=== PATIENT | male | born 1940 | race Caucasian/White ===

== ENCOUNTER 2023-06-27 17:14 | Inpatient (IN) ==
[2023-06-27] MEDS ORDERED: SODIUM CHLORIDE 0.9% 500 ML IV STA ×2 (17:21→17:33)
--- NOTE | 2023-06-27 17:21 | ED Triage Note ---
Date of Service June 27, 2023 History of Present Illness This patient was briefly evaluated while in triage. An abbreviated physical exam was performed. This patient is a 83-year-old Male who presents to the ED for evaluation of atrial fibrillation with RVR. Pt. was at PCP office and states HR was 140 with a-fib. Pt. takes ASA 81mg. Pt. denies chest pain, SOB, lightheadedness, dizziness. Has had palpitations. At PCP because ankles were swollen. Physical Exam VITALS: Vitals are noted on the nurse's note and reviewed by myself. GENERAL: This is an 83 year old male, in no acute distress, nondiaphoretic, well-developed well-nourished. SKIN: No obvious rashes, edema, erythema HEAD: Normocephalic atraumatic. EYES: Conjunctivae without injection, sclerae without icterus. NECK: No JVD. LUNGS: No retractions or accessory muscle use. MUSCULOSKELETAL: Normal gait. NEURO: Patient was alert and oriented to person place and time. No focal neurological deficits. Initial orders for labs and / or imaging were placed and patient was placed in the waiting area until a bed is available. Please see further documentation for the full ED course. MDM / Impression Impression Impression: Atrial fibrillation with rapid ventricular response, Edema, peripheral
[2023-06-27] MEDS ORDERED: MAGNESIUM SULFATE / D5W 1 GM/100 ML BAG IV STA (17:33)
[2023-06-27] MEDS ORDERED: METOPROLOL TARTRATE 1 MG/ML VIAL IV STA ×2 (17:50→18:26)
--- NOTE | 2023-06-27 18:02 | Emergency Department Note ---
Impression & Plan Atrial fibrillation with rapid ventricular response, Edema, peripheral ED Provider Note NAME: YANY CHRISTIANSON AGE: 83 SEX: M : 1940 ARRIVES VIA: Walk-In INFORMANT: Patient, ED PROVIDER(S): Kunal Cook DO CHIEF COMPLAINT: Palpitations HPI: The patient is an 83-year-old male who presented to the emergency department for an evaluation of palpitations. The patient has been having problems with fluid retention leg swelling and weakness over the course of the last few weeks. He denies having any chest pain he has had some shortness of breath with exertion. He went to see his family doctor today and was noted to be in atrial fibrillation. He was referred to the emergency department. He has no history of atrial fibrillation. He states he has no problems with his thyroid as far as he knows. He denies having any fevers. He denies having any coughing. ROS: See above HPI for pertinent positives & negatives. A total of 10 systems reviewed and were otherwise negative. PAST MEDICAL HISTORY: See Below PAST SURGICAL HISTORY: See Below FAMILY HISTORY: See Below SOCIAL HISTORY: See Below HOME MEDICATIONS: See Below ALLERGIES: See Below VITALS: See Below PHYSICAL EXAMINATION: GENERAL: Patient is awake alert in no acute distress patient is resting comfortably and showing no signs of anxiety EYES: The conjunctivae are clear. The pupils are round and reactive. EARS, NOSE, MOUTH AND THROAT: The nose is without any evidence of any deformity. Mucous membranes are moist. Tongue is midline. NECK: The neck is nontender and supple. RESPIRATORY: Normal respiratory effort is noted there is no evidence of wheezing rhonchi or rales CARDIOVASCULAR: Irregular heart sounds were noted to auscultation. There is no definite murmur. Tachycardic rate was noted. GASTROINTESTINAL: The abdomen is soft. Abdomen is nontender. MUSCULOSKELETAL/EXTREMITIES: There is no evidence of gross deformity full range of motion is noted in the hips and shoulders. SKIN: Skin was warm and dry. Pedal edema was noted bilaterally. NEUROLOGIC: Patient is awake alert and oriented x3. MEDICAL DECISION MAKING: The patient is an 83-year-old male who presented to the emergency department for an evaluation of palpitations. The patient was noted to be in atrial fibrillation by his primary care physician. He was sent to the emergency department for further evaluation. He has no history of atrial fibrillation. His previous EKG in our system with sinus rhythm with PACs. I discussed the patient's laboratory and radiographic studies with him. I discussed the diagnosis of atrial fibrillation with him. Ultimately the patient was treated with IV fluids as well as IV Lopressor and IV Cardizem. His rate had improved but his rhythm continues to be A-fib with RVR. For this reason I discussed his condition [facility] They have agreed to evaluate the patient in the emergency department for further management and disposition. The patient was also treated with IV magnesium. Triage Nursing notes reviewed. Prior medical records reviewed Vital Signs: reviewed and remarkable for tachycardia. Differential diagnosis: Premature contractions, electrolyte abnormality, cardiac dysrhythmia, thyroid dysfunction, pulmonary embolism, infection, gastrointestinal, as well as other pathologies. ER treatment provided: See below Diagnostics interpreted by me: ECG: EKG was obtained in the emergency department. My interpretation is atrial fibrillation at [address] segment abnormalities were noted. Low voltage was noted throughout. This was compared to a tracing from May 25, 2023. Sinus rhythm has been replaced with atrial fibrillation compared to the earlier tracing. Cardiac Monitoring: An order was placed for continuous cardiac monitoring. The monitor shows a rate of 110 bpm with A-fib with RVR. Laboratory studies: As stated above and show below. Imaging studies: See below. Radiographic imaging was reviewed by myself Consultation(s): I discussed this case with Dr. Tierney who is [facility]. ED COURSE: Procedures: none Critical Care: I have personally spent greater than 45 minutes of critical care time in the direct management of this patient. This includes bedside care, interpretation of diagnostic studies, and testing, discussion with consultants, patient, and family members, and other required patient management activities. This 45 minutes is in excess of all separately billable procedures. Past Med/Surg History Medical History Acute duodenitis Diabetes High cholesterol Hypertension Social History Smoking Status: Never smoker Preferred Language: Amharic Feels Safe at Home: Yes Results & Data (ED) Vital Signs Vital Signs - 24 hr 06/27/23 17:19 06/27/23 17:39 06/27/23 17:47 Temperature 36.6 C Temperature Source Temporal Artery Scan Pulse Rate 132 H 128 H Pulse Rate [Apical] 145 H Respiratory Rate 18 18 Respiratory Effort / Characteristics Non-Labored Non-Labored Spontaneous Respiratory Depth Normal Normal Respiratory Pattern Regular Blood Pressure 99/56 L Blood Pressure [Right Arm] 128/91 Blood Pressure Mean 70 Blood Pressure Mean [Right Arm] 103 Blood Pressure Position [Right Arm] Lying Pulse Oximetry 95 97 Oxygen Delivery Method Room Air Sepsis New/Unexplained Change in Mental Status N/A Sepsis Action Taken by Nursing Adv Provider Notified 06/27/23 18:00 06/27/23 18:20 06/27/23 18:35 Temperature Temperature Source Pulse Rate 144 H 133 H Pulse Rate [Apical] 139 H Respiratory Rate 18 Respiratory Effort / Characteristics Non-Labored Spontaneous Respiratory Depth Normal Respiratory Pattern Regular Blood Pressure 128/91 106/82 Blood Pressure [Right Arm] 116/79 Blood Pressure Mean Blood Pressure Mean [Right Arm] 91 Blood Pressure Position [Right Arm] Lying Pulse Oximetry 97 Oxygen Delivery Method Room Air Sepsis New/Unexplained Change in Mental Status Sepsis Action Taken by Nursing 06/27/23 18:40 06/27/23 19:06 Temperature Temperature Source Pulse Rate 133 H 121 H Pulse Rate [Apical] Respiratory Rate Respiratory Effort / Characteristics Respiratory Depth Respiratory Pattern Blood Pressure 111/77 Blood Pressure [Right Arm] Blood Pressure Mean Blood Pressure Mean [Right Arm] Blood Pressure Position [Right Arm] Pulse Oximetry Oxygen Delivery Method Sepsis New/Unexplained Change in Mental Status Sepsis Action Taken by Shelter Medications Current Medication List: was personally reviewed by me Laboratory Data Attestation: I reviewed the patient's lab results. 06/27/23 17:40 06/27/23 17:40 Lab Results 06/27/23 06/27/23 06/27/23 Range/Units 17:40 17:40 17:40 WBC 10.87 H (4.8-10.8) K/ul RBC 4.98 (4.70-6.10) M/uL Hgb 14.9 (14.0-18.0) g/dl Hct 44.1 (42.0-52.0) % MCV 88.6 (80.0-100.0) fL MCH 29.9 (25.0-34.0) pg MCHC 33.8 (32.0-36.0) g/dL RDW Std Deviation 53.2 H (36.4-46.3) fL RDW Coeff of Ezekiel 16.7 H (11.5-14.5) % Plt Count 221 (130-400) K/uL MPV 10.2 (9.4-12.4) fL Immature Gran % (Auto) 1.4 % Neut % (Auto) 71.6 % Lymph % (Auto) 15.6 % Ness % (Auto) 9.8 % Eos % (Auto) 1.0 % Baso % (Auto) 0.6 % Neut # (Auto) 7.78 H (1.40-6.50) K/uL Lymph # (Auto) 1.70 (1.20-3.40) K/uL Ness # (Auto) 1.07 H (0.11-0.59) K/uL Eos # (Auto) 0.11 (0.00-0.50) K/uL Baso # (Auto) 0.06 (0.00-0.20) K/uL Immature Gran # (Auto) 0.15 (0.01-0.20) K/uL PT 11.5 (9.0-12.0) Seconds INR 1.1 (0.9-1.1) APTT 25.1 (21.0-31.0) Seconds PTT Ratio 0.9 Sodium 144 (136-145) mmol/L Potassium 4.1 (3.5-5.1) mmol/L Chloride 108 H (98-107) mmol/L Carbon Dioxide 26 (21-32) mmol/L Anion Gap 10 (3-11) BUN 21 (6-23) mg/dl Creatinine 1.17 (0.6-1.4) mg/dl Est Cr Clr Drug Dosing 62.3 ml/min Est GFR ( Amer) 65.5 ml/min Est GFR (Non-Af Amer) 56.5 ml/min BUN/Creatinine Ratio 17.9 (10-20) Glucose 126 H (70-99(Fasting)) mg/dl Calcium 9.2 (8.6-10.3) mg/dl Magnesium 1.8 (1.7-2.4) mg/dl Total Bilirubin 1.2 H (0.2-1.0) mg/dl AST 21 (13-39) U/L ALT 40 (7-52) U/L Alkaline Phosphatase 77 (34-104) U/L Troponin I High Sens 5.9 (0-20) pg/ml Total Protein 6.6 (6.0-8.3) gm/dl Albumin 3.8 (3.4-5.0) gm/dl Globulin 2.8 (2.5-4.0) gm/dl Albumin/Globulin Ratio 1.4 (0.9-2) TSH (0.300-4.500) uIu/ml Free T4 (0.61-1.60) ng/dl Lyme Disease IgG Ab (Negative) Lyme Disease IgM Ab (Negative) 06/27/23 06/27/23 Range/Units 17:40 17:40 WBC (4.8-10.8) K/ul RBC (4.70-6.10) M/uL Hgb (14.0-18.0) g/dl Hct (42.0-52.0) % MCV (80.0-100.0) fL MCH (25.0-34.0) pg MCHC (32.0-36.0) g/dL RDW Std Deviation (36.4-46.3) fL RDW Coeff of Ezekiel (11.5-14.5) % Plt Count (130-400) K/uL MPV (9.4-12.4) fL Immature Gran % (Auto) % Neut % (Auto) % Lymph % (Auto) % Ness % (Auto) % Eos % (Auto) % Baso % (Auto) % Neut # (Auto) (1.40-6.50) K/uL Lymph # (Auto) (1.20-3.40) K/uL Ness # (Auto) (0.11-0.59) K/uL Eos # (Auto) (0.00-0.50) K/uL Baso # (Auto) (0.00-0.20) K/uL Immature Gran # (Auto) (0.01-0.20) K/uL PT (9.0-12.0) Seconds INR (0.9-1.1) APTT (21.0-31.0) Seconds PTT Ratio Sodium (136-145) mmol/L Potassium (3.5-5.1) mmol/L Chloride (98-107) mmol/L Carbon Dioxide (21-32) mmol/L Anion Gap (3-11) BUN (6-23) mg/dl Creatinine (0.6-1.4) mg/dl Est Cr Clr Drug Dosing ml/min Est GFR ( Amer) ml/min Est GFR (Non-Af Amer) ml/min BUN/Creatinine Ratio (10-20) Glucose (70-99(Fasting)) mg/dl Calcium (8.6-10.3) mg/dl Magnesium (1.7-2.4) mg/dl Total Bilirubin (0.2-1.0) mg/dl AST (13-39) U/L ALT (7-52) U/L Alkaline Phosphatase (34-104) U/L Troponin I High Sens (0-20) pg/ml Total Protein (6.0-8.3) gm/dl Albumin (3.4-5.0) gm/dl Globulin (2.5-4.0) gm/dl Albumin/Globulin Ratio (0.9-2) TSH 6.666 H (0.300-4.500) uIu/ml Free T4 0.90 (0.61-1.60) ng/dl Lyme Disease IgG Ab Negative (Negative) Lyme Disease IgM Ab Negative (Negative) Administered Medications Discontinued Medications Diltiazem HCl (Diltiazem Hcl 5 Mg/Ml 5 Ml Vial) 10 mg IV NOW STA Stop: 06/27/23 19:01 Last Admin: 06/27/23 19:06 Dose: 10 mg Documented By: SANCHO Co-signed By: ERAN Sodium Chloride (Nss) 500 mls @ 999 mls/hr IV .Q31M STA Stop: 06/27/23 17:51 Last Infusion: 06/27/23 18:40 Dose: 0 mls/hr Documented By: Admin: 06/27/23 17:46 Dose: 999 mls/hr Documented By: SANCHO Sodium Chloride (Nss) 500 mls @ 999 mls/hr IV .Q31M STA Stop: 06/27/23 18:03 Last Infusion: 06/27/23 19:08 Dose: 0 mls/hr Documented By: Admin: 06/27/23 18:35 Dose: 999 mls/hr Documented By: SANCHO Magnesium Sulfate/Dextrose (Magnesium Sulfate / D5w) 1 gm in 100 mls @ 100 mls/hr IV NOW STA Stop: 06/27/23 18:32 Last Infusion: 06/27/23 19:02 Dose: 0 mls/hr Documented By: Admin: 06/27/23 17:46 Dose: 100 mls/hr Documented By: SANCHO Metoprolol Tartrate (Metoprolol Tartrate 1 Mg/Ml Vial) 5 mg IV NOW STA Stop: 06/27/23 17:51 Last Admin: 06/27/23 18:00 Dose: 5 mg Documented By: SANCHO Metoprolol Tartrate (Metoprolol Tartrate 1 Mg/Ml Vial) 5 mg IV NOW STA Stop: 06/27/23 18:27 Last Admin: 06/27/23 18:35 Dose: 5 mg Documented By: SANCHO Imaging Data Attestation: I personally reviewed and interpreted this imaging study as follows: My Impression: 1 view chest x-ray was obtained in the emergency department. My interpretation is no free air or definite infiltrate, cardiomegaly was noted, final report below. Radiologist's Impression: Chest X-Ray 06/27/23 17:21 XR chest 1V portable CLINICAL HISTORY: Dysrhythmia TECHNIQUE: Single frontal radiograph of the chest was obtained. Comparison: Comparison is made to chest radiograph 05/25/2020 FINDINGS: No lines and tubes are seen. The cardiomediastinal silhouette is normal. The lungs are clear. No evidence of pleural effusion or pneumothorax. IMPRESSION: No acute chest disease. ACT 112: Negative or not required by law. Electronically signed by: Umair Myers M.D. 06/27/2023 6:30 PM Discharge Plan Visit Data Chief Complaint: Cardiac Assessment Stated Complaint: FAST HEART BEAT, REF BY ED Provider: Kunal Cook Discharge Problem: Atrial fibrillation with rapid ventricular response, Edema, peripheral Patient Disposition: Being Evaluated by Hospitalist Forms Stand Alone Forms: [facility] Referrals Referrals: Andree Pearson MD [Primary Care Provider] -
[2023-06-27 18:22] LABS: Basophils # (auto) 0.06 K/uL (0.00-0.20); Basophils % (auto) 0.6 %; Eosinophils # (auto) 0.11 K/uL (0.00-0.50); Hematocrit (blood only) 44.1 % (42.0-52.0); Hemoglobin 14.9 g/dl (14.0-18.0); Immature Granulocytes # (auto) 0.15 K/uL (0.01-0.20); Immature Granulocytes % (auto) 1.4 %; Lymphocytes % (auto) 15.6 %; Mean Corpuscular Hemoglobin 29.9 pg (25.0-34.0); Mean Corpuscular Hgb Conc 33.8 g/dL (32.0-36.0); Mean Corpuscular Volume 88.6 fL (80.0-100.0); Mean Platelet Volume 10.2 fL (9.4-12.4); Monocytes # (auto) 1.07 K/uL (0.11-0.59); Monocytes % (auto) 9.8 %; Neutrophils # (auto) 7.78 K/uL (1.40-6.50); Neutrophils % (auto) 71.6 %; Platelet Count 221 K/uL (130-400); RDW Coefficient of Variation 16.7 % (11.5-14.5); RDW Standard Deviation 53.2 fL (36.4-46.3); Red Blood Count 4.98 M/uL (4.70-6.10); White Blood Count 10.87 K/ul (4.8-10.8)
[2023-06-27] MEDS ORDERED: SODIUM CHLORIDE 0.9% 500 ML IV ONE (18:26)
[2023-06-27 18:28] LABS: Albumin Level 3.8 gm/dl (3.4-5.0); Bilirubin,Total 1.2 mg/dl (0.2-1.0); Calcium 9.2 mg/dl (8.6-10.3); Magnesium 1.8 mg/dl (1.7-2.4); Potassium 4.1 mmol/L (3.5-5.1)
--- NOTE | 2023-06-27 18:31 | XRay Report ---
XR chest 1V portable CLINICAL HISTORY: Dysrhythmia TECHNIQUE: Single frontal radiograph of the chest was obtained. Comparison: Comparison is made to chest radiograph 05/25/2020 FINDINGS: No lines and tubes are seen. The cardiomediastinal silhouette is normal. The lungs are clear. No evid ence of pleural effusion or pneumothorax. IMPRESSION: No acute chest disease. ACT 112: Negative or not required by law. Electronically signed by: Umair Myers M.D. 06/27/2023 6:30 PM
[2023-06-27 18:34] LABS: Albumin Globulin Ratio 1.4 (0.9-2); BUN Creatinine Ratio 17.9 (10-20); Creatinine Clr Calc Pharmacy 62.3 ml/min; Est GFR (African American) 65.5 ml/min; Est GFR (Non-African American) 56.5 ml/min; Globulin 2.8 gm/dl (2.5-4.0); Total Protein 6.6 gm/dl (6.0-8.3)
[2023-06-27 18:36] LABS: Troponin I High Sensitivity 5.9 pg/ml (0-20)
[2023-06-27 18:43] LABS: INR 1.1 (0.9-1.1); Partial Thromboplastin Ratio 0.9; Partial Thromboplastin Time 25.1 Seconds (21.0-31.0); Prothrombin Time 11.5 Seconds (9.0-12.0)
[2023-06-27 18:45] LABS: Thyroid Stimulating Hormone 6.666 uIu/ml (0.300-4.500)
[2023-06-27] MEDS ORDERED: dilTIAZem HCl 5 MG/ML 5 ML VIAL IV STA (19:00)
[2023-06-27 19:04] LABS: Lyme Ab IgG w/WB Rflx Negative (Negative); Lyme Ab IgM w/WB Rflx Negative (Negative)
[2023-06-27 19:19] LABS: T4 Free Thyroxine 0.9 ng/dl (0.61-1.60)
[2023-06-27] MEDS ORDERED: DIGOXIN 500 MCG/2 ML AMP IV ONE ×2 (19:30→20:27)
[2023-06-27] MEDS ORDERED: Patient's ALLERGY Info needs ENTERED STA (19:34)
--- NOTE | 2023-06-27 20:27 | History & Physical Report ---
Date of Service June 27, 2023 Assessment & Plan (1) Atrial fibrillation with rapid ventricular response: Plan: New onset Rule out pulmonary embolism as precipitant given abnormal D-dimer Fluid retention, possible right-sided heart failure secondary to above hx CAD status post stent hypertension, BP on the lower side hyperlipidemia, statin Rx DM2 on oral medications, well-controlled as of recent outpatient hemoglobin A1c of 6.6/December 2022 BPH on Flomax subclinical hypothyroidism past tobacco abuse PCU IV digoxin 1 dose now for rate control given borderline BP Titrate home beta-yolanda carefully (Patient gives history of bradycardia with low doses in the past.) Continue to hold amlodipine, decrease maintenance losartan dose for now given borderline BP IV heparin for thromboembolic prophylaxis CT angio chest, LE venous Dopplers for PE DVT work-up Lasix 1 dose now for fluid retention possible right-sided heart failure TTE, Cardiology consult Re: New onset A-fib Basal bolus insulin ISS BG goal 1 10-1 40, carb count coverage DVT prophylaxis. IV heparin Full code Text document was generated using [employer] voice recognition software. It may contain grammatical or spelling errors. Kindly contact undersigned for clarification of any documentation item in question. History of Present Illness Chief Complaint: Atrial fibrillation Primary Care Provider: PCP from [place] : Dr. Andrea Dallas Local PCP : Andree Pearson MD History obtained from patient and records. Medical history significant for CAD status post stent, hypertension, hyperlipidemia, DM2 on oral medications, BPH, past tobacco abuse. Patient is a resident of [facility] who has been in town since April, to visit family. Contemplating on return to [place] August,. Recent ER visit last month for abdominal pain. Outpatient CT showed duodenitis. Symptoms improved with 1 month course of PPI. Patient with fluid retention, bilateral leg swelling over the last 2 weeks. Patient denies chest pain or palpitations. Admits to shortness of breath mostly on exertion. Right knee pain from osteoarthritis controlled by outpatient injection a few weeks ago No sleep apnea concerns as per patient/family. Compliant with home BP medications except for amlodipine which she has not been able to take the last month because he ran out of pills. Patient seen outpatient by local [facility] physician as per family request. Outpatient EKG showed A-fib. Heart rate 130s. No prior episodes as per patient. Patient directed to ER for evaluation. IV Lopressor and Cardizem boluses administered at the ER. 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 Allergies Allergy/AdvReac Type Severity Reaction Status Date / Time No Known Allergies Allergy Verified 06/27/23 21:00 Home Medications Medication Instructions Recorded Confirmed Type acetaminophen 325 mg tablet 650 mg PO DIRECTED PRN 06/27/23 06/27/23 History (Tylenol) PAIN/FEVER amlodipine 5 mg tablet 5 mg PO BID 06/27/23 06/27/23 History aspirin 81 mg tablet,delayed 81 mg PO DAILY 06/27/23 06/27/23 History release cyanocobalamin (vitamin B-12) 1,000 mcg PO DAILY 06/27/23 06/27/23 History 1,000 mcg tablet (Vitamin B-12) lidocaine 5 % topical patch 2 patch topical DAILY PRN LOWER 06/27/23 06/27/23 History BACK PAIN losartan 100 1 tab PO DAILY 06/27/23 06/27/23 History mg-hydrochlorothiazide 25 mg tablet lutein 20 mg tablet 20 mg PO DAILY 06/27/23 06/27/23 History metformin 500 mg tablet 500 mg PO BID 06/27/23 06/27/23 History metoprolol tartrate 25 mg tablet 12.5 mg PO BID 06/27/23 06/27/23 History multivit with min-folic 1 tab PO DAILY 06/27/23 06/27/23 History acid-lutein 200 mcg-137.5 mcg chewable tablet (Adult Multivitamin (w-lutein)) omega-3 fatty acids 1,000 mg 2,000 mg PO DAILY 06/27/23 06/27/23 History capsule pantoprazole 40 mg tablet,delayed 40 mg PO DAILY 06/27/23 06/27/23 History release simvastatin 40 mg tablet 40 mg PO DAILY 06/27/23 06/27/23 History tamsulosin 0.4 mg capsule (Flomax) 0.4 mg PO BID 06/27/23 06/27/23 History Past Med/Surg History Medical History Acute duodenitis Diabetes High cholesterol Hypertension Social History Smoking Status: Never smoker Preferred Language: Uruguayan Feels Safe at Home: Yes Review of Systems Review of Systems: As per HPI, all other systems reviewed and negative Physical Exam Physical Exam: GENERAL: Comfortable, pleasant, obese, no respiratory distress SKIN: Normal color, warm HEENT: [place] palpebral conjunctivae, no ptosis, moist buccal mucosa NECK : Supple, short neck, no tenderness CHEST : CTA, no tenderness HEART : Irregular, no obvious murmurs ABDOMEN: Some distention, nontender EXTREMITIES : Minimal LE swelling, no LE tenderness, no other conspicuous deformities noted NEUROLOGIC : Coherent, no facial asymmetry, no other gross focality Results & Data Results & Data Vital Signs (Past 12 Hours) Vital Signs Temp Pulse Pulse Resp BP BP Pulse Ox 06/27/23 20:07 124 H 19 123/86 96 06/27/23 19:59 124 H 06/27/23 19:52 115 H 19 113/91 96 06/27/23 19:52 06/27/23 19:06 121 H 111/77 06/27/23 18:40 133 H 06/27/23 18:35 133 H 106/82 06/27/23 18:20 139 H 18 116/79 97 06/27/23 18:00 144 H 128/91 06/27/23 17:47 145 H 18 128/91 97 06/27/23 17:39 128 H 06/27/23 17:19 36.6 C 132 H 18 99/56 L 95 O2 Del Method 06/27/23 20:07 06/27/23 19:59 06/27/23 19:52 06/27/23 19:52 Room Air 06/27/23 19:06 06/27/23 18:40 06/27/23 18:35 06/27/23 18:20 Room Air 06/27/23 18:00 06/27/23 17:47 Room Air 06/27/23 17:39 06/27/23 17:19 Laboratory Results Laboratory Results WBC 10.87 K/ul (4.8-10.8) H 06/27/23 17:40 RBC 4.98 M/uL (4.70-6.10) 06/27/23 17:40 Hgb 14.9 g/dl (14.0-18.0) 06/27/23 17:40 Hct 44.1 % (42.0-52.0) 06/27/23 17:40 MCV 88.6 fL (80.0-100.0) 06/27/23 17:40 MCH 29.9 pg (25.0-34.0) 06/27/23 17:40 MCHC 33.8 g/dL (32.0-36.0) 06/27/23 17:40 RDW Std Deviation 53.2 fL (36.4-46.3) H 06/27/23 17:40 RDW Coeff of Ezekiel 16.7 % (11.5-14.5) H 06/27/23 17:40 Plt Count 221 K/uL (130-400) 06/27/23 17:40 MPV 10.2 fL (9.4-12.4) 06/27/23 17:40 Immature Gran % (Auto) 1.4 % 06/27/23 17:40 Neut % (Auto) 71.6 % 06/27/23 17:40 Lymph % (Auto) 15.6 % 06/27/23 17:40 Lee % (Auto) 9.8 % 06/27/23 17:40 Eos % (Auto) 1.0 % 06/27/23 17:40 Baso % (Auto) 0.6 % 06/27/23 17:40 Neut # (Auto) 7.78 K/uL (1.40-6.50) H 06/27/23 17:40 Lymph # (Auto) 1.70 K/uL (1.20-3.40) 06/27/23 17:40 Lee # (Auto) 1.07 K/uL (0.11-0.59) H 06/27/23 17:40 Eos # (Auto) 0.11 K/uL (0.00-0.50) 06/27/23 17:40 Baso # (Auto) 0.06 K/uL (0.00-0.20) 06/27/23 17:40 Immature Gran # (Auto) 0.15 K/uL (0.01-0.20) 06/27/23 17:40 PT 11.5 Seconds (9.0-12.0) 06/27/23 17:40 INR 1.1 (0.9-1.1) 06/27/23 17:40 APTT 25.1 Seconds (21.0-31.0) 06/27/23 17:40 PTT Ratio 0.9 06/27/23 17:40 Sodium 144 mmol/L (136-145) 06/27/23 17:40 Potassium 4.1 mmol/L (3.5-5.1) 06/27/23 17:40 Chloride 108 mmol/L (98-107) H 06/27/23 17:40 Carbon Dioxide 26 mmol/L (21-32) 06/27/23 17:40 Anion Gap 10 (3-11) 06/27/23 17:40 BUN 21 mg/dl (6-23) 06/27/23 17:40 Creatinine 1.17 mg/dl (0.6-1.4) 06/27/23 17:40 Est Cr Clr Drug Dosing 62.3 ml/min 06/27/23 17:40 Est GFR ( Amer) 65.5 ml/min 06/27/23 17:40 Est GFR (Non-Af Amer) 56.5 ml/min 06/27/23 17:40 BUN/Creatinine Ratio 17.9 (10-20) 06/27/23 17:40 Glucose 126 mg/dl (70-99(Fasting)) H 06/27/23 17:40 Calcium 9.2 mg/dl (8.6-10.3) 06/27/23 17:40 Magnesium 1.8 mg/dl (1.7-2.4) 06/27/23 17:40 Total Bilirubin 1.2 mg/dl (0.2-1.0) H 06/27/23 17:40 AST 21 U/L (13-39) 06/27/23 17:40 ALT 40 U/L (7-52) 06/27/23 17:40 Alkaline Phosphatase 77 U/L (34-104) 06/27/23 17:40 Troponin I High Sens 5.9 pg/ml (0-20) 06/27/23 17:40 Total Protein 6.6 gm/dl (6.0-8.3) 06/27/23 17:40 Albumin 3.8 gm/dl (3.4-5.0) 06/27/23 17:40 Globulin 2.8 gm/dl (2.5-4.0) 06/27/23 17:40 Albumin/Globulin Ratio 1.4 (0.9-2) 06/27/23 17:40 TSH 6.666 uIu/ml (0.300-4.500) H 06/27/23 17:40 Free T4 0.90 ng/dl (0.61-1.60) 06/27/23 17:40 Lyme Disease IgG Ab Negative (Negative) 06/27/23 17:40 Lyme Disease IgM Ab Negative (Negative) 06/27/23 17:40 Impressions Chest X-Ray 06/27/23 17:21 XR chest 1V portable CLINICAL HISTORY: Dysrhythmia TECHNIQUE: Single frontal radiograph of the chest was obtained. Comparison: Comparison is made to chest radiograph 05/25/2020 FINDINGS: No lines and tubes are seen. The cardiomediastinal silhouette is normal. The lungs are clear. No evidence of pleural effusion or pneumothorax. IMPRESSION: No acute chest disease. ACT 112: Negative or not required by law. Electronically signed by: Umair Myers M.D. 06/27/2023 6:30 PM Diagnostic Findings EKG as per my interpretation :Rate 130, A-fib, normal axis, septal infarct, T wave abnormalities septal leads
[2023-06-27] MEDS ORDERED: METOPROLOL TARTRATE 25 MG TAB PO STA (20:37)
[2023-06-27] MEDS ORDERED: Heparin IV Adult Wt-Based Standard *NO* Bolus Protocol IV STA (20:39)
[2023-06-27] MEDS ORDERED: ALBUMIN 25% 25 GM/100 ML VIAL IV ONE (20:45)
[2023-06-27] MEDS ORDERED: FUROSEMIDE INJ 20 MG/2 ML VIAL IV ONE (20:45)
[2023-06-27 21:00] LABS: D Dimer 680 ug/L FEU (0-500)
[2023-06-27] MEDS ORDERED: IOVERSOL 350 MG 125mL Prefilled Syringe IV ONE (21:22)
[2023-06-27] MEDS: HEPARIN SODIUM/DEXTROSE 25,000 UNITS/500 ML BAG IV SCH (21:49)
--- NOTE | 2023-06-27 21:58 | CT Scan Report ---
Exam(s): CTA CHEST IV Amt: 115ml optiray 350 EXAM: CT Angiography Chest With Intravenous Contrast CLINICAL HISTORY: Reason for exam: sob. TECHNIQUE: Axial computed tomographic angiography images of the chest with intravenous contrast. CTDI is 26.87 mGy and DLP is 834.19 mGy-cm. Automated exposure control was utilized for the study. A dose lowering technique was utilized adhering to the principles of ALARA. MIP reconstructed images were created and reviewed. COMPARISON: No relevant prior studies available. FINDINGS: Pulmonary arteries: Unremarkable. No acute pulmonary embolism. Aorta: Atherosclerotic changes of the aorta. No thoracic aortic aneurysm. Lungs: Dependent airspace consolidations, concerning for atelectasis versus mild infiltrate. Pleural space: Unremarkable. No significant effusion. No pneumothorax. Heart: Cardiomegaly. Trace pericardial fluid. No evidence of RV dysfunction. Bones/joints: Degenerative changes of the spine. No acute fracture. No dislocation. Soft tissues: Unremarkable. Lymph nodes: Unremarkable. No enlarged lymph nodes. IMPRESSION: 1. No acute pulmonary embolism. 2. Dependent airspace consolidations, concerning for atelectasis versus mild infiltrate. Electronically signed by: Davian Akins MD 06/27/23 21:57 PM
[2023-06-27] MEDS ORDERED: GLUCAGON FOR INJ 1 MG VIAL SQ PRN (23:10)
[2023-06-27] MEDS ORDERED: PROMETHAZINE HCL 12.5 MG in SODIUM CHLORIDE 0.9% 50 ML IV PRN (23:10)
[2023-06-27] MEDS ORDERED: GLUCOSE 40% GEL 15 GM TUBE PO PRN (23:10)
[2023-06-27] MEDS ORDERED: CARBOHYDRATES FOR HYPOGLYCEMIA PO PRN (23:10)
[2023-06-27] MEDS ORDERED: NITROGLYCERIN SL 0.4 MG/TAB TAB SL PRN (23:10)
[2023-06-27] MEDS ORDERED: DEXTROSE 50% 50 ML SYRINGE IV PRN (23:10)
[2023-06-27] MEDS ORDERED: traMADol HCL 50 MG TABLET PO PRN (23:10)
[2023-06-27] MEDS ORDERED: GLUCOSE 10 TAB/TUBE PO PRN (23:10)
[2023-06-27] MEDS ORDERED: ACETAMINOPHEN 325 MG TAB PO PRN (23:10)
[2023-06-28] MEDS: INSULIN ASPART PER UNIT CHARGE SC SCH ×5 (00:15→21:10)
[2023-06-28] MEDS ORDERED: dilTIAZem HCl 5 MG/ML 5 ML VIAL IV STA (03:05)
--- NOTE | 2023-06-28 03:10 | Ultrasound Report ---
Exam(s): US VENOUS BILATERAL LOWER EXTREMITIES EXAM: US Duplex Bilateral Lower Extremities Veins CLINICAL HISTORY: Reason for exam: leg swelling. TECHNIQUE: Real-time duplex ultrasound scan of the bilateral lower extremity veins integrating B-mode two-dimensional vascular structure, Doppler spectral analysis, color flow Doppler imaging and compression. COMPARISON: No relevant prior studies available. FINDINGS: Veins: No DVT in the visualized veins, including the common femoral, superficial femoral, proximal deep femoral and popliteal veins. The veins demonstrate normal color flow, are normally compressible, with normal phasic flow and/or augmentation response. Soft tissues: No popliteal cyst. IMPRESSION: No DVT, bilateral lower extremities. Electronically signed by: Zaynab Marrero M.D. 06/28/23 02:25 AM
[2023-06-28 05:36] LABS: Partial Thromboplastin Ratio 1.6
[2023-06-28 05:40] LABS: Partial Thromboplastin Time 46.3 Seconds (21.0-31.0)
[2023-06-28 06:34] LABS: Basophils # (auto) 0.05 K/uL (0.00-0.20); Basophils % (auto) 0.5 %; Eosinophils # (auto) 0.19 K/uL (0.00-0.50); Eosinophils % (auto) 1.7 %; Hemoglobin 13.9 g/dl (14.0-18.0); Immature Granulocytes # (auto) 0.15 K/uL (0.01-0.20); Immature Granulocytes % (auto) 1.4 %; Lymphocytes # (auto) 1.89 K/uL (1.20-3.40); Lymphocytes % (auto) 17.2 %; Mean Corpuscular Hemoglobin 30.3 pg (25.0-34.0); Mean Corpuscular Hgb Conc 33.9 g/dL (32.0-36.0); Mean Corpuscular Volume 89.3 fL (80.0-100.0); Mean Platelet Volume 10.1 fL (9.4-12.4); Monocytes % (auto) 10.9 %; Neutrophils # (auto) 7.54 K/uL (1.40-6.50); Neutrophils % (auto) 68.3 %; Platelet Count 179 K/uL (130-400); RDW Coefficient of Variation 16.2 % (11.5-14.5); RDW Standard Deviation 52.4 fL (36.4-46.3); Red Blood Count 4.59 M/uL (4.70-6.10); White Blood Count 11.02 K/ul (4.8-10.8)
[2023-06-28 06:49] LABS: BUN Creatinine Ratio 19.4 (10-20); Calcium 8.7 mg/dl (8.6-10.3); Creatinine Clr Calc Pharmacy 78.3 ml/min; Est GFR (African American) 86.5 ml/min; Est GFR (Non-African American) 74.6 ml/min; Potassium 3.8 mmol/L (3.5-5.1)
[2023-06-28] MEDS ORDERED: METOPROLOL TARTRATE 25 MG TAB PO STA (06:59)
--- NOTE | 2023-06-28 08:58 | Hospitalist Progress Note ---
Date of Service June 28, 2023 Assessment & Plan (1) Atrial fibrillation with rapid ventricular response: Plan: New onset, no evidence of PE, TSH within normal limits, no evidence of infection or ACS. Fluid retention is present but doesn't appear to have acute heart failure. As pointed out in cardiology note, this may be multifactorial given Mobic/amlodipine use. LE swelling resolved with intravenous lasix today. Amlodipine held due to hypotension and fluid retention at this time. Holding HCTZ while given Lasix. Continues on heparin drip with plans to transition to apixaban later this evening. Meloxicam and fish oil has been discontinued. Rate has been difficult to control with oral metoprolol. Intravenous digoxin given overnight. One dose of intravenous Lopressor given this afternoon however rate continues to be in the 130s. Diltiazem drip has been added this evening. We will continue oral metoprolol with this. (2) Edema, peripheral: Plan: As noted above. (3) Hypertension goal BP (blood pressure) < 130/80: Plan: Chronic, stable. Continue current medical therapy. (4) Dyslipidemia, goal LDL below 70: Plan: Chronic stable continue medical management. (5) ASCVD (arteriosclerotic cardiovascular disease): Plan: Chronic, stable. Continue medical management. (6) DMII (diabetes mellitus, type 2): Plan: Chronic, controlled. Continue to hold metformin and administer insulin as needed while admitted. Heparin drip Full code Disposition-continue PCU I spent a total [id number] coordinating, documenting, and providing care for this patient excluding time spent in the performance of separately billed services Radha Malloy DO [facility] Hospitalist Admission and Anticipated Discharge Date Admission Date: June 27, 2023 Subjective 83-year-old man presents with new onset atrial fibrillation with rapid ventricular response. Reports significant fatigue over the last few days and lower extremity edema that has since improved after Lasix administration. Den ies chest pain palpitations or other symptoms at this time. Heart rate elevated in the 130s and Lopressor 2.5 IV given in addition to scheduled p.o. metoprolol. was present at the bedside and all questions were reviewed. Physical Exam Physical Exam: CONSTITUTIONAL: WNWD, vitals as above, generally well-appearing, NAD EYES: normal conjunctivae, no scleral icterus, ENT: external ear and nose normal,MMM NECK: trachea midline, RESPIRATORY: clear to auscultation bilaterally, no crackles, rales or wheezes, normal respiratory effort CARDIOVASCULAR: tachy rate and irregular rhythm, S1 and 2 heard without murmurs, gallops or rubs, no JVD, no peripheral edema CHEST: inspection of chest was normal GASTROINTESTINAL: soft, nontender, ND, no guarding MUSCULOSKELETAL: strength 5/5 throughout, head is normocephalic and atraumatic SKIN: warm and dry, no rashes NEUROLOGIC: CN 2-12 grossly intact, no sensory deficit, normal cognition, normal speech, no tremor PSYCHIATRIC: alert cooperative and oriented to person, place and time. Euthymic mood, makes good eye contact, language grossly intact, recent and remote memory grossly intact. Results & Data Results & Data Vital Signs (Past 12 Hours) Vital Signs Pulse Pulse Resp BP Pulse Ox O2 Del Method O2 Flow Rate 06/28/23 07:11 107 H 06/28/23 06:07 110 H 21 117/95 96 Nasal Cannula 2 06/28/23 04:00 96 H 19 115/71 96 Nasal Cannula 2 06/28/23 03:30 93 H 23 126/98 95 Nasal Cannula 2 06/28/23 03:00 116 H 23 152/103 H 95 Nasal Cannula 2 06/28/23 00:50 126 H 19 94 Room Air 06/28/23 00:00 122 H 21 96 Room Air 06/27/23 22:49 126 H 06/27/23 21:53 122 H 24 133/97 96 Laboratory Results Short CBC 06/27/23 06/28/23 Range/Units 17:40 05:56 WBC 10.87 H 11.02 H (4.8-10.8) K/ul Hgb 14.9 13.9 L (14.0-18.0) g/dl Hct 44.1 41.0 L (42.0-52.0) % Plt Count 221 179 (130-400) K/uL BMP 06/27/23 06/28/23 17:40 05:56 Sodium 144 143 Potassium 4.1 3.8 Chloride 108 H 109 H Carbon Dioxide 26 28 BUN 21 18 Creatinine 1.17 0.93 Glucose 126 H 119 H Calcium 9.2 8.7 Liver Function 06/27/23 Range/Units 17:40 Total Bilirubin 1.2 H (0.2-1.0) mg/dl AST 21 (13-39) U/L ALT 40 (7-52) U/L Alkaline Phosphatase 77 (34-104) U/L Albumin 3.8 (3.4-5.0) gm/dl Diagnostic Findings Chest CTA 06/27/23 21:00 Exam(s): CTA CHEST IV Amt: 115ml optiray 350 EXAM: CT Angiography Chest With Intravenous Contrast CLINICAL HISTORY: Reason for exam: sob. TECHNIQUE: Axial computed tomographic angiography images of the chest with intravenous contrast. CTDI is 26.87 mGy and DLP is 834.19 mGy-cm. Automated exposure control was utilized for the study. A dose lowering technique was utilized adhering to the principles of ALARA. MIP reconstructed images were created and reviewed. COMPARISON: No relevant prior studies available. FINDINGS: Pulmonary arteries: Unremarkable. No acute pulmonary embolism. Aorta: Atherosclerotic changes of the aorta. No thoracic aortic aneurysm. Lungs: Dependent airspace consolidations, concerning for atelectasis versus mild infiltrate. Pleural space: Unremarkable. No significant effusion. No pneumothorax. Heart: Cardiomegaly. Trace pericardial fluid. No evidence of RV dysfunction. Bones/joints: Degenerative changes of the spine. No acute fracture. No dislocation. Soft tissues: Unremarkable. Lymph nodes: Unremarkable. No enlarged lymph nodes. IMPRESSION: 1. No acute pulmonary embolism. 2. Dependent airspace consolidations, concerning for atelectasis versus mild infiltrate. Electronically signed by: Davian Akins MD 06/27/23 21:57 PM Venous Doppler Study 06/27/23 21:00 Exam(s): US VENOUS BILATERAL LOWER EXTREMITIES EXAM: US Duplex Bilateral Lower Extremities Veins CLINICAL HISTORY: Reason for exam: leg swelling. TECHNIQUE: Real-time duplex ultrasound scan of the bilateral lower extremity veins integrating B-mode two-dimensional vascular structure, Doppler spectral analysis, color flow Doppler imaging and compression. COMPARISON: No relevant prior studies available. FINDINGS: Veins: No DVT in the visualized veins, including the common femoral, superficial femoral, proximal deep femoral and popliteal veins. The veins demonstrate normal color flow, are normally compressible, with normal phasic flow and/or augmentation response. Soft tissues: No popliteal cyst. IMPRESSION: No DVT, bilateral lower extremities. Electronically signed by: Zaynab Marrero M.D. 06/28/23 02:25 AM Medications Administered Current Inpatient Medications Acetaminophen (Acetaminophen 325 Mg Tab) 650 mg PO Q4H PRN PRN Reason: Pain or Fever Stop: 07/27/23 23:09 Aspirin (Aspirin 81 Mg Ectab) 81 mg PO DAILY [facility] Stop: 07/28/23 08:59 Cyanocobalamin (Cyanocobalamin (B-12) 500 Mcg Tablet) 1,000 mcg PO DAILY [facility] Stop: 07/28/23 08:59 Dextrose (Dextrose 50% 50 Ml Syringe) 25 - 50 ml IV UD PRN; Protocol PRN Reason: Hypoglycemia Protocol Stop: 07/27/23 23:09 Glucagon (Glucagon For Inj 1 Mg Vial) 1 mg SQ UD PRN; Protocol PRN Reason: Hypoglycemia Protocol Stop: 07/27/23 23:09 Glucose (Glucose 10 Tab/Tube) 4 - 8 tab PO UD PRN; Protocol PRN Reason: Hypoglycemia Treatment Stop: 07/27/23 23:09 Glucose (Glucose 40% Gel 15 Gm Tube) 15 - 30 gm PO UD PRN; Protocol PRN Reason: Hypoglycemia Protocol Stop: 07/27/23 23:09 Heparin Sodium/Dextrose (Heparin Sodium/Dextrose) 25,000 units in 500 mls @ 34 mls/hr IV .[id number] [facility]; Protocol Stop: 07/27/23 20:59 Last Titration: 06/28/23 05:50 Dose: 1,700 units/hr, 34 mls/hr Promethazine HCl 12.5 mg/ (Sodium Chloride) 50.5 mls @ 202 mls/hr IV Q6H PRN PRN Reason: Nausea And Vomiting Stop: 07/27/23 23:09 Insulin Aspart (Insulin Aspart Per Unit Charge) 0 units SC ACHS [facility] Stop: 07/27/23 23:09 Last Admin: 06/28/23 00:15 Dose: Not Given Losartan Potassium (Losartan Potassium 25 Mg Tab) 25 mg PO QAM [facility] Stop: 07/28/23 08:59 Metoprolol Tartrate (Metoprolol Tartrate 25 Mg Tab) 25 mg PO BID [facility] Stop: 07/28/23 20:59 Miscellaneous (Carbohydrates For Hypoglycemia ) 15 - 30 gm PO UD PRN PRN Reason: Hypoglycemia Protocol Stop: 07/27/23 23:09 Nitroglycerin (Nitroglycerin Sl 0.4 Mg/Tab Tab) 0.4 mg SL Q5M PRN PRN Reason: Chest Pain Stop: 07/27/23 23:09 Pantoprazole Sodium (Pantoprazole 40 Mg Tab) 40 mg PO DAILY [facility] Stop: 07/28/23 08:59 Simvastatin (Simvastatin 40 Mg Tab) 40 mg PO DAILY [facility] Stop: 07/28/23 08:59 Tamsulosin HCl (Tamsulosin Hcl 0.4 Mg Cap) 0.4 mg PO BID [facility] Stop: 07/28/23 08:59 Tramadol HCl (Tramadol Hcl 50 Mg Tablet) 25 - 50 mg PO Q4H PRN PRN Reason: Pain Stop: 07/27/23 23:09
[2023-06-28] MEDS ORDERED: SIMVASTATIN 40 MG TAB PO SCH (09:00)
--- NOTE | 2023-06-28 09:16 | Cardiology Consultation ---
Date of Consultation June 28, 2023 Assessment & Plan (1) Atrial fibrillation with rapid ventricular response: (2) Edema, peripheral: (3) ASCVD (arteriosclerotic cardiovascular disease): (4) Dyslipidemia, goal LDL below 70: (5) Hypertension goal BP (blood pressure) < 130/80: Plan ASSESSMENT: 1. New onset atrial fibrillation with a rapid ventricular response. Duration unknown, likely greater than 48 hours. [id number] Score 5 points. 2. Volume overload, appearing to be multifactorial in etiology, with meloxicam, amlodipine, and acute decompensated diastolic congestive heart failure from atrial fibrillation with RVR all likely contributing factors. 3. Recent duodenitis, history of GERD, chart history of microscopic hematuria 4. ASCVD status post NV, PCI of the LAD in September 2008; low risk Lexiscan nuclear stress testing in 2019 5. Hypertension 6. Dyslipidemia 7. Type II diabetes mellitus RECOMMENDATIONS: 1. Continue IV heparin for now, transitioning to Eliquis anticoagulation at 5 mg twice per day prior to discharge. 2. Discontinue fish oils 3. Discontinue meloxicam 4. Avoid all NSAIDs except aspirin 81 mg/day 5. Increase metoprolol tartrate to 25 mg 3 times per day for additional heart rate control 6. Hold amlodipine 10 mg/day due to hypotension and fluid retention, considering future resumption at reduced dosing if needed. 7. Hold HCTZ 8. 20 mg IV furosemide today with oral potassium supplementation 9. Continue PPI for GI prophylaxis given initiation of anticoagulation, recent duodenitis, history of GERD, also with history of microscopic hematuria 10. Possibility of Tachy-Steve Syndrome discussed including the possible future need for permanent pacemaker implantation. 11. Further recommendations pending the above, the results of the resting echocardiogram that was obtained just prior to my evaluation, and the patient's ongoing hospital course. Supervising Physician Co-Signing Physician Notes Supervising Physician Attestation: I have personally performed a history and physical examination on the patient. I agree with the physician case assistant's findings and plan as documented with the following additions. Subjective: Patient without subjective sensation of elevated heart rate. Atrial fibrillation with rapid ventricular spots in the 130s present at the time my assessment in room C12 B , where he had remained in the emergency department as a telemetry overflow patient. No recent symptoms suggestive of angina. Exam: Cardiovascular: Irregular rhythm, no murmurs, trace ankle edema Pulmonary: Lungs clear to auscultation bilaterally Data: As noted above, echocardiogram has been completed, and will be reviewed Assessment and Plan: Atrial fibrillation with rapid ventricular response, unknown duration, but does have EKG performed 05/25/2023 at which time patient was in sinus rhythm. No subjective sensation of palpitations History of coronary heart disease, remote circumflex territory stents in 2007 Recent duodenitis -Stroke prophylaxis: Unfractioned heparin, with plan to transition to Eliquis 5 mg twice daily if affordable -Holding HCTZ and amlodipine -20 mg of IV furosemide -Oral metoprolol for rate control. --Monitor for possible tachybradycardia syndrome. DVT prophylaxis: Unfractioned heparin infusion Daniel Huitron, DO History of Present Illness Reason for Consultation: Atrial fibrillation with a rapid ventricular response Requesting Physician: Dr. Benjamin Attending Physician: Dr. Malloy History of Present Illness ER visit on March 16, 2023 at [facility] in [place], [place] with accel erated hypertension and bradycardia. Metoprolol decreased to 12.5 mg BI. Amlodipine 10 mg/day added for additional blood pressure control Visiting 's sister since March 30, 2023 with plans to return around September 02, [address] Mena, chiropractor, for right knee pain then Dr. Malik the same day, prescribed meloxicam followed by steroid injection with definite improvement. Evaluated at the [facility] ER on May 25, 2023 with acute epigastric pain with imaging revealing duodenitis. Meloxicam discontinued, PPI therapy initiated with improvement/resolution. For at least the last week he has noticed lower extremity peripheral edema and became concerned regarding the possibility of a cardiac issue Saw Dr. Pearson on June 27, 2023 - EKG revealing atrial fibrillation with a rapid ventricular response (138 bpm) and referred to the ER. In the ER patient received IV Lopressor, IV diltiazem, magnesium, and IV heparin then a dose of IV digoxin 250 mcg No chest pain. No palpitations. No change in breathing, chronically short of breath with activity, without resting or nocturnal dyspnea. No cough, chest congestion, orthopnea, or PND. No dizziness or lightheadedness. No near sync ope or syncope. No fevers or chills. Easy bruising noted without significant epistaxis, hemoptysis, melena, hematochezia, or hematuria. on Eliquis Past Medical and Surgical History: ASCVD, NV on September 29, 2008, status post PCI of the LAD with 2 stents Lexiscan nuclear stress testing last in 2019 was described as low risk Hypertension Hyperlipidemia Type II diabetes mellitus GERD BPH with LUTS Kidney stones Kidney cysts Chart history of microscopic hematuria Childhood meningitis Chronic back pain Colonic polyps History of Sheridan's palsy Status post appendectomy Status postcholecystectomy Status post tonsillectomy Status post cataract extraction Past tobacco abuse. Family History: Father with CAD. Mother with cancer. Brother and sister with dementia Social History: Reformed smoker. Alcohol: Social. No illegal drug use. Resident of [place], [place]. 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 Allergies Allergy/AdvReac Type Severity Reaction Status Date / Time No Known Allergies Allergy Verified 06/27/23 21:00 Home Medications Medication Instructions Recorded Confirmed Type acetaminophen 325 mg tablet 650 mg PO DIRECTED PRN 06/27/23 06/27/23 History (Tylenol) PAIN/FEVER amlodipine 5 mg tablet 5 mg PO BID 06/27/23 06/27/23 History aspirin 81 mg tablet,delayed 81 mg PO DAILY 06/27/23 06/27/23 History release cyanocobalamin (vitamin B-12) 1,000 mcg PO DAILY 06/27/23 06/27/23 History 1,000 mcg tablet (Vitamin B-12) lidocaine 5 % topical patch 2 patch topical DAILY PRN LOWER 06/27/23 06/27/23 History BACK PAIN losartan 100 1 tab PO DAILY 06/27/23 06/27/23 History mg-hydrochlorothiazide 25 mg tablet lutein 20 mg tablet 20 mg PO DAILY 06/27/23 06/27/23 History metformin 500 mg tablet 500 mg PO BID 06/27/23 06/27/23 History metoprolol tartrate 25 mg tablet 12.5 mg PO BID 06/27/23 06/27/23 History multivit with min-folic 1 tab PO DAILY 06/27/23 06/27/23 History acid-lutein 200 mcg-137.5 mcg chewable tablet (Adult Multivitamin (w-lutein)) omega-3 fatty acids 1,000 mg 2,000 mg PO DAILY 06/27/23 06/27/23 History capsule pantoprazole 40 mg tablet,delayed 40 mg PO DAILY 06/27/23 06/27/23 History release simvastatin 40 mg tablet 40 mg PO DAILY 06/27/23 06/27/23 History tamsulosin 0.4 mg capsule (Flomax) 0.4 mg PO BID 06/27/23 06/27/23 History Patient History Medical History (Updated 06/28/23 @ 09:19 by Cole Rebolledo) Acute duodenitis Diabetes High cholesterol Hypertension 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 Social History Smoking Status: Former smoker Hx Alcohol Use: Yes Hx Substance Use: No Preferred Language: Lebanese Communication Ability: Effective Clam Dredger Required: No Beliefs That Will Affect Care: None Current Living Situation: Spouse Feels Safe at Home: Yes Review of Systems Review of Systems: Complete review of systems is otherwise as stated above, negative, noncontributory Physical Exam Physical Exam: General: A&Ox3. NAD. Younger than physiological age HENT: Normocephalic. Atraumatic. Eyes: PER. Conjunctiva pink, sclera clear. Neck: No carotid bruits. No JVD. Heart: Somewhat distant heart sounds. Irregularly irregular at 130 bpm. No murmur appreciated. Lungs: Clear to auscultation. Abdomen: +BS. Soft. Nontender. No masses or organomegaly. Extremities: 1+ edema. Rash consistent with tinea. No clubbing. No cyanosis. Limited neurological examination is without focal deficits. Pulses: radial=2/4, posterior tibial=1-2/4. Results & Data Vital Signs (Past 12 Hours) Vital Signs Pulse Pulse Resp BP Pulse Ox O2 Del Method O2 Flow Rate 06/28/23 07:11 107 H 06/28/23 06:07 110 H 21 117/95 96 Nasal Cannula 2 06/28/23 04:00 96 H 19 115/71 96 Nasal Cannula 2 06/28/23 03:30 93 H 23 126/98 95 Nasal Cannula 2 06/28/23 03:00 116 H 23 152/103 H 95 Nasal Cannula 2 06/28/23 00:50 126 H 19 94 Room Air 06/28/23 00:00 122 H 21 96 Room Air 06/27/23 22:49 126 H 06/27/23 21:53 122 H 24 133/97 96 Laboratory Results Cardiac Enzymes 06/27/23 06/27/23 Range/Units 17:40 20:30 AST 21 (13-39) U/L Troponin I High Sens 5.9 (0-20) pg/ml B-Natriuretic Peptide 371 H (0-100) pg/ml Coagulation 06/27/23 06/27/23 06/28/23 Range/Units 17:40 20:30 04:39 PT 11.5 (9.0-12.0) Seconds APTT 25.1 46.3 H* (21.0-31.0) Seconds B-Natriuretic Peptide 371 H (0-100) pg/ml CBC 06/27/23 06/28/23 Range/Units 17:40 05:56 WBC 10.87 H 11.02 H (4.8-10.8) K/ul RBC 4.98 4.59 L (4.70-6.10) M/uL Hgb 14.9 13.9 L (14.0-18.0) g/dl Hct 44.1 41.0 L (42.0-52.0) % Plt Count 221 179 (130-400) K/uL Neut # (Auto) 7.78 H 7.54 H (1.40-6.50) K/uL Lymph # (Auto) 1.70 1.89 (1.20-3.40) K/uL Moore # (Auto) 1.07 H 1.20 H (0.11-0.59) K/uL Eos # (Auto) 0.11 0.19 (0.00-0.50) K/uL Baso # (Auto) 0.06 0.05 (0.00-0.20) K/uL Comprehensive Metabolic Panel 06/27/23 06/28/23 Range/Units 17:40 05:56 Sodium 144 143 (136-145) mmol/L Potassium 4.1 3.8 (3.5-5.1) mmol/L Chloride 108 H 109 H (98-107) mmol/L Carbon Dioxide 26 28 (21-32) mmol/L BUN 21 18 (6-23) mg/dl Creatinine 1.17 0.93 (0.6-1.4) mg/dl Glucose 126 H 119 H (70-99(Fasting)) mg/dl Calcium 9.2 8.7 (8.6-10.3) mg/dl AST 21 (13-39) U/L ALT 40 (7-52) U/L Alkaline Phosphatase 77 (34-104) U/L Total Protein 6.6 (6.0-8.3) gm/dl Albumin 3.8 (3.4-5.0) gm/dl Intake and Output 06/27/23 06/28/23 06/28/23 22:59 06:59 14:59 Intake Total 1100 / 1472.567 372.567 / 1472.567 Balance 1100 / 1472.567 372.567 / 1472.567 Intake: IV 1100 / 1472.567 372.567 / 1472.567 Albumin 25% 25 gm In 100 ml @ 100 / 100 50 mls/hr IV ONE ONE Rx#: [id number] Heparin Sodium/Dextrose 25,000 272.567 / 272.567 units In 500 ml @ 1,700 UNITS/ HR 34 mls/hr IV .[id number] [facility] Rx #:[id number] Magnesium Sulfate / D5w 1 gm In 100 / 100 100 ml @ 100 mls/hr IV NOW STA Rx#:[id number] Sodium Chloride 0.9% 500 ml @ 1000 / 1000 999 mls/hr IV .Q31M [facility] Rx#: [id number] Oral 0 / 0 Other: Weight 115.2 kg 115 kg Weight Measurement Method Chair Scale Built in [facility] Diagnostic Findings EKG on May 25, 2023 personally reviewed, revealed sinus rhythm at 85 bpm with premature supraventricular complexes and junctional escape beat, possible left atrial enlargement, nonspecific ST abnormality. QTc 406 ms. EKG on presentation, June 27, 2023 personally reviewed, revealed atrial fibrillation with a rapid ventricular response, 135 bpm. QTc 456 ms. ER telemetry: Atrial fibrillation throughout with a rapid ventricular response
[2023-06-28] MEDS ORDERED: FUROSEMIDE INJ 20 MG/2 ML VIAL IV ONE (09:37)
[2023-06-28] MEDS ORDERED: POTASSIUM CHLORIDE CRTAB 20 MEQ TABCR PO ONE (09:38)
[2023-06-28] MEDS ORDERED: METOPROLOL TARTRATE 50 MG TAB ONE (10:09)
[2023-06-28] MEDS ORDERED: FUROSEMIDE 40 MG/4 ML VIAL IV ONE (10:14)
[2023-06-28] MEDS: ASPIRIN 81 MG ECTAB PO SCH (10:16)
[2023-06-28] MEDS: CYANOCOBALAMIN (B-12) 500 MCG TABLET PO SCH (10:16)
[2023-06-28] MEDS: LOSARTAN POTASSIUM 25 MG TAB PO SCH (10:17)
[2023-06-28] MEDS: TAMSULOSIN HCL 0.4 MG CAP PO SCH ×2 (10:17→21:02)
[2023-06-28] MEDS: PANTOprazole 40 MG TAB PO SCH (10:17)
[2023-06-28 12:55] LABS: Partial Thromboplastin Ratio 1.4; Partial Thromboplastin Time 39.8 Seconds (21.0-31.0)
[2023-06-28] MEDS: HEPARIN SODIUM/DEXTROSE 25,000 UNITS/500 ML BAG IV SCH (13:29)
[2023-06-28] MEDS ORDERED: METOPROLOL TARTRATE 1 MG/ML VIAL IV STA (14:34)
[2023-06-28] MEDS: METOPROLOL TARTRATE 25 MG TAB PO SCH ×2 (15:59→21:02)
[2023-06-28] MEDS ORDERED: STAT IV Infusion **Titration per Protocol STA (16:40)
[2023-06-28] MEDS ORDERED: dilTIAZem HCL 125 MG in DEXTROSE 5% 100 ML IV SCH (16:45)
--- NOTE | 2023-06-28 17:14 | Anesthesiology Consultation ---
Date of Service June 28, 2023 Assessment & Plan (1) Encounter for pre-operative examination: Chart Review Chart Review: Acceptable Risk for Surgery History Surgery Operation Date: 06/29/23 07:15 Proposed Procedures p Transesophageal Echo w/Anesthesia - Daniel Huitron DO s Cardioversion [place] [employer] w/Anesthesia - Daniel Huitron DO Height/Weight Height: 6 ft 2 in Weight: 115 kg Allergies Allergy/AdvReac Type Severity Reaction Status Date / Time No Known Allergies Allergy Verified 06/27/23 21:00 Medications Home Medications Medication Instructions Recorded Confirmed Last Taken acetaminophen 325 mg tablet 650 mg PO DIRECTED PRN 06/27/23 06/27/23 Unknown (Tylenol) PAIN/FEVER amlodipine 5 mg tablet 5 mg PO BID 06/27/23 06/27/23 Unknown aspirin 81 mg tablet,delayed 81 mg PO DAILY 06/27/23 06/27/23 06/27/23 release cyanocobalamin (vitamin B-12) 1,000 mcg PO DAILY 06/27/23 06/27/23 06/27/23 1,000 mcg tablet (Vitamin B-12) lidocaine 5 % topical patch 2 patch topical DAILY PRN LOWER 06/27/23 06/27/23 Unknown BACK PAIN losartan 100 1 tab PO DAILY 06/27/23 06/27/23 06/27/23 mg-hydrochlorothiazide 25 mg tablet lutein 20 mg tablet 20 mg PO DAILY 06/27/23 06/27/23 06/27/23 metformin 500 mg tablet 500 mg PO BID 06/27/23 06/27/23 06/27/23 08:00 metoprolol tartrate 25 mg tablet 12.5 mg PO BID 06/27/23 06/27/23 06/27/23 08:00 multivit with min-folic 1 tab PO DAILY 06/27/23 06/27/23 06/27/23 acid-lutein 200 mcg-137.5 mcg chewable tablet (Adult Multivitamin (w-lutein)) omega-3 fatty acids 1,000 mg 2,000 mg PO DAILY 06/27/23 06/27/23 06/27/23 capsule pantoprazole 40 mg tablet,delayed 40 mg PO DAILY 06/27/23 06/27/23 06/27/23 release simvastatin 40 mg tablet 40 mg PO DAILY 06/27/23 06/27/23 06/27/23 tamsulosin 0.4 mg capsule (Flomax) 0.4 mg PO BID 06/27/23 06/27/23 06/27/23 08:00 Active Medications Generic Name Dose Route Start Last Admin Trade Name Leonides PRN Reason Stop Dose Admin Aspirin 81 mg 06/28/23 09:00 06/28/23 10:16 Aspirin 81 Mg Ectab PO 07/28/23 08:59 81 mg DAILY PENNY Administration Cyanocobalamin 1,000 mcg 06/28/23 09:00 06/28/23 10:16 Cyanocobalamin (B-12) 500 Mcg Tablet PO 07/28/23 08:59 1,000 mcg DAILY PENNY Administration Heparin Sodium/Dextrose 25,000 units in 500 mls @ 36 mls/hr 06/27/23 21:00 06/28/23 13:29 Heparin Sodium/Dextrose IV 06/28/23 20:59 1,800 units/hr .[id number] PENNY 36 mls/hr Administration Protocol 1,800 UNITS/HR Diltiazem HCl 125 mg/ Dextrose 125 mls @ 5 mls/hr 06/28/23 16:45 06/28/23 17:05 IV 07/28/23 16:44 5 mg/hr .Q24H PENNY 5 mls/hr Administration Protocol 5 MG/HR Insulin Aspart 0 units 06/27/23 23:10 06/28/23 16:00 Insulin Aspart Per Unit Charge SC 07/27/23 23:09 Not Given ACHS PENNY Losartan Potassium 25 mg 06/28/23 09:00 06/28/23 10:17 Losartan Potassium 25 Mg Tab PO 07/28/23 08:59 25 mg QAM PENNY Administration Metoprolol Tartrate 25 mg 06/28/23 14:00 06/28/23 15:59 Metoprolol Tartrate 25 Mg Tab PO 07/28/23 13:59 25 mg TID PENNY Administration Pantoprazole Sodium 40 mg 06/28/23 09:00 06/28/23 10:17 Pantoprazole 40 Mg Tab PO 07/28/23 08:59 40 mg DAILY PENNY Administration Tamsulosin HCl 0.4 mg 06/28/23 09:00 06/28/23 10:17 Tamsulosin Hcl 0.4 Mg Cap PO 07/28/23 08:59 0.4 mg BID PENNY Administration Past Medical History Medical History (Updated 06/28/23 @ 17:14 by Quan Botello MD) Acute duodenitis Atrial fibrillation with rapid ventricular response Diabetes High cholesterol Hypertension 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 Past Surgical History Surgical History (Updated 06/28/23 @ 17:13 by Quan Botello MD) No pertinent past surgical history Social History Smoking Status: Former smoker Hx Alcohol Use: Yes alcohol intake frequency: holidays/special occasions only Hx Substance Use: No Physical Exam Vital Signs Last Vital Signs Temp 36.6 C 06/27/23 17:19 Pulse 125 H 06/28/23 16:35 Resp 24 06/28/23 16:00 BP 120/95 06/28/23 16:00 Pulse Ox 97 06/28/23 14:30 O2 Del Method Room Air 06/28/23 14:30 O2 Flow Rate 2 06/28/23 12:30 Testing Laboratory Results 06/28/23 05:56 06/28/23 05:56 PT 11.5 Seconds (9.0-12.0) 06/27/23 17:40 INR 1.1 (0.9-1.1) 06/27/23 17:40 APTT 39.8 Seconds (21.0-31.0) H 06/28/23 12:05 06/28/23 06/28/23 06/28/23 15:49 13:04 09:41 POC Glucose 131 H 96 182 H Electrocardiogram Date: 06/27/23 Findings: + AFIB @ (135) Echocardiogram Date: 06/28/23 EF: 55-60% Valvular Disease: + no significant valvular disease
--- NOTE | 2023-06-28 17:30 | Communication Note ---
Date of Service: June 28, 2023 Patient remains in atrial fibrillation with rapid ventricular sponsor at 140 bpm. Only symptoms seem to be the minimal lower extremity edema that he has recently noticed. Echocardiogram reveals normal biventricular systolic function. Plan: Start diltiazem 5 mg/h IV infusion without bolus Continue oral metoprolol With regards to stroke prophylaxis, the patient is familiar with Eliquis as his spouse actually takes it for atrial fibrillation. At 2100 tonight, we will discontinue heparin and start Eliquis. Patient is to be n.p.o. after midnight with plans for CHRISTINA cardioversion tomorrow if he remains in atrial fibrillation. Discussed in detail with patient and he is agreeable. I went over the orders with the patient's nurse.
--- NOTE | 2023-06-28 18:52 | Electrocardiogram Report ---
Test Reason : Blood Pressure : / mmHG Vent. Rate : 135 BPM Atrial Rate : 000 BPM P-R Int : 000 ms QRS Dur : 082 ms QT Int : 304 ms P-R-T Axes : 000 046 056 degrees QTc Int : 456 ms Atrial fibrillation with rapid ventricular response Abnormal ECG When compared with ECG of 25-MAY-2023 20:33, Atrial fibrillation has replaced Sinus rhythm Vent. rate has increased BY 50 BPM Confirmed by Jasvir Emery ([id number]) on 06/28/2023 6:51:50 PM Referred By: Andree Pearson Confirmed By:José Emery
[2023-06-28] MEDS ORDERED: METOPROLOL TARTRATE 25 MG TAB PO SCH (21:00)
[2023-06-28] MEDS: APIXABAN 5 MG TABLET PO SCH (21:03)
[2023-06-29] MEDS: NYSTATIN CR 15 GM TUBE EXT SCH ×2 (00:09→08:57)
[2023-06-29 06:41] LABS: Hematocrit (blood only) 40.7 % (42.0-52.0); Hemoglobin 13.7 g/dl (14.0-18.0); Mean Corpuscular Hemoglobin 29.8 pg (25.0-34.0); Mean Corpuscular Hgb Conc 33.7 g/dL (32.0-36.0); Mean Corpuscular Volume 88.7 fL (80.0-100.0); Platelet Count 178 K/uL (130-400); RDW Standard Deviation 51.8 fL (36.4-46.3); Red Blood Count 4.59 M/uL (4.70-6.10); White Blood Count 9.83 K/ul (4.8-10.8)
[2023-06-29 06:52] LABS: BUN Creatinine Ratio 21.4 (10-20); Calcium 8.4 mg/dl (8.6-10.3); Creatinine Clr Calc Pharmacy 73.8 ml/min; Est GFR (African American) 81.2 ml/min; Magnesium 1.9 mg/dl (1.7-2.4); Potassium 3.8 mmol/L (3.5-5.1)
--- NOTE | 2023-06-29 07:07 | History & Physical Bridge Note ---
Date of Service June 29, 2023 History & Physical Bridge Note I have examined the patient, reviewed the History & Physical and in the interval since the performance of the History & Physical I have noted the following changes of clinical significance: no changes noted
[2023-06-29] MEDS ORDERED: BENZOCAINE/TETRACAIN/BUTAM 50 APPLN/5 GM CAN EXT ONE (07:12)
--- NOTE | 2023-06-29 07:49 | Post Operative Brief Note ---
Cardiology Brief Post Op Date of Surgery June 29, 2023 Pre & Post Diagnosis Operation Date: 06/29/23 07:15 Preprocedure diagnosis: Atrial fibrillation with rapid ventricular response, rule out left atrial appendage thrombus Post procedure diagnosis: No left atrial or left atrial appendage thrombus, successful conversion to sinus rhythm Procedure Transesophageal echocardiogram guided direct-current cardioversion procedure note: After informed consent was obtained and timeout was performed the patient was sedated the assistance of the anesthesia service. The patient underwent a focused transesophageal echocardiogram for the purpose of risk stratification. No left atrial or left atrial appendage thrombus was observed. The patient then underwent direct-current cardioversion receiving a single dose of 200 J of synchronized biphasic energy with successful conversion to sinus bradycardia. Plan: Stroke prophylaxis: Continue Eliquis, next dose due by 9 AM, as soon as patient's gag reflex returns we will administer. 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 IV diltiazem was discontinued just before the procedure. Prior to hospitalization dose of the Toprol tartrate was 12.5 mg twice daily. Will resume this dose as well as amiodarone 200 mg daily. Dust Collector Daniel Huitron DO End Frazer Gabriella Kwan, BULMARO Estimated Blood Loss 0 Findings Consistent with Post-Op Diagnosis as noted above Anesthesia Type MAC Complications none
--- NOTE | 2023-06-29 07:56 | Cardiology Progress Note ---
Date of Service June 29, 2023 Assessment & Plan (1) Atrial fibrillation with rapid ventricular response: (2) Edema, peripheral: (3) ASCVD (arteriosclerotic cardiovascular disease): (4) Dyslipidemia, goal LDL below 70: (5) Hypertension goal BP (blood pressure) < 130/80: Plan ASSESSMENT: 1. New onset atrial fibrillation with a rapid ventricular response. Duration unknown, likely greater than 48 hours. [id number] Score 5 points. 2. Volume overload, appearing to be multifactorial in etiology, with meloxicam, amlodipine, and acute decompensated diastolic congestive heart failure from atrial fibrillation with RVR all likely contributing factors. 3. Recent duodenitis, history of GERD, chart history of microscopic hematuria 4. ASCVD status post SC, PCI of the LAD in September 2008; low risk Lexiscan nuclear stress testing in 2019 5. Hypertension 6. Dyslipidemia 7. Type II diabetes mellitus RECOMMENDATIONS: Stroke prophylaxis: Eliquis 5 mg twice daily. Spouse is on this medication, so anticipate that it would be affordable for him Rate/rhythm control: Patient's prior to hospital dose of metoprolol tartrate was 12.5 mg twice daily. We will continue this dose. If heart rate allows later this morning plan to add amiodarone 200 mg daily with caution given findings suggestive of borderline tachycardia-bradycardia syndrome. Liver function test performed on admission within normal limits. TSH was mildly elevated 6.66 IU/L, with normal T4. Chest x-ray without concerning findings in terms of evaluation prior to consideration of amiodarone. Anticipate need to resume diuretic, perhaps furosemide 20 mg daily for control of edema and blood pressure. We will likely wean amlodipine to 5 mg 1 time per day or discontinue altogether in an effort to avoid side effect of edema. Based on blood pressures, does appear that he needs significant blood pressure control. As an alternative, 1 option may be to increase his losartan. Further input with regards to discharge medications to be made today today after he recovers from the procedure. Admission and Anticipated Discharge Date Admission Date: June 27, 2023 Subjective Patient seen prior to, during, post CHRISTINA guided cardioversion. Patient remained in atrial fibrillation with rapid ventricular response with resting ventricular rate in the 120s to 130s last night despite addition of diltiazem infusion. Review of Systems Review of Systems: All systems reviewed & are unremarkable except as noted in HPI & below Physical Exam Constitutional: WD/WN, vitals as above Respiratory: normal respiratory effort, lungs clear to auscultation Cardiovascular: Rate/Rhythm: regular rate Vessels: no JVD Extremities: + edema (Trace ankle edema) Gastrointestinal (Abdomen): normal bowel sounds, soft, nontender, no hepatosplenomegaly Neurologic: PERRL, EOMI, accommodation nl, no face palsy, no dysarthria Results & Data Vital Signs (Past 12 Hours) Vital Signs Temp Pulse Pulse Resp BP BP Pulse Ox 06/29/23 07:11 134 H 12 151/99 H 98 06/29/23 03:02 36.5 C 123 H 20 115/81 94 06/28/23 23:00 129 H 06/28/23 23:59 36.5 C 119 H 18 114/73 91 06/28/23 23:00 36.5 C 124 H 18 125/79 93 06/28/23 22:45 06/28/23 22:00 110 H 20 124/79 96 06/28/23 20:21 131 H 126/88 93 06/28/23 20:00 136 H 18 111/83 92 O2 Del Method 06/29/23 07:11 Room Air 06/29/23 03:02 Room Air 06/28/23 23:00 06/28/23 23:59 Room Air 06/28/23 23:00 Room Air 06/28/23 22:45 Room Air 06/28/23 22:00 Room Air 06/28/23 20:21 Room Air 06/28/23 20:00 Room Air Laboratory Results Coagulation 06/28/23 Range/Units 12:05 APTT 39.8 H (21.0-31.0) Seconds CBC 06/29/23 Range/Units 06:10 WBC 9.83 (4.8-10.8) K/ul RBC 4.59 L (4.70-6.10) M/uL Hgb 13.7 L (14.0-18.0) g/dl Hct 40.7 L (42.0-52.0) % Plt Count 178 (130-400) K/uL Comprehensive Metabolic Panel 06/29/23 Range/Units 06:10 Sodium 141 (136-145) mmol/L Potassium 3.8 (3.5-5.1) mmol/L Chloride 107 (98-107) mmol/L Carbon Dioxide 27 (21-32) mmol/L BUN 21 (6-23) mg/dl Creatinine 0.98 (0.6-1.4) mg/dl Glucose 126 H (70-99(Fasting)) mg/dl Calcium 8.4 L (8.6-10.3) mg/dl Intake and Output 06/28/23 06/29/23 06/29/23 22:59 06:59 14:59 Intake Total 120 / 690.033 342.6 / 690.033 Output Total 600 / 900 300 / 900 Balance -480 / -209.967 42.6 / -209.967 Intake: IV 342.6 / 570.033 Heparin Sodium/Dextrose 25,000 342.6 / 570.033 units In 500 ml @ 1,800 UNITS/ HR 36 mls/hr IV .[id number] [facility] Rx #:[id number] Oral 120 / 120 Output: Urine 600 / 900 300 / 900 Other: Other Intake Source NPO # Unmeasured Voids 1 Weight 113.5 kg 113.5 kg Weight Measurement Method Built in [facility] Patient Weight 06/30/23 06:59 Weight 113.5 kg
[2023-06-29] MEDS ORDERED: PROPOFOL IV EMULSION 10 MG/ML 20 ML VIAL IV ONE (07:57)
[2023-06-29] MEDS ORDERED: LIDOCAINE 2% 2 ML VIAL/AMP(20MG/ML) INFIL ONE (07:57)
[2023-06-29] MEDS: APIXABAN 5 MG TABLET PO SCH (08:47)
[2023-06-29] MEDS: INSULIN ASPART PER UNIT CHARGE SC SCH ×3 (08:51→17:18)
[2023-06-29] MEDS: CYANOCOBALAMIN (B-12) 500 MCG TABLET PO SCH (08:54)
[2023-06-29] MEDS: LOSARTAN POTASSIUM 25 MG TAB PO SCH (08:54)
[2023-06-29] MEDS ORDERED: ROSUVASTATIN CALCIUM 10 MG TAB PO SCH (09:00)
[2023-06-29] MEDS ORDERED: METOPROLOL TARTRATE 25 MG TAB PO SCH (09:00)
[2023-06-29] MEDS: ASPIRIN 81 MG ECTAB PO SCH (10:04)
[2023-06-29] MEDS: PANTOprazole 40 MG TAB PO SCH (10:05)
--- NOTE | 2023-06-29 10:52 | Anesthesiology Progress Note ---
Date of Service June 29, 2023 Anesthesia Post Procedure Vital Signs Vital Signs: Temp Pulse Pulse Pulse Resp BP BP 06/29/23 09:03 36.5 C 61 18 158/90 H 06/29/23 08:48 36.4 C L 63 14 06/29/23 08:00 36.5 C 52 L 20 06/29/23 08:15 52 L 20 06/29/23 07:45 50 L 22 06/29/23 07:11 134 H 12 151/99 H 06/29/23 03:02 36.5 C 123 H 20 06/28/23 23:00 129 H 06/28/23 23:59 36.5 C 119 H 18 06/28/23 23:00 36.5 C 124 H 18 06/28/23 22:45 06/28/23 22:00 110 H 20 06/28/23 20:21 131 H 126/88 06/28/23 20:00 136 H 18 111/83 06/28/23 19:30 105 H 22 116/89 06/28/23 19:00 133 H 20 111/91 06/28/23 18:50 137 H 17 114/86 06/28/23 18:22 141 H 22 126/89 06/28/23 17:30 138 H 20 108/89 06/28/23 17:08 131 H 24 106/74 06/28/23 17:00 134 H 23 121/90 06/28/23 16:40 139 H 20 123/93 06/28/23 16:31 125 H 19 116/77 06/28/23 16:20 134 H 23 111/93 06/28/23 16:00 139 H 24 120/95 06/28/23 15:56 133 H 23 113/79 06/28/23 15:50 131 H 24 111/76 06/28/23 15:46 127 H 22 101/71 06/28/23 15:35 129 H 24 112/87 06/28/23 15:28 145 H 24 102/83 06/28/23 15:25 121 H 18 109/75 06/28/23 15:22 131 H 20 109/82 06/28/23 15:00 135 H 22 114/94 06/28/23 16:35 125 H 06/28/23 15:09 141 H 114/94 06/28/23 14:30 127 H 20 06/28/23 14:30 108/86 06/28/23 14:00 121 H 17 06/28/23 14:00 104/79 06/28/23 13:30 130 H 20 06/28/23 13:30 135/99 06/28/23 13:00 133 H 22 06/28/23 13:00 121/99 06/28/23 12:30 122 H 21 06/28/23 12:30 106/82 06/28/23 12:00 137 H 22 06/28/23 12:00 108/80 06/28/23 11:31 148 H 20 06/28/23 11:31 95/79 L 06/28/23 11:30 128 H 21 06/28/23 11:00 105 H 24 06/28/23 11:00 127/90 BP Pulse Ox O2 Del Method O2 Flow Rate 06/29/23 09:03 97 Room Air 06/29/23 08:48 144/82 H 98 Room Air 06/29/23 08:00 147/79 H 94 Room Air 06/29/23 08:15 147/79 H 94 Room Air 06/29/23 07:45 119/60 96 Room Air 06/29/23 07:11 98 Room Air 06/29/23 03:02 115/81 94 Room Air 06/28/23 23:00 06/28/23 23:59 114/73 91 Room Air 06/28/23 23:00 125/79 93 Room Air 06/28/23 22:45 Room Air 06/28/23 22:00 124/79 96 Room Air 06/28/23 20:21 93 Room Air 06/28/23 20:00 92 Room Air 06/28/23 19:30 06/28/23 19:00 06/28/23 18:50 92 Room Air 06/28/23 18:22 94 Room Air 06/28/23 17:30 92 Room Air 06/28/23 17:08 94 Room Air 06/28/23 17:00 94 Room Air 06/28/23 16:40 92 Room Air 06/28/23 16:31 93 Room Air 06/28/23 16:20 92 Room Air 06/28/23 16:00 06/28/23 15:56 06/28/23 15:50 06/28/23 15:46 06/28/23 15:35 06/28/23 15:28 06/28/23 15:25 06/28/23 15:22 06/28/23 15:00 06/28/23 16:35 06/28/23 15:09 06/28/23 14:30 97 Room Air 06/28/23 14:30 06/28/23 14:00 97 Room Air 06/28/23 14:00 06/28/23 13:30 95 Room Air 06/28/23 13:30 06/28/23 13:00 06/28/23 13:00 06/28/23 12:30 97 Nasal Cannula 2 06/28/23 12:30 06/28/23 12:00 97 Nasal Cannula 2 06/28/23 12:00 06/28/23 11:31 96 Nasal Cannula 2 06/28/23 11:31 06/28/23 11:30 06/28/23 11:00 96 Nasal Cannula 2 06/28/23 11:00 88 L Room Air Transfer of Care Handoff Completed per policy Notes Mental Status: alert / awake / arousable and participated in evaluation Patient Amnestic to Procedure: Yes Nausea / Vomiting: adequately controlled Pain: adequately controlled Airway Patency, RR, SpO2: stable & adequate BP & HR: stable & adequate Hydration State: stable & adequate Anesthetic Complications: no major complications apparent
[2023-06-29] MEDS: TAMSULOSIN HCL 0.4 MG CAP PO SCH (11:05)
[2023-06-29] MEDS ORDERED: AMIODARONE 200 MG TAB PO ONE (15:23)
--- NOTE | 2023-06-29 15:28 | Communication Note ---
Date of Service: June 29, 2023 Pt reassessed. SR in 50-60s noted while resting in bedside chair. Pt stable for discharge on the following medications: Eliquis 5 mg two times per day, next dose tonight at 2100. Metoprolol succinate 25 mg daily (replaces tartrate 12.5 mg BID) Amiodarone 200 mg one daily (new) Discontinue [employer] HCTZ furosemide 20 mg daily losartan not change in prior home dose flomax 0.4 mg daily ASA 81 mg daily (given h/o CAD , stent) rosuvastatin 10 mg (replaces simvastatin given amiodarone therapy) Stop Amlodipine Will arrange cardiology follow up
--- NOTE | 2023-06-29 15:52 | Discharge Summary ---
Discharge Summary Date of Service June 29, 2023 Notes For Next Care Provider New onset atrial fibrillation status post CHRISTINA cardioversion with subsequent successful conversion to sinus rhythm Medication Changes From Visit Please see med rec Admission HPI Per Admitting Provider History obtained from patient and records. Medical history significant for CAD status post stent, hypertension, hyperlipidemia, DM2 on oral medications, BPH, past tobacco abuse. Patient is a resident of [facility] who has been in town since April, to visit family. Contemplating on return to [place] August,. Recent ER visit last month for abdominal pain. Outpatient CT showed duodenitis. Symptoms improved with 1 month course of PPI. Patient with fluid retention, bilateral leg swelling over the last 2 weeks. Patient denies chest pain or palpitations. Admits to shortness of breath mostly on exertion. Right knee pain from osteoarthritis controlled by outpatient injection a few weeks ago No sleep apnea concerns as per patient/family. Compliant with home BP medications except for amlodipine which she has not been able to take the last month because he ran out of pills. Patient seen outpatient by local [facility] physician as per family request. Outpatient EKG showed A-fib. Heart rate 130s. No prior episodes as per patient. Patient directed to ER for evaluation. IV Lopressor and Cardizem boluses administered at the ER. 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 Admission Exam Per Admitting Provider GENERAL: Comfortable, pleasant, obese, no respiratory distress SKIN: Normal color, warm HEENT: [place] palpebral conjunctivae, no ptosis, moist buccal mucosa NECK : Supple, short neck, no tenderness CHEST : CTA, no tenderness HEART : Irregular, no obvious murmurs ABDOMEN: Some distention, nontender EXTREMITIES : Minimal LE swelling, no LE tenderness, no other conspicuous deformities noted NEUROLOGIC : Coherent, no facial asymmetry, no other gross focality Principal Dx & Hospital Course #1 = Principal Diagnosis (1) Atrial fibrillation with rapid ventricular response: Acute HFpEFin the setting of atrial for with RVR (2) Edema, peripheral: As noted above. (3) Hypertension goal BP (blood pressure) < 130/80: Chronic, stable. Continue current medical therapy. (4) Dyslipidemia, goal LDL below 70: Chronic stable continue medical management. (5) ASCVD (arteriosclerotic cardiovascular disease): Chronic, stable. Continue medical management. (6) DMII (diabetes mellitus, type 2): Chronic, controlled. Continue to hold metformin and administer insulin as needed while admitted. Plan 83-year-old man admitted with new onset n atrial fibrillation. New onset, no evidence of PE, TSH within normal limits, no evidence of infection or ACS. Fluid retention is present, possible acute heart failure? As pointed out in cardiology note, this may be multifactorial given Mobic/amlodipine use. LE swelling resolved with intravenous lasix. Amlodipine held due to hypotension and fluid retention at this time. Holding HCTZ while given Lasix. Continued on heparin drip with plans to transition to apixaban. Insurance would only approve Xarelto, so he went home on this. Meloxicam and fish oil was been discontinued. Rate was been difficult to control with oral metoprolol. Intravenous digoxin given overnight for additional rate control with subsequent diltiazem drip was required. On June 29 he underwent a CHRISTINA cardioversion with successful conversion to sinus rhythm. Heart rate remained in the 50s to 60s while resting in the bedside chair. He was stable for discharge on the following medications. Xarelto 20 mg nightly, metoprolol succinate replaced tartrate at 25 mg daily, amiodarone 200 mg once daily as a new medicine, furosemide 20 mg daily replaced initial HCTZ, continues on losartan 100 mg p.o. daily, continues on aspirin 81 mg daily given history of CAD and stent, rosuvastatin 10 mg daily replaces simvastatin given amiodarone therapy. Amlodipine was stopped with peripheral edema. Outpatient cardiology follow-up was recommended. He was discharged home in stable condition. He and his verbalized understanding of discharge recommendations. Discharge Exam CONSTITUTIONAL: WNWD, vitals as above, generally well-appearing, NAD EYES: normal conjunctivae, no scleral icterus, ENT: external ear and nose normal,MMM NECK: trachea midline, RESPIRATORY: clear to auscultation bilaterally, no crackles, rales or wheezes, normal respiratory effort CARDIOVASCULAR: tachy rate and irregular rhythm, S1 and 2 heard without murmurs, gallops or rubs, no JVD, no peripheral edema CHEST: inspection of chest was normal GASTROINTESTINAL: soft, nontender, ND, no guarding MUSCULOSKELETAL: strength 5/5 throughout, head is normocephalic and atraumatic SKIN: warm and dry, no rashes NEUROLOGIC: CN 2-12 grossly intact, no sensory deficit, normal cognition, normal speech, no tremor PSYCHIATRIC: alert cooperative and oriented to person, place and time. Euthymic mood, makes good eye contact, language grossly intact, recent and remote memory grossly intact. Updated Medication List Medication Instructions Recorded Confirmed Type acetaminophen 325 mg tablet 650 mg PO DIRECTED PRN 06/27/23 06/27/23 History (Tylenol) PAIN/FEVER aspirin 81 mg tablet,delayed 81 mg PO DAILY 06/27/23 06/27/23 History release cyanocobalamin (vitamin B-12) 1,000 mcg PO DAILY 06/27/23 06/27/23 History 1,000 mcg tablet (Vitamin B-12) lidocaine 5 % topical patch 2 patch topical DAILY PRN LOWER 06/27/23 06/27/23 History BACK PAIN lutein 20 mg tablet 20 mg PO DAILY 06/27/23 06/27/23 History metformin 500 mg tablet 500 mg PO BID 06/27/23 06/27/23 History multivit with min-folic 1 tab PO DAILY 06/27/23 06/27/23 History acid-lutein 200 mcg-137.5 mcg chewable tablet (Adult Multivitamin (w-lutein)) pantoprazole 40 mg tablet,delayed 40 mg PO DAILY 06/27/23 06/27/23 History release tamsulosin 0.4 mg capsule (Flomax) 0.4 mg PO BID 06/27/23 06/27/23 History amiodarone 200 mg tablet 200 mg PO DAILY #30 tabs 06/29/23 Rx furosemide 20 mg tablet (Lasix) 20 mg PO DAILY #30 tabs 06/29/23 Rx losartan 100 mg tablet 100 mg PO DAILY #30 tabs 06/29/23 Rx metoprolol succinate 25 mg 25 mg PO QAM #30 tabs 06/29/23 Rx tablet,extended release 24 hr rivaroxaban 20 mg tablet (Xarelto) 20 mg PO HS #30 tabs 06/29/23 Rx rosuvastatin 10 mg tablet 10 mg PO QAM #30 tabs 06/29/23 Rx Hospital Stay Data Consultations 06/27/23 19:20 ED Decision to Admit Stat 06/27/23 23:10 Consult Cardiology Routine 06/28/23 16:46 Consult Anesthesiology Routine Procedures Performed Operation Date: 06/29/23 07:15 Actual Procedures p Echo Transesophageal - DO ab Steiner Echo Doppler Complete - DO ab Steiner Cardioversion - Daniel Huitron DO Diagnostic Imagining Performed 06/27/23 21:00 CT angio chest PE protocol Stat US venous doppler LE BI Stat Pending Results Patient Have Any Pending Studies at Discharge: No Discharge Instructions Given to Patient (Per Discharging Provider) Please take all medications as instructed on discharge list below. It is recommended that you follow-up with your primary care physician within one week of discharge from the hospital to ensure you are doing well on your new medications. Please follow-up with [facility] Cardiology in 4-6 weeks for your new diagnosis of atrial fibrillation. As you are now on apixaban, which is a blood thinner, please use other blood thinners such as Motrin, Ibuprofen, Naproxen, etc only with permission from your doctor. If you endure any head trauma please seek immediate medical attention to ensure there is no bleeding in your brain. It was a pleasure taking care of you! Please call if you have any questions or problems. You can reach a [facility] hospitalist on duty at [facility] 24 hours a day by calling [phone]. Take care of yourself. Radha Malloy DO [facility] Hospitalist Total Time Total Time Spent Total Time Spent (In Minutes): 60
--- NOTE | 2023-06-29 18:10 | Electrocardiogram Report ---
Test Reason : Blood Pressure : / mmHG Vent. Rate : 046 BPM Atrial Rate : 046 BPM P-R Int : 196 ms QRS Dur : 076 ms QT Int : 450 ms P-R-T Axes : 093 011 028 degrees QTc Int : 393 ms Sinus bradycardia Otherwise normal ECG When compared with ECG of 27-JUN-2023 17:30, Sinus rhythm has replaced Atrial fibrillation Vent. rate has decreased BY 89 BPM Confirmed by Jasvir Emery ([id number]) on 06/29/2023 6:10:30 PM Referred By: Andree Pearson Confirmed By:José Emery
[2023-06-29] MEDS ORDERED: RIVAROXABAN 20 MG TAB PO SCH ×2 (21:00)
[2023-06-30] MEDS ORDERED: AMIODARONE 200 MG TAB PO SCH (09:00)
[2023-06-30] MEDS ORDERED: METOPROLOL SUCC 25MG EXT REL TAB PO SCH (09:00)
== END 2023-06-29 17:15 | disposition home or self-care (01) | DRG 308 ==
LOC: ED 17:14 → EDINP 20:39 → 2S 06-28 23:03
DX: K21.9 Gastro-esophageal reflux disease without esophagitis; Z82.49 Family history of ischemic heart disease and other diseases of the circulatory system; M17.11 Unilateral primary osteoarthritis, right knee; Z95.5 Presence of coronary angioplasty implant and graft; E11.9 Type 2 diabetes mellitus without complications; Z79.82 Long term (current) use of aspirin; I50.810 Right heart failure, unspecified; N40.0 Benign prostatic hyperplasia without lower urinary tract symptoms; I50.31 Acute diastolic (congestive) heart failure; E78.5 Hyperlipidemia, unspecified; I11.0 Hypertensive heart disease with heart failure; I25.10 Atherosclerotic heart disease of native coronary artery without angina pectoris; I48.91 Unspecified atrial fibrillation; E02 Subclinical iodine-deficiency hypothyroidism; Z79.84 Long term (current) use of oral hypoglycemic drugs; Z87.891 Personal history of nicotine dependence

== ENCOUNTER 2024-04-01 09:12 | Inpatient (IN) ==
--- NOTE | 2024-04-01 09:29 | Emergency Department Note ---
Impression & Plan Fall from standing, Abrasion of face, Face lacerations, Fracture of nasal bone, Acute pain of left knee, Pain and swelling of left knee ED Provider Note HISTORY OF PRESENT ILLNESS: Patient is an 84-year-old male presenting with facial injury after fall. Patient reports he was walking up a curve when he tripped and fell, landing and striking his right knee and striking his face against the concrete. Denies loss of consciousness. Patient is on Xarelto for history of A-fib. Denies any headache or changes in vision. Denies any lightheadedness, dizziness or chest pain prior to his fall. He does have a history of vertigo and is on meclizine, but reports he did not have any dizziness prior to his fall. He reports he just lost his footing. Tetanus is up-to-date, noted in the [facility] charting system in April 2023. Patient denies any numbness or tingling or weakness in extremities. Currently complaining of facial pain. He broke his glasses when he fell. ROS: as above PHYSICAL EXAM: Constitutional: Patient appears in no acute distress. HENT: Head: Normocephalic. Abrasion to the left maxillary region and left upper lip. Patient has diffuse swelling to the nose and an abrasion to the bridge of the nose. Patient has 2 parallel lacerations, one measuring about 4 cm on the left side of his glabella and 1 about 3 cm on the right side of his glabella from his glasses. Eyes: EOMI, PERRL Mouth/Throat: Mucous membranes moist. Midface stable. No malocclusion. Neck: Trachea midline. Neck supple. No midline cervical spine tenderness to palpation. Cardiovascular: RRR, No murmurs, rubs or gallops. Intact distal pulses. Pulmonary/Chest: No respiratory distress. Breath sounds clear and equal bilaterally. No wheezes or rales. No chest wall tenderness to palpation. Abdominal: Abdomen soft, no tenderness, rebound or guarding. Musculoskeletal: Patient is able to straight leg raise bilaterally without any significant pain in the pelvis or back. Noted to have diffuse swelling and ecchymosis to the anterior left knee. Able to initiate flexion of the knee, but complaining of pain with doing so. Skin: Warm and dry. No rash, erythema, pallor or cyanosis. Patient has skin tears to his right anterior knee and left dorsal hand. Psychiatric: Appropriate mood and affect for situation. Neurological: Alert and keenly responsive. CN II-XII grossly intact, moving all extremities equally and fully. MDM: - Vitals signs showed hypertension and bradycardia. - History obtained via patient. History as above. - Chronic conditions affecting care: Afib; HTN; HLD - Differential diagnoses include, but are not limited to: CVA; intracranial hemorrhage; nasal fracture; skull fracture - Order placed for continuous cardiac monitoring. At this time, monitor showed rate of 56 bpm with normal sinus rhythm, per my interpretation. - External medical records reviewed. Discharge summary dated 06/29/23 was reviewed. Patient admitted for Afib with RVR at that time. - CT head wo contrast negative for acute intracranial pathology. - CT cervical spine wo contrast negative for acute pathology - Tetanus up to date. - CT facial bones wo contrast showed acute comminuted nasal bone fractures with mild displacement on the right. Sigmoidal bowing of the bony nasal septum with probable acute nondisplaced fracture. - Xray left knee negative for acute fracture, per my interpretation. Radiology notes anterior knee soft tissue swelling and moderate patellofemoral compartment osteoarthritis. - Patient given 5 mg PO oxycodone in ER. - On reassessment at 12:20, patient now complaining of chest pain. IV access established, CXR and EKG ordered. - EKG interpreted by myself showed normal sinus rhythm. Rate bradycardic at 59 bpm. QT 442. No acute ischemic changes. - Laboratory workup interpreted by myself showed leukocytosis (probably reactive from trauma); stable electrolytes; normal troponin - Patient's facial lacerations were repaired by [facility]. Please see procedure note. - Discussed results with the patient. He is chest pain-free in the emergency department and would like to be discharged home. He was given follow-up information for OMFS. He was also given a prescription for Augmentin for treatment of potential open nasal fractures. Instructed on nasal precautions, including: no nose blowing, no straws, open mouth sneezing only, do not plug nose, no aggressive spitting, sleep with head slightly elevated for a MINIMUM OF 3 WEEKS - Discussed case with Dr. Rousseau, oral surgeon. He is coming to the ER to evaluate patient. He came to evaluate patient and noted lip laceration. Assisted with repair at bedside. Agreed with sinus precautions and antibiotics. Recommended adding peridex mouth rinse to prescriptions. Will follow in clinic. - Discussed results with patient. Instructed on return precautions. Given a to go pack of oxycodone for any break through pain at home. Recommended close follow up with [facility] clinic. Prescription for peridex mouth rinse and augmentin BID x10 days was sent to the patient's pharmacy. - Patient remained stable throughout the visit. Results were discussed with the patient and patient's family. They were given the opportunity to ask questions. Had lengthy discussion with patient about supportive care return precautions. No changes to medications. Patient to follow up with primary care physician for further evaluation and management. All questions answered. Patient agreeable plan. ASSESSMENT AND PLAN: Diagnosis: fall from standing; abrasions to face; face lacerations; fracture of nasal bone; acute pain in left knee; pain and swelling of left knee Plan: discharge Past Med/Surg History Problem List (Updated 04/01/24 @ 14:51 by Sarahi Giron MD) Pain and swelling of left knee (Acute) Acute pain of left knee (Acute) Fracture of nasal bone (Acute) Face lacerations (Acute) Abrasion of face (Acute) Fall from standing (Acute) Encounter for pre-operative examination No pertinent past surgical history Atrial fibrillation with rapid ventricular response (Acute) Hypertension goal BP (blood pressure) < 130/80 Dyslipidemia, goal LDL below 70 ASCVD (arteriosclerotic cardiovascular disease) Edema, peripheral (Acute) Medical History (Updated 04/01/24 @ 14:51 by Sarahi Giron MD) DMII (diabetes mellitus, type 2) 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 Acute duodenitis Diabetes Hypertension High cholesterol Social History Smoking Status: Former smoker Hx Alcohol Use: Yes Hx Substance Use: No Preferred Language: Greenlandic Communication Ability: Effective [employer] Required: No Beliefs That Will Affect Care: None Current Living Situation: Spouse Feels Safe at Home: Yes Assistive Devices: Cane and Glasses Allergies Allergies Allergy/AdvReac Type Severity Reaction Status Date / Time No Known Allergies Allergy Verified 06/27/23 21:00 Home Meds Home Medications Medication Instructions Recorded Confirmed acetaminophen 325 mg tablet 650 mg PO DIRECTED PRN 06/27/23 04/01/24 (Tylenol) PAIN/FEVER aspirin 81 mg tablet,delayed 81 mg PO DAILY 06/27/23 04/01/24 release cyanocobalamin (vitamin B-12) 1,000 mcg PO DAILY 06/27/23 04/01/24 1,000 mcg tablet (Vitamin B-12) lidocaine 5 % topical patch 2 patch topical DAILY PRN LOWER 06/27/23 04/01/24 BACK PAIN lutein 20 mg tablet 20 mg PO DAILY 06/27/23 04/01/24 metformin 500 mg tablet 500 mg PO UD 06/27/23 04/01/24 multivit with min-folic 1 tab PO DAILY 06/27/23 04/01/24 acid-lutein 200 mcg-137.5 mcg chewable tablet (Adult Multivitamin (w-lutein)) pantoprazole 40 mg tablet,delayed 40 mg PO UD 06/27/23 04/01/24 release tamsulosin 0.4 mg capsule (Flomax) 0.4 mg PO BID 06/27/23 04/01/24 amiodarone 200 mg tablet 100 mg PO DAILY 04/01/24 04/01/24 furosemide 20 mg tablet (Lasix) 20 mg PO QAM 04/01/24 04/01/24 meclizine 12.5 mg tablet 12.5 mg PO TID PRN Dizziness 04/01/24 04/01/24 Previous Rx's Medication Instructions Recorded losartan 100 mg tablet 100 mg PO DAILY #30 tabs 06/29/23 metoprolol succinate 25 mg 25 mg PO QAM #30 tabs 06/29/23 tablet,extended release 24 hr rivaroxaban 20 mg tablet (Xarelto) 20 mg PO HS #30 tabs 06/29/23 rosuvastatin 10 mg tablet 10 mg PO QAM #30 tabs 06/29/23 amoxicillin 875 mg-potassium 1 tab PO BID 10 days #20 tabs 04/01/24 clavulanate 125 mg tablet chlorhexidine gluconate 0.12 % 15 ml buccal BID #1,500 mL 04/01/24 mouthwash (Paroex Oral Rinse) Results & Data (ED) Vital Signs Vital Signs - 24 hr 04/01/24 09:03 04/01/24 09:42 04/01/24 10:30 Temperature 36.5 C Temperature Source Oral Pulse Rate 56 L 61 58 L Pulse Rate [Apical] Pulse Rhythm [Apical] Pulse Strength [Apical] Respiratory Rate 18 23 Respiratory Effort / Characteristics Respiratory Depth Respiratory Pattern Blood Pressure 201/94 H 154/100 H Blood Pressure [Right Arm] Blood Pressure Mean 129 118 Blood Pressure Mean [Right Arm] Blood Pressure Position [Right Arm] Pulse Oximetry 96 97 Oxygen Delivery Method Room Air Sepsis Recent Fever Within 48 Hours No Sepsis New/Unexplained Change in Mental Status No Sepsis Action Taken by Nursing No Action Required 04/01/24 13:38 04/01/24 13:56 Temperature Temperature Source Pulse Rate 68 Pulse Rate [Apical] 73 Pulse Rhythm [Apical] Regular Pulse Strength [Apical] Normal Respiratory Rate 17 Respiratory Effort / Characteristics Non-Labored Spontaneous Respiratory Depth Normal Respiratory Pattern Regular Blood Pressure Blood Pressure [Right Arm] 118/73 Blood Pressure Mean Blood Pressure Mean [Right Arm] 88 Blood Pressure Position [Right Arm] Semi-fowlers Pulse Oximetry 97 Oxygen Delivery Method Room Air Sepsis Recent Fever Within 48 Hours Sepsis New/Unexplained Change in Mental Status Sepsis Action Taken by Nursing Laboratory Data 04/01/24 12:47 04/01/24 12:47 Lab Results 04/01/24 04/01/24 Range/Units 11:13 12:47 WBC 17.94 H (4.8-10.8) K/ul RBC 5.75 (4.70-6.10) M/uL Hgb 16.7 (14.0-18.0) g/dl Hct 49.7 (42.0-52.0) % MCV 86.4 (80.0-100.0) fL MCH 29.0 (25.0-34.0) pg MCHC 33.6 (32.0-36.0) g/dL RDW Std Deviation 49.6 H (36.4-46.3) fL RDW Coeff of Ezekiel 16.0 H (11.5-14.5) % Plt Count 222 (130-400) K/uL MPV 9.7 (9.4-12.4) fL Immature Gran % (Auto) 1.0 % Neut % (Auto) 78.7 % Lymph % (Auto) 12.2 % Parke % (Auto) 7.3 % Eos % (Auto) 0.4 % Baso % (Auto) 0.4 % Neut # (Auto) 14.11 H (1.40-6.50) K/uL Lymph # (Auto) 2.19 (1.20-3.40) K/uL Parke # (Auto) 1.31 H (0.11-0.59) K/uL Eos # (Auto) 0.07 (0.00-0.50) K/uL Baso # (Auto) 0.08 (0.00-0.20) K/uL Immature Gran # (Auto) 0.18 (0.01-0.20) K/uL Sodium 137 (136-145) mmol/L Potassium 4.3 (3.5-5.1) mmol/L Chloride 102 (98-107) mmol/L Carbon Dioxide 25 (21-32) mmol/L Anion Gap 10 (3-11) BUN 15 (6-23) mg/dl Creatinine 0.78 (0.6-1.4) mg/dl Est Cr Clr Drug Dosing 92.2 ml/min Est GFR ( Amer) 94.7 ml/min Est GFR (Non-Af Amer) 81.7 ml/min BUN/Creatinine Ratio 19.2 (10-20) Glucose 141 H (70-99(Fasting)) mg/dl Calcium 8.9 (8.6-10.3) mg/dl Total Bilirubin 1.2 H (0.2-1.0) mg/dl AST 34 (13-39) U/L ALT 32 (7-52) U/L Alkaline Phosphatase 59 (34-104) U/L Troponin I High Sens 6.5 (0-20) pg/ml Total Protein 6.8 (6.0-8.3) gm/dl Albumin 3.9 (3.4-5.0) gm/dl Globulin 2.9 (2.5-4.0) gm/dl Albumin/Globulin Ratio 1.3 (0.9-2) Urine Color Yellow Urine Appearance Clear (Clear) Urine pH 6.5 (4.5-7.5) Ur Specific [place] 1.016 (1.000-1.030) Urine Protein Negative (Negative) Urine Glucose (UA) Negative (Negative) Urine Ketones Negative (Negative) Urine Blood 1+ H (Negative) Urine Nitrite Negative (Negative) Urine Bilirubin Negative (Negative) Urine Urobilinogen Negative (Negative) Ur Leukocyte Esterase Negative (Negative) Urine WBC (Auto) 0-5 (0-5) /hpf Urine RBC (Auto) 6-10 H (0-2) /hpf U Hyaline Cast (Auto) 0-2 (0-2) /lpf U Epithel Cells (Auto) 0-2 (0-2) /hpf Urine Bacteria (Auto) None Seen (None Seen) Administered Medications Discontinued Medications Lidocaine (Lidocaine/Epineph/Tetracaine 1 Ea Syr) 1 each EXT NOW STA Stop: 04/01/24 11:23 Last Admin: 04/01/24 12:08 Dose: 1 each Documented By: MR Oxycodone HCl (Oxycodone Hcl Ir 5 Mg Tab (Immediate Release)) 5 mg PO NOW STA Stop: 04/01/24 11:23 Last Admin: 04/01/24 12:08 Dose: 5 mg Documented By: MR Imaging Data Radiologist's Impression: Cervical Spine CT 04/01/24 09:26 CT cervical spine wo con CLINICAL HISTORY: 84 years-old Male with fall from standing. Acute neck injury status post fall COMPARISON: CT head and maxillofacial studies of same day TECHNIQUE: Multiple axial CT images of the cervical spine were obtained without contrast. A dose lowering technique was utilized adhering to the principles of ALARA. FINDINGS: Demineralized appearance of the bones. Moderate multilevel degenerative changes. Nuchal ligament calcifications. No acute cervical spine fracture or subluxation identified. The cervical soft tissues appear unremarkable. The visualized lung apices appear clear. Maxillary sinus polypoid mucosal thickening noted on the left. IMPRESSION: No acute cervical spine fracture or subluxation. ACT 112: Negative or not required by law. The above report was generated using voice recognition software. It may contain grammatical, syntax or spelling errors. Electronically signed by: Octavio Palafox M.D. 04/01/2024 10:[address] 04/01/24 09:26 CT facial bones wo con CLINICAL HISTORY: 84 years-old Male presenting with fall from standing; facial injury. Acute facial trauma status post fall COMPARISON STUDY: CT head and cervical spine studies of same day TECHNIQUE: High-resolution CT scan of the facial bones is performed. Images are reviewed in the axial, sagittal, and coronal planes. IV contrast was not administered for this examination. A dose lowering technique was utilized adhering to the principles of ALARA. CT DOSE: 1690.98 mGy.cm FINDINGS: No acute calvarial fracture. The mastoid air cells are clear. Mild polypoid mucosal thickening of the maxillary sinuses. Acute comminuted bilateral nasal bone fractures with mild displacement on the right. There is moderate adjacent soft tissue swelling. No additional acute facial bone fracture identified. The bony orbits appear intact. Degenerative changes of the imaged cervical spine. Sigmoidal bowing and spurring of the nasal septum with probable acute nondisplaced anterior fracture. IMPRESSION: 1. Acute comminuted nasal bone fractures with mild displacement on the right. 2. Sigmoidal bowing of the bony nasal septum with probable acute nondisplaced fracture. ACT 112: Negative or not required by law. The above report was generated using voice recognition software. It may contain grammatical, syntax or spelling errors. Electronically signed by: Octavio Palafox M.D. 04/01/2024 10:[address] 04/01/24 09:26 CT OF THE HEAD WITHOUT CONTRAST CLINICAL HISTORY: fall from standing; facial injury COMPARISON STUDY: No previous studies for comparison. TECHNIQUE: Helical axial images of the head were obtained without IV contrast. Automated exposure control was utilized for the study. A dose lowering technique was utilized adhering to the principles of ALARA. FINDINGS: No acute intracranial hemorrhage, midline shift or mass effect is present. The ventricular system is unremarkable. The basal cisterns are patent. No extra-axial collections are present. There are no findings to suggest acute dural sinus thrombosis or acute territorial infarct. No calvarial fractures are identified. Nasal and left forehead contusions are present. Acute bilateral nasal bone fractures are better depicted on the facial bone CT. IMPRESSION: 1. No acute intracranial findings. 2. Acute bilateral nasal bone fractures better depicted on the facial bone CT. Nasal and left forehead contusions. ACT 112: Negative or not required by law. Electronically signed by: Jefferson Baires M.D. 04/01/2024 10:27 AM Knee X-Ray 04/01/24 10:57 XR knee LT 3V CLINICAL HISTORY: Left knee pain following fall. COMPARISON: None FINDINGS: Alignment of the left knee is anatomic. There is no acute fracture. Extensive anterior knee soft tissue swelling is present. Possible small joint effusion. Medial and lateral compartment joint space are preserved. 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 IMPRESSION: 1. No acute fractures. Possible small left knee joint effusion. 2. Extensive anterior knee soft tissue swelling. 3. Moderate patellofemoral compartment osteoarthritis. ACT 112: Negative or not required by law. Electronically signed by: Jefferson Baires M.D. 04/01/2024 11:54 AM Chest X-Ray 04/01/24 12:19 XR chest 1V portable CLINICAL HISTORY: chest pain TECHNIQUE: Single frontal radiograph of the chest was obtained. Comparison: Comparison is made to chest radiograph 06/27/2023 FINDINGS: No lines and tubes are seen. The cardiomediastinal silhouette is normal. The lungs are clear. No evidence of pleural effusion or pneumothorax. IMPRESSION: No acute chest disease. ACT 112: Negative or not required by law. Electronically signed by: Umair Myers M.D. 04/01/2024 1:19 PM Discharge Plan Visit Data Chief Complaint: Fall ED Provider: Sarahi Giron Discharge Problem: Fall from standing, Abrasion of face, Face lacerations, Fracture of nasal bone, Acute pain of left knee, Pain and swelling of left knee Patient Disposition: Home - Self-Care Discharge Instructions Activity Restrictions/Additional Instructions: Your laboratory workup was grossly unremarkable. Your CT imaging showed that you have a nasal bone fracture. Please follow-up in clinic. Please follow the nasal precautions below. Return to the emergency department if you develop chest pain or shortness of breath, lightheadedness or dizziness, changes in vision, or any new or worsening symptoms. Please take antibiotics that have been sent to your pharmacy. Recommend taking tylenol for pain control and using the provided oxycodone for significant breakthrough pain. Please ice your face and nose to help with swelling. You should keep your facial abrasions covered with triple antibiotic ointment. Your sutures need removed in 3 to 5 days - you can go to your primary care provider or return to the ER for removal. Please return to the emergency department if you develop any redness or swelling around the laceration, any drainage or fever. Recommend keeping your left leg elevated and applying ice to decrease swelling. Strict sinus precautions: no nose blowing, no straws, open mouth sneezing only, do not plug nose, no aggressive spitting, sleep with head slightly elevated for a MINIMUM OF 3 WEEKS Forms Stand Alone Forms: [facility], Important Visit Information Prescriptions Prescriptions: New amoxicillin-pot clavulanate 875-125 mg tablet 1 tab PO BID 10 Days Qty: 20 0RF chlorhexidine gluconate [Paroex Oral Rinse] 0.12 % mouthwash 15 ml buccal BID Qty: 1500 0RF No Action metformin 500 mg Tablet 500 mg PO UD Rx Instructions: pharmacy doesn't have record of medication, pt recently switched to them 500 mg po bid acetaminophen [Tylenol] 325 mg Tablet 650 mg PO DIRECTED PRN (Reason: PAIN/FEVER) Rx Instructions: otc unable to verify cyanocobalamin (vitamin B-12) [Vitamin B-12] 1,000 mcg Tablet 1,000 mcg PO DAILY Rx Instructions: otc unable to verify aspirin 81 mg Tablet,Delayed Release (Dr/Ec) 81 mg PO DAILY Rx Instructions: otc unable to verify tamsulosin [Flomax] 0.4 mg Capsule 0.4 mg PO BID lidocaine 5 % Adhesive Patch,Medicated 2 patch TOPICAL DAILY PRN (Reason: LOWER BACK PAIN) Rx Instructions: otc unable to verify leave on most painful area for up to 12 hrs lutein 20 mg Tablet 20 mg PO DAILY Rx Instructions: otc unable to verify give with meal/snack [id number] acid-lutein [Adult Multivitamin (w-lutein)] 200-137.5 mcg Tablet,Chewable 1 tab PO DAILY Rx Instructions: otc unable to verify pantoprazole 40 mg Tablet,Delayed Release (Dr/Ec) 40 mg PO UD Rx Instructions: pharmacy doesn't have record of medication, pt recently switched to them 40 mg po daily PER [facility]--STOPPED, PER PT "STILL HAVE SOME TO TAKE TO FINISH OFF SCRIPT". rosuvastatin 10 mg Tablet 10 mg PO QAM Qty: 30 0RF losartan 100 mg tablet 100 mg PO DAILY Qty: 30 0RF metoprolol succinate 25 mg Tablet Extended Release 24 Hr 25 mg PO QAM Qty: 30 0RF Rx Instructions: pharmacy doesn't have record of medication, pt recently switched to them 25 mg po qam Xarelto 20 mg tablet 20 mg PO HS Qty: 30 0RF Rx Instructions: must administer with evening meal meclizine 12.5 mg tablet 12.5 mg PO TID PRN (Reason: Dizziness) amiodarone 200 mg tablet 100 mg PO DAILY Rx Instructions: half tablet by po am per pharmacy furosemide [Lasix] 20 mg tablet 20 mg PO QAM Referrals Referrals: Andree Pearson MD [Primary Care Provider] - Zachary Rousseau DMD [Physician] -
--- NOTE | 2024-04-01 10:29 | CT Scan Report ---
CT OF THE HEAD WITHOUT CONTRAST CLINICAL HISTORY: fall from standing; facial injury COMPARISON STUDY: No previous studies for comparison. TECHNIQUE: Helical axial images of the head were obtained without IV contrast. Automated exposure con trol was utilized for the study. A dose lowering technique was utilized adhering to the principles o f ALARA. FINDINGS: No acute intracranial hemorrhage, midline shift or mass effect is present. The ventricular system is unremarkable. The basal cisterns are patent. No extra-axial collections are present. There are no findings to suggest acute dural sinus thrombosis or acute territorial infarct. No calvarial fr actures are identified. Nasal and left forehead contusions are present. Acute bilateral nasal bone fr actures are better depicted on the facial bone CT. IMPRESSION: 1. No acute intracranial findings. 2. Acute bilateral nasal bone fractures better depicted on the facial bone CT. Nasal and left forehea d contusions. ACT 112: Negative or not required by law. Electronically signed by: Jefferson Baires M.D. 04/01/2024 10:27 AM
--- NOTE | 2024-04-01 10:39 | CT Scan Report ---
CT facial bones wo con CLINICAL HISTORY: 84 years-old Male presenting with fall from standing; facial injury. Acute facial t rauma status post fall COMPARISON STUDY: CT head and cervical spine studies of same day TECHNIQUE: High-resolution CT scan of the facial bones is performed. Images are reviewed in the axia l, sagittal, and coronal planes. IV contrast was not administered for this examination. A dose lower ing technique was utilized adhering to the principles of ALARA. CT DOSE: 1690.98 mGy.cm FINDINGS: No acute calvarial fracture. The mastoid air cells are clear. Mild polypoid mucosal thickening of the maxillary sinuses. Acute comminuted bilateral nasal bone fractures with mild displacement on the rig ht. There is moderate adjacent soft tissue swelling. No additional acute facial bone fracture identif ied. The bony orbits appear intact. Degenerative changes of the imaged cervical spine. Sigmoidal bowi ng and spurring of the nasal septum with probable acute nondisplaced anterior fracture. IMPRESSION: 1. Acute comminuted nasal bone fractures with mild displacement on the right. 2. Sigmoidal bowing of the bony nasal septum with probable acute nondisplaced fracture. ACT 112: Negative or not required by law. The above report was generated using voice recognition software. It may contain grammatical, syntax o r spelling errors. Electronically signed by: Octavio Palafox M.D. 04/01/2024 10:37 AM
--- NOTE | 2024-04-01 10:41 | CT Scan Report ---
CT cervical spine wo con CLINICAL HISTORY: 84 years-old Male with fall from standing. Acute neck injury status post fall COMPARISON: CT head and maxillofacial studies of same day TECHNIQUE: Multiple axial CT images of the cervical spine were obtained without contrast. A dose low ering technique was utilized adhering to the principles of ALARA. FINDINGS: Demineralized appearance of the bones. Moderate multilevel degenerative changes. Nuchal lig ament calcifications. No acute cervical spine fracture or subluxation identified. The cervical soft tissues appear unremarkable. The visualized lung apices appear clear. Maxillary si nus polypoid mucosal thickening noted on the left. IMPRESSION: No acute cervical spine fracture or subluxation. ACT 112: Negative or not required by law. The above report was generated using voice recognition software. It may contain grammatical, syntax o r spelling errors. Electronically signed by: Octavio Palafox M.D. 04/01/2024 10:40 AM
[2024-04-01 11:50] LABS: Appearance Urine Clear (Clear); Bacteria Urine Automated None Seen (None Seen); Bilirubin Urine Negative (Negative); Blood Urine 1+ (Negative); Cast Urine Automated 0-2 /lpf (0-2); Color Urine Yellow; Epithelial Cell Urine Auto 0-2 /hpf (0-2); Glucose Urine UA Negative (Negative); Ketones Urine Negative (Negative); Leukocyte Esterase Urine Negative (Negative); Nitrite Urine Negative (Negative); Protein Urine Negative (Negative); Specific Gravity Urine 1.016 (1.000-1.030); Urobilinogen Urine Negative (Negative); WBC Urine Automated 0-5 /hpf (0-5); pH Urine 6.5 (4.5-7.5)
--- NOTE | 2024-04-01 11:56 | XRay Report ---
XR knee LT 3V CLINICAL HISTORY: Left knee pain following fall. COMPARISON: None FINDINGS: Alignment of the left knee is anatomic. There is no acute fracture. Extensive anterior kne e soft tissue swelling is present. Possible small joint effusion. Medial and lateral compartment join t space are preserved. 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 IMPRESSION: 1. No acute fractures. Possible small left knee joint effusion. 2. Extensive anterior knee soft tissue swelling. 3. Moderate patellofemoral compartment osteoarthritis. ACT 112: Negative or not required by law. Electronically signed by: Jefferson Baires M.D. 04/01/2024 11:54 AM
[2024-04-01] MEDS: LIDOCAINE/EPINEPH/TETRACAINE 1 EA SYR EXT STA (12:08)
[2024-04-01] MEDS: oxyCODONE HCL IR 5 MG TAB (IMMEDIATE RELEASE) PO STA (12:08)
--- NOTE | 2024-04-01 13:20 | XRay Report ---
XR chest 1V portable CLINICAL HISTORY: chest pain TECHNIQUE: Single frontal radiograph of the chest was obtained. Comparison: Comparison is made to chest radiograph 06/27/2023 FINDINGS: No lines and tubes are seen. The cardiomediastinal silhouette is normal. The lungs are clear. No evid ence of pleural effusion or pneumothorax. IMPRESSION: No acute chest disease. ACT 112: Negative or not required by law. Electronically signed by: Umair Myers M.D. 04/01/2024 1:19 PM
[2024-04-01 13:24] LABS: Basophils # (auto) 0.08 K/uL (0.00-0.20); Basophils % (auto) 0.4 %; Eosinophils # (auto) 0.07 K/uL (0.00-0.50); Eosinophils % (auto) 0.4 %; Hematocrit (blood only) 49.7 % (42.0-52.0); Hemoglobin 16.7 g/dl (14.0-18.0); Immature Granulocytes # (auto) 0.18 K/uL (0.01-0.20); Lymphocytes # (auto) 2.19 K/uL (1.20-3.40); Lymphocytes % (auto) 12.2 %; Mean Corpuscular Hgb Conc 33.6 g/dL (32.0-36.0); Mean Corpuscular Volume 86.4 fL (80.0-100.0); Mean Platelet Volume 9.7 fL (9.4-12.4); Monocytes # (auto) 1.31 K/uL (0.11-0.59); Monocytes % (auto) 7.3 %; Neutrophils # (auto) 14.11 K/uL (1.40-6.50); Neutrophils % (auto) 78.7 %; Platelet Count 222 K/uL (130-400); RDW Standard Deviation 49.6 fL (36.4-46.3); Red Blood Count 5.75 M/uL (4.70-6.10); White Blood Count 17.94 K/ul (4.8-10.8)
[2024-04-01 13:29] LABS: Albumin Globulin Ratio 1.3 (0.9-2); Albumin Level 3.9 gm/dl (3.4-5.0); BUN Creatinine Ratio 19.2 (10-20); Bilirubin,Total 1.2 mg/dl (0.2-1.0); Calcium 8.9 mg/dl (8.6-10.3); Creatinine Clr Calc Pharmacy 92.2 ml/min; Est GFR (African American) 94.7 ml/min; Est GFR (Non-African American) 81.7 ml/min; Globulin 2.9 gm/dl (2.5-4.0); Potassium 4.3 mmol/L (3.5-5.1); Total Protein 6.8 gm/dl (6.0-8.3)
[2024-04-01 13:35] LABS: Troponin I High Sensitivity 6.5 pg/ml (0-20)
--- NOTE | 2024-04-01 14:10 | Emergency Department Note ---
Impression & Plan Fall from standing, Abrasion of face, Face lacerations, Fracture of nasal bone ED Provider Note Verbal consent was obtained to perform the suture repair of 2 lacerations on the patient's forehead. Patient has an approximate 2 cm laceration at his left eyebrow and an approximate 1-1/2 cm laceration at his right eyebrow. Using sterile technique the wounds were cleaned with Betadine. The area was sterilely draped. LET gel was used to anesthetize the forehead. Once the patient was anesthetized, the wound was copiously irrigated under pressure with sterile saline. The wound was explored and there were no deep structures injured such as tendons, bone, or significant blood vessels. The lacerations were repaired using 7 simple interrupted 5-0 nylon sutures with the wound edges being well approximated. The patient tolerated the procedure well. Hemostasis was achieved. The area was cleaned with sterile saline and dressed with bacitracin ointment. 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 Acute duodenitis Diabetes Hypertension High cholesterol Social History Smoking Status: Former smoker Hx Alcohol Use: Yes Hx Substance Use: No Preferred Language: Kazakh Communication Ability: Effective 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 Beliefs That Will Affect Care: None Current Living Situation: Spouse Feels Safe at Home: Yes Assistive Devices: Cane and Glasses Allergies Allergies Allergy/AdvReac Type Severity Reaction Status Date / Time No Known Allergies Allergy Verified 06/27/23 21:00 Home Meds Home Medications Medication Instructions Recorded Confirmed acetaminophen 325 mg tablet 650 mg PO DIRECTED PRN 06/27/23 06/27/23 (Tylenol) PAIN/FEVER aspirin 81 mg tablet,delayed 81 mg PO DAILY 06/27/23 06/27/23 release cyanocobalamin (vitamin B-12) 1,000 mcg PO DAILY 06/27/23 06/27/23 1,000 mcg tablet (Vitamin B-12) lidocaine 5 % topical patch 2 patch topical DAILY PRN LOWER 06/27/23 06/27/23 BACK PAIN lutein 20 mg tablet 20 mg PO DAILY 06/27/23 06/27/23 metformin 500 mg tablet 500 mg PO BID 06/27/23 06/27/23 multivit with min-folic 1 tab PO DAILY 06/27/23 06/27/23 acid-lutein 200 mcg-137.5 mcg chewable tablet (Adult Multivitamin (w-lutein)) pantoprazole 40 mg tablet,delayed 40 mg PO DAILY 06/27/23 06/27/23 release tamsulosin 0.4 mg capsule (Flomax) 0.4 mg PO BID 06/27/23 06/27/23 Previous Rx's Medication Instructions Recorded amiodarone 200 mg tablet 200 mg PO DAILY #30 tabs 06/29/23 furosemide 20 mg tablet (Lasix) 20 mg PO DAILY #30 tabs 06/29/23 losartan 100 mg tablet 100 mg PO DAILY #30 tabs 06/29/23 metoprolol succinate 25 mg 25 mg PO QAM #30 tabs 06/29/23 tablet,extended release 24 hr rivaroxaban 20 mg tablet (Xarelto) 20 mg PO HS #30 tabs 06/29/23 rosuvastatin 10 mg tablet 10 mg PO QAM #30 tabs 06/29/23 Results & Data (ED) Vital Signs Vital Signs - 24 hr 04/01/24 09:03 04/01/24 09:42 04/01/24 10:30 Temperature 36.5 C Temperature Source Oral Pulse Rate 56 L 61 58 L Pulse Rate [Apical] Pulse Rhythm [Apical] Pulse Strength [Apical] Respiratory Rate 18 23 Respiratory Effort / Characteristics Respiratory Depth Respiratory Pattern Blood Pressure 201/94 H 154/100 H Blood Pressure [Right Arm] Blood Pressure Mean 129 118 Blood Pressure Mean [Right Arm] Blood Pressure Position [Right Arm] Pulse Oximetry 96 97 Oxygen Delivery Method Room Air Sepsis Recent Fever Within 48 Hours No Sepsis New/Unexplained Change in Mental Status No Sepsis Action Taken by Nursing No Action Required 04/01/24 13:38 04/01/24 13:56 Temperature Temperature Source Pulse Rate 68 Pulse Rate [Apical] 73 Pulse Rhythm [Apical] Regular Pulse Strength [Apical] Normal Respiratory Rate 17 Respiratory Effort / Characteristics Non-Labored Spontaneous Respiratory Depth Normal Respiratory Pattern Regular Blood Pressure Blood Pressure [Right Arm] 118/73 Blood Pressure Mean Blood Pressure Mean [Right Arm] 88 Blood Pressure Position [Right Arm] Semi-fowlers Pulse Oximetry 97 Oxygen Delivery Method Room Air Sepsis Recent Fever Within 48 Hours Sepsis New/Unexplained Change in Mental Status Sepsis Action Taken by Nursing Laboratory Data 04/01/24 12:47 04/01/24 12:47 Lab Results 04/01/24 04/01/24 Range/Units 11:13 12:47 WBC 17.94 H (4.8-10.8) K/ul RBC 5.75 (4.70-6.10) M/uL Hgb 16.7 (14.0-18.0) g/dl Hct 49.7 (42.0-52.0) % MCV 86.4 (80.0-100.0) fL MCH 29.0 (25.0-34.0) pg MCHC 33.6 (32.0-36.0) g/dL RDW Std Deviation 49.6 H (36.4-46.3) fL RDW Coeff of Ezekiel 16.0 H (11.5-14.5) % Plt Count 222 (130-400) K/uL MPV 9.7 (9.4-12.4) fL Immature Gran % (Auto) 1.0 % Neut % (Auto) 78.7 % Lymph % (Auto) 12.2 % [place] % (Auto) 7.3 % Eos % (Auto) 0.4 % Baso % (Auto) 0.4 % Neut # (Auto) 14.11 H (1.40-6.50) K/uL Lymph # (Auto) 2.19 (1.20-3.40) K/uL [place] # (Auto) 1.31 H (0.11-0.59) K/uL Eos # (Auto) 0.07 (0.00-0.50) K/uL Baso # (Auto) 0.08 (0.00-0.20) K/uL Immature Gran # (Auto) 0.18 (0.01-0.20) K/uL Sodium 137 (136-145) mmol/L Potassium 4.3 (3.5-5.1) mmol/L Chloride 102 (98-107) mmol/L Carbon Dioxide 25 (21-32) mmol/L Anion Gap 10 (3-11) BUN 15 (6-23) mg/dl Creatinine 0.78 (0.6-1.4) mg/dl Est Cr Clr Drug Dosing 92.2 ml/min Est GFR ( Amer) 94.7 ml/min Est GFR (Non-Af Amer) 81.7 ml/min BUN/Creatinine Ratio 19.2 (10-20) Glucose 141 H (70-99(Fasting)) mg/dl Calcium 8.9 (8.6-10.3) mg/dl Total Bilirubin 1.2 H (0.2-1.0) mg/dl AST 34 (13-39) U/L ALT 32 (7-52) U/L Alkaline Phosphatase 59 (34-104) U/L Troponin I High Sens 6.5 (0-20) pg/ml Total Protein 6.8 (6.0-8.3) gm/dl Albumin 3.9 (3.4-5.0) gm/dl Globulin 2.9 (2.5-4.0) gm/dl Albumin/Globulin Ratio 1.3 (0.9-2) Urine Color Yellow Urine Appearance Clear (Clear) Urine pH 6.5 (4.5-7.5) Ur Specific [place] 1.016 (1.000-1.030) Urine Protein Negative (Negative) Urine Glucose (UA) Negative (Negative) Urine Ketones Negative (Negative) Urine Blood 1+ H (Negative) Urine Nitrite Negative (Negative) Urine Bilirubin Negative (Negative) Urine Urobilinogen Negative (Negative) Ur Leukocyte Esterase Negative (Negative) Urine WBC (Auto) 0-5 (0-5) /hpf Urine RBC (Auto) 6-10 H (0-2) /hpf U Hyaline Cast (Auto) 0-2 (0-2) /lpf U Epithel Cells (Auto) 0-2 (0-2) /hpf Urine Bacteria (Auto) None Seen (None Seen) Administered Medications Discontinued Medications Lidocaine (Lidocaine/Epineph/Tetracaine 1 Ea Syr) 1 each EXT NOW STA Stop: 04/01/24 11:23 Last Admin: 04/01/24 12:08 Dose: 1 each Documented By: MR Oxycodone HCl (Oxycodone Hcl Ir 5 Mg Tab (Immediate Release)) 5 mg PO NOW STA Stop: 04/01/24 11:23 Last Admin: 04/01/24 12:08 Dose: 5 mg Documented By: MR Imaging Data Radiologist's Impression: Cervical Spine CT 04/01/24 09:26 CT cervical spine wo con CLINICAL HISTORY: 84 years-old Male with fall from standing. Acute neck injury status post fall COMPARISON: CT head and maxillofacial studies of same day TECHNIQUE: Multiple axial CT images of the cervical spine were obtained without contrast. A dose lowering technique was utilized adhering to the principles of ALARA. FINDINGS: Demineralized appearance of the bones. Moderate multilevel degenerative changes. Nuchal ligament calcifications. No acute cervical spine fracture or subluxation identified. The cervical soft tissues appear unremarkable. The visualized lung apices appear clear. Maxillary sinus polypoid mucosal thickening noted on the left. IMPRESSION: No acute cervical spine fracture or subluxation. ACT 112: Negative or not required by law. The above report was generated using voice recognition software. It may contain grammatical, syntax or spelling errors. Electronically signed by: Octavio Palafox M.D. 04/01/2024 10:[address] 04/01/24 09:26 CT facial bones wo con CLINICAL HISTORY: 84 years-old Male presenting with fall from standing; facial injury. Acute facial trauma status post fall COMPARISON STUDY: CT head and cervical spine studies of same day TECHNIQUE: High-resolution CT scan of the facial bones is performed. Images are reviewed in the axial, sagittal, and coronal planes. IV contrast was not administered for this examination. A dose lowering technique was utilized adhering to the principles of ALARA. CT DOSE: 1690.98 mGy.cm FINDINGS: No acute calvarial fracture. The mastoid air cells are clear. Mild polypoid mucosal thickening of the maxillary sinuses. Acute comminuted bilateral nasal bone fractures with mild displacement on the right. There is moderate adjacent soft tissue swelling. No additional acute facial bone fracture identified. The bony orbits appear intact. Degenerative changes of the imaged cervical spine. Sigmoidal bowing and spurring of the nasal septum with probable acute nondisplaced anterior fracture. IMPRESSION: 1. Acute comminuted nasal bone fractures with mild displacement on the right. 2. Sigmoidal bowing of the bony nasal septum with probable acute nondisplaced fracture. ACT 112: Negative or not required by law. The above report was generated using voice recognition software. It may contain grammatical, syntax or spelling errors. Electronically signed by: Octavio Palafox M.D. 04/01/2024 10:[address] 04/01/24 09:26 CT OF THE HEAD WITHOUT CONTRAST CLINICAL HISTORY: fall from standing; facial injury COMPARISON STUDY: No previous studies for comparison. TECHNIQUE: Helical axial images of the head were obtained without IV contrast. Automated exposure control was utilized for the study. A dose lowering technique was utilized adhering to the principles of ALARA. FINDINGS: No acute intracranial hemorrhage, midline shift or mass effect is present. The ventricular system is unremarkable. The basal cisterns are patent. No extra-axial collections are present. There are no findings to suggest acute dural sinus thrombosis or acute territorial infarct. No calvarial fractures are identified. Nasal and left forehead contusions are present. Acute bilateral nasal bone fractures are better depicted on the facial bone CT. IMPRESSION: 1. No acute intracranial findings. 2. Acute bilateral nasal bone fractures better depicted on the facial bone CT. Nasal and left forehead contusions. ACT 112: Negative or not required by law. Electronically signed by: Jefferson Baires M.D. 04/01/2024 10:27 AM Knee X-Ray 04/01/24 10:57 XR knee LT 3V CLINICAL HISTORY: Left knee pain following fall. COMPARISON: None FINDINGS: Alignment of the left knee is anatomic. There is no acute fracture. Extensive anterior knee soft tissue swelling is present. Possible small joint effusion. Medial and lateral compartment joint space are preserved. 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 IMPRESSION: 1. No acute fractures. Possible small left knee joint effusion. 2. Extensive anterior knee soft tissue swelling. 3. Moderate patellofemoral compartment osteoarthritis. ACT 112: Negative or not required by law. Electronically signed by: Jefferson Baires M.D. 04/01/2024 11:54 AM Chest X-Ray 04/01/24 12:19 XR chest 1V portable CLINICAL HISTORY: chest pain TECHNIQUE: Single frontal radiograph of the chest was obtained. Comparison: Comparison is made to chest radiograph 06/27/2023 FINDINGS: No lines and tubes are seen. The cardiomediastinal silhouette is normal. The lungs are clear. No evidence of pleural effusion or pneumothorax. IMPRESSION: No acute chest disease. ACT 112: Negative or not required by law. Electronically signed by: Umair Myers M.D. 04/01/2024 1:19 PM Discharge Plan Visit Data Chief Complaint: Fall ED Provider: Sarahi Giron Discharge Problem: Fall from standing, Abrasion of face, Face lacerations, Fracture of nasal bone Patient Disposition: Home - Self-Care Discharge Instructions Activity Restrictions/Additional Instructions: Your laboratory workup was grossly unremarkable. Your CT imaging showed that you have a nasal bone fracture. Please follow-up in clinic. Please follow the nasal precautions below. Return to the emergency department if you develop chest pain or shortness of breath, lightheadedness or dizziness, changes in vision, or any new or worsening symptoms. Strict sinus precautions: no nose blowing, no straws, open mouth sneezing only, do not plug nose, no aggressive spitting, sleep with head slightly elevated for a MINIMUM OF 3 WEEKS Forms Stand Alone Forms: [facility], Important Visit Information Prescriptions Prescriptions: No Action metformin 500 mg Tablet 500 mg PO BID acetaminophen [Tylenol] 325 mg Tablet 650 mg PO DIRECTED PRN (Reason: PAIN/FEVER) cyanocobalamin (vitamin B-12) [Vitamin B-12] 1,000 mcg Tablet 1,000 mcg PO DAILY aspirin 81 mg Tablet,Delayed Release (Dr/Ec) 81 mg PO DAILY tamsulosin [Flomax] 0.4 mg Capsule 0.4 mg PO BID lidocaine 5 % Adhesive Patch,Medicated 2 patch TOPICAL DAILY PRN (Reason: LOWER BACK PAIN) Rx Instructions: leave on most painful area for up to 12 hrs lutein 20 mg Tablet 20 mg PO DAILY Rx Instructions: give with meal/snack [id number] acid-lutein [Adult Multivitamin (w-lutein)] 200-137.5 mcg Tablet,Chewable 1 tab PO DAILY pantoprazole 40 mg Tablet,Delayed Release (Dr/Ec) 40 mg PO DAILY Rx Instructions: PER [facility]--STOPPED, PER PT "STILL HAVE SOME TO TAKE TO FINISH OFF SCRIPT". rosuvastatin 10 mg Tablet 10 mg PO QAM Qty: 30 0RF losartan 100 mg tablet 100 mg PO DAILY Qty: 30 0RF metoprolol succinate 25 mg Tablet Extended Release 24 Hr 25 mg PO QAM Qty: 30 0RF furosemide [Lasix] 20 mg tablet 20 mg PO DAILY Qty: 30 0RF amiodarone 200 mg tablet 200 mg PO DAILY Qty: 30 0RF Xarelto 20 mg tablet 20 mg PO HS Qty: 30 0RF Rx Instructions: must administer with evening meal Referrals Referrals: Andree Pearson MD [Primary Care Provider] - Zachary Rousseau DMD [Physician] -
--- NOTE | 2024-04-01 15:40 | Emergency Department Note ---
ED Visit Note Verbal consent was obtained to perform the suture repair of 2 lacerations on the patient's forehead. 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 Patient has an approximate 2 cm laceration at his left eyebrow and an approximate 1-1/2 cm laceration at his right eyebrow. Using sterile technique the wounds were cleaned with Betadine. The area was sterilely draped. LET gel was used to anesthetize the forehead. Once the patient was anesthetized, the wound was copiously irrigated under pressure with sterile saline. The wound was explored and there were no deep structures injured such as tendons, bone, or significant blood vessels. The lacerations were repaired using 7 simple interrupted 5-0 nylon sutures with the wound edges being well approximated. The patient tolerated the procedure well. Hemostasis was achieved. The area was cleaned with sterile saline and dressed with bacitracin ointment. Patient also has a laceration to the inside of his upper lip. Laceration was repaired by Dr. Rousseau with 3-0 Chromic Gut, please refer to his note for repair details. Dr. Rousseau instructed the patient to hold his [employer] and he would follow-up with him tomorrow by phone.
[2024-04-01] MEDS: LIDOCAINE 1% LOCAL 20 ML VIAL INJ ONE (15:55)
[2024-04-01] MEDS: oxyCODONE IR HOME PACK PO ONE (15:55)
--- NOTE | 2024-04-01 16:21 | Emergency Department Note ---
ED Visit Note 1620: Patient was initially seen by Dr. Giron after the patient had a trip and fall while on Xarelto. CT head and C-spine negative. CT facial bones shows nasal bone fracture. Wounds were closed by Dr. Rousseau agreed to be on consult as well as care by an FLAG SIGNALER. Patient was to be discharged within the patient had a syncopal episode while trying to get up into the wheelchair for discharge. is now saying that she cannot take care of the patient at home patient is requesting stay in the hospital. EKG within normal limits and Accu-Chek is within normal limits. Patient be admitted to the [facility] team. .
--- NOTE | 2024-04-01 16:49 | History & Physical Report ---
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 Fall- mechanical striking his face/knees Forehead laceration x 2 - repaired by SIOMARA in ED Acute comminuted nasal bone fracture with displacement on the right along with sigmoid bowing of the bony nasal septum revealing a probable acute nondisplaced fracture Laceration to upper lip -repaired by Dr. Rousseau in ED admit to tele hold xarelto at recommendation of Dr. Rousseau IV unasyn q6 hr, per Dr. Rousseau initially was going to discharge on oral augmentin peridex rinses Dr. Rousseau to follow up with pt tomorrow regarding anticoagulation PT/OT oxy IR for moderate pain/IV morphine for severe pain prophylactic colace Syncopal Episode while seated in wheelchair leaving his room in ED likely in setting of acute pain/vasovagal will obtain echocardiogram, carotid doppler and monitor on tele for completeness L Knee Hematoma given anticoagulated on xarelto expect this will continue to expand will consult orthopedics ICE TID, compression T2DM hold metformin novolog per protocol last a1c on 02/26 was 6.3 CAD HTN HLD bp elevated in ED likely 2/2 pain continue losartan, asa, statin PAF continue amiodarone hold xarelto for now until cleared by Dr. Rousseau DVT ppx: SCDs FULL CODE PCP: Michel Dispo: admit to tele Pt was seen and examined in collaboration with Dr. Hodgson, please see addendum A total of 56 minutes was spent coordinating, documenting, and providing care for this patient excluding time spent in the performance of separately billed services. This included personally viewing all current laboratories and imaging studies, medication reconciliation, outpatient chart review, and discussion with specialists. 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 His is at bedside who also helps elicit history. He was taken his to the dentist today and when they were leaving and he was walking out he fell on the curb. At the time he denied any dizziness or syncope. He did strike both of his knees and his face on the concrete. He is on a blood thinner, Xarelto, for atrial fibrillation. At the time of the event he denied any headache, change in vision, lightheadedness or dizziness. He does have prior history of vertigo and denied any vertiginous symptoms prior to fall. According to ED records his tetanus is up-to-date as of April 2023. He did sustain 2 forehead lacerations that was repaired by SIOMARA in ED. He also had a laceration of inside of upper lip which was repaired by Dr. Rousseau. He was instructed by Dr. Rousseau to hold Xarelto. He did undergo head CT which showed an acute comminuted nasal bone fracture with displacement to the right, sigmoidal bowing of the bony nasal septum with probable acute nondisplaced fracture. His left knee was x-rayed and negative for acute fracture although there was noted soft tissue swelling. CT cervical spine was negative. He initially was going to be discharged and when going out of the room in the wheel chair he had a syncopal episode. states, "he just went out."He felt dizzy prior to passing out. He does not recall having severe pain at the time. He denies tobacco use. He has an occasional beer but nothing frequent. Allergies Allergy/AdvReac Type Severity Reaction Status Date / Time No Known Allergies Allergy Verified 06/27/23 21:00 Home Medications Medication Instructions Recorded Confirmed Type acetaminophen 325 mg tablet 650 mg PO DIRECTED PRN 06/27/23 04/01/24 History (Tylenol) PAIN/FEVER aspirin 81 mg tablet,delayed 81 mg PO DAILY 06/27/23 04/01/24 History release cyanocobalamin (vitamin B-12) 1,000 mcg PO DAILY 06/27/23 04/01/24 History 1,000 mcg tablet (Vitamin B-12) lidocaine 5 % topical patch 2 patch topical DAILY PRN LOWER 06/27/23 04/01/24 History BACK PAIN lutein 20 mg tablet 20 mg PO DAILY 06/27/23 04/01/24 History metformin 500 mg tablet 500 mg PO UD 06/27/23 04/01/24 History multivit with min-folic 1 tab PO DAILY 06/27/23 04/01/24 History acid-lutein 200 mcg-137.5 mcg chewable tablet (Adult Multivitamin (w-lutein)) tamsulosin 0.4 mg capsule (Flomax) 0.4 mg PO BID 06/27/23 04/01/24 History losartan 100 mg tablet 100 mg PO DAILY #30 tabs 06/29/23 04/01/24 Rx rivaroxaban 20 mg tablet (Xarelto) 20 mg PO HS #30 tabs 06/29/23 04/01/24 Rx rosuvastatin 10 mg tablet 10 mg PO QAM #30 tabs 06/29/23 04/01/24 Rx amiodarone 200 mg tablet 100 mg PO DAILY 04/01/24 04/01/24 History amoxicillin 875 mg-potassium 1 tab PO BID 10 days #20 tabs 04/01/24 Rx clavulanate 125 mg tablet chlorhexidine gluconate 0.12 % 15 ml buccal BID #1,500 mL 04/01/24 Rx mouthwash (Paroex Oral Rinse) furosemide 20 mg tablet (Lasix) 20 mg PO QAM 04/01/24 04/01/24 History meclizine 12.5 mg tablet 12.5 mg PO TID PRN Dizziness 04/01/24 04/01/24 History Past Med/Surg History Problem List (Updated 04/01/24 @ 18:32 by Cyndi Daniels PA-C) correction current use 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 Syncope Hematoma of left knee region Pain and swelling of left knee (Acute) Acute pain of left knee (Acute) Fracture of nasal bone (Acute) Face lacerations (Acute) Abrasion of face (Acute) Fall from standing (Acute) Encounter for pre-operative examination No pertinent past surgical history Atrial fibrillation with rapid ventricular response (Acute) ASCVD (arteriosclerotic cardiovascular disease) Edema, peripheral (Acute) Medical History (Updated 04/01/24 @ 18:32 by Cyndi Daniels PA-C) 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 PAF (paroxysmal atrial fibrillation) Hypertension goal BP (blood pressure) < 130/80 Dyslipidemia, goal LDL below 70 DMII (diabetes mellitus, type 2) 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 Acute duodenitis Diabetes Hypertension High cholesterol Social History Smoking Status: Never smoker Hx Alcohol Use: No Hx Substance Use: No Preferred Language: Lithuanian Communication Ability: Effective 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 Hodgson addendum for physical exam findings. Results & Data Results & Data Vital Signs (Past 12 Hours) Vital Signs Temp Pulse Pulse Resp BP BP Pulse Ox 04/01/24 15:56 70 19 128/99 97 04/01/24 13:56 68 04/01/24 13:38 73 17 118/73 97 04/01/24 10:30 58 L 23 154/100 H 97 04/01/24 09:42 61 04/01/24 09:03 36.5 C 56 L 18 201/94 H 96 O2 Del Method 04/01/24 15:56 Room Air 04/01/24 13:56 04/01/24 13:38 Room Air 04/01/24 10:30 04/01/24 09:42 04/01/24 09:03 Room Air Diagnostic Findings Cervical Spine CT 04/01/24 09:26 CT cervical spine wo con CLINICAL HISTORY: 84 years-old Male with fall from standing. Acute neck injury status post fall COMPARISON: CT head and maxillofacial studies of same day TECHNIQUE: Multiple axial CT images of the cervical spine were obtained without contrast. A dose lowering technique was utilized adhering to the principles of ALARA. FINDINGS: Demineralized appearance of the bones. Moderate multilevel degenerative changes. Nuchal ligament calcifications. No acute cervical spine fracture or subluxation identified. The cervical soft tissues appear unremarkable. The visualized lung apices appear clear. Maxillary sinus polypoid mucosal thickening noted on the left. IMPRESSION: No acute cervical spine fracture or subluxation. ACT 112: Negative or not required by law. The above report was generated using voice recognition software. It may contain grammatical, syntax or spelling errors. Electronically signed by: Octavio Palafox M.D. 04/01/2024 10:[address] 04/01/24 09:26 CT facial bones wo con CLINICAL HISTORY: 84 years-old Male presenting with fall from standing; facial injury. Acute facial trauma status post fall COMPARISON STUDY: CT head and cervical spine studies of same day TECHNIQUE: High-resolution CT scan of the facial bones is performed. Images are reviewed in the axial, sagittal, and coronal planes. IV contrast was not administered for this examination. A dose lowering technique was utilized adhe ring to the principles of ALARA. CT DOSE: 1690.98 mGy.cm FINDINGS: No acute calvarial fracture. The mastoid air cells are clear. Mild polypoid mucosal thickening of the maxillary sinuses. Acute comminuted bilateral nasal bone fractures with mild displacement on the right. There is moderate adjacent soft tissue swelling. No additional acute facial bone fracture identified. The bony orbits appear intact. Degenerative changes of the imaged cervical spine. Sigmoidal bowing and spurring of the nasal septum with probable acute nondisplaced anterior fracture. IMPRESSION: 1. Acute comminuted nasal bone fractures with mild displacement on the right. 2. Sigmoidal bowing of the bony nasal septum with probable acute nondisplaced fracture. ACT 112: Negative or not required by law. The above report was generated using voice recognition software. It may contain grammatical, syntax or spelling errors. Electronically signed by: Octavio Palafox M.D. 04/01/2024 10:[address] 04/01/24 09:26 CT OF THE HEAD WITHOUT CONTRAST CLINICAL HISTORY: fall from standing; facial injury COMPARISON STUDY: No previous studies for comparison. TECHNIQUE: Helical axial images of the head were obtained without IV contrast. Automated exposure control was utilized for the study. A dose lowering technique was utilized adhering to the principles of ALARA. FINDINGS: No acute intracranial hemorrhage, midline shift or mass effect is present. The ventricular system is unremarkable. The basal cisterns are patent. No extra-axial collections are present. There are no findings to suggest acute dural sinus thrombosis or acute territorial infarct. No calvarial fractures are identified. Nasal and left forehead contusions are present. Acute bilateral nasal bone fractures are better depicted on the facial bone CT. IMPRESSION: 1. No acute intracranial findings. 2. Acute bilateral nasal bone fractures better depicted on the facial bone CT. Nasal and left forehead contusions. ACT 112: Negative or not required by law. Electronically signed by: Jefferson Baires M.D. 04/01/2024 10:27 AM Knee X-Ray 04/01/24 10:57 XR knee LT 3V CLINICAL HISTORY: Left knee pain following fall. COMPARISON: None FINDINGS: Alignment of the left knee is anatomic. There is no acute fracture. Extensive anterior knee soft tissue swelling is present. Possible small joint effusion. Medial and lateral compartment joint space are preserved. 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 IMPRESSION: 1. No acute fractures. Possible small left knee joint effusion. 2. Extensive anterior knee soft tissue swelling. 3. Moderate patellofemoral compartment osteoarthritis. ACT 112: Negative or not required by law. Electronically signed by: Jefferson Baires M.D. 04/01/2024 11:54 AM Chest X-Ray 04/01/24 12:19 XR chest 1V portable CLINICAL HISTORY: chest pain TECHNIQUE: Single frontal radiograph of the chest was obtained. Comparison: Comparison is made to chest radiograph 06/27/2023 FINDINGS: No lines and tubes are seen. The cardiomediastinal silhouette is normal. The lungs are clear. No evidence of pleural effusion or pneumothorax. IMPRESSION: No acute chest disease. ACT 112: Negative or not required by law. Electronically signed by: Umair Myers M.D. 04/01/2024 1:19 PM Medications Administered Medication List Discontinued Medications Lidocaine (Lidocaine/Epineph/Tetracaine 1 Ea Syr) 1 each EXT NOW STA Stop: 04/01/24 11:23 Last Admin: 04/01/24 12:08 Dose: 1 each Documented By: MR Lidocaine HCl (Lidocaine 1% Local 20 Ml Vial) 3 ml INJ NOW ONE Stop: 04/01/24 14:54 Last Admin: 04/01/24 15:55 Dose: 1 ml Documented By: ASW Oxycodone HCl (Oxycodone Hcl Ir 5 Mg Tab (Immediate Release)) 5 mg PO NOW STA Stop: 04/01/24 11:23 Last Admin: 04/01/24 12:08 Dose: 5 mg Documented By: Oxycodone HCl (Oxycodone Ir Home Pack) 1 each PO UD ONE Stop: 04/01/24 14:44 Last Admin: 04/01/24 15:55 Dose: 1 each Documented By: ASW ECG Additional Comments: I have independently reviewed and interpreted patient's admitting EKG which revealed: 59 bpm,sinus bradycardia,q tc 437 ms COVID-19 Results Results COVID-19 Adm Lab Results: RBC 5.75 M/uL (4.70-6.10) 04/01/24 WBC 17.94 K/ul (4.8-10.8) H 04/01/24 Hgb 16.7 g/dl (14.0-18.0) 04/01/24 Hct 49.7 % (42.0-52.0) 04/01/24 Plt Count 222 K/uL (130-400) 04/01/24 Neutrophils (%) (Auto) 78.7 % 04/01/24 Lymphocytes (%) (Auto) 12.2 % 04/01/24 Monocytes # (Auto) 1.31 K/uL (0.11-0.59) H 04/01/24 Eosinophils # (Auto) 0.07 K/uL (0.00-0.50) 04/01/24 Immature Granulocyte % (Auto) 1.0 % 04/01/24 Neutrophils # (Auto) 14.11 K/uL (1.40-6.50) H 04/01/24 Lymphocytes # (Auto) 2.19 K/uL (1.20-3.40) 04/01/24 Monocytes # (Auto) 1.31 K/uL (0.11-0.59) H 04/01/24 Eosinophils # (Auto) 0.07 K/uL (0.00-0.50) 04/01/24 Basophils # (Auto) 0.08 K/uL (0.00-0.20) 04/01/24 Immature Granulocyte # (Auto) 0.18 K/uL (0.01-0.20) 4 Na 137 mmol/L (136-145) 04/01/24 K 4.3 mmol/L (3.5-5.1) 04/01/24 Cl 102 mmol/L (98-107) 04/01/24 CO2 25 mmol/L (21-32) 04/01/24 Anion Gap 10 (3-11) 04/01/24 BUN 15 mg/dl (6-23) 04/01/24 Creatinine 0.78 mg/dl (0.6-1.4) 04/01/24 BUN/Creatinine Ratio 19.2 (10-20) 04/01/24 Glucose Level 141 mg/dl (70-99(Fasting)) H 04/01/24 Ca 8.9 mg/dl (8.6-10.3) 04/01/24 Total Bilirubin 1.2 mg/dl (0.2-1.0) H 04/01/24 AST/SGOT 34 U/L (13-39) 04/01/24 ALT/SGPT 32 U/L (7-52) 04/01/24 Alkaline Phosphatase 59 U/L (34-104) 04/01/24 Total Protein 6.8 gm/dl (6.0-8.3) 04/01/24 Albumin 3.9 gm/dl (3.4-5.0) 04/01/24 Globulin 2.9 gm/dl (2.5-4.0) 04/01/24 Albumin/Globulin Ratio 1.3 (0.9-2) 04/01/24 Chest X-Ray 04/01/24 Code Status & VTE Plan Code Status FULL CODE VTE Prophylaxis Plan VTE Prophylaxis will be ordered: Yes Supervising Physician Co-Signing Physician Notes I have seen and discussed the case with the collaborating advanced practitioner. I agree with the above H&P. I have reviewed and confirmed the patients medical history, the findings on physical examination, and the patients diagnosis and treatment plan with PAYvette and agree with the information documented. GENERAL APPEARANCE: AxOx4, fatigued appearing gentleman HEENT: NC, AT. MMM. EOMI, two sutured lacerations on medial brow with surrounding swelling and ecchymosis dried blood in mouth, sutures upper lip, tape in place under nares, dried blood in bilateral nare without active bleeding, abrasion on nose with notable dried blood and inflammation NECK: Supple without lymphadenopathy. No stiffness or restricted ROM. HEART: Normal rate and regular rhythm, normal S1/S1, no m/r/g LUNGS: CTAB, moving air well. No crackles or wheezes are heard. ABDOMEN: Soft, nontender, nondistended with good bowel sounds heard. EXTREMITIES: Without cyanosis, clubbing or edema. NEUROLOGICAL: Grossly nonfocal. Alert and oriented, moving all 4 extremities. CN not formally tested but appear grossly intact. Observed to ambulate with normal gait. Skin: Warm and dry without any rash. left knee with large hematoma forming MARC bandage in place, right knee with small anterior patellar abrasion, clean #Multiple facial lacerations eval'd by ENT s/p sutures appreciate further recs UNASYN IV while admitted #Large left knee hematoma notable enlargement of hematoma, patient on xarelto Ortho consult for eval of hemarthrosis ?any aspiration necessary #Syncopal event concern for blood loss/vasovagal from stress.likely multifactorial admit overnight for tele and repeat labs hold xarelto CBC in am rest of plan as above : I spent a total of 35 minutes coordinating, documenting, and providing care for this patient excluding time spent in the performance of separately billed services. All of the aforementioned completed outside of collaborating with the assigned advanced practitioner for a full treatment plan. I have reviewed the advanced practitioner's documentation, and I agree with, and take responsibility for the plan of care
--- NOTE | 2024-04-01 17:13 | Electrocardiogram Report ---
Test Reason : Blood Pressure : / mmHG Vent. Rate : 059 BPM Atrial Rate : 059 BPM P-R Int : 174 ms QRS Dur : 076 ms QT Int : 442 ms P-R-T Axes : 079 009 071 degrees QTc Int : 437 ms Sinus bradycardia Nonspecific T wave abnormality Abnormal ECG When compared with ECG of 29-JUN-2023 08:09, ST no longer depressed in Inferior leads Confirmed by Jasvir Emery ([id number]) on 04/01/2024 5:12:52 PM Referred By: REFERRED SELF Confirmed By:José Eemry
[2024-04-01] MEDS: hydrALAZINE HCL 20 MG/ML VIAL IV STA (18:44)
[2024-04-01] MEDS ORDERED: ALUMINUM/MAGNESIUM SUSP 30 ML UDC PO PRN (21:00)
[2024-04-01] MEDS ORDERED: DEXTROSE 50% 50 ML SYRINGE IV PRN (21:00)
[2024-04-01] MEDS ORDERED: MoRPHine SULFATE 2 MG/ML CARP IV PRN (21:00)
[2024-04-01] MEDS ORDERED: GLUCOSE 10 TAB/TUBE PO PRN (21:00)
[2024-04-01] MEDS ORDERED: POLYETHYLENE (MIRALAX) 17 GM PACK PO PRN (21:00)
[2024-04-01] MEDS ORDERED: GLUCOSE 40% GEL 15 GM TUBE PO PRN (21:00)
[2024-04-01] MEDS ORDERED: oxyCODONE HCL IR 5 MG TAB (IMMEDIATE RELEASE) PO PRN (21:00)
[2024-04-01] MEDS ORDERED: GLUCAGON FOR INJ 1 MG VIAL SQ PRN (21:00)
[2024-04-01] MEDS ORDERED: MAGNESIUM HYDROXIDE SUSP 30 ML UDC PO PRN (21:00)
[2024-04-01] MEDS ORDERED: CARBOHYDRATES FOR HYPOGLYCEMIA PO PRN (21:00)
[2024-04-01] MEDS ORDERED: ONDANSETRON INJ 2 MG/ML 2 ML VIAL IV PRN (21:00)
[2024-04-01] MEDS: INSULIN ASPART PER UNIT CHARGE SC SCH (21:58)
[2024-04-01] MEDS: TAMSULOSIN HCL 0.4 MG CAP PO SCH (22:27)
[2024-04-01] MEDS: DOCUSATE SODIUM 100 MG CAP PO SCH (22:27)
[2024-04-01] MEDS: AMPICILLIN/SULBACTAM SOD 3,000 MG in SODIUM CHLOR 0.9% MINI-B 100 ML IV SCH (22:28)
[2024-04-01] MEDS: CHLORHEXIDINE GLUCONATE 0.12% 480 ML MT SCH (22:28)
[2024-04-01] MEDS: ACETAMINOPHEN 325 MG TAB PO PRN (22:32)
--- OUTSIDE RECORDS SUMMARY | 2024-04-02 02:20 | External Medical Summary | Summary of Care ---
Author Name Unknown Organization [facility] Address [address] [place] [address] Phone [phone] Care Team Providers Care Solar Designer Name Role Phone Andree Pearson MD Primary Care Provider [phone] Reason for Visit * Reason Onset Date Comments MyCode Nonconsent - Not interested at this time 03/21/2024 Encounter Details Date Type Department Care Team (Late st Contact Info) Description 03/21/2024 Orders Only Outcomes Research Department [address] [place] [address] Belinda Arias CHRA MyCode Nonconsent Documentation Allergies No known active allergiesdocumented as of this encounter (statuses as of 03/21/2024) Medications Medication Sig Dispensed Refills Start Date End Date Status Tamsulosin HCl 0.4 MG Oral Capsule (Flomax) Take 1 Capsule by mouth in the morning and 1 Capsule before bedtime. Active Lutein 20 MG Oral Capsule Take 1 Capsule by mouth in the morning. Active Lidocaine 5 % External Patch (Lidoderm) Place 2 Patches topically on the skin as needed. As needed for lower back pain 08/06/2022 Active Cyanocobalamin 1000 MCG Oral Tablet (Cyanocobalamin) Take 1 Tablet by mouth in the morning. Active Acetaminophen 325 MG Oral Tablet (Tylenol) Take 2 Tablets by mouth as needed. As needed for pain 08/05/2022 Active Multivitamin Adult Oral Tablet Take 1 Tablet by mouth in the morning. Active metFORMIN HCl 500 MG Oral Tablet (Glucophage) One tab in the morning, two tabs in the evening Active Losartan Potassium 100 MG Oral Tablet (Cozaar) Take 1 Tablet by mouth in the morning. 06/29/2023 Active Amiodarone HCl 100 MG Oral Tablet (Cordarone) Take 1 Tablet by mouth in the morning. 90 Tablet 3 07/23/2023 Active Additional Information Patient taking differently: 50 mgOral Daily(AM), Reported on 03/07/2024 Xarelto 20 MG Oral Tablet TAKE 1 TABLET BY MOUTH AT BEDTIME WITH EVENING MEAL 90 Tablet 3 07/26/2023 Active Rosuvastatin Calcium 10 MG Oral Tablet (Crestor) Take 1 Tablet by mouth in the morning. In the morning.. 90 Tablet 3 07/26/2023 Active Clotrimazole 1 % External Cream (Lotrimin) Apply topically to affected area 2 times a day. 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 Restart 1 daily with food 03/07/2024 (was off since 01/12). 03/07/2024 Active Doxycycline Hyclate 100 MG Oral CapsuleIndications: Infected olecranon bursa, left,Cellulitis of left upper extremity Take 1 Capsule by mouth in the morning and 1 Capsule before bedtime. Do all this for 14 days. Until gone.. 28 Capsule 03/07/2024 03/21/2024 Active Cefuroxime Axetil 500 MG Oral Tablet (Ceftin)Indications :Infected olecranon bursa, left,Cellulitis of left upper extremity Take 1 Tablet by mouth in the morning and 1 Tablet before bedtime. Do all this for 13 days. Do not start before March 08, 2024. 26 Tablet 03/08/2024 03/21/2024 Active Saccharomyces boulardii 250 MG Oral Capsule (Florastor)Indicati ons:Infected olecranon bursa, left,Cellulitis of left upper extremity Take 1 Capsule by mouth in the morning and 1 Capsule before bedtime. 30 Capsule 03/07/2024 Active Meclizine HCl 12.5 MG Oral Tablet (Antivert)Indicatio ns:Benign paroxysmal positional vertigo, unspecified laterality Take 1 Tablet by mouth 3 times a day as needed for Dizziness. 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 04/25/2023 History of placement of stent in LAD coronary ar dequan 04/25/2023 Dyslipidemia, goal LDL below 70 04/25/2023 HTN, goal below 140/90 04/25/2023 Type 2 diabetes mellitus wit h hemoglobin A1c goal of less than 7.0% 04/25/2023 History of colonoscopy with polypectomy 04/25/20 23 Lumbar spondylosis 04/25/2023 Arthritis of right knee 04/25/2023 BPH with obstruction/lower urinary tract symptom s 04/25/2023 History of nonmelanoma skin cancer 04/25/2023 Serum total bilirubin elevated 04/25/2023 Bilateral hip joint arthritis 04/25/2023 documented as of this encounter (statuses as of 03/21/2024) Resolved Problems Problem Noted Date Diagnosed Date Resolved Date Need for prophylactic vaccin ation with tetanus-diphtheria (Td) 04/25/2023 08/07/2023 documented as of this encounter (statuses as of 03/21/2024) Immunizations Name Administration Dates Next Due COVID-19 mRNA, LNP-s, No Pre serve, 2-Dose Series (Moderna) 02/03/2022,01/07/2021,12/10/2020 Covid-19, Mrna, Lnp-s, Pf, B ivalent, 25 Mcg, IM,6-11 yrs (Moderna) 02/03/2022 H1N1 2009 Influenza, IM 10/26/2009 Pneumococcal Conjugate Vacc, 13 Valent (Prevnar) 04/19/2015 Pneumococcal Polysaccharide PPV23 (Pneumovax) 05/05/2015,06/02/2003 Season Influenza, Quad, PF, Adjuvanted, 65+ Yrs, IM (FLUAD) 06/22/2022,07/27/2021 Seasonal Influenza Virus Vac cine, Unspecified Formulation 08/10/2011 Seasonal Influenza, Quadriva lent Hd (Fluzone Hd) 07/04/2023 Seasonal Influenza, Quadriva lent, No Preserve, IM 07/12/2020 Seasonal Influenza, Trivalen t, Adjuvanted, 65+ yrs 07/28/2017 Seasonal Influenza, Trivalen t, High Dose, No Preserve, IM 08/06/2019,08/12/2018,07/02/2018,07/26,08/03/2014,07/07/2013 TDAP (age 10 and older)(Boostrix) 04/28/2013 TDAP, Age 7 and older, IM (Adacel) 04/27/2023 Varicella Zoster Vaccine (Adult) 05/12/2013 Zoster Vaccine Recombinant (Shingrix) 08/10/2022 ,2022 documented as of this encounter Social History Tobacco Use Types Packs/Day Years Used Date Smoking Tobacco: Former Cigarettes Smokeless Tobacco: Never Alcohol Use Standard Drinks/Week Comments Yes 1 (1 standard drink = 0.6 oz pur e alcohol) PHQ-2 Answer Date Recorded PHQ Adult Total Score 0 04/25/2023 Hunger Vital Sign Answer Date Recorded Within the past 12 months, y ou worried that your food would run out before you got the money to buy more. Never true 04/25/20 23 Within the past 12 months, t he food you bought just didn't last and you didn't have money to get more. Never true 04/25/2023 Sex and Gender Information Value Date Recorded Sex Assigned at Not on file Gender Identity Not on file Sexual Orientation Not on file Job Start Date Occupation Industry Not on file Not on file Not on file documented as of this encounter Progress Notes * Belinda Arias CHRA - 03/21/2024 9:17 AM EDT MyCode Nonconsent Documentation Peter Ware was approached in the clinic regarding participation in the [employer] and did not consent. documented in this encounter Plan of Treatment Upcoming Encounters Date Type Department Care Team (Late st Contact Info) Description 03/21/2024 9:40 AM EDT Office Visit General Internal Medicine [facility] [place] [address] [place] [address] Andree Pearson MD [address] [place], [place] [address] Arrived 04/04/2024 2:45 PM EDT Imaging Radiology [address] [facility] [place] [address] 04/09/2024 3:00 PM EDT Telemedicine Orthopaedics [facility] [address] [place] [address] Barrett Scott PA-C [address] [place] [address] 04/30/2024 9:00 AM EDT Office Visit Cardiology, [facility] [address] [facility] [place] [address] Cole Rebolledo PAWilliamC [address] [place] [address] 06/09/2024 8:30 AM EDT Laboratory Laboratory [facility] [address] [place] [phone] [facility] [address] [place], [place] [address] 07/30/2024 8:30 AM EDT Laboratory Laboratory [facility] [place] [address] [place] [id number] [facility] [address] [place], [place] [address] 08/04/2024 8:20 AM EDT Office Visit General Internal Medicine [facility] [place] [address] [place] [address] Andree Pearson MD [address] [place], [place] [address] Health Maintenance Due Date Last Done Comments COVID-19 Vaccine (2022-24 season) 2023 07/14/2022, 02/03/2022, 02/03/2022, Additional history exists Depression Screening 04/25/2024 04/25/2023 Albumin/Creatinine Ratio 08/07/2024 08/07/2023 Diabetic Foot Exam 08/07/2024 08/07/2023 HbA1c 08/29/2024 02/27/2024, 08/02/2023 Diabetic Eye Exam 11/26/2024 11/26/2023 DTaP,Tdap,and Td Vaccines (3 - Td or Tdap) 04/27/2033 04/27/2023, 04/28/2013 Zoster Vaccines Completed 08/10/2022, 02/20, 05/12/2013 Pneumococcal Vaccine: 65+ Years Completed 03/14/2023, 05/05/2015, 04/19/2015, Additional history exists Influenza Vaccine (FLU shot) Completed , 06/22/2022, 07/27/2021, Additional history exists GARDASIL-HPV IMMUNIZATION SERIES Aged Out No longer eligible based on patient's age to complete this topic Hepatitis B Aged Out No longer eligi ble based on patient's age to complete this topic MENINGOCOCCAL (MENACTRA/MENVEO) Aged Out No longer eligible based on patient's age to complete this topic documented as of this encounter Medical Devices Not on filedocumented as of this encounter Care Teams Solar Designer Relationship Specialty Start Date End Date Andree Pearson MD [address] [place], [place] [address] PCP - General Internal Medicine 04/25/23 documented as of this encounter
--- OUTSIDE RECORDS SUMMARY | 2024-04-02 02:20 | External Medical Summary | Summary of Care ---
Author Name Unknown Organization [facility] Address [address] [place] [address] Phone [phone] Care Team Providers Care Wildlife Conservation Professor Name Role Phone Andree Pearson MD Primary Care Provider [phone] Reason for Visit * Reason Onset Date Comments Appointment 03/24/2024 Encounter Details Date Type Department Care Team (Late st Contact Info) Description 03/24/2024 Telephone General Internal Medicine [facility] [address] [facility] [place] [address] Andree Pearson MD [address] [place] [address] Appointment Allergies No known active allergiesdocumented as of this encounter (statuses as of 03/25/2024) Medications Medication Sig Dispensed Refills Start Date [...] the morning.. 90 Tablet 3 07/26/2023 Active Furosemide 20 MG Oral Tablet (Lasix)Indications:A trial fibrillation status post cardioversion (HCC) Taking 1 tab 1-2/week since 02/08/24 03/07/2024 Active Aspirin 81 MG Oral Tablet Delayed ReleaseIndications:C oronary artery disease involving shoshone-bannock coronary artery of shoshone-bannock heart without angina pectoris Take 1 Tablet by mouth in the morning. Restart 1 daily with food 03/07/2024 (was off since 01/12). 03/07/2024 Active Saccharomyces boulardii 250 MG Oral Capsule (Florastor)Indicatio ns:Infected olecranon bursa, left,Cellulitis of left upper extremity Take 1 Capsule by mouth in the morning and 1 Capsule before bedtime. 30 Capsule 03/07/2024 Active Meclizine HCl 12.5 MG Oral Tablet (Antivert)Indication s:Benign paroxysmal positional vertigo, unspecified laterality Take 1 Tablet by mouth 3 times a day as needed for Dizziness. 30 Tablet 1 03/14/2024 Active Cefuroxime Axetil 500 MG Oral Tablet (Ceftin)Indications: Infected olecranon bursa, left,Cellulitis of left upper extremity Take 1 Tablet by mouth in the morning and 1 Tablet before bedtime. 14 Tablet 03/21/2024 Active Doxycycline Hyclate 100 MG Oral CapsuleIndications:I nfected olecranon bursa, left,Cellulitis of left upper extremity Take 1 Capsule by mouth in the morning and 1 Capsule before bedtime. Until gone.. 14 Capsule 03/21/2024 Active documented as of this encounter (statuses as of 03/25/2024) Active Problems Problem Noted Date Diagnosed Date Elevated TSH 08/07/2023 Atrial fibrillation status post cardioversion Coronary artery disease invo lving shoshone-bannock coronary artery of shoshone-bannock heart without angina pectoris 04/25/2023 History of [...] as of this encounter (statuses as of 03/25/2024) Resolved Problems Problem Noted Date Diagnosed Date Resolved Date Need for prophylactic vaccin ation with tetanus-diphtheria (Td) 04/25/2023 08/07/2023 documented as of this encounter (statuses as of 03/25/2024) Immunizations Name Administration Dates Next Due COVID-19 [...] on file documented as of this encounter Miscellaneous Notes * Telephone Encounter - Kanu Jones OSA - 03/25/2024 10:06 AM EDT Pt called and stated he is no longer interested in scheduling Dermatology with us. Pt says he has adermatologist that he sees in [place]. Dermatology request has been canceled. * Telephone Encounter - Pasha Key OSA - 03/24/2024 3:39 PM EDT Pt needs to schedule DERMATOLOGY Associated Diagnoses Skin lesion [L98.9] LMOM 03/24 documented in this encounter Plan of Treatment Upcoming Encounters Date Type Department Care Team (Late st Contact Info) Description 04/04/2024 2:45 PM EDT Imaging Radiology [facility] [address] [facility] [place] [address] 04/09/2024 3:00 PM EDT Telemedicine Orthopaedics [facility] [address] [facility] [place] [address] Barrett Scott PA-C [address] [place] [address] 04/30/2024 9:00 AM EDT Office Visit Cardiology, [facility] [address] [facility] [place] [address] Cole Rebolledo PA-C [address] [place] [address] 06/09/2024 8:30 AM EDT Laboratory Laboratory [facility] [address] [place] [id number] [facility] [address] [place], [place] [address] 07/30/2024 8:30 AM EDT Laboratory Laboratory [facility] [place] [address] [place] [phone] [facility] [address] [place], [place] [address] 08/04/2024 8:20 AM EDT Office Visit General Internal Medicine [facility] [place] [address] [place], [place] [address] Andree Pearson MD [address] [place], [place] [address] Health Maintenance Due Date Last Done Comments COVID-19 Vaccine ( season) 2023 07/14/2022, 02/03/2022, 02/03/2022, Additional history [...] filedocumented as of this encounter Care Teams Wildlife Conservation Professor Relationship Specialty Start Date End Date Andree Pearson MD [address] [facility] [place] [address] PCP - General Internal Medicine 04/25/23 documented as of this encounter
--- OUTSIDE RECORDS SUMMARY | 2024-04-02 02:20 | External Medical Summary | Summary of Care ---
Author Name Unknown Organization [facility] Address [address] [place] [address] Phone [phone] Care Team Providers Care Director Audience Marketing Name Role Phone Andree Pearson MD Primary Care Provider [phone] Reason for Referral * Evaluate & Treat - Unlimited Visits (Within 30 days (routine)) - Authorized Specialty Diagnoses / Procedures Referred By Andrea ribeiro Referred To Contact Dermatology Diagnoses Skin lesion Andree Pearson MD [address] [place] [address] Referral ID Status Reason Start Date Expiration Date Visits Requested Visits Authorized [id number] Authorized Specialty Services Required 03/21/2024 999 999 Question Answer Referral Priority Within 30 days (routine) Where should this appointment be scheduled? [facility] Are you referring the patient for Mohs Surgery and have a current positive skin cancer biopsy result? No What is the reason for the patient referral? Rash/Skin Check/Eval of Lesion or Mole Reason for Visit * Reason Comments Dizziness Still feeling light headed and dizzy when moving around. Joint Pain The mast on his elbo w seems to be getting smaller since his last visit. Earache He reports that he h as pain in bot ears, mainly his left ear. Is requesting to have them drained. Ear drops do not seem to be helping. Encounter Details Date Type Department Care Team (Latest Contact Info) Description 03/21/2024 9:40 AM EDT Office Visit General Internal Medicine [employer] [address] [place] [address] Andree Pearson MD [address] [place] [address] Infected olecranon bursa, left*; Cellulitis of left upper extremity; Atrial fibrillation status post cardioversion (HCC); On amiodarone therapy; HTN, goal below 140/90; Benign paroxysmal positional vertigo, unspecified laterality; Bilateral impacted cerumen; Skin lesion Allergies No known active allergiesdocumented as of [...] 07/26/2023 Active Furosemide 20 MG Oral Tablet (Lasix)Indications :Atrial fibrillation status post cardioversion (HCC) Taking 1 tab 1-2/week since 02/08/24 03/07/2024 Active Aspirin 81 MG Oral Tablet Delayed ReleaseIndications :Coronary artery disease involving [place] coronary artery of [place] heart without angina pectoris Take 1 Tablet by mouth in the morning. Restart 1 daily with food 03/07/2024 (was off since 01/12). 03/07/2024 Active Saccharomyces boulardii 250 MG Oral Capsule (Florastor)Indicat ions:Infected olecranon bursa, left,Cellulitis of left upper extremity Take 1 Capsule by mouth in the morning and 1 Capsule before bedtime. 30 Capsule 03/07/2024 Active Meclizine HCl 12.5 MG Oral Tablet (Antivert)Indicati ons:Benign paroxysmal positional vertigo, unspecified laterality Take 1 Tablet by mouth 3 times a day as needed for Dizziness. 30 Tablet 1 03/14/2024 Active Cefuroxime Axetil 500 MG Oral Tablet (Ceftin)Indication s:Infected olecranon bursa, left,Cellulitis of left upper extremity Take 1 Tablet by mouth in the morning and 1 Tablet before bedtime. 14 Tablet 03/21/2024 Active Doxycycline Hyclate 100 MG Oral CapsuleIndications :Infected olecranon bursa, left,Cellulitis of left upper extremity Take 1 Capsule by mouth in the morning and 1 Capsule before bedtime. Until gone.. 14 Capsule 03/21/2024 Active Clotrimazole 1 % External Cream (Lotrimin) Apply topically to affected area 2 times a day. Bobo feet 15 g 1 08/07/2023 4 Discontinue d(Medicatio n List Clean Up) Doxycycline Hyclate 100 MG Oral CapsuleIndications :Infected olecranon bursa, left,Cellulitis of left upper extremity Take 1 Capsule by mouth in the morning and 1 Capsule before bedtime. Do all this for 14 days. Until gone.. 28 Capsule 03/07/2024 4 Discontinue d(Refill) Cefuroxime Axetil 500 MG Oral Tablet (Ceftin)Indication s:Infected olecranon bursa, left,Cellulitis of left upper extremity Take 1 Tablet by mouth in the morning and 1 Tablet before bedtime. Do all this for 13 days. Do not start before March 08, 2024. 26 Tablet 03/08/2024 4 Discontinue d(Refill) documented as of this encounter (statuses as of 03/21/2024) Active Problems Problem Noted Date Diagnosed Date Elevated TSH 08/07/2023 Atrial fibrillation status post cardioversion Coronary artery disease invo lving [place] coronary artery of [place] heart without angina pectoris 04/25/2023 History of [...] Smoking Tobacco: Former Cigarettes Smokeless Tobacco: Never Tobacco Cessation:Counseling Given: Not Answered Alcohol Use Standard Drinks/Week Comments Yes 1 [...] on file documented as of this encounter Last Filed Vital Signs Vital Sign Reading Time Taken Comments Blood Pressure 122/60 03/21/2024 9:41 AM EDT Pulse 73 03/21/2024 9:41 AM EDT Temperature 36.7 C (98 F) 03/21/2024 9:41 AM EDT Respiratory Rate 16 03/21/2024 9:41 AM EDT Oxygen Saturation 97% 03/21/2024 9:41 AM EDT Inhaled Oxygen Concentration - - Weight 110.8 kg (244 lb 4.8 oz) 03/21/2024 9:41 AM EDT Height - - Body Mass Index 32.23 06/05/2023 8:56 AM EDT documented in this encounter Progress Notes * Andree Pearson MD - 03/21/2024 9:48 AM EDT SUBJECTIVE: Peter Ware is a 84 year old male. Chief Complaint Patient presents with Dizziness Still feeling light headed and dizzy when moving around. Joint Pain The mast on his elbow seems to be getting smaller since his last visit. Earache He reports that he has pain in bot ears, mainly his left ear. Is requesting to have them drained. Ear drops do not seem to be helping. HPI: 1 week f/u infected olecranon bursitis Wt Readings from Last 4 Encounters: 03/21/24 110.8 kg (244 lb 4.8 oz) 03/14/24 111.9 kg (246 lb 9.6 oz) 03/07/24 110.7 kg (244 lb) 08/07/23 113.2 kg (249 lb 9.6 oz) BP Readings from Last 4 Encounters: 03/21/24 122/60 03/14/24 112/60 03/07/24 116/66 08/07/23 112/70 03/07/24 Patient was seen in [place] at urgent care for symptoms of swelling of his left elbow, 01/18/2024 was given Keflex for 7 days and prednisone 20 mg daily for 3 days on, saw PCP on 01/25/2024, hadaspiration of the joint 17 mL, cultures did not grow any bacteria. Seen again by PCP on 02/08/2024 put on doxycycline for 7 days and was advised take Lasix only as needed. Continues to have significant swelling of the elbow, draining clear serous discharge. No pus, the area is red, swelling of the forearm. Denies fever or chills. No nausea or vomiting. No chest pain or palpitations. He stopped taking the aspirin since December as he thought he was to just stay on the Eliquis,, to resume the same. To make sure he is taking amiodarone 100 mg daily No swelling of the legs. 03/14/2024--- Given Rocephin 1 dose 03/07/24 and started doxycycline twice daily for 2 weeks and Ceftin twice daily for 13 days. Ultrasound of the elbow- with nonspecific findings as noted below. It is draining less, edema of the forearm is improved, swelling over the olecranon persists. S aw Ortho 03/13/2024, had an x-ray done -neg bone abn,is scheduled for MRI 04/04/2024 ,Ortho 04/09/2024. -complains of lightheadedness/dizziness when he gets up from a laying down position, states heis wobbly until he gets his feet on the ground, also may have some dizziness with walking. Denies room spinning sensation. No nausea or vomiting. No blurry vision double vision headache unilateral weakness or numbness of the extremities. EKG-sinus bradycardia at 52 beats per minute, no abnormalities . Orthostatic blood pressure and pulse readings no significant changes We did verify dose of amiodarone he is taking.--1/2 of 200mg Trial of meclizine, once dizziness is better start vestibular rehab exercises, handout given. Advised to use otc Debrox and use as directed. 03/21/2024-swelling the forearm is resolved, swelling of the elbow persists, no redness, still draining scant amount of serous discharge. Will extend Ceftin plus doxy for additional week to complete 3weeks of therapy and await MRI and ortho follow-up. No diarrhea or constipation. Wants to know if he needs to continue probiotic advised to do so till he has on the antibiotics. Continues to have some mild dizziness with change in posture, has been using meclizine about twice a day, did use the earwax drops, has decreased hearing in the right ear and would like to know if hecan get it irrigated. Wt Readings from Last 4 Encounters: 03/21/24 110.8 kg (244 lb 4.8 oz) 03/14/24 111.9 kg (246 lb 9.6 oz) 03/07/24 110.7 kg (244 lb) 08/07/23 113.2 kg (249 lb 9.6 oz) BP Readings from Last 4 Encounters: 03/21/24 122/60 03/14/24 112/60 03/07/24 116/66 08/07/23 112/70 XR ELBOW 3 OR MORE VIEWS EXAM: XR ELBOW 3 OR MORE VIEWS HISTORY: pain COMPARISON: None. FINDINGS: Three views of the left elbow. No acute fracture or subluxation. The elbow joint is grossly intact. No joint effusion. Soft tissueswelling over the olecranon. IMPRESSION: Electro non bursitis without radiographic evidence of acute osseous injury. 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 Lutein 20 MG Oral Capsule Take 1 Capsule by mouth in the morning. Lidocaine 5 % External Patch (Lidoderm) Place 2 Patches topically on the skin as needed. As needed for lower back pain Cyanocobalamin 1000 MCG Oral Tablet (Cyanocobalamin) Take 1 Tablet by mouth in the morning. Acetaminophen 325 MG Oral Tablet (Tylenol) Take 2 Tablets by mouth as needed. As needed for pain Multivitamin Adult Oral Tablet Take 1 Tablet by mouth in the morning. metFORMIN HCl 500 MG Oral Tablet (Glucophage) One tab in the morning, two tabs in the evening Losartan Potassium 100 MG Oral Tablet (Cozaar) Take 1 Tablet by mouth in the morning. Amiodarone HCl 100 MG Oral Tablet (Cordarone) Take 1 Tablet by mouth in the morning. (Patient taking differently: Take 0.5 Tablets by mouth in the morning.) 90 Tablet 3 Xarelto 20 MG Oral Tablet TAKE 1 TABLET BY MOUTH AT BEDTIME WITH EVENING MEAL 90 Tablet 3 Rosuvastatin Calcium 10 MG Oral Tablet (Crestor) Take 1 Tablet by mouth in the morning. In the morning.. 90 Tablet 3 Aspirin 81 MG Oral Tablet Delayed Release Take 1 Tablet by mouth in the morning. Restart 1 daily with food 03/07/2024 (was off since 01/12). Cefuroxime Axetil 500 MG Oral Tablet (Ceftin) Take 1 Tablet by mouth in the morning and 1 Tablet before bedtime. Do all this for 13 days. Do not start before March 08, 2024. 26 Tablet 0 Meclizine HCl 12.5 MG Oral Tablet (Antivert) Take 1 Tablet by mouth 3 times a day as needed for Dizziness. 30 Tablet 1 Furosemide 20 MG Oral Tablet (Lasix) Taking 1 tab 1-2/week since 02/08/24 Doxycycline Hyclate 100 MG Oral Capsule Take 1 Capsule by mouth in the morning and 1 Capsule beforebedtime. Do all this for 14 days. Until gone.. (Patient not taking: Reported on 03/21/2024) 28 Capsule 0 Saccharomyces boulardii 250 MG Oral Capsule (Florastor) Take 1 Capsule by mouth in the morning and 1 Capsule before bedtime. 30 Capsule 0 No current facility-administered medications for this visit. Review of patient's allergies indicates: No Known Allergies OBJECTIVE: BP 122/60 | Pulse 73 | Temp 36.7 C (98 F) (Tympanic) | Resp 16 | Wt 110.8 kg (244 lb 4.8 oz) |SpO2 97% | BMI 32.23 kg/m | BSA 2.39 m PHYSICAL EXAM: General: alert, healthy, no distress, well nourished and well developed Head: Normocephalic, atraumatic Eye Exam: PERRLA, EOMI, Conjunctiva non-injected, sclera clear, no nystagmus Ears: External ears normal, soft cerumen bilateral ear canals, left less soft Heart: Regular rhythm , HR 64 bpm, no murmurs and no gallops Lungs: lungs clear to auscultation Abdomen: Soft, non-tender, normal bowel sounds, no masses or organomegaly, no bruits Extremities: no edema legs , no clubbing, no cyanosis. Neuro Exam:AAO x3 ,fluent speech, no focal motor/sensory deficits, gait normal, neg cerebellar signs Skin: -hyperkeratotic whitish skin lesion noted on the left cheek Scar RT lower leg(h/o skin ca)Callus below left Gr toe Feet--improved severe mocassin type Tinea pedis Rt >left Left forearm , resolved erythema and swelling. left elbow --1 in soft swelling persists, with a central hole , scant serous discharge on the bandaid. , good range of motion of the elbow ASSESSMENT/PLAN: Infected olecranon bursa, left (Primary) - Cefuroxime Axetil 500 MG Oral Tablet (Ceftin); Take 1 Tablet by mouth in the morning and 1 Tabletbefore bedtime. - Doxycycline Hyclate 100 MG Oral Capsule; Take 1 Capsule by mouth in the morning and 1 Capsule before bedtime. Until gone.. Cellulitis of left upper extremity - Cefuroxime Axetil 500 MG Oral Tablet (Ceftin); Take 1 Tablet by mouth in the morning and 1 Tabletbefore bedtime. - Doxycycline Hyclate 100 MG Oral Capsule; Take 1 Capsule by mouth in the morning and 1 Capsule before bedtime. Until gone.. Atrial fibrillation status post cardioversion (HCC) On amiodarone therapy HTN, goal below 140/90 Benign paroxysmal positional vertigo, unspecified laterality Bilateral impacted cerumen - REMOVAL IMPACTED CERUMEN IRRIGATION/LAVAGE, UNILAT Skin lesion - DERMATOLOGY REFERRAL OP Excellent antibiotic another week to complete 21 days of therapy Has MRI scheduled 04/04 and ortho follow-up 04/09/2024. Continue other medications, may continue meclizine up to 3 times a day as needed, start doing vestibular rehab exercises that was given. Cerumenosis is noted. Wax is removed manually partially on the right followed by syringing and manual debridement by nurse, supervised by me. Post irrigation - -scant amount of cerumen in the right ear canal but tympanic membranes seen and normal. Left ear canal still with significant wax as some he had not tolerate the procedure. Advised to continue using Debrox drops daily for additional 5 days or may try using 1 drop of baby oil for 5 days Follow-up: Return if symptoms worsen or fail to improve. | Check-out note: As nikolai in oct (This note was completed using the dictation program Fluency Direct. As such, there may be misspellings, word substitutions, or other variations that should not change the essence of the clinical content of this encounter note. If there is need for further clarification, please direct questions to the provider listed above.) Patient and / caregiver verbalize understanding of above instructions and agrees with plan of care. Andree Pearson MD 03/21/2024 documented in this encounter Nursing Notes * Shaq Rhodes, MED ASSIST - 03/21/2024 9:36 AM EDT The patient has been properly identified by confirmation of name and date of . Chief Complaint Patient presents with Dizziness Still feeling light headed and dizzy when moving around. Joint Pain The mast on his elbow seems to be getting smaller since his last visit. Earache He reports that he has pain in bot ears, mainly his left ear. Is requesting to have them drained. Ear drops do not seem to be helping. documented in this encounter Plan of Treatment Upcoming Encounters Date Type Department Care Team (Late st Contact Info) Description 04/04/2024 2:45 PM EDT Imaging Radiology [facility] [address] [place] [address] 04/09/2024 3:00 PM EDT Telemedicine Orthopaedics [facility] [address] [place] [address] Barrett Sctot PA-C [address] [place] [address] 04/30/2024 9:00 AM EDT Office Visit Cardiology, [facility] [address] [place] [address] Cole Rebolledo PA-C [address] [place] [address] 06/09/2024 8:30 AM EDT Laboratory Laboratory [facility] [address] [place] [id number] [facility] [address] [facility] [place] [address] 07/30/2024 8:30 AM EDT Laboratory Laboratory [facility] [address] [place] [id number] [facility] [address] [facility] [place] [id number] 08/04/2024 8:20 AM EDT Office Visit General Internal Medicine [facility] [place] [address] [place] [address] Andree Pearson MD [address] [facility] [place] [id number] [phone] (work) Scheduled Orders Name Type Priority Associated Diagnoses Orde r Schedule REMOVAL IMPACTED CERUMEN IRRIGATION/LAVAGE, UNILAT Procedures Routine Bilateral impacted cerumen Ordered: 03/21/2024 Scheduled Referrals Name Type Priority Associated Diagnoses Orde r Schedule DERMATOLOGY REFERRAL OP Referral Within 30 days (routine) Skin lesion Ordered: 03/21/2024 Health Maintenance Due Date Last Done Comments [...] Not on filedocumented as of this encounter Visit Diagnoses Diagnosis Infected olecranon bursa, left- Primary Cellulitis of left upper extremity Cellulitis and abscess of upper arm and forearm Atrial fibrillation status post cardioversion (HCC) Cardiac complications On amiodarone therapy HTN, goal below 140/90 Unspecified essential hypertension Benign paroxysmal positional vertigo, unspecified laterality Bilateral impacted cerumen Impacted cerumen Skin lesion Unspecified disorder of skin and subcutaneous tissue documented in this encounter Care Teams Director Audience Marketing Relationship Specialty Start Date End Date Andree Pearson MD [address] [place] [address] PCP - General Internal Medicine 04/25/23 documented as of this encounter"
--- OUTSIDE RECORDS SUMMARY | 2024-04-02 02:20 | External Medical Summary | Summary of Care ---
Author Name Unknown Organization [facility] Address [address] [place] [address] Phone [phone] Care Team Providers Care Collections Rep Name Role Phone Andree Pearson MD Primary Care Provider [phone] Reason for Visit * Reason Comments Return Visit Patient states that he as a large bump on his left elbow. It is about the size of an egg. He has had it drained before but states that it keeps growing back. It was the size of a baseball atone point but is now the size of an egg. Patients reports that the patient has had vertigo for about 4 days. Encounter Details Date Type Department Care Team (Latest Contact Info) Description 03/14/2024 9:40 AM EDT Office Visit General Internal Medicine [facility] Torrez [place] [address] [facility] [place] [address] Andree Pearson MD [address] [place] [address] Infected olecranon bursa, left*; Cellulitis of left upper extremity; Dizziness; Atrial fibrillation status post cardioversion (HCC); HTN, goal below 140/90; Coronary artery disease involving [place] coronary artery of [place] heart without angina pectoris; On amiodarone therapy; Benign paroxysmal positional vertigo, unspecified laterality; Excessive cerumen in ear canal, bilateral Allergies No known active allergiesdocumented as of this encounter (statuses as of 03/14/2024) Medications Medication Sig Dispensed Refills Start Date [...] Tablet Delayed ReleaseIndications: Coronary artery disease involving [place] coronary artery of [place] heart without angina pectoris Take 1 Tablet [...] as of this encounter (statuses as of 03/14/2024) Active Problems Problem Noted Date Diagnosed Date Elevated TSH 08/07/2023 Atrial fibrillation status post cardioversion Coronary artery disease invo lving [place] coronary artery of [place] heart without angina pectoris 04/25/2023 History of placement of stent in LAD coronary ar dequan 04/25/2023 Dyslipidemia, goal LDL below 70 04/25/2023 HTN, goal below 140/90 04/25/2023 Type 2 diabetes mellitus wit h hemoglobin A1c goal of less than 7.0% 04/25/2023 History of colonoscopy with polypectomy 04/25/20 Lumbar spondylosis 04/25/2023 Arthritis of right knee 04/25/2023 BPH with obstruction/lower urinary tract symptom s 04/25/2023 History of nonmelanoma skin cancer 04/25/2023 Serum total bilirubin elevated 04/25/2023 Bilateral hip joint arthritis 04/25/2023 documented as of this encounter (statuses as of 03/14/2024) Resolved Problems Problem Noted Date Diagnosed Date Resolved Date Need for prophylactic vaccin ation with tetanus-diphtheria (Td) 04/25/2023 08/07/2023 documented as of this encounter (statuses as of 03/14/2024) Immunizations Name Administration Dates Next Due COVID-19 [...] 08/06/2019,08/12/2018,07/02/2018,07/26,08/03/2014,07/07/2013 TDAP (age 10 and older)(Boostrix) 04/28/2013 TDAP (age 11 and older)(Adacel) 04/27/2023 Varicella Zoster Vaccine (Adult) 05/12/2013 Zoster [...] Sign Reading Time Taken Comments Blood Pressure 112/60 03/14/2024 9:37 AM EDT Pulse 70 03/14/2024 9:37 AM EDT Temperature 36.1 C (97 F) 03/14/2024 9:37 AM EDT Respiratory Rate 16 03/14/2024 9:37 AM EDT Oxygen Saturation 98% 03/14/2024 9:37 AM EDT Inhaled Oxygen Concentration - - Weight 111.9 kg (246 lb 9.6 oz) 03/14/2024 9:37 AM EDT Height - - Body Mass Index 32.53 06/05/2023 8:56 AM EDT documented in this encounter Progress Notes * Andree Pearson MD - 03/14/2024 9:43 AM EDT SUBJECTIVE: Peter Ware is a 84 year old male. Chief Complaint Patient presents with Return Visit Patient states that he as a large bump on his left elbow. It is about the size of an egg. He has had it drained before but states that it keeps growing back. It was the size of a baseball atone pointbut is now the size of an egg. Patients reports that the patient has had vertigo for about 4 days. HPI: 1 week f/u infection. 03/07/24 Patient was seen in [place] at urgent care for symptoms of swelling of his left elbow, was given Keflex for 7 days and prednisone 20 mg daily for 3 days on 01/18/2024, saw PCP on 01/25/2024, hadaspiration of the [...] aw Ortho 03/13/2024, had an x-ray done and is scheduled for MRI 04/04/2024 with a follow-up with Ortho 04/09/2024. Today also complains of lightheadedness/dizziness when he gets up from a laying down position, wifestates he is wobbly until he gets his feet on the ground, also may have some dizziness with walking. Denies room spinning sensation. No nausea or vomiting. No blurry vision double vision headache unilateral weakness or numbness of the extremities. She is yet to verify dose of amiodarone he is taking. Wt Readings from Last 4 Encounters: 03/14/24 111.9 kg (246 lb 9.6 oz) 03/07/24 110.7 kg (244 lb) 08/07/23 113.2 kg (249 lb 9.6 oz) 07/23/23 111.8 kg (246 lb 8 oz) BP Readings from Last 4 Encounters: 03/14/24 112/60 03/07/24 116/66 08/07/23 112/70 07/23/23 126/80 US EXTREMITY, NON-VASCULAR LIMITED Narrative: EXAM US EXTREMITY, NON-VASCULAR LIMITED-LT 03/07/2024 12:25 pm HISTORY Provided clinical history: "olecranon buristis--infected--r/o abscess" COMPARISON None. TECHNIQUE Focused grayscale and color Doppler ultrasound of the left elbow was performed, and senior human resources representative still images and cine clips are provided. FINDINGS Sonographic evaluation was focused the posterior aspect of the elbow, at the site of the draining wound. The subcutaneous tissue overlying the olecranon process is markedly thickened and heterogeneous, with increased vascularity on Doppler imaging. There is a small overlying skin wound, with edema extending from the wound into the abnormal subcutaneous tissue. However, there is no discrete fluid collection identified. Impression: IMPRESSION Abnormal heterogeneous and hyperemic subcutaneous tissue at the posterior surface of the left elbow, with an overlying skin wound. Sonographic appearance is nonspecific, and this may represent a developing phlegmon, complex bursitis, gout, or other inflammatory process. There is no discrete abscessidentified. Patient Active Problem List Diagnosis Coronary artery disease involving [place] coronary artery of [place] heart without angina pectoris History of placement [...] morning. In the morning.. 90 Tablet 3 Clotrimazole 1 % External Cream (Lotrimin) Apply topically to affected area 2 times a day. Bobo feet15 g 1 Furosemide 20 MG Oral Tablet (Lasix) Taking 1 tab 1-2/week since 02/08/24 Aspirin 81 MG Oral Tablet Delayed Release Take 1 Tablet by mouth in the morning. Restart 1 daily with food 03/07/2024 (was off since 01/12). Doxycycline Hyclate 100 MG Oral Capsule Take 1 Capsule by mouth in the morning and 1 Capsule beforebedtime. Do all this for 14 days. Until gone.. 28 Capsule 0 Cefuroxime Axetil 500 MG Oral Tablet (Ceftin) Take 1 Tablet by mouth in the morning and 1 Tablet before bedtime. Do all this for 13 days. Do not start before March 08, 2024. 26 Tablet 0 Saccharomyces boulardii 250 MG Oral Capsule (Florastor) Take 1 Capsule by mouth in the morning and 1 Capsule before bedtime. 30 Capsule 0 No current facility-administered medications for this visit. Review of patient's allergies indicates: No Known Allergies OBJECTIVE: BP 112/60 | Pulse 70 | Temp 36.1 C (97 F) (Tympanic) | Resp 16 | Wt 111.9 kg (246 lb 9.6 oz) | SpO2 98% | BMI 32.53 kg/m | BSA 2.4 m PHYSICAL EXAM: General: alert, healthy, no distress, well nourished and well developed Head: Normocephalic, atraumatic Eye Exam: PERRLA, EOMI, Conjunctiva non-injected, sclera clear, no nystagmus Ears: External ears normal, hard cerumen bilateral ear canals Nose: no mucosal erythema, no mucosal edema, no purulent discharge Oropharynx: no exudate and no erythema Neck: supple, no bruits, thyroid normal size, non-tender, without nodularity Heart: Regular rhythm , HR 64 bpm, no murmurs and no gallops Lungs: lungs clear to auscultation Abdomen: Soft, non-tender, normal bowel sounds, no masses or organomegaly, no bruits Extremities: no edema legs , no clubbing, no cyanosis. Neuro Exam:AAO x3 ,fluent speech, no focal motor/sensory deficits, gait normal, neg cerebellar signs Skin: skin color, texture--dry legs, turgor are normal, no rashes Scar RT lower leg(h/o skin ca)Callus below left Gr toe Feet--improved severe moc[place]in type Tinea pedis Rt >left --left upper extremity-improved erythema and swelling of the left elbow over the olecranon process,draining scant serous discharge., soft tissue swelling, no significant tenderness dec swelling of the left forearm, good range of motion of the elbow, ASSESSMENT/PLAN: Infected olecranon bursa, left (Primary) Cellulitis of left upper extremity ct current meds Melissa fu 1 wk to reassess need + abx. Has MRI scheduled 04/04 and ortho follow-up 04/09/2024. Dizziness - EKG; Future; Expected date: 03/14/2024 - 3 POSITIONAL BLOOD PRESSURE Atrial fibrillation status post cardioversion (HCC) - EKG; Future; Expected date: 03/14/2024 - 3 POSITIONAL BLOOD PRESSURE HTN, goal below 140/90 Coronary artery disease involving [place] coronary artery of [place] heart without angina pectoris On amiodarone therapy - EKG; Future; Expected date: 03/14/2024 Benign paroxysmal positional vertigo, unspecified laterality - Meclizine HCl 12.5 MG Oral Tablet (Antivert); Take 1 Tablet by mouth 3 times a day as needed for Dizziness. Excessive cerumen in ear canal, bilateral EKG-sinus bradycardia at 52 beats per minute, no abnormalities, to verify dose of amiodarone his taking. Orthostatic blood pressure and pulse readings no significant changes Trial of meclizine, once dizziness is better start vestibular rehab exercises, handout given. Advised to use otc Debrox and use as directed. Follow Up: Return in about 1 week (around 03/21/2024), or if symptoms worsen or fail to improve, forReturn with Physician. | For: Return with Physician | Check- out note: 20 min appt (This note was completed using the dictation [...] with plan of care. Andree Pearson MD 03/14/2024 documented in this encounter Nursing Notes * Shaq Rhodes, MED ASSIST - 03/14/2024 9:34 AM EDT The patient has been properly identified by confirmation of name and date of . Chief Complaint Patient presents with Return Visit Patient states that he as a large bump on his left elbow. It is about the size of an egg. He has had it drained before but states that it keeps growing back. It was the size of a baseball atone pointbut is now the size of an egg. Patients reports that the patient has had vertigo for about 4 days. documented in this encounter Plan of Treatment Upcoming Encounters Date Type Department Care Team (Late st Contact Info) Description 03/21/2024 9:40 AM EDT Office Visit General Internal Medicine [facility] Torrez [place] [address] [place] [address] [address] Andree Pearson MD [address] [place] [address] [address] 04/04/2024 2:45 PM EDT Imaging Radiology [facility] [address] [facility] [place] [address] 04/09/2024 3:00 PM EDT Telemedicine Orthopaedics [facility] [address] [facility] [place] [address] Barrett Scott PA-C [address] [facility] [place] [address] 04/30/2024 9:00 AM EDT Office Visit Cardiology, [facility] [address] [facility] [place] [address] Cole Rebolledo PA-C [address] [place] [address] 06/09/2024 8:30 AM EDT Laboratory Laboratory [facility] [employer] [facility] [address] [place] [phone] Marine Torrez [address] [place] [address] 07/30/2024 8:30 AM EDT Laboratory [place] [phone] Marine Torrez [facility] [address] [facility] [place] [address] 08/04/2024 8:20 AM EDT Office Visit General Internal Medicine [facility] [place] [address] [facility] [place] [address] Andree Pearson MD [address] [facility] [place] [address] Scheduled Orders Name Type Priority Associated Diagnoses Orde r Schedule 3 POSITIONAL BLOOD PRESSURE Procedures Routine Dizziness Atrial fibrillation status post cardioversion (HCC) Ordered: 03/14/2024 Health Maintenance Due Date Last Done Comments [...] Not on filedocumented as of this encounter Results * EKG (03/14/2024 10:43 AM EDT) 03/14/2024 10:4 3 AM EDT Narrative Procedure Note Daniel Huitron, DO - 03/14/2024 10:43 AM EDT REASON FOR STUDY: DIZZINESS CONCLUSIONS: Sinus bradycardia Otherwise normal ECG When compared with ECG of 23-Jul-2023 15:04, No significant change was found Ventricular Rate: 52 Atrial Rate: 52 OK Interval: 194 QRS Duration: 84 QT/QTc: 454/422 ms P-R-T [place]: 20 : 16 : 78 degrees Andree Pearson MD EKG [facility] documented in this encounter Visit Diagnoses Diagnosis Infected olecranon bursa, left- Primary Cellulitis of left upper extremity Cellulitis and abscess of upper arm and forearm Dizziness Dizziness and giddiness Atrial fibrillation status post cardioversion (HCC) Cardiac complications HTN, goal below 140/90 Unspecified essential hypertension Coronary artery disease involving [place] coronary artery of [place] heart without angina pectoris On amiodarone therapy Benign paroxysmal positional vertigo, unspecified laterality Excessive cerumen in ear canal, bilateral Dizziness Dizziness and giddiness Atrial fibrillation status post cardioversion (HCC) Cardiac complications On amiodarone therapy documented in this encounter Care Teams Collections Rep Relationship Specialty Start Date End Date Andree Pearson MD [address] [facility] [place] [address] PCP - General Internal Medicine 04/25/23 documented as of this encounter
--- OUTSIDE RECORDS SUMMARY | 2024-04-02 02:20 | External Medical Summary | Summary of Care ---
Author Name Unknown Organization [facility] Address [address] [place] [address] Phone [phone] Care Team Providers Care Living Specialist Name Role Phone Andree Pearson MD Primary Care Provider [phone] Reason for Visit * Reason Onset Date Comments FYI 03/14/2024 Milagram of medi cation Encounter Details Date Type Department Care Team (Late st Contact Info) Description 03/14/2024 Telephone General Internal Medicine [facility] [address] [facility] [place] [address] Andree Pearson MD [address] [facility] [place] [address] FYI (Milagram of medication) Allergies No known active allergiesdocumented as of [...] Tablet Delayed ReleaseIndications: Coronary artery disease involving [place] coronary artery of [place] heart without angina pectoris Take 1 Tablet [...] Capsule before bedtime. 30 Capsule 03/07/2024 Active documented as of this encounter (statuses as of 03/14/2024) Active Problems Problem Noted Date Diagnosed Date Elevated TSH 08/07/2023 Atrial fibrillation status post cardioversion Coronary artery disease invo lving [place] coronary artery of [place] heart without angina pectoris 04/25/2023 History of [...] encounter Miscellaneous Notes * Telephone Encounter - Andree Pearson MD - 03/14/2024 12:32 PM EDT Noted. * Telephone Encounter - Myah Botello OSA - 03/14/2024 11:51 AM EDT Neeraj Ware calling in for pt stating pt takes 200mg of Amodanone pt takes this once a day and cuts the pill in half documented in this encounter Plan of Treatment Upcoming Encounters Date Type Department Care Team (Late st Contact Info) Description 03/21/2024 9:40 AM EDT Office Visit General Internal Medicine [facility] [place] [address] [place] [address] Andree Pearson MD [address] [place] [address] 04/04/2024 2:45 PM EDT Imaging Radiology [address] [place] [address] 04/09/2024 3:00 PM EDT Telemedicine Orthopaedics [facility] [address] [place] [address] Barrett Scott PA-C [address] [place] [address] 04/30/2024 9:00 AM EDT Office Visit Cardiology, [facility] [address] [place] [address] Cole Rebolledo PA-C [address] [place] [address] 06/09/2024 8:30 AM EDT Laboratory Laboratory [facility] [place] [address] [phone] Marine Torrez [address] [place] [address] 07/30/2024 8:30 AM EDT Laboratory Laboratory [facility] [place] [address] [id number] Marine Torrez [address] [place] [address] [address] 08/04/2024 8:20 AM EDT Office Visit General Internal Medicine [facility] [place] [address] [place] [address] [address] [address] Andree Pearson MD [address] [place] [address] Health Maintenance Due Date Last Done Comments COVID-19 Vaccine (2022- season) 2023 07/14/2022, 02/03/2022, 02/03/2022, Additional history [...] filedocumented as of this encounter Care Teams Living Specialist Relationship Specialty Start Date End Date Andree Pearson MD [address] [place] [address] [address] [address] PCP - General Internal Medicine 04/25/23 documented as of this encounter
--- OUTSIDE RECORDS SUMMARY | 2024-04-02 02:20 | External Medical Summary | Summary of Care ---
Author Name Unknown Organization [facility] Address [address] [place] [address] Phone [phone] Care Team Providers Care Hot Strip Mill Supervisor Name Role Phone Andree Pearson MD Primary Care Provider [phone] Reason for Visit * Reason Onset Date Comments Appointment 03/24/2024 Encounter Details Date Type Department Care Team (Late st Contact Info) Description 03/24/2024 Telephone General Internal Medicine [facility] [address] [facility] [place] [address] Andree Pearson MD [address] [place] [address] Appointment Allergies No known active allergiesdocumented as of this encounter (statuses as of 03/24/2024) Medications Medication Sig Dispensed Refills Start Date [...] Tablet Delayed ReleaseIndications:C oronary artery disease involving [place] coronary artery of [place] heart without angina pectoris Take 1 Tablet [...] as of this encounter (statuses as of 03/24/2024) Active Problems Problem Noted Date Diagnosed Date Elevated TSH 08/07/2023 Atrial fibrillation status post cardioversion Coronary artery disease invo lving [place] coronary artery of [place] heart without angina pectoris 04/25/2023 History of [...] as of this encounter (statuses as of 03/24/2024) Resolved Problems Problem Noted Date Diagnosed Date Resolved Date Need for prophylactic vaccin ation with tetanus-diphtheria (Td) 04/25/2023 08/07/2023 documented as of this encounter (statuses as of 03/24/2024) Immunizations Name Administration Dates Next Due COVID-19 [...] encounter Miscellaneous Notes * Telephone Encounter - Pasha Key OSA - 03/24/2024 3:39 PM EDT Pt needs to schedule DERMATOLOGY Associated Diagnoses Skin lesion [L98.9] LMOM 03/24 documented in this encounter Plan of Treatment Upcoming Encounters Date Type Department Care Team (Late st Contact Info) Description 04/04/2024 2:45 PM EDT [facility] [address] [place] [address] 04/09/2024 3:00 PM EDT Telemedicine Orthopaedics [facility] [address] [place] [address] Barrett Scott PA-C [address] [place] [address] 04/30/2024 9:00 AM EDT Office Visit Cardiology, [facility] [address] [place] [address] Cole Rebolledo PA-C [address] [place] [address] 06/09/2024 8:30 AM EDT Laboratory Laboratory [facility] [address] [place] [phone] [facility] [address] [place] [address] 07/30/2024 8:30 AM EDT Laboratory Laboratory [facility] [place] [address] [place] [phone] [facility] [place] [address] [facility] [place] [address] 08/04/2024 8:20 AM EDT Office Visit General Internal Medicine [facility] [place] [address] [place] [address] Andree Pearson MD 200 [facility] [place] [address] Health Maintenance Due Date Last Done Comments [...] filedocumented as of this encounter Care Teams Hot Strip Mill Supervisor Relationship Specialty Start Date End Date Andree Pearson MD 200 [facility] [place] [address] PCP - General Internal Medicine 04/25/23 documented as of this encounter
--- OUTSIDE RECORDS SUMMARY | 2024-04-02 02:21 | External Medical Summary | Summary of Care ---
Author Name Unknown Organization [facility] Address [address] [place] [address] Phone [phone] Care Team Providers Care Chronic Specialist Name Role Phone Andree Pearson MD Primary Care Provider [phone] Encounter Details Date Type Department Care Team (Late st Contact Info) Description 03/07/2024 Patient Reported Data Patient Survey Ortho OBERD Allergies No known active allergiesdocumented as of this encounter (statuses as of 03/07/2024) Medications Medication Sig Dispensed Refills Start Date End Date Status Tamsulosin HCl 0.4 MG Oral Capsule (Flomax) Take 1 Capsule by mouth in the morning and 1 Capsule before bedtime. 0 Active Lutein 20 MG Oral Capsule Take 1 Capsule by mouth in the morning. 0 Active Lidocaine 5 % External Patch (Lidoderm) Place 2 Patches topically on the skin as needed. As needed for lower back pain 0 08/06/2022 Active Cyanocobalamin 1000 MCG Oral Tablet (Cyanocobalamin) Take 1 Tablet by mouth in the morning. 0 Active Acetaminophen 325 MG Oral Tablet (Tylenol) Take 2 Tablets by mouth as needed. As needed for pain 0 08/05/2022 Active Multivitamin Adult Oral Tablet Take 1 Tablet by mouth in the morning. 0 Active metFORMIN HCl 500 MG Oral Tablet (Glucophage) One tab in the morning, two tabs in the evening 0 Active Losartan Potassium 100 MG Oral Tablet (Cozaar) Take 1 Tablet by mouth in the morning. 0 06/29/2023 Active Amiodarone HCl 100 MG Oral [...] Tablet (Lasix)Indications: Atrial fibrillation status post cardioversion ([facility]) Taking 1 tab 1-2/week since 02/08/24 0 03/07/2024 Active Aspirin 81 MG Oral Tablet Delayed ReleaseIndications: Coronary artery disease involving [place] coronary artery of [place] heart without angina pectoris Take 1 Tablet by mouth in the morning. Restart 1 daily with food 03/07/2024 (was off since 01/12). 0 03/07/2024 Active Doxycycline Hyclate 100 MG Oral CapsuleIndications: Infected olecranon bursa, left,Cellulitis of left upper extremity Take 1 Capsule by mouth in the morning and 1 Capsule before bedtime. Do all this for 14 days. Until gone.. 28 Capsule 0 03/07/2024 03/21/2024 Active Cefuroxime Axetil 500 MG Oral Tablet (Ceftin)Indications :Infected olecranon bursa, left,Cellulitis of left upper extremity Take 1 Tablet by mouth in the morning and 1 Tablet before bedtime. Do all this for 13 days. Do not start before March 08, 2024. 26 Tablet 0 03/08/2024 03/21/2024 Active Saccharomyces boulardii 250 MG Oral Capsule (Florastor)Indicati ons:Infected olecranon bursa, left,Cellulitis of left upper extremity Take 1 Capsule by mouth in the morning and 1 Capsule before bedtime. 30 Capsule 0 03/07/2024 Active documented as of this encounter (statuses as of 03/07/2024) Active Problems Problem Noted Date Diagnosed Date Elevated TSH 08/07/2023 Atrial fibrillation status post cardioversion Coronary artery disease invo lving [place] coronary artery of [place] heart without angina pectoris 04/25/2023 History of [...] as of this encounter (statuses as of 03/07/2024) Resolved Problems Problem Noted Date Diagnosed Date Resolved Date Need for prophylactic vaccin ation with tetanus-diphtheria (Td) 04/25/2023 08/07/2023 documented as of this encounter (statuses as of 03/07/2024) Immunizations Name Administration Dates Next Due COVID-19 [...] money to buy more. Never true 04/25/20 Within the past 12 months, t he [...] on file documented as of this encounter Plan of Treatment Upcoming Encounters Date Type Department Care Team (Late st Contact Info) Description 03/13/2024 11:00 AM EDT Office Visit Orthopaedics [facility] [address] [address] Barrett Scott PA-C [address] [address] 03/14/2024 9:40 AM EDT Office Visit General Internal Medicine [facility] [place] [place] [address] [place] [address] Andree Pearson MD [address] [place] [address] 04/30/2024 9:00 AM EDT Office Visit Cardiology, [facility] [address] [address] Cole Rebolledo PAWilliamC [address] [place] [address] 06/09/2024 8:30 AM EDT Laboratory Laboratory [facility] [address] [place] [phone] [facility] 200 [facility] [place] [address] 07/30/2024 8:30 AM EDT Laboratory Laboratory [facility] 200 [facility] [place] [phone] [place], Lab [facility] 200 [facility] [place] [address] 08/04/2024 8:20 AM EDT Office Visit General Internal Medicine [facility] [address] [facility] [place] [address] Andree Pearson MD 200 [facility] [place], [place] [address] Health Maintenance Due Date Last Done Comments [...] filedocumented as of this encounter Care Teams Chronic Specialist Relationship Specialty Start Date End Date Andree Pearson MD [address] [place] [address] PCP - General Internal Medicine 04/25/23 documented as of this encounter
--- OUTSIDE RECORDS SUMMARY | 2024-04-02 02:21 | External Medical Summary | Summary of Care ---
Author Name Unknown Organization [facility] Address [address] [place] [address] Phone [phone] Care Team Providers Care Veneer Trimmer Name Role Phone Andree Pearson MD Primary Care Provider [phone] Reason for Visit * Reason Onset Date Comments FYI 03/14/2024 Milagram of medi cation Encounter Details Date Type Department Care Team (Late st Contact Info) Description 03/14/2024 Telephone General Internal Medicine [facility] 200 [facility] [place] [address] Andree Pearson MD 200 [place] [address] FYI (Milagram of medication) Allergies No known [...] Tablet Delayed ReleaseIndications: Coronary artery disease involving [place] coronary artery of [place] heart without angina pectoris Take 1 Tablet [...] post cardioversion Coronary artery disease invo lving [place] coronary artery of [place] heart without angina pectoris 04/25/2023 History of [...] AM EDT Office Visit General Internal Medicine [facility] [place] [address] [place] [address] Andree Pearson MD [address] [place] [address] 04/04/2024 2:45 PM EDT Imaging Radiology [address] [place] [address] 04/09/2024 3:00 PM EDT Telemedicine Orthopaedics [facility] [address] [place] [address] Barrett Scott PA-C [address] [place] [address] 04/30/2024 9:00 AM EDT Office Visit Cardiology, [facility] [address] [place] [address] Cole Rebolledo PA-C [address] [place] [address] 06/09/2024 8:30 AM EDT Laboratory Laboratory [facility] [place] [address] [phone] Marine Torrez [address] [address] 07/30/2024 8:30 AM EDT Laboratory Laboratory [facility] [place] [address] [phone] Marine Torrez [address] [address] 08/04/2024 8:20 AM EDT Office Visit General Internal Medicine [facility] [address] [place] [address] Andree Pearosn MD [address] [place] [address] Health Maintenance Due Date Last Done Comments [...] filedocumented as of this encounter Care Teams Veneer Trimmer Relationship Specialty Start Date End Date Andree Pearson MD [address] [place] [address] [address] PCP - General Internal Medicine 04/25/23 documented as of this encounter
--- OUTSIDE RECORDS SUMMARY | 2024-04-02 02:21 | External Medical Summary | Summary of Care ---
Author Name Unknown Organization [facility] Address [address] [place] [address] Phone [phone] Care Team Providers Care Residential Aide Name Role Phone Andree Pearson MD Primary Care Provider [phone] Encounter Details Date Type Department Care Team [...] Tablet (Lasix)Indications: Atrial fibrillation status post cardioversion ([facility]) Taking 1 tab 1-2/week since 02/08/24 0 03/07/2024 Active Aspirin 81 MG Oral Tablet Delayed ReleaseIndications: Coronary artery disease involving [place] coronary artery of [place] heart without angina pectoris Take 1 Tablet [...] post cardioversion Coronary artery disease invo lving [place] coronary artery of [place] heart without angina pectoris 04/25/2023 History of [...] 03/13/2024 11:00 AM EDT Office Visit Orthopaedics [facility] [address] [address] Barrett Scott PA-C [address] [address] 03/14/2024 9:40 AM EDT Office Visit General Internal Medicine [facility] [place] [address] [place] [address] Andree Pearson MD [address] [place] [address] 04/30/2024 9:00 AM EDT Office Visit Cardiology, [facility] [address] [address] Cole Rebolledo PAWilliamC [address] [place] [address] 06/09/2024 8:30 AM EDT Laboratory Laboratory [facility] [address] [place] [phone] [facility] 200 [facility] [place] [address] 07/30/2024 8:30 AM EDT Laboratory Laboratory [facility] 200 [facility] [place] [phone] [place], Lab [facility] 200 [facility] [place] [address] 08/04/2024 8:20 AM EDT Office Visit General Internal Medicine [facility] 200 [facility] [place] [address] Andree Pearson MD 200 [facility] [place], [place] [address] Health Maintenance Due Date Last Done Comments [...] filedocumented as of this encounter Care Teams Residential Aide Relationship Specialty Start Date End Date Andree Pearson MD [address] [place] [address] PCP - General Internal Medicine 04/25/23 documented as of this encounter
--- OUTSIDE RECORDS SUMMARY | 2024-04-02 02:21 | External Medical Summary | Summary of Care ---
Author Name Unknown Organization [facility] Address [address] [place] [address] Phone [phone] Care Team Providers Care Seat Cover Cutter Name Role Phone Andree Pearson MD Primary Care Provider [phone] Encounter Details Date Type Department Care Team (Late st Contact Info) Description 03/13/2024 Patient Reported Data Patient Survey Ortho OBERD Allergies No known active allergiesdocumented as of this encounter (statuses as of 03/13/2024) Medications Medication Sig Dispensed Refills Start Date [...] Tablet Delayed ReleaseIndications: Coronary artery disease involving [place] coronary artery of [place] heart without angina pectoris Take 1 Tablet [...] as of this encounter (statuses as of 03/13/2024) Active Problems Problem Noted Date Diagnosed Date Elevated TSH 08/07/2023 Atrial fibrillation status post cardioversion Coronary artery disease invo lving [place] coronary artery of [place] heart without angina pectoris 04/25/2023 History of [...] as of this encounter (statuses as of 03/13/2024) Resolved Problems Problem Noted Date Diagnosed Date Resolved Date Need for prophylactic vaccin ation with tetanus-diphtheria (Td) 04/25/2023 08/07/2023 documented as of this encounter (statuses as of 03/13/2024) Immunizations Name Administration Dates Next Due COVID-19 [...] Team (Late st Contact Info) Description 03/14/2024 9:40 AM EDT Office Visit General Internal Medicine [facility] [address] [place] [address] Andree Pearson MD [address] [facility] [place] [address] 04/04/2024 2:45 PM EDT Imaging Radiology [facility] [place] [address] [place] [address] 04/09/2024 3:00 PM EDT Telemedicine Orthopaedics [facility] [address] [address] Barrett Scott PA-C [address] [place] [address] 04/30/2024 9:00 AM EDT Office Visit Cardiology, [facility] [address] [place] [address] Cole Rebolledo PA-C [address] [place] [address] 06/09/2024 8:30 AM EDT Laboratory Laboratory [facility] [address] [place] [phone] [place], Lab [facility] 200 [facility] [place] [address] 07/30/2024 8:30 AM EDT Laboratory Laboratory [facility] [address] [place] [phone] [place], Lab [address] 200 [facility] [place] [address] 08/04/2024 8:20 AM EDT Office Visit General Internal Medicine [facility] [address] [place] [address] Andree Pearson MD 200 [facility] [place] [address] Health Maintenance Due Date Last Done Comments [...] filedocumented as of this encounter Care Teams Seat Cover Cutter Relationship Specialty Start Date End Date Andree Pearson MD 200 [facility] [place] [address] PCP - General Internal Medicine 04/25/23 documented as of this encounter
--- OUTSIDE RECORDS SUMMARY | 2024-04-02 02:21 | External Medical Summary | Summary of Care ---
Author Name Unknown Organization [facility] Address [address] [place] [address] Phone [phone] Care Team Providers Care Milk Of Lime Slaker Name Role Phone Andree Pearson MD Primary Care Provider [phone] Encounter Details Date Type Department Care Team [...] Tablet (Lasix)Indications: Atrial fibrillation status post cardioversion ([facility]) Taking 1 tab 1-2/week since 02/08/24 0 03/07/2024 Active Aspirin 81 MG Oral Tablet Delayed ReleaseIndications: Coronary artery disease involving [place] coronary artery of [place] heart without angina pectoris Take 1 Tablet [...] post cardioversion Coronary artery disease invo lving [place] coronary artery of [place] heart without angina pectoris 04/25/2023 History of [...] 03/13/2024 11:00 AM EDT Office Visit Orthopaedics [facility] [address] [address] Barrett Scott PA-C [address] [address] 03/14/2024 9:40 AM EDT [facility] [place] [address] [place] [address] Andree Pearson MD [address] [place] [address] 04/30/2024 9:00 AM EDT Office Visit Cardiology, [facility] [address] [address] Cole Rebolledo PAWilliamC [address] [place] [address] 06/09/2024 8:30 AM EDT Laboratory Laboratory [facility] [address] [place] [phone] [facility] 200 [facility] [place] [address] 07/30/2024 8:30 AM EDT Laboratory Laboratory [facility] [address] [facility] [place] [phone] [place], Lab [facility] 200 [facility] [place] [address] 08/04/2024 8:20 AM EDT Office Visit General Internal Medicine [facility] 200 [facility] [place] [address] Andree Pearson MD 200 [facility] [place], [place] [address] Health Maintenance Due Date Last Done Comments [...] filedocumented as of this encounter Care Teams Milk Of Lime Slaker Relationship Specialty Start Date End Date Andree Pearson MD [address] [place] [address] PCP - General Internal Medicine 04/25/23 documented as of this encounter
--- OUTSIDE RECORDS SUMMARY | 2024-04-02 02:21 | External Medical Summary | Summary of Care ---
Author Name Unknown Organization [facility] Address [address] [place] [address] Phone [phone] Care Team Providers Care Turret Lathe Tender Name Role Phone Andree Pearson MD Primary Care Provider [phone] Reason for Referral * Precert (Within 10 days (routine)) - Authorized Specialty Diagnoses / Procedures Referred By Andrea ribeiro Referred To Contact Radiology Diagnoses Olecranon bursitis of left elbow Procedures MRI ELBOW LEFT WO CONTRAST Barrett Scott PA-C [address] [place] [address] Referral ID Status Reason Start Date Expiration Date V isits Requested Visits Authorized [id number] Authorized 03/20/2024 999 999 Reason for Visit * Reason Comments NEW PATIENT Left elbow * Evaluate & Treat - Unlimited Visits (Within 3 days (urgent)) - Authorized Specialty Diagnoses / Procedures Referred By Andrea ribeiro Referred To Contact Orthopaedic Surgery / Orthopedics Diagnoses Infected olecranon bursa, left Cellulitis of left upper extremity Andree Pearson MD [address] [place] [address] Referral ID Status Reason Start Date Expiration Date Visits Requested Visits Authorized [id number] Authorized Specialty Services Required 03/07/2024 999 999 Encounter Details Date Type Department Care Team (Late st Contact Info) Description 03/13/2024 11:00 AM EDT Office Visit [facility] [address] [facility] [address] Barrett Scott PA-C [address] [place] [address] Olecranon bursitis of left elbow* Allergies No known active allergiesdocumented as of [...] Tablet Delayed ReleaseIndications: Coronary artery disease involving [place] coronary artery of [place] heart without angina pectoris Take 1 Tablet [...] post cardioversion Coronary artery disease invo lving [place] coronary artery of [place] heart without angina pectoris 04/25/2023 History of [...] as of this encounter Progress Notes * Barrett Scott PA-C - 03/13/2024 10:59 AM EDT Subjective Peter Ware is a 84 year old male. Chief Complaint Patient presents with NEW PATIENT Left elbow HPI: new patient referred by their PCP presents today for left elbow. Pt seen in [place] on 01/18/24for swelling left elbow. Given Keflex for 7 days and prednisone 20 mg daily for 3 days. Saw PCP 01/25/24 aspirated 17mls and sent for cultures. Seen PCP 02/08/24 and given doxycycline x 7days left elbow. Seen Dr. Pearson on 03/07 who order an US of elbow and gave Ceftin and Doxycycline. Pt states it draining. Elbow has bandaid on due to draining. Denies any fevers or chills. Denies any adverse reactionsfrom his antibiotics, such as diarrhea. I advised probiotic while taking. No x-rays on file and we need to get those today. Here with his . Was in [place] for 2 months being treated for this and just returned home 1 week ago. PMH: Patient Active Problem List Diagnosis Coronary artery disease involving [place] coronary artery of [place] heart without angina pectoris History of placement [...] No current facility-administered medications for this visit. Past Medical History: Diagnosis Date Arthritis BPH (benign prostatic hyperplasia) Diabetes (HCC) Hypertension Meningitis spinal Past Surgical History: Procedure Laterality Date CATARACT SURGERY,COMPLEX OR CHOLECYSTECTOMY Review of patient's allergies indicates: No Known Allergies Family History Problem Relation Name Age of Onset Cancer Mother Heart attack Father Dementia Sister Cancer Brother Dementia Brother Family Status Relation Status Mo (Not Specified) Fa (Not Specified) Sis (Not Specified) Bro (Not Specified) Social History Socioeconomic History Marital status: Spouse name: Not on file Number of children: Not on file Years of education: Not on file Highest education level: Not on file Occupational History Not on file Tobacco Use Smoking status: Former Types: Cigarettes Smokeless tobacco: Never Vaping Use Vaping status: Never Used Substance and Sexual Activity Alcohol use: Yes Alcohol/week: 1.0 - 2.0 standard drink of alcohol Types: 1 - 2 12 oz of beer per week Drug use: Never Sexual activity: Yes Other Topics Concern Not on file Social History Narrative Not on file Social Determinants of Health Financial Resource Strain: Low Risk (01/25/2023) Received from [facility] Overall Financial Resource Strain (CARDIA) Difficulty of Paying Living Expenses: Not hard at all Food Insecurity: No Food Insecurity (04/25/2023) Hunger Vital Sign Worried About Running Out of Food in the Last Year: Never true Ran Out of Food in the Last Year: Never true Transportation Needs: No Transportation Needs (01/25/2023) Received from [facility] PRAPARE - Transportation Lack of Transportation (Medical): No Lack of Transportation (Non-Medical): No Physical Activity: Insufficiently Active (01/25/2023) Received from [facility] Exercise Vital Sign Days of Exercise per Week: 2 days Minutes of Exercise per Session: 30 min Stress: No Stress Concern Present (01/25/2023) Received from [facility] [employer] - Occupational Stress Questionnaire Feeling of Stress : Not at all Social Connections: Moderately Integrated (01/25/2023) Received from [facility] Social Connection and Isolation Panel [NHANES] Frequency of Communication with Friends and Family: Once a week Frequency of Social Gatherings with Friends and Family: Twice a week Attends Uatsdin Services: Never Active Member of Clubs or Organizations: Yes Attends Club or Organization Meetings: Never Marital Status: Intimate Partner Violence: Not At Risk (01/25/2023) Received from [facility] Humiliation, Afraid, Rape, and Kick questionnaire Fear of Current or Ex-Partner: No Emotionally Abused: No Physically Abused: No Sexually Abused: No Housing Stability: Low Risk (01/25/2023) Received from [facility] Housing Stability Vital Sign Unable to Pay for Housing in the Last Year: No Number of Places Lived in the Last Year: 1 Unstable Housing in the Last Year: No Objective There were no vitals taken for this visit. complete review of systems negative General: alert and oriented x3 male, no acute distress, appears currently stated age, pleasant, well nourished Skin: Left upper extremity including Left elbow reveals localized swelling to the olecranon process. There is a dusky appearance to the olecranon process and associated swelling. There is a small opening superficial to the olecranon where serous fluid is draining onto a large Band-Aid. No purulencethat is actively draining. No true advancing erythematous change. Neurovascular: Left upper extremity reveals distal pulses +2, capillary refill is under 2 seconds, good sensation light touch, +5 telephoto installer strength, axillary median ulnar radial nerve assess fully intact Musculoskeletal: Exam of the left Elbow reveals full range of motion 5/5 strength otherwise. Ligamentously stable. Distal biceps triceps intact. Palpable fluctuance superficial to the olecranon X-rays the patient's left elbow reveal overall well-preserved joint spaces. No fat pad displacement. Soft tissue swelling of the olecranon and lateral view. No advanced enthesophyte. No acute changes, such as fracture dislocation or subluxation. No bony changes I can identify otherwise cystic or masslike. Official report to follow accordingly Personal interpretation and documentation regarding today's plain film radiographs performed by myself. ASSESSMENT/PLAN: Olecranon bursitis of left elbow (Primary) - MRI ELBOW LEFT WO CONTRAST; Future; Expected date: 03/20/2024 Other orders - XR ELBOW 3 OR MORE VIEWS Follow Up: Return for Telephone Visit. | For: Telephone Visit | Check-out note: MRI of the elbow and telephonic visit to discuss results Impression: Left olecranon bursitis x2 months, failed oral antibiotics and aspiration Plan: Today 's findings were discussed with the patient. They were educated regarding their diagnosis. Multiple treatment options discussed and agreed upon, including obtain an MRI to further identify soft tissue changes to the olecranon bursa. Patient is aware that there may be surgical intervention offered after confirming and reviewing his MRI. Review the patient's case with Dr. Anderson in he is in agreement. Telephonic visit to discuss MRI results and likely return back to the office for scheduling purposes. Continue antibiotics. Continue to keep covered. Probiotics. Any unrelenting or worsening symptoms, fevers or chills please report to the ED. The patient has no other questions or concerns. Pleased with today 's care. Call sooner if needed. This chart was completed in part utilizing [employer] Speech Voice Recognition Software. Grammatical errors, random word insertions, prounoun errors, and incomplete sentences are an occasional consequence of this system due to software limitations, ambient noise, and hardware issues. Any formal questions or concerns about the content, text, or information contained within the body of this dictation should be directly addressed to the provider for clarification. Barrett Scott PA-C documented in this encounter Nursing Notes * Nithya Prasad, RN - 03/13/2024 10:50 AM EDT Pt presents today for left elbow. Pt seen in [place] on 01/18/24 for swelling left elbow. Given Keflex for 7 days and prednisone 20 mg daily for 3 days. Saw PCP 01/25/24 aspirated 17mls and sent for cultures. Seen PCP 02/08/24 and given doxycycline x 7days left elbow . Seen Dr. Pearson on 03/07 who order anUS of elbow and gave Ceftin and Doxycycline. Pt states it draining. Elbow has bandaid on. Nithya Prasad RN . documented in this encounter Plan of Treatment Upcoming Encounters Date Type Department Care Team (Late st Contact Info) Description 03/14/2024 9:40 AM EDT Office Visit General Internal Medicine [facility] [address] [place] [address] Andree Pearson MD [address] [place] [address] [address] 04/04/2024 2:45 PM EDT Imaging Radiology [facility] [address] [facility] [place] [address] 04/09/2024 3:00 PM EDT Telemedicine Orthopaedics [facility] [address] [facility] [place] [address] Barrett Scott PA-C [address] [facility] [address] 04/30/2024 9:00 AM EDT Office Visit Cardiology, [facility] [address] [facility] [place] [address] Cole Rebolledo PA-C [address] [place] [address] 06/09/2024 8:30 AM EDT Laboratory Laboratory [facility] [address] [place] [id number] [place], [facility] [place] [address] 07/30/2024 8:30 AM EDT Laboratory Laboratory [facility] [address] [place] [phone] [place], [facility] [address] [facility] [place] [address] 08/04/2024 8:20 AM EDT Office Visit General Internal Medicine [facility] [address] [place] [address] Andree Pearson MD [address] [facility] [place] [address] Pending Results Name Type Priority Associated Diagnoses Date /Time XR ELBOW 3 OR MORE VIEWS Medical Imaging Routine 03/13/2024 11:07 AM EDT Scheduled Orders Name Type Priority Associated Diagnoses Orde r Schedule MRI ELBOW LEFT WO CONTRAST Medical Imaging Routine Olecranon bursitis of left elbow Expected: 03/20/2024, Expires: 04/13/2025 Health Maintenance Due Date Last Done Comments [...] as of this encounter Visit Diagnoses Diagnosis Olecranon bursitis of left elbow- Primary Olecranon bursitis documented in this encounter Care Teams Turret Lathe Tender Relationship Specialty Start Date End Date Andree Pearson MD [address] [facility] [place] [address] PCP - General Internal Medicine 04/25/23 documented as of this encounter"
--- OUTSIDE RECORDS SUMMARY | 2024-04-02 02:21 | External Medical Summary | Summary of Care ---
Author Name Unknown Organization [facility] Address [address] [place] [address] Phone [phone] Care Team Providers Care Van Loader Name Role Phone Andree Pearson MD Primary Care Provider [phone] Reason for Visit * Reason Onset Date Comments Medication Refill 03/07/2024 Encounter Details Date Type Department Care Team (Late st Contact Info) Description 03/07/2024 Refill General Internal Medicine [facility] [address] [place] [address] Andree Pearson MD [address] [place] [address] Allergies No known active allergiesdocumented as of [...] (HCC) Taking 1 tab 1-2/week since 02/08/24 0 03/07/2024 Active Aspirin 81 MG Oral Tablet Delayed ReleaseIndications: Coronary artery disease involving [place] coronary artery of [place] heart without angina pectoris Take 1 Tablet [...] post cardioversion Coronary artery disease invo lving [place] coronary artery of [place] heart without angina pectoris 04/25/2023 History of [...] encounter Miscellaneous Notes * Telephone Encounter - Clary Pretty CPhT - 03/07/2024 3:11 PM EDT Pt calling to request Saccharomyces boulardii 250 MG Oral Capsule (Florastor) . Informed pt that RXis available at their pharmacy. Pt verbalized understanding and stated they will check with their pharmacy regarding this medication. Thank you, Clary Pretty CPhT II Vacuum Frame Operator [facility] ([facility] (Formerly Tele[facility]) 03/07/2024, 3:11 PM documented in this encounter Plan of Treatment Upcoming Encounters Date Type Department Care Team (Late st Contact Info) Description 03/13/2024 11:00 AM EDT Office Visit Orthopaedics [facility] [address] [facility] [place] [address] Barrett Scott PA-C [address] [place] [address] 03/14/2024 9:40 AM EDT Office Visit General Internal Medicine [facility] [address] [place] [address] Andree Pearson MD [address] [facility] [place] [address] 04/30/2024 9:00 AM EDT Office Visit Cardiology, [facility] [address] [place] [address] Cole Rebolledo PA-C [address] [place] [address] 06/09/2024 8:30 AM EDT Laboratory Laboratory [facility] [address] [place] [phone] [facility] [address] [facility] [place] [address] 07/30/2024 8:30 AM EDT Laboratory Laboratory [facility] [place] [address] [place] [phone] [facility] [address] [facility] [place] [address] 08/04/2024 8:20 AM EDT Office Visit General Internal Medicine [facility] [place] [address] [place] [address] Andree Pearson MD [address] [facility] [place] [address] Health Maintenance Due Date Last Done Comments [...] filedocumented as of this encounter Care Teams Van Loader Relationship Specialty Start Date End Date Andree Pearson MD [address] [facility] [place] [address] PCP - General Internal Medicine 04/25/23 documented as of this encounter
--- OUTSIDE RECORDS SUMMARY | 2024-04-02 02:22 | External Medical Summary ---
Author Name Unknown Address Unknown Organization [id number]:[facility]ATORY [facility] - [address] [facility] [address] Laboratory Report Ordering Provider Test Date Status DIMAS CASSIDY 02/27/2024 08:06:09 Final Observation Date Value Abnormality Reference (Units ) Status TSH 02/27/2024 08:06:09 5.53 Above high normal 0. 27-4.20 (uIU/mL) Final Performing Location LAB[facility]ATORY [facility] - [address] [facility] [address]
--- OUTSIDE RECORDS SUMMARY | 2024-04-02 02:22 | External Medical Summary ---
Author Name Unknown Address Unknown Organization K09:[facility] [place] [address] Laboratory Report Ordering Provider Test Date Status DIMAS CASSIDY 02/27/2024 08:06:09 Final Observation Date Value Abnormality Reference (Units ) Status WBC, Total 02/27/2024 08:06:09 9.44 4.00-10.8 0 (K/uL) Final RBC 02/27/2024 08:06:09 5.48 4.50-5.25 (M/uL) Final Hemoglobin 02/27/2024 08:06:09 16.1 14.0-16.8 (g/dL) Final HCT 02/27/2024 08:06:09 49.7 Above high normal 40 .0-48.4 (%) Final MCV 02/27/2024 08:06:09 90.7 82.0-99.5 (fL) Final MCH 02/27/2024 08:06:09 29.4 27.0-34.0 (pg) Final MCHC 02/27/2024 08:06:09 32.4 32.0-36.0 (g/dL) Final RDW 02/27/2024 08:06:09 16.5 11.5-15.5 (%) Final Platelets 02/27/2024 08:06:09 224 140-400 (K /uL) Final MPV 02/27/2024 08:06:09 9.7 6.6-11.1 ( fL) Final Performing Location [facility] [place] [address]
--- OUTSIDE RECORDS SUMMARY | 2024-04-02 02:22 | External Medical Summary | Summary of Care ---
Author Name Unknown Organization [facility] Address [address] [place] [address] Phone [phone] Care Team Providers Care Dredge Lever Operator Name Role Phone Andree Pearson MD Primary Care Provider [phone] Reason for Visit * Reason Comments Outpatient Testing Encounter Details Date Type Department Care Team (Late st Contact Info) Description 02/27/2024 8:00 AM EDT Laboratory Laboratory [facility] [address] [facility] [place] [phone] [facility] [address] [facility] [place] [address] Type 2 diabetes mellitus with hemoglobin A1c goal of less than 7.0% ([facility]); Encounter for long-term (current) use of medications; Atrial fibrillation status post cardioversion ([facility]); Tinea pedis of both feet; On amiodarone therapy; Coronary artery disease involving blue lake coronary artery of 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 0 Active Aspirin 81 MG Oral Tablet Delayed Release Take 1 Tablet by mouth in the morning. 0 Active Acetaminophen 325 MG Oral Tablet (Tylenol) Take 2 Tablets by mouth as needed. As needed for pain 0 08/05/2022 Active Multivitamin Adult Oral Tablet Take 1 Tablet by mouth in the morning. 0 Active metFORMIN HCl 500 MG Oral Tablet (Glucophage) Take 1 Tablet by mouth 2 times a day with morning and evening meals. 0 Active Losartan Potassium 100 MG Oral Tablet (Cozaar) Take 1 Tablet by mouth in the morning. 0 06/29/2023 Active Amiodarone HCl 100 MG Oral Tablet (Cordarone) Take 1 Tablet by mouth in the morning. 90 Tablet 3 07/23/2023 Active Furosemide 20 MG Oral Tablet (Lasix) Take 1 Tablet by mouth in the morning. 90 Tablet 3 07/26/2023 Active Xarelto 20 MG Oral Tablet TAKE 1 [...] Bobo feet 15 g 1 08/07/2023 Active documented as of this encounter (statuses as of 02/27/2024) Active Problems Problem Noted Date Diagnosed Date Elevated TSH 08/07/2023 Atrial fibrillation status post cardioversion Coronary artery disease invo lving blue lake coronary artery of 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 angina pectoris 04/25/2023 History of [...] as of this encounter (statuses as of 02/27/2024) Resolved Problems Problem Noted Date Diagnosed Date Resolved Date Need for prophylactic vaccin ation with tetanus-diphtheria (Td) 04/25/2023 08/07/2023 documented as of this encounter (statuses as of 02/27/2024) Immunizations Name Administration Dates Next Due COVID-19 [...] Team (Late st Contact Info) Description 03/07/2024 8:20 AM EDT Office Visit General Internal Medicine [facility] [place] [address] [place] [address] Andree Pearson MD [address] [place] [address] 04/30/2024 9:00 AM EDT Office Visit Cardiology, [facility] [address] [place] [address] Cole Rebolledo PA-C [address] [place] [address] Pending Results Name Type Priority Associated Diagnoses Date /Time VITAMIN B12 Lab STAT Type 2 diabetes mellitus with hemoglobin A1c goal of less than 7.0% ([facility]) Encounter for long-term (current) use of medications 02/27/2024 8:06 AM EDT ALT Lab STAT Atrial fibrillation status post cardioversion ([facility]) Type 2 diabetes mellitus with hemoglobin A1c goal of less than 7.0% ([facility]) Tinea pedis of both feet On amiodarone therapy 02/27/2024 8:06 AM EDT BASIC METABOLIC PANEL Lab STAT Atrial fibrillation status post cardioversion ([facility]) Coronary artery disease involving blue lake coronary artery of 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 angina pectoris HTN, goal below 140/90 Type 2 diabetes mellitus with hemoglobin A1c goal of less than 7.0% ([facility]) 02/27/2024 8:06 AM EDT LIPID PANEL WITH DIRECT LDL IF TG IS HIGH Lab STAT Coronary artery disease involving blue lake coronary artery of 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 angina pectoris Dyslipidemia, goal LDL below 70 02/27/2024 8:06 AM EDT HEMOGLOBIN A1C Lab STAT Type 2 diabetes mellitus with hemoglobin A1c goal of less than 7.0% (HCC) 02/27/2024 8:06 AM EDT TSH WITH FREE T4 IF INDICATED Lab STAT Elevated TSH On amiodarone therapy 02/27/2024 8:06 AM EDT Health Maintenance Due Date Last Done Comments COVID-19 Vaccine ( season) 2023 07/14/2022, 02/03/2022, 02/03/2022, Additional history exists HbA1c 02/01/2024 08/02/2023 Depression Screening 04/25/2024 04/25/2023 Albumin/Creatinine Ratio 08/07/2024 08/07/2023 Diabetic Foot Exam 08/07/2024 08/07/2023 Diabetic Eye Exam 11/26/2024 11/26/2023 DTaP,Tdap,and Td [...] Not on filedocumented as of this encounter Procedures Procedure Name Priority Date/Time Associated Diagnosis Comments DIFFERENTIAL, AUTOMATED STAT 02/27/2024 8:06 AM EDT Atrial fibrillation status post cardioversion (HCC) 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 CBC STAT 02/27/2024 8:06 AM EDT Atrial fibrillation status post cardioversion (HCC) USP current use 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 therapy CBC STAT 02/27/2024 8:06 AM EDT Atrial fibrillation status post cardioversion (HCC) 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 documented in this encounter Results * DIFFERENTIAL, AUTOMATED (02/27/2024 8:06 AM EDT) WBC 9.44 4.00 - 10.80 K/uL 02/27/2024 8:14 AM EDT [facility] [place] 56-02 Neutrophils % 63.7 40.0 - 75.0 % 02/27/2024 8:14 AM EDT [facility] 56-02 Lymphocytes % 24.7 18.0 - 42.0 % 02/27/2024 8:14 AM EDT [facility] 56-02 Monocytes % 9.1 1.0 - 11.0 % 02/27/2024 8:14 AM EDT [facility] 56-02 Eosinophils % 2.3 0.0 - 6.0 % 02/27/2024 8:14 AM EDT [facility] 56-02 Basophils % 0.2 0.0 - 2.0 % 02/27/2024 8:14 AM EDT [facility] 56-02 Absolute Neutrophils 6.01 1.80 - 7.70 K/uL 02/27/2024 8:14 AM EDT [facility] 56-02 Absolute Lymphocytes 2.33 1.00 - 4.80 K/ul 02/27/2024 8:14 AM EDT [facility] 56-02 Absolute Monocytes 0.86 0.00 - 1.10 K/uL 02/27/2024 8:14 AM EDT [facility] 56-02 Absolute Eosinophils 0.22 0.00 - 0.70 K/uL 02/27/2024 8:14 AM EDT [facility] 56-02 Absolute Basophils 0.02 0.00 - 0.20 K/uL 02/27/2024 8:14 AM EDT [facility] 56-02 Blood Venous blood specimen / Unknown Venipuncture / Unknown 02/27/2024 8:06 AM EDT 02/27/2024 8:06 AM EDT Andree Pearson MD LAB BLOOD ORDERABLES [facility] [address] [place], [place] [phone] * (ABNORMAL) CBC (02/27/2024 8:06 AM EDT) WBC 9.44 4.00 - 10.80 K/uL 02/27/2024 8:14 AM EDT [facility] 56 RBC 5.48 4.50 - 5.25 M/uL 02/27/2024 8:14 AM EDT [facility] 56 HGB 16.1 14.0 - 16.8 g/dL 02/27/2024 8:14 AM EDT [facility] 56 HCT 49.7(H) 40.0 - 48.4 % 02/27/2024 8:14 AM EDT [facility] 56 MCV 90.7 82.0 - 99.5 fL 02/27/2024 8:14 AM EDT [facility] 56 MCH 29.4 27.0 - 34.0 pg 02/27/2024 8:14 AM EDT [facility] 56 MCHC 32.4 32.0 - 36.0 g/dL 02/27/2024 8:14 AM EDT [facility] 56 RDW 16.5 11.5 - 15.5 % 02/27/2024 8:14 AM EDT [facility] 56 PLT 224 140 - 400 K/uL 02/27/2024 8:14 AM EDT [facility] 56 MPV 9.7 6.6 - 11.1 fL 02/27/2024 8:14 AM EDT [facility] 56 Blood Venous blood specimen / Unknown Venipuncture / Unknown 02/27/2024 8:06 AM EDT 02/27/2024 8:06 AM EDT Andree Pearson MD LAB BLOOD ORDERABLES [facility] [address] [facility] [place] [id number] documented in this encounter Visit Diagnoses Diagnosis Type 2 diabetes mellitus with hemoglobin A1c goal of less than 7.0% ([facility]) Encounter for long-term (current) use of medications Encounter for long-term (current) use of other medications Atrial fibrillation status post cardioversion ([facility]) Cardiac complications Tinea pedis of both feet On amiodarone therapy Coronary artery disease involving blue lake coronary artery of 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 angina pectoris HTN, goal below 140/90 Unspecified essential hypertension Dyslipidemia, goal LDL below 70 Other and unspecified hyperlipidemia Elevated TSH Other abnormal blood chemistry USP current use 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 therapy documented in this encounter Care Teams Dredge Lever Operator Relationship Specialty Start Date End Date Andree Pearson MD [address] [place] [address] PCP - General Internal Medicine 04/25/23 documented as of this encounter
--- OUTSIDE RECORDS SUMMARY | 2024-04-02 02:22 | External Medical Summary ---
Author Name Unknown Address Unknown Organization [id number]:LAB[facility]ATORY [facility] - [address] [place] [id number] Laboratory Report Ordering Provider Test Date Status DIMAS CASSIDY 03/07/2024 09:59:17 Final Observation Date Value Abnormality Reference (Units ) Status Bacteria identified in Specimen by Culture 03/07/2024 09:59:17 No growth Final Test: Culture, Blood
[facility] keyana Source: Blood, Venous
Specimen Type: Blood
Specimen Date: 03/07/202459
Result Date: 03/12/20241701
Result Status: Final result
Resulting Lab: [facility]
[address] [place]
[place] [address]

CULTURE

No growth

null Performing Location [facility] - [address] [facility] [address]
--- OUTSIDE RECORDS SUMMARY | 2024-04-02 02:22 | External Medical Summary | Summary of Care ---
Author Name Unknown Organization [facility] Address [address] [place] [address] Phone [phone] Care Team Providers Care Cosmetologist Name Role Phone Andree Pearson MD Primary Care Provider [phone] Reason for Visit * Reason Comments Outpatient Testing Encounter Details Date Type Department Care Team (Late st Contact Info) Description 03/07/2024 9:50 AM EDT Laboratory Laboratory [facility] [address] [place] [phone] [facility] [address] [facility] [place] [address] Infected olecranon bursa, left; Cellulitis of left upper extremity Allergies No known active allergiesdocumented as of [...] Tablet Delayed ReleaseIndications: Coronary artery disease involving sioux coronary artery of sioux heart without angina pectoris Take 1 Tablet [...] post cardioversion Coronary artery disease invo lving sioux coronary artery of sioux heart without angina pectoris 04/25/2023 History of [...] Team (Late st Contact Info) Description 03/07/2024 12:15 PM EDT Imaging Radiology [facility] [address] [place] [address] 03/13/2024 11:00 AM EDT Office Visit Orthopaedics [facility] [address] [place] [address] Barrett Scott PA-C [address] [place] [address] 03/14/2024 9:40 AM EDT Office Visit General Internal Medicine [facility] [address] [place] [address] Andree Pearson MD [address] [place] [address] 04/30/2024 9:00 AM EDT Office Visit Cardiology, [facility] [address] [facility] [place] [address] Cole Rebolledo PA-C [address] [place] [address] 06/09/2024 8:30 AM EDT Laboratory Laboratory [facility] [address] [place], [place] [phone] [place], Lab [facility] [address] [place], [place] [address] 07/30/2024 8:30 AM EDT Laboratory Laboratory [facility] [address] [place], [place] [phone] [place], Lab [address] [place] [address] 08/04/2024 8:20 AM EDT Office Visit General Internal Medicine [facility] [address] [place] [address] Andree Pearson MD [address] [facility] [place] [address] Pending Results Name Type Priority Associated Diagnoses Date /Time CULTURE, BLOOD Lab Routine Infected olecranon bursa, left 03/07/2024 9:59 AM EDT ERYTHROCYTE SEDIMENTATION RATE (ESR) Lab Routine Infected olecranon bursa, left 03/07/2024 9:59 AM EDT CRP (INFLAMMATORY MARKER) Lab Routine Infected olecranon bursa, left 03/07/2024 9:59 AM EDT Health Maintenance Due Date Last [...] Priority Date/Time Associated Diagnosis Comments DIFFERENTIAL, AUTOMATED Routine 03/07/2024 9:59 AM EDT Infected olecranon bursa, left Cellulitis of left upper extremity CBC Routine 03/07/2024 9:59 AM EDT Infected olecranon bursa, left Cellulitis of left upper extremity CBC Routine 03/07/2024 9:59 AM EDT Infected olecranon bursa, left Cellulitis of left upper extremity documented in this encounter Results * (ABNORMAL) DIFFERENTIAL, AUTOMATED (03/07/2024 9:59 AM EDT) WBC 10.66 4.00 - 10.80 K/uL 03/07/2024 10:13 AM EDT [facility] 56-02 Neutrophils % 71.0 40.0 - 75.0 % 03/07/2024 10:13 AM EDT [facility] 56- Lymphocytes % 16.3(L) 18.0 - 42.0 % 03/07/2024 10:13 AM EDT [facility] 56- Monocytes % 10.7 1.0 - 11.0 % 03/07/2024 10:13 AM EDT [facility] 56- Eosinophils % 1.7 0.0 - 6.0 % 03/07/2024 10:13 AM EDT [facility] 56- Basophils % 0.3 0.0 - 2.0 % 03/07/2024 10:13 AM EDT [facility] 56- Absolute Neutrophils 7.57 1.80 - 7.70 K/uL 03/07/2024 10:13 AM EDT [facility] 56 Absolute Lymphocytes 1.74 1.00 - 4.80 K/ul 03/07/2024 10:13 AM EDT [facility] 56- Absolute Monocytes 1.14(H) 0.00 - 1.10 K/uL 03/07/2024 10:13 AM EDT [facility] 56- Absolute Eosinophils 0.18 0.00 - 0.70 K/uL 03/07/2024 10:13 AM EDT [facility] 56- Absolute Basophils 0.03 0.00 - 0.20 K/uL 03/07/2024 10:13 AM EDT [facility] 56 Blood Venous blood specimen / Unknown Venipuncture / Unknown 03/07/2024 9:59 AM EDT 03/07/2024 9:59 AM EDT Andree Pearson MD LAB BLOOD ORDERABLES [facility] [address] [place] [address] * (ABNORMAL) CBC (03/07/2024 9:59 AM EDT) WBC 10.66 4.00 - 10.80 K/uL 03/07/2024 10:13 AM EDT [facility] 56 RBC 5.74 4.50 - 5.25 M/uL 03/07/2024 10:13 AM EDT [facility] 56 HGB 16.7 14.0 - 16.8 g/dL 03/07/2024 10:13 AM EDT [facility] 56 HCT 51.9(H) 40.0 - 48.4 % 03/07/2024 10:13 AM EDT [facility] 56 MCV 90.4 82.0 - 99.5 fL 03/07/2024 10:13 AM EDT [facility] 56 MCH 29.1 27.0 - 34.0 pg 03/07/2024 10:13 AM EDT [facility] 56 MCHC 32.2 32.0 - 36.0 g/dL 03/07/2024 10:13 AM T [facility] 56 RDW 16.8 11.5 - 15.5 % 03/07/2024 10:13 AM T [facility] 56 PLT 256 140 - 400 K/uL 03/07/2024 10:13 AM T [place] [address] MPV 9.8 6.6 - 11.1 fL 03/07/2024 10:13 AM T [facility] 56 Blood Venous blood specimen / Unknown Venipuncture / Unknown 03/07/2024 9:59 AM EDT 03/07/2024 9:59 AM EDT Andree Pearson MD LAB BLOOD ORDERABLES [facility] [address] documented in this encounter Visit Diagnoses Diagnosis Infected olecranon bursa, left Cellulitis of left upper extremity Cellulitis and abscess of upper arm and forearm documented in this encounter Care Teams Cosmetologist Relationship Specialty Start Date End Date [facility] [address] PCP - General Internal Medicine 04/25/23 documented as of this encounter
--- OUTSIDE RECORDS SUMMARY | 2024-04-02 02:22 | External Medical Summary | Summary of Care ---
Author Name Unknown Organization [facility] Address [address] [place] [address] Phone [phone] Care Team Providers Care Digital Composer Name Role Phone Andree Pearson MD Primary Care Provider [phone] Encounter Details Date Type Department Care Team [...] Tablet (Lasix)Indications: Atrial fibrillation status post cardioversion ([facility]) Taking 1 tab 1-2/week since 02/08/24 0 03/07/2024 Active Aspirin 81 MG Oral Tablet Delayed ReleaseIndications: Coronary artery disease involving andreafski coronary artery of andreafski heart without angina pectoris Take 1 Tablet [...] post cardioversion Coronary artery disease invo lving andreafski coronary artery of andreafski heart without angina pectoris 04/25/2023 History of [...] 03/13/2024 11:00 AM EDT Office Visit Orthopaedics [facility] [address] [place] [address] Barrett Scott PA-C [address] [place] [place] [address] 03/14/2024 9:40 AM EDT Office Visit General Internal Medicine [facility] [place] [address] [place] [address] Andree Pearson MD [address] [place] [address] 04/30/2024 9:00 AM EDT Office Visit Cardiology, [facility] [address] [place] [address] Cole Rebolledo PAWilliamC [address] [place] [address] 06/09/2024 8:30 AM EDT Laboratory Laboratory [facility] [address] [place] [phone] [facility] 200 [facility] [place] [address] 07/30/2024 8:30 AM EDT Laboratory Laboratory [facility] 200 [facility] [place] [phone] [place], Lab [facility] 200 [facility] [place] [address] 08/04/2024 8:20 AM EDT Office Visit General Internal Medicine [facility] 200 [facility] [place] [address] Andree Pearson MD 200 [facility] [place], [place] [address] Health Maintenance Due Date Last Done Comments [...] filedocumented as of this encounter Care Teams Digital Composer Relationship Specialty Start Date End Date Andree Pearson MD [address] [place] [address] PCP - General Internal Medicine 04/25/23 documented as of this encounter
--- OUTSIDE RECORDS SUMMARY | 2024-04-02 02:22 | External Medical Summary | Summary of Care ---
Author Name Unknown Organization [facility] Address [address] [place] [address] Phone [phone] Care Team Providers Care Punchboard Filling Machine Operator Name Role Phone Andree Pearson MD Primary Care Provider [phone] Encounter Details Date Type Department Care Team [...] Tablet (Lasix)Indications: Atrial fibrillation status post cardioversion ([facility]) Taking 1 tab 1-2/week since 02/08/24 0 03/07/2024 Active Aspirin 81 MG Oral Tablet Delayed ReleaseIndications: Coronary artery disease involving chicken ranch coronary artery of [place] heart without angina pectoris Take 1 Tablet [...] post cardioversion Coronary artery disease invo lving [place] coronary artery of [place] heart without angina pectoris 04/25/2023 History of [...] 03/13/2024 11:00 AM EDT Office Visit Orthopaedics [facility] [address] [place] [address] Barrett Scott PA-C [address] [place] [address] 03/14/2024 9:40 AM EDT Office Visit General Internal Medicine [facility] [place] [address] [place] [address] Andree Pearson MD [address] [place] [address] 04/30/2024 9:00 AM EDT Office Visit Cardiology, [facility] [address] [place] [address] Cole Rebolledo PAWilliamC [address] [place] [address] 06/09/2024 8:30 AM EDT Laboratory Laboratory [facility] [address] [place] [phone] [facility] 200 [facility] [place] [address] 07/30/2024 8:30 AM EDT Laboratory Laboratory [facility] 200 [facility] [place] [phone] [place], Lab [facility] [address] [facility] [place] [address] 08/04/2024 8:20 AM EDT Office Visit General Internal Medicine [facility] 200 [facility] [place] [address] Andree Pearson MD 200 [facility] [place], [place] [address] Health Maintenance Due Date Last Done Comments [...] filedocumented as of this encounter Care Teams Punchboard Filling Machine Operator Relationship Specialty Start Date End Date Andree Pearson MD [address] [place] [address] PCP - General Internal Medicine 04/25/23 documented as of this encounter
--- OUTSIDE RECORDS SUMMARY | 2024-04-02 02:22 | External Medical Summary ---
Author Name Unknown Address Unknown Organization [id number]:[facility]ATORY [place] [address] Laboratory Report Ordering Provider Test Date Status DIMAS CASSIDY 03/07/2024 09:59:17 Final Observation Date Value Abnormality Reference (Units ) Status WBC, Total 03/07/2024 09:59:17 10.66 4.00-10.8 0 (K/uL) Final RBC 03/07/2024 09:59:17 5.74 4.50-5.25 (M/uL) Final Hemoglobin 03/07/2024 09:59:17 16.7 14.0-16.8 (g/dL) Final HCT 03/07/2024 09:59:17 51.9 Above high normal 40 .0-48.4 (%) Final MCV 03/07/2024 09:59:17 90.4 82.0-99.5 (fL) Final MCH 03/07/2024 09:59:17 29.1 27.0-34.0 (pg) Final MCHC 03/07/2024 09:59:17 32.2 32.0-36.0 (g/dL) Final RDW 03/07/2024 09:59:17 16.8 11.5-15.5 (%) Final Platelets 03/07/2024 09:59:17 256 140-400 (K /uL) Final MPV 03/07/2024 09:59:17 9.8 6.6-11.1 ( fL) Final Performing Location [facility] [place] [address]
--- OUTSIDE RECORDS SUMMARY | 2024-04-02 02:22 | External Medical Summary ---
Author Name Unknown Address Unknown Organization K09:[facility] [place] [address] Laboratory Report Ordering Provider Test Date Status DIMAS CASSIDY 02/27/2024 08:06:09 Final Observation Date Value Abnormality Reference (Units ) Status ALT (Alanine aminotransferase) 02/27/2024 08:06:09 36 10-50 (U/L) Final Performing Location [facility] [place] [address]
--- OUTSIDE RECORDS SUMMARY | 2024-04-02 02:22 | External Medical Summary ---
Author Name Unknown Address Unknown Organization K01:[facility] [place] [address] [place] [address] Laboratory Report Ordering Provider Test Date Status DIMAS CASSIDY 03/07/2024 09:59:17 Final Observation Date Value Abnormality Reference (Units ) Status Erythrocyte sedimentation rate by Photometric method 03/07/2024 09:59:17 39 Above high normal <20 (mm/hour) Final Performing Location [facility] [place] [address] [place] [address]
--- OUTSIDE RECORDS SUMMARY | 2024-04-02 02:22 | External Medical Summary ---
Author Name Unknown Address Unknown Organization K01:[facility] [place] [address] [facility] [address] Laboratory Report Ordering Provider Test Date Status DIMAS CASSIDY 02/27/2024 08:06:09 Final Observation Date Value Abnormality Reference (Units ) Status HbA1C 02/27/2024 08:06:09 6.3 Above high normal 4. 0-5.6 (%) Final The use of HbA1c to monitor glycemic status is based on normal hemoglobin and HbA composition. This test should not be used in patients with abnormal hemoglobin that affects the half life of the red blood cell or the in vivo glycation rates. Glucose, estimated average 02/27/2024 08:06:09 134 Above high normal <126 (mg/dL) Hero steele Performing Location [facility] [place] [address] [facility] [address]
--- OUTSIDE RECORDS SUMMARY | 2024-04-02 02:22 | External Medical Summary ---
Author Name Unknown Address Unknown Organization [id number]:[facility] [place] [address] [place] [address] Laboratory Report Ordering Provider Test Date Status DIMAS CASSIDY 02/27/2024 08:06:09 Final Observation Date Value Abnormality Reference (Units ) Status Triglyceride 02/27/2024 08:06:09 154 <=174 ( mg/dL) Final Triglyceride Reference Range s (mg/dL):
<150 Acceptable
150-174 Borderline high
175-499 High
>=500 Very high Cholesterol 02/27/2024 08:06:09 129 <200 (mg /dL) Final Total Cholesterol Reference Ranges (mg/dL):
<200 Desirable
200-239 Borderline high
>=240 High HDL 02/27/2024 08:06:09 52 >39 (mg/dL ) Final HDL Cholesterol Reference Ra nges (mg/dL):
>=60 High (Desirable)
<50 Low (Undesirable) For Females
<40 Low (Undesirable) For Males NON-HDL CHOLESTEROL 02/27/2024 08:06:09 77 <=159 (mg/dL) Final Non-HDL Cholesterol Referenc e Range (mg/dL):
<100 Target level for high risk ASCVD patient
<130 Optimal for general population
130-159 Near optimal for general population
160-189 Borderline High
190-219 High
>=220 Very High Performing Location [facility] [place] [address] [place] [address]
--- OUTSIDE RECORDS SUMMARY | 2024-04-02 02:22 | External Medical Summary ---
Author Name Unknown Address Unknown Organization [id number]:[facility] [place] [address] Laboratory Report Ordering Provider Test Date Status DIAMS CASSIDY 02/27/2024 08:06:09 Final Observation Date Value Abnormality Reference (Units ) Status BUN 02/27/2024 08:06:09 15 6-20 (mg/dL) Final Creatinine 02/27/2024 08:06:09 1.0 0.6-1.2 (mg/dL) Final Glomerular filtration rate/1.73 sq M.predicted [Volume Rate/Area] in Serum, Plasma or Blood by Creatinine-based formula (CKD-EPI) 02/27/2024 08:06:09 77 >=60 (mL/min) Final eGFR is calculated based on the CKD-EPI 2020 equation Sodium 02/27/2024 08:06:09 143 135-146 (m mol/L) Final Potassium 02/27/2024 08:06:09 4.2 3.5-5.1 (m mol/L) Final Cl 02/27/2024 08:06:09 104 98-107 (mm ol/L) Final CO2 02/27/2024 08:06:09 26 22-32 (mmo l/L) Final Anion gap 02/27/2024 08:06:09 13 7-15 (mmol /L) Final Glucose 02/27/2024 08:06:09 134 Above high normal 70 -120 (mg/dL) Final Calcium 02/27/2024 08:06:09 9.4 8.4-10.2 ( mg/dL) Final Performing Location [facility] [place] [address]
--- OUTSIDE RECORDS SUMMARY | 2024-04-02 02:22 | External Medical Summary | Summary of Care ---
Author Name Unknown Organization [facility] Address [address] [place] [address] Phone [phone] Care Team Providers Care Human Projectile Name Role Phone Andree Pearson MD Primary Care Provider [phone] Encounter Details Date Type Department Care Team [...] Atrial fibrillation status post cardioversion ([facility]) Taking 1 tab 1-2/week since 02/08/24 0 03/07/2024 Active Aspirin 81 MG Oral Tablet Delayed ReleaseIndications: Coronary artery disease involving [place] coronary artery of [place] heart without angina pectoris Take 1 Tablet [...] post cardioversion Coronary artery disease invo lving [place] coronary artery of [place] heart without angina pectoris 04/25/2023 History of [...] 03/13/2024 11:00 AM EDT Office Visit Orthopaedics [facility] [address] [address] Barrett Scott PA-C [address] [address] 03/14/2024 9:40 AM EDT Office Visit [place] [facility] [place] [address] [place] [address] Andree Pearson MD [address] [place] [address] 04/30/2024 9:00 AM EDT Office Visit Cardiology, [facility] [address] [address] Cole Rebolledo PAWilliamC [address] [place] [address] 06/09/2024 8:30 AM EDT Laboratory Laboratory [facility] [address] [place] [id number] [facility] [address] [facility] [place] [address] 07/30/2024 8:30 AM EDT Laboratory Laboratory [facility] [address] [facility] [place] [phone] [place], Lab [facility] [address] [facility] [place] [address] 08/04/2024 8:20 AM EDT Office Visit General Internal Medicine [facility] [address] [facility] [place] [address] Andree Pearson MD [address] [facility] [place], [place] [address] Health Maintenance Due Date Last Done Comments [...] filedocumented as of this encounter Care Teams Human Projectile Relationship Specialty Start Date End Date Andree Pearson MD [address] [place] [address] PCP - General Internal Medicine 04/25/23 documented as of this encounter
--- OUTSIDE RECORDS SUMMARY | 2024-04-02 02:22 | External Medical Summary | Summary of Care ---
Author Name Unknown Organization [facility] Address [address] [place] [address] Phone [phone] Care Team Providers Care Block Out Machine Operator Name Role Phone Andree Pearson MD Primary Care Provider [phone] Reason for Visit * Reason Onset Date Comments Advice 03/07/2024 Second Medicatio n Encounter Details Date Type Department Care Team (Late st Contact Info) Description 03/07/2024 Telephone General Internal Medicine [facility] [address] [place] [address] Andree Pearson MD [address] [place] [address] Advice (Second Medication ) Allergies No known active allergiesdocumented as of [...] Tablet Delayed ReleaseIndications: Coronary artery disease involving [place] coronary [...] encounter Miscellaneous Notes * Telephone Encounter - Larisa Cosme LPN - 03/07/2024 12:20 PM EDT Called [facility] to inquiring about the ceftin. I was advise that it it ready for machine operator hop picker. I called back informed of message. She verbalized understanding. No further questions. * Telephone Encounter - Sharmila Ulrich OSA - 03/07/2024 11:35 AM EDT Pt called to inform Dr. Pearson that the pt only received one antibiotic in stead of two as discussed during office visit. The only medication that came in from the pharmacy today was the Doxycycline Hyclate 100 mg. The second medication was not there can you please call in the second antibiotic to the pharmacy and any other medication pt needs to be taking. Please contact pt mobile number when script has been sent. documented in this encounter Plan of Treatment Upcoming Encounters Date Type Department Care Team (Late st Contact Info) Description 03/13/2024 11:00 AM EDT Office Visit Orthopaedics [facility] [address] [place] [address] Barrett Scott PA-C 132 [facility] [place] [address] 03/14/2024 9:40 AM EDT Office Visit General Internal Medicine [facility] [address] [place] [address] Andree Pearson MD [address] [place] [address] 04/30/2024 9:00 AM EDT Office Visit Cardiology, [facility] [place] [address] Cole Rebolledo PA-C 132 [facility] [place] [address] 06/09/2024 8:30 AM EDT Laboratory Laboratory [facility] [place] [address] [place] [phone] [facility] [address] [place] [address] [address] 07/30/2024 8:30 AM EDT Laboratory Laboratory [facility] [place] [address] [place] [place] [phone] [facility] [address] [place] [address] [address] 08/04/2024 8:20 AM EDT Office Visit General Internal Medicine [facility] [address] [place], [place] [address] Andree Pearson MD 200 [facility] [place] [place] [address] Health Maintenance Due Date Last Done Comments [...] filedocumented as of this encounter Care Teams Block Out Machine Operator Relationship Specialty Start Date End Date Andree Pearson MD [address] [place] [address] [address] PCP - General Internal Medicine 04/25/23 documented as of this encounter
--- OUTSIDE RECORDS SUMMARY | 2024-04-02 02:22 | External Medical Summary ---
Author Name Unknown Address Unknown Organization K01:LAB[facility]ATORY [facility] - [address] [place] [address] Laboratory Report Ordering Provider Test Date Status DIMAS CASSIDY 02/27/2024 08:06:09 Final Observation Date Value Abnormality Reference (Units ) Status LDL, (direct) 02/27/2024 08:06:09 55 <=129 (mg/dL) Final LDL Cholesterol Reference Ra nges (mg/dL):
<70 Target level for high risk ASCVD patient
<100 Optimal for general population
100-129 Near optimal for general population
130-159 Borderline high
160-189 High
>=190 Very high Performing Location [facility] - [address] [place] [address]
--- OUTSIDE RECORDS SUMMARY | 2024-04-02 02:22 | External Medical Summary ---
Author Name Unknown Address Unknown Organization [id number][place] [place] [address] [place] [address] Laboratory Report Ordering Provider Test Date Status DIMAS CASSIDY 02/27/2024 08:06:09 Final Observation Date Value Abnormality Reference (Units ) Status Vitamin B12 02/27/2024 08:06:09 [phone] (pg/mL) Final Performing Location [facility] [place] [address] [place] [address]
--- OUTSIDE RECORDS SUMMARY | 2024-04-02 02:22 | External Medical Summary ---
Author Name Unknown Address Unknown Organization K01:[facility] - [address] [facility] [address] Laboratory Report Ordering Provider Test Date Status DIMAS CASSIDY 02/27/2024 08:06:09 Final Observation Date Value Abnormality Reference (Units ) Status T4, Free 02/27/2024 08:06:09 1.3 0.9-1.7 (n g/dL) Final Performing Location [facility] [address] [facility] [address]
--- OUTSIDE RECORDS SUMMARY | 2024-04-02 02:22 | External Medical Summary ---
Author Name Unknown Address Unknown Organization K01:[facility] [place] [address] [place] [address] Laboratory Report Ordering Provider Test Date Status DIMAS CASSIDY 03/07/2024 09:59:17 Final Observation Date Value Abnormality Reference (Units ) Status Uric Acid 03/07/2024 09:59:17 4.3 3.4-7.0 (m g/dL) Final Performing Location LABORATORY [facility] - [address] [place] [address]
--- OUTSIDE RECORDS SUMMARY | 2024-04-02 02:22 | External Medical Summary ---
Author Name Unknown Address Unknown Organization K01:[facility] [place] [address] [place] [address] Laboratory Report Ordering Provider Test Date Status DIMAS CASSIDY 03/07/2024 09:59:17 Final Observation Date Value Abnormality Reference (Units ) Status CRP, low-sensitivity 03/07/2024 09:59:17 19 Above high normal <=5 (mg/L) Final Performing Location LAB[facility] - [address] [place] [address]
--- OUTSIDE RECORDS SUMMARY | 2024-04-02 02:22 | External Medical Summary | Summary of Care ---
Author Name Unknown Organization [facility] Address [address] [place] [address] Phone [phone] Care Team Providers Care Review Consultant Name Role Phone Andree Pearson MD Primary Care Provider [phone] Encounter Details Date Type Department Care Team [...] post cardioversion ([facility]) Taking 1 tab 1-2/week since 02/08/24 0 03/07/2024 Active Aspirin 81 MG Oral Tablet Delayed ReleaseIndications: Coronary artery disease involving [place] coronary artery of [place] heart without angina pectoris Take 1 Tablet [...] post cardioversion Coronary artery disease invo lving [place] coronary artery of [place] heart without angina pectoris 04/25/2023 History of [...] 03/13/2024 11:00 AM EDT Office Visit Orthopaedics [facility] [address] [address] Barrett Scott PA-C [address] [address] 03/14/2024 9:40 AM EDT Office Visit [facility] [address] [place] [address] Andree Pearson MD [address] [place] [address] 04/30/2024 9:00 AM EDT Office Visit Cardiology, [facility] [address] [address] Cole Rebolledo PAWilliamC [address] [place] [address] 06/09/2024 8:30 AM EDT Laboratory Laboratory [facility] [address] [place] [phone] [facility] 200 [facility] [place] [address] 07/30/2024 8:30 AM EDT Laboratory Laboratory [facility] 200 [facility] [place] [phone] [place], Lab [facility] 200 [facility] [place] [address] 08/04/2024 8:20 AM EDT Office Visit General Internal Medicine [facility] 200 [facility] [place] [address] Andree Pearson MD 200 [facility] [place], [place] [address] Health Maintenance Due Date Last Done Comments [...] filedocumented as of this encounter Care Teams Review Consultant Relationship Specialty Start Date End Date Andree Pearson MD [address] [place] [address] PCP - General Internal Medicine 04/25/23 documented as of this encounter
--- OUTSIDE RECORDS SUMMARY | 2024-04-02 02:22 | External Medical Summary ---
Author Name Unknown Address Unknown Organization K09:LABORATORY [facility] [address] Laboratory Report Ordering Provider Test Date Status DIMAS CASSIDY 03/07/2024 09:59:17 Final Observation Date Value Abnormality Reference (Units ) Status SYNC LEUKOCYTES IN BLOOD BY AUTOMATED COUNT 03/07/2024 09:59:17 10.66 4.00-10.80 (K/uL) Final Segs 03/07/2024 09:59:17 71.0 40.0-75.0 (%) Final Lymphs % 03/07/2024 09:59:17 16.3 Below low normal 18.0-42.0 (%) Final Monos 03/07/2024 09:59:17 10.7 1.0-11.0 (%) Final Eosinophils 03/07/2024 09:59:17 1.7 0.0-6.0 (%) Final Basos 03/07/2024 09:59:17 0.3 0.0-2.0 (%) Final Absolute Segs 03/07/2024 09:59:17 7.57 1.80-7.70 (K/uL) Final Lymphs, absolute 03/07/2024 09:59:17 1.74 1.00-4.80 (K/ul) Final Monos, Abs 03/07/2024 09:59:17 1.14 Above high normal 0.00-1.10 (K/uL) Final Eos, Abs 03/07/2024 09:59:17 0.18 0.00-0.70 (K/uL) Final Basos, Abs 03/07/2024 09:59:17 0.03 0.00-0.20 (K/uL) Final Performing Location LAB[facility]ATORY [place] [address]
--- OUTSIDE RECORDS SUMMARY | 2024-04-02 02:22 | External Medical Summary | Summary of Care ---
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 Name Role Phone Andree Pearson MD Primary Care Provider [phone] Reason for Referral * (Within 24 hrs (call dept; emergent)) - Authorized Specialty Diagnoses / Procedures Referred By Contac t Referred To Contact Radiology Diagnoses Infected olecranon bursa, left Cellulitis of left upper extremity Procedures US EXTREMITY, NON-VASCULAR LIMITED Andree Pearson MD [address] [place] [address] Referral ID Status Reason Start Date Expiration Date V isits Requested Visits Authorized [id number] Authorized 03/07/2024 999 999 * Evaluate & Treat - Unlimited Visits (Within 3 days (urgent)) - Authorized Specialty Diagnoses / Procedures Referred By Contac t Referred To Contact Orthopaedic Surgery / Orthopedics Diagnoses Infected olecranon bursa, left Cellulitis of left upper extremity Andree Pearson MD [address] [place] [address] Referral ID Status Reason Start Date Expiration Date Visits Requested Visits Authorized [id number] Authorized Specialty Services Required 03/07/2024 999 999 Question Answer Referral Priority Within 3 days (urgent) Where should this appointment be scheduled? [facility] What body part is the patient being seen for? Arm/Elbow What condition is the patient being seen for? Arthritis including related infection Reason for Visit * Reason Comments Follow Up Encounter Details Date Type Department Care Team (Latest Contact Info) Description 03/07/2024 8:20 AM EDT Office Visit General Internal Medicine [place] Franky Malcolm [address] [place] [address] Andree Pearson MD [address] [place] [address] Atrial fibrillation status post cardioversion (HCC)*; HTN, goal below 140/90; Coronary artery disease involving b[place] coronary artery of [place] heart without angina pectoris; Dyslipidemia, goal LDL below 70; Type 2 diabetes mellitus with hemoglobin A1c goal of less than 7.0% (HCC); On amiodarone therapy; Elevated TSH; Infected olecranon bursa, left; Cellulitis of left [...] As needed for lower back pain 0 2 Active Cyanocobalamin 1000 MCG Oral Tablet (Cyanocobalamin) Take 1 Tablet by mouth in the morning. 0 Active Acetaminophen 325 MG Oral Tablet (Tylenol) Take 2 Tablets by mouth as needed. As needed for pain 0 2 Active Multivitamin Adult Oral Tablet Take 1 Tablet by mouth in the morning. 0 Active metFORMIN HCl 500 MG Oral Tablet (Glucophage) One tab in the morning, two tabs in the evening 0 Active Losartan Potassium 100 MG Oral Tablet (Cozaar) Take 1 Tablet by mouth in the morning. 0 3 Active Amiodarone HCl 100 MG Oral Tablet (Cordarone) Take 1 Tablet by mouth in the morning. 90 Tablet 3 3 Active Additional Information Patient taking differently: 50 mgOral Daily(AM), Reported on 03/07/2024 Xarelto 20 MG Oral Tablet TAKE 1 TABLET BY MOUTH AT BEDTIME WITH EVENING MEAL 90 Tablet 3 3 Active Rosuvastatin Calcium 10 MG Oral Tablet (Crestor) Take 1 Tablet by mouth in the morning. In the morning.. 90 Tablet 3 3 Active Clotrimazole 1 % External Cream (Lotrimin) Apply topically to affected area 2 times a day. Bobo feet 15 g 1 3 Active Furosemide 20 MG Oral Tablet (Lasix)Indication s:Atrial fibrillation status post cardioversion (HCC) Taking 1 tab 1-2/week since 02/08/24 0 4 Active Aspirin 81 MG Oral Tablet Delayed ReleaseIndication s:Coronary artery disease involving [place] coronary artery of [place] heart without angina pectoris Take 1 Tablet by mouth in the morning. Restart 1 daily with food 03/07/2024 (was off since 01/12). 0 4 Active Doxycycline Hyclate 100 MG Oral CapsuleIndication s:Infected olecranon bursa, left,Cellulitis of left upper extremity Take 1 Capsule by mouth in the morning and 1 Capsule before bedtime. Do all this for 14 days. Until gone.. 28 Capsule 0 4 03/21/20 24 Active Cefuroxime Axetil 500 MG Oral Tablet (Ceftin)Indicatio ns:Infected olecranon bursa, left,Cellulitis of left upper extremity Take 1 Tablet by mouth in the morning and 1 Tablet before bedtime. Do all this for 13 days. Do not start before March 08, 2024. 26 Tablet 0 4 03/21/20 24 Active Saccharomyces boulardii 250 MG Oral Capsule (Florastor)Indica tions:Infected olecranon bursa, left,Cellulitis of left upper extremity Take 1 Capsule by mouth in the morning and 1 Capsule before bedtime. 30 Capsule 0 4 Active Aspirin 81 MG Oral Tablet Delayed Release Take 1 Tablet by mouth in the morning. 0 03/07/20 24 Discontinued(Ne dication List Clean Up) Furosemide 20 MG Oral Tablet (Lasix) Take 1 Tablet by mouth in the morning. 90 Tablet 3 3 03/07/20 24 Discontinued Hospital, Clinic, or Other Facility Administered Medication Ordered Dose Route Frequency Start Date End Date Status cefTRIAXone (Rocephin) inj 1 gIndications:Infected olecranon bursa, left,Cellulitis of left upper extremity 1 g IM ONCE 03/07/2024 03/07/2024 Ended documented as of this encounter (statuses as of 03/07/2024) Active Problems Problem Noted Date Diagnosed Date Elevated TSH 08/07/2023 Atrial fibrillation status post cardioversion Coronary artery disease invo lving berry [place] coronary artery of [place] heart without angina pectoris 04/25/2023 History [...] Sign Reading Time Taken Comments Blood Pressure 116/66 03/07/2024 8:09 AM EDT Pulse 72 03/07/2024 8:09 AM EDT Temperature 36 C (96.8 F) 03/07/2024 8:09 AM EDT Respiratory Rate 20 03/07/2024 8:09 AM EDT Oxygen Saturation 99% 03/07/2024 8:09 AM EDT Inhaled Oxygen Concentration - - Weight 110.7 kg (244 lb) 03/07/2024 8:09 AM EDT Height - - Body Mass Index 32.19 06/05/2023 8:56 AM EDT documented in this encounter Progress Notes * Andere Pearson MD - 03/07/2024 8:30 AM EDT SUBJECTIVE: Peter Ware is a 83 year old male. Chief Complaint Patient presents with Follow Up Nursing Notes: Ximena Baltazar, PIYUSH 03/07/24 0809 Sign at exiting of workspace Peter Ware presents for 7 month recheck. Medications & HM reviewed. Patient has bursitis of the left elbow. He was seen at an urgent care clinic and started on antibiotics. A few weeks after that he went to his doctor in [place] while he was there and an WOOD SHOP TEACHER drained 10 cc's of fluid from the elbow. It is still draining pretty consistently so he keeps it covered with a bandage. Had blood work drawn. Moving from [place] to [place] permanently. HPI: 6 mth fu Wt Readings from Last 6 Encounters: 03/07/24 110.7 kg (244 lb) 08/07/23 113.2 kg (249 lb 9.6 oz) 07/23/23 111.8 kg (246 lb 8 oz) 07/04/23 112.2 kg (247 lb 6.4 oz) 06/27/23 115.8 kg (255 lb 3.2 oz) 06/05/23 112.1 kg (247 lb 1.6 oz) BP Readings from Last 6 Encounters: 03/07/24 116/66 08/07/23 112/70 07/23/23 126/80 07/04/23 138/62 06/27/23 108/72 06/05/23 122/64 Patient was seen in [place] at urgent care for symptoms of swelling of his left elbow, was given Keflex for 7 days and prednisone 20 mg daily for 3 days on 01/18/2024, saw PCP on 01/25/2024, had aspiration of the joint 17 mL, cultures did [...] mg daily No swelling of the legs. 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 obesity, lumbar spondylosis, followed by [facility] in [place], arthritis of the hips and knee nowfollowed by Dr. Malik H/o swelling of his right knee, saw Dr. Malik, had effusion drained and steroid injection, with noimprovement and was later given Synvisc. He also has arthritis of bilateral hips, was started on meloxicam [address] Malik 06/13 which we had advised to discontinue and to resume aspirin because of CAD. History of abdominal pain 05/24/2023, diagnosed as duodenitis with a large duodenal diverticulum on CT abdomen, given Augmentin for 10 days, Protonix for 4 weeks had continued to have symptoms and we prescribed rifaximin due to persistent leukocytosis which he took for 2 weeks. Past surgical history- cardiac stent as above, tonsillectomy and adenoidectomy, cholecystectomy, cataract surgery 07/21/2021 Social [id number], rare use of alcohol, no drug use. Last stress test-20 20 per card ask cardiology notes. Labs-01/18/2023-normal CBC, CMP except chronically elevated total bilirubin 1.4, B12 432, lipids 130/208/41/47, UA concentrated otherwise negative. Sent from the office on 06/26/2023, admitted 06/27/2023 discharged 06/29/2023 with a final diagnosis of new onset AFib status post cardioversion on 06/29/2023. Secondary diagnosis of leg edema. Seen in the office 06/26/2023 with increasing leg edema for 2-3 days, fatigue, had noted periodsof apnea, denied snoring chest pain or palpitations orthopnea or PND, gained weight 8 lb in the last month, had also noticed a rash on both his feet, states he does not wear socks. EKG AFib withRVR and sent for evaluation., low normal blood pressure for him Repeat EKG-AFib with RVR at 135 beats per minute. Labs-normal CBC, CMP, coags, magnesium 1.8, TSH 6.66, free T4 0.9, Lyme test negative. Chest x-ray negative. -was given IV Lopressor and Cardizem bolus in the ER started on heparin drip, amlodipine held due to hypotension, HCTZ was also held while given Lasix. Insurance will only approve Xarelto not apixaban meloxicam and fish oil were also discontinued. Rate was difficult to control with oral metoprolol, given IV digoxin overnight and subsequent Cardizem drip. 06/29/2023 jordana showed no clot in left atrium or left atrial appendage, underwent cardioversion by , heart rate remained in the 50 to 60s. EKG-06/29/2023-sinus bradycardia at 46 Bpm. Discharge medications-Xarelto 20 mg at night, amiodarone 200 mg daily, metoprolol tartrate changed to succinate 25 mg , furosemide 20 mg daily, continue losartan 100 mg daily, aspirin 81 mg daily, simvastatin switch to rosuvastatin 10 mg due to amiodarone therapy. , ct metformin multivitamin, fish oil, lutein, tamsulosin 0.4 mg twice a day, lidocaine patch as needed for back pain Discontinue medication-amlodipine was stopped due to peripheral edema but this was only related to his AFib did not have any swelling in the past. Other discontinue medication- HCTZ, simvastatin. 07/04/23- Today states he feels well. Edema has almost resolved except around the ankles. No dizziness or weakness. No abdominal pain, bowel movements have been normal. wants me to know reg foot rash today since we had to send him to the ER the other day, he doesnot wear socks with his shoes. Heart rate 44 on exam, rhythm strip confirms the same, discussed with some cardiology via tiger text who agrees with decreasing metoprolol to 12.5 mg daily. Patient to have repeat BMP this Sunday 1 week from starting the furosemide. Will also check thyroidantibodies. Previous TSH in have been normal 08/07/2023--Cardiology appointment 07/23/23.--decrease amiodarone to 100 mg daily, metoprolol 12.5 mg discontinued, Diflucan stopped though it was for once a week due to potential interaction with amiodarone, took 3 doses TP improved He was also advised that if he stays on the amiodarone he will need to have liver function and thyroid tested in 3 months by his primary care provider in [place] as he will be going back September 02 through February. HR better, resolved leg edema, no cp/sob, is in physical therapy 2 times a week for his knee and balance at [place] [facility] per ortho No change in bowel habits. No blood in the stool or black tarry stools. No recent URI symptoms Labs reviewed Eye exam-[facility] in [place]--rev faxed 11/26/23 Foot exam-08/07/2023--dec MF exam, dryness and M Tp improved, callus below Rt Gr toe, thick OM nails Has appt poditary in [place] Ur [place] neg 08/12, 08/13 Send us copy covid booster at pharmacy 07/31/23 and RSV Immunization History Administered Date(s) Administered COVID-19 mRNA, LNP-s, No Preserve, 2-Dose Series (Moderna) 12/10/2020, 01/07/2021, 02/03/2022 Covid-19, Mrna, Lnp-s, Pf, Bivalent, 25 Mcg, IM,6-11 yrs (Moderna) 02/03/2022 Covid-19, Mrna, Lnp-s, Pf, Bivalent, 30 Mcg, IM, 12 yrs and above (Pfizer) 07/14/2022 H1N1 2009 Influenza, IM 10/26/2009 Pneumococcal Conjugate Vacc, 13 Valent (Prevnar) 04/19/2015 Pneumococcal Polysaccharide PPV23 (Pneumovax) 06/02/2003, 05/05/2015 Season Influenza, Quad, PF, Adjuvanted, 65+ Yrs, IM (FLUAD) 07/27/2021, 06/22/2022 Seasonal Influenza Virus Vaccine, Unspecified Formulation 08/10/2011 Seasonal Influenza, Quadrivalent Hd (Fluzone Hd) 07/04/2023 Seasonal Influenza, Quadrivalent, No Preserve, IM 07/12/2020 Seasonal Influenza, Trivalent, Adjuvanted, 65+ yrs 07/28/2017 Seasonal Influenza, Trivalent, High Dose, No Preserve, IM 07/07/2013, 08/03/2014, 07/26/2016, 07/02/2018, 08/12/2018, 08/06/2019 TDAP (age 10 and older)(Boostrix) 04/28/2013 TDAP (age 11 and older)(Adacel) 04/27/2023 Varicella Zoster Vaccine (Adult) 05/12/2013 Zoster Vaccine Recombinant (Shingrix) 2022, 08/10/202207/14--negative antithyroid antibodies TSH Results: Lab Results Component Value Date/Time TSH - [facility] 5.53 (H) 02/27/2024 08:06 AM TSH - [facility] 6.35 (H) 08/02/2023 07:33 AM Hemoglobin AIC Results: Lab Results Component Value Date/Time HEMOGLOBIN A1C - [facility] 6.3 (H) 02/27/2024 08:06 AM HEMOGLOBIN A1C - [facility] 6.2 (H) 08/02/2023 07:33 AM Results for orders placed or performed in visit on 02/27/24 VITAMIN B12 Result Value Ref Range Vitamin B12 845 232 - 1,245 pg/mL ALT Result Value Ref Range ALT 36 10 - 50 U/L BASIC METABOLIC PANEL Result Value Ref Range BUN 15 6 - 20 mg/dL Creatinine 1.0 0.6 - 1.2 mg/dL Estimated Glomerular Filtration Rate 77 >=60 mL/min Sodium 143 135 - 146 mmol/L Potassium 4.2 3.5 - 5.1 mmol/L Chloride 104 98 - 107 mmol/L CO2 26 22 - 32 mmol/L Anion Gap 13 7 - 15 mmol/L Glucose 134 (H) 70 - 120 mg/dL Calcium 9.4 8.4 - 10.2 mg/dL LIPID PANEL WITH DIRECT LDL IF TG IS HIGH Result Value Ref Range Triglycerides 154 <=174 mg/dL Cholesterol 129 <200 mg/dL HDL Cholesterol 52 >39 mg/dL Non-HDL Cholesterol 77 <=159 mg/dL HEMOGLOBIN A1C Result Value Ref Range Hemoglobin A1C 6.3 (H) 4.0 - 5.6 % Estimated Average Glucose 134 (H) <126 mg/dL TSH WITH FREE T4 IF INDICATED Result Value Ref Range TSH 5.53 (H) 0.27 - 4.20 uIU/mL CBC Result Value Ref Range WBC 9.44 4.00 - 10.80 K/uL RBC 5.48 4.50 - 5.25 M/uL HGB 16.1 14.0 - 16.8 g/dL HCT 49.7 (H) 40.0 - 48.4 % MCV 90.7 82.0 - 99.5 fL MCH 29.4 27.0 - 34.0 pg MCHC 32.4 32.0 - 36.0 g/dL RDW 16.5 11.5 - 15.5 % PLT 224 140 - 400 K/uL MPV 9.7 6.6 - 11.1 fL DIFFERENTIAL, AUTOMATED Result Value Ref Range WBC 9.44 4.00 - 10.80 K/uL Neutrophils % 63.7 40.0 - 75.0 % Lymphocytes % 24.7 18.0 - 42.0 % Monocytes % 9.1 1.0 - 11.0 % Eosinophils % 2.3 0.0 - 6.0 % Basophils % 0.2 0.0 - 2.0 % Absolute Neutrophils 6.01 1.80 - 7.70 K/uL Absolute Lymphocytes 2.33 1.00 - 4.80 K/ul Absolute Monocytes 0.86 0.00 - 1.10 K/uL Absolute Eosinophils 0.22 0.00 - 0.70 K/uL Absolute Basophils 0.02 0.00 - 0.20 K/uL LDL CHOLESTEROL (DIRECT MEASURE) Result Value Ref Range LDL Cholesterol (Direct Measure) 55 <=129 mg/dL T4, FREE Result Value Ref Range T4, Free 1.3 0.9 - 1.7 ng/dL Patient Active Problem List Diagnosis Code Coronary artery disease involving [place] coronary artery of [place] heart without angina pectoris I25.10 History of placement of stent in LAD coronary artery Z95.5 Dyslipidemia, goal LDL below 70 E78.5 HTN, goal below 140/90 I10 Type 2 diabetes mellitus with hemoglobin A1c goal of less than 7.0% (HCC) E11.9 History of colonoscopy with polypectomy Z98.890, Z86.010 Lumbar spondylosis M47.816 Arthritis of right knee M17.11 BPH with obstruction/lower urinary tract symptoms N40.1, N13.8 History of nonmelanoma skin cancer Z85.828 Serum total bilirubin elevated R17 Bilateral hip joint arthritis M16.0 Atrial fibrillation status post cardioversion (HCC) I48.91 Elevated TSH R79.89 Current Outpatient Medications Medication Sig Dispense Refill [...] mouth in the morning.) 90 Tablet 3 Furosemide 20 MG Oral Tablet (Lasix) Take 1 Tablet by mouth in the morning. 90 Tablet 3 Xarelto 20 MG Oral Tablet TAKE 1 TABLET BY MOUTH AT BEDTIME WITH EVENING MEAL 90 Tablet 3 Rosuvastatin Calcium 10 MG Oral Tablet (Crestor) Take 1 Tablet by mouth in the morning. In the morning.. 90 Tablet 3 Clotrimazole 1 % External Cream (Lotrimin) Apply topically to affected area 2 times a day. Bobo feet15 g 1 No current facility-administered medications for this visit. Past Medical History: Diagnosis Date Arthritis BPH (benign prostatic hyperplasia) Diabetes (HCC) Hypertension Meningitis spinal Past Surgical History: Procedure Laterality Date CATARACT SURGERY,COMPLEX NM CHOLECYSTECTOMY Family History Problem Relation Age of Onset Cancer Mother Heart attack Father Dementia Sister Cancer Brother Dementia Brother Social History Tobacco Use Smoking status: Former Types: Cigarettes Smokeless tobacco: Never Vaping Use Vaping Use: Never used Substance Use Topics Alcohol use: Yes Alcohol/week: 1.0 - 2.0 standard drink of alcohol Types: 1 - 2 12 oz of beer per week Drug use: Never Review of patient's allergies indicates: No Known Allergies OBJECTIVE: BP 116/66 | Pulse 72 | Temp 36 C (96.8 F) (Tympanic) | Resp 20 | Wt 110.7 kg (244 lb) | SpO2 99% | BMI 32.19 kg/m | BSA 2.39 m PHYSICAL EXAM: General: alert, healthy, no distress, well nourished and well developed Head: Normocephalic, atraumatic Eye Exam: PERRLA, EOMI, Conjunctiva non-injected, sclera clear Ears: External ears normal Nose: no mucosal erythema, no mucosal edema, no purulent discharge Oropharynx: no exudate and no erythema Neck: supple, no bruits, thyroid normal size, non-tender, without nodularity Lymph: No palpable lymphadenopathy. Heart: Regular rhythm , HR 64 bpm, no murmurs and no gallops Lungs: lungs clear to auscultation Abdomen: Soft, non-tender, normal bowel sounds, no masses or organomegaly, no bruits Extremities: no edema legs , no clubbing, no cyanosis. Neuro Exam: alert & oriented x 3 with fluent speech, no focal motor/sensory deficits, gait normal Skin: skin color, texture--dry legs, turgor are normal, no rashes Scar RT lower leg(h/o skin ca) Feet--improved severe mocassin type Tinea pedis Rt >left Callus below left Gr toe --left upper extremity-significant erythema and swelling of the left elbow over the olecranon process, draining serous discharge., soft tissue swelling, no significant tenderness This also swelling of the left forearm, good range of motion of the elbow, ASSESSMENT/PLAN: Atrial fibrillation status post cardioversion (HCC) (Primary) - ALT; Future; Expected date: 09/07/2024 - TSH WITH FREE T4 IF INDICATED; Future; Expected date: 09/07/2024 - TSH WITH FREE T4 IF INDICATED; Future; Expected date: 06/07/2024 HTN, goal below 140/90 - BASIC METABOLIC PANEL; Future; Expected date: 09/07/2024 Coronary artery disease involving [place] coronary artery of [place] heart without angina pectoris - BASIC METABOLIC PANEL; Future; Expected date: 09/07/2024 - LIPID PANEL WITH DIRECT LDL IF TG IS HIGH; Future; Expected date: 09/07/2024 - Aspirin 81 MG Oral Tablet Delayed Release; Take 1 Tablet by mouth in the morning. Restart 1 dailywith food 03/07/2024 (was off since 01/12). Dyslipidemia, goal LDL below 70 - ALT; Future; Expected date: 09/07/2024 - LIPID PANEL WITH DIRECT LDL IF TG IS HIGH; Future; Expected date: 09/07/2024 Type 2 diabetes mellitus with hemoglobin A1c goal of less than 7.0% ([facility]) - BASIC METABOLIC PANEL; Future; Expected date: 09/07/2024 - LIPID PANEL WITH DIRECT LDL IF TG IS HIGH; Future; Expected date: 09/07/2024 - HEMOGLOBIN A1C; Future; Expected date: 09/07/2024 - ALBUMIN / CREATININE RATIO, URINE; Future; Expected date: 09/07/2024 On amiodarone therapy - ALT; Future; Expected date: 09/07/2024 - TSH WITH FREE T4 IF INDICATED; Future; Expected date: 09/07/2024 - TSH WITH FREE T4 IF INDICATED; Future; Expected date: 06/07/2024 Elevated TSH - ALT; Future; Expected date: 09/07/2024 - TSH WITH FREE T4 IF INDICATED; Future; Expected date: 09/07/2024 - TSH WITH FREE T4 IF INDICATED; Future; Expected date: 06/07/2024 Infected olecranon bursa, left - ORTHOPAEDICS REFERRAL OP - US EXTREMITY, NON-VASCULAR LIMITED; Future; Expected date: 03/07/2024 - CBC WITH WBC DIFFERENTIAL; Future; Expected date: 03/07/2024 - CULTURE, BLOOD; Future; Expected date: 03/07/2024 - ERYTHROCYTE SEDIMENTATION RATE (ESR); Future; Expected date: 03/07/2024 - CRP (INFLAMMATORY MARKER); Future; Expected date: 03/07/2024 - Doxycycline Hyclate 100 MG Oral Capsule; Take 1 Capsule by mouth in the morning and 1 Capsule before bedtime. Do all this for 14 days. Until gone.. - cefTRIAXone (Rocephin) inj 1 g - Cefuroxime Axetil 500 MG Oral Tablet (Ceftin); Take 1 Tablet by mouth in the morning and 1 Tabletbefore bedtime. Do all this for 13 days. Do not start before March 08, 2024. - Saccharomyces boulardii 250 MG Oral Capsule (Florastor); Take 1 Capsule by mouth in the morning and 1 Capsule before bedtime. Cellulitis of left upper extremity - ORTHOPAEDICS REFERRAL OP - US EXTREMITY, NON-VASCULAR LIMITED; Future; Expected date: 03/07/2024 - CBC WITH WBC DIFFERENTIAL; Future; Expected date: 03/07/2024 - Doxycycline Hyclate 100 MG Oral Capsule; Take 1 Capsule by mouth in the morning and 1 Capsule before bedtime. Do all this for 14 days. Until gone.. - cefTRIAXone (Rocephin) inj 1 g - Cefuroxime Axetil 500 MG Oral Tablet (Ceftin); Take 1 Tablet by mouth in the morning and 1 Tabletbefore bedtime. Do all this for 13 days. Do not start before March 08, 2024. - Saccharomyces boulardii 250 MG Oral Capsule (Florastor); Take 1 Capsule by mouth in the morning and 1 Capsule before bedtime. 40 min total time spent with patient, time spent reviewing subspecialty notes, diagnostic studies done, follow-up orders/medication refills,over 1/2 time spent in counseling, coordinating care. Follow Up: Return in about 1 week (around 03/14/2024), or if symptoms worsen or fail to improve, forReturn with Physician, Labs Today. | For: Return with Physician, Labs Today | Check-out note: -f/u me 1 wk -Melissa stat US elbow, ortho appt Sunday -TSH only 3 mths- -Also melissa f/u with me 6 mths -labs prior US-Abnormal heterogeneous and hyperemic subcutaneous tissue at the posterior surface of the left elbow, with an overlying skin wound. Sonographic appearance is nonspecific, and this may represent a developing phlegmon, complex bursitis, gout, or other inflammatory process. There is no discrete abscess identified. --has ortho appt 03/13/24 (This note was completed using the dictation [...] with plan of care. Andree Pearson MD 03/07/2024 documented in this encounter Nursing Notes * Ximena Baltazar LPN - 03/07/2024 9:35 AM EDT Pre-Administration Time Out Procedure Performed: Yes Patient Identified (Ask Name/Date of ): Yes Does the patient have a fever greater than 101 degrees today? No Patient allergic to latex? No Has the patient ever fainted after receiving an injection? No VFC Stock: No Injection(s) verified: Yes, Injection Name: Ceftriaxone 1 gram Verified Side and Site: Yes Verified Shot(s) with Parent(s)/Patient: Yes * Ximena Baltazar LPN - 03/07/2024 8:07 AM EDT Peter Ware presents for 7 month recheck. Medications & HM reviewed. Patient has bursitis of the left elbow. He was seen at an urgent care clinic and started on antibiotics. A few weeks after that he went to his doctor in [place] while he was there and an WOOD SHOP TEACHER drained 10 cc's of fluid from the elbow. It is still draining pretty consistently so he keeps it covered with a bandage. Had blood work drawn. Moving from [place] to [place] permanently. documented in this encounter Plan of Treatment Upcoming Encounters Date Type Department Care Team (Late st Contact Info) Description 03/13/2024 11:00 AM EDT Office Visit Orthopaedics [facility] [address] [address] Barrett Scott PA-C [address] [place] [id number] 03/14/2024 9:40 AM EDT Office Visit General Internal Medicine [facility] [address] [place] [address] Andree Pearson MD [address] [place] [id number] 04/30/2024 9:00 AM EDT Office Visit Cardiology, [facility] [address] [place] [address] Cole Rebolledo PA-C [address] [place] [address] 06/09/2024 8:30 AM EDT Laboratory Laboratory [facility] [address] [place] [phone] [place], Lab [facility] [address] [place], [place] [address] 07/30/2024 8:30 AM EDT Laboratory Laboratory [facility] [address] [place] [phone] [place], Lab [facility] [address] [place] [address] 08/04/2024 8:20 AM EDT Office Visit General Internal Medicine [facility] [address] [place], [place] [address] Andree Pearson MD [address] [facility] [place], [place] [address] Pending Results Name Type Priority Associated Diagnoses Date /Time CULTURE, BLOOD Lab Routine Infected olecranon bursa, left 03/07/2024 9:59 AM EDT ERYTHROCYTE SEDIMENTATION RATE (ESR) Lab Routine Infected olecranon bursa, left 03/07/2024 9:59 AM EDT CRP (INFLAMMATORY MARKER) Lab Routine Infected olecranon bursa, left 03/07/2024 9:59 AM EDT Scheduled Orders Name Type Priority Associated Diagnoses Orde r Schedule ALT Lab Routine Atrial fibrillation status post cardioversion (HCC) Dyslipidemia, goal LDL below 70 On amiodarone therapy Elevated TSH Expected: 09/07/2024 (Approximate), Expires: 03/07/2025 BASIC METABOLIC PANEL Lab Routine HTN, goal below 140/90 Coronary artery disease involving [place] coronary artery of [place] heart without angina pectoris Type 2 diabetes mellitus with hemoglobin A1c goal of less than 7.0% (HCC) Expected: 09/07/2024 (Approximate), Expires: 03/07/2025 LIPID PANEL WITH DIRECT LDL IF TG IS HIGH Lab Routine Coronary artery disease involving [place] coronary artery of [place] heart without angina pectoris Dyslipidemia, goal LDL below 70 Type 2 diabetes mellitus with hemoglobin A1c goal of less than 7.0% (HCC) Expected: 09/07/2024 (Approximate), Expires: 03/07/2025 HEMOGLOBIN A1C Lab Routine Type 2 diabetes mellitus with hemoglobin A1c goal of less than 7.0% (HCC) Expected: 09/07/2024 (Approximate), Expires: 03/07/2025 ALBUMIN / CREATININE RATIO, URINE Lab Routine Type 2 diabetes mellitus with hemoglobin A1c goal of less than 7.0% (HCC) Expected: 09/07/2024 (Approximate), Expires: 03/07/2025 TSH WITH FREE T4 IF INDICATED Lab Routine Atrial fibrillation status post cardioversion (HCC) On amiodarone therapy Elevated TSH Expected: 09/07/2024 (Approximate), Expires: 03/07/2025 CULTURE, BLOOD Lab Routine Infected olecranon bursa, left Expected: 03/07/2024 (Approximate), Expires: 03/07/2025 ERYTHROCYTE SEDIMENTATION RATE (ESR) Lab Routine Infected olecranon bursa, left Expected: 03/07/2024 (Approximate), Expires: 03/07/2025 CRP (INFLAMMATORY MARKER) Lab Routine Infected olecranon bursa, left Expected: 03/07/2024 (Approximate), Expires: 03/07/2025 TSH WITH FREE T4 IF INDICATED Lab Routine Atrial fibrillation status post cardioversion (HCC) On amiodarone therapy Elevated TSH Expected: 06/07/2024 (Approximate), Expires: 03/07/2025 URIC ACID Lab Routine Infected olecranon bursa, left Expected: 03/07/2024 (Approximate), Expires: 03/07/2025 Scheduled Referrals Name Type Priority Associated Diagnoses Order Schedule ORTHOPAEDICS REFERRAL OP Referral Within 3 days (urgent) Infected olecranon bursa, left Cellulitis of left upper extremity Ordered: 03/07/2024 Health Maintenance Due Date Last Done Comments [...] filedocumented as of this encounter Results * US EXTREMITY, NON-VASCULAR LIMITED (03/07/2024 12:25 PM EDT) Anatomical Region Laterality Modality Extremity, Lower Extremity, Upper Extremity Ultrasound 03/07/2024 1:04 PM EDT Impressions 03/07/2024 1:01 PM EDT IMPRESSION Abnormal heterogeneous and hyperemic subcutaneous tissue at the posterior surface of the left elbow, with an overlying skin wound. Sonographic appearance is nonspecific, and this may represent a developing phlegmon, complex bursitis, gout, or other inflammatory process. There is no discrete abscess identified. Narrative 03/07/2024 1:01 PM EDT EXAM US EXTREMITY, NON-VASCULAR LIMITED-LT 03/07/2024 12:25 pm HISTORY Provided clinical history: "olecranon buristis--infected--r/o abscess" COMPARISON None. 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 Procedure Note Edson Beck MD - 03/07/2024 EXAM US EXTREMITY, NON-VASCULAR LIMITED-LT 03/07/2024 12:25 pm HISTORY Provided clinical history: "olecranon buristis--infected--r/o abscess" COMPARISON None. TECHNIQUE Focused grayscale and color Doppler ultrasound of the left elbow wasperformed, and school admissions representative still images and cine clips are provided. FINDINGS Sonographic evaluation was focused the posterior aspect of the elbow, atthe site of the draining wound. The subcutaneous tissue overlying theolecranon process is markedly thickened and heterogeneous, with increasedvascularity on Doppler imaging. There is a small overlying skin wound,with edema extending from the wound into the abnormal subcutaneous tissue.However, there is no discrete fluid collection identified. IMPRESSION IMPRESSION Abnormal heterogeneous and hyperemic subcutaneous tissue at the posteriorsurface of the left elbow, with an overlying skin wound. Sonographicappearance is nonspecific, and this may represent a developing phlegmon,complex bursitis, gout, or other inflammatory process. There is nodiscrete abscess identified. Authorizing Provider Result Sidra Pearson MD RAD ULTRASOUND documented in this encounter Visit Diagnoses Diagnosis Atrial fibrillation status post cardioversion (HCC)- Primary Cardiac complications HTN, goal below 140/90 Unspecified essential hypertension Coronary artery disease involving [place] coronary artery of [place] heart without angina pectoris Dyslipidemia, goal LDL below 70 Other and unspecified hyperlipidemia Type 2 diabetes mellitus with hemoglobin A1c goal of less than 7.0% ([facility]) On amiodarone therapy Elevated TSH Other abnormal blood chemistry Infected olecranon bursa, left Cellulitis of left upper extremity Cellulitis and abscess of upper arm and forearm Infected olecranon bursa, left Cellulitis of left upper extremity Cellulitis and abscess of upper arm and forearm documented in this encounter Administered Medications Inactive Administered Medications - up to 3 most recent administrations Medication Order MAR Action Action Date Dose Rate Site cefTRIAXone (Rocephin) inj 1 g 1 g, Intramuscular, ONCE, On Sun03/07/24 at 0945, For 1 dose Given 03/07/2024 9:36 AM EDT 1 g Dorsogluteal Left documented in this encounter Care Teams Casing Machine Operator Relationship Specialty Start Date End Date Andree Pearson MD [address] [facility] [place] [address] PCP - General Internal Medicine 04/25/23 documented as of this encounter
--- OUTSIDE RECORDS SUMMARY | 2024-04-02 02:23 | External Medical Summary ---
Author Name Unknown Address Unknown Organization K09[facility] [place] [address] Laboratory Report Ordering Provider Test Date Status DIMAS CASSIDY 02/27/2024 08:06:09 Final Observation Date Value Abnormality Reference (Units ) Status SYNC LEUKOCYTES IN BLOOD BY AUTOMATED COUNT 02/27/2024 08:06:09 9.44 4.00-10.80 (K/uL) Final Segs 02/27/2024 08:06:09 63.7 40.0-75.0 (%) Final Lymphs % 02/27/2024 08:06:09 24.7 18.0-42.0 (%) Final Monos 02/27/2024 08:06:09 9.1 1.0-11.0 (%) Final Eosinophils 02/27/2024 08:06:09 2.3 0.0-6.0 (%) Final Basos 02/27/2024 08:06:09 0.2 0.0-2.0 (%) Final Absolute Segs 02/27/2024 08:06:09 6.01 1.80-7.70 (K/uL) Final Lymphs, absolute 02/27/2024 08:06:09 2.33 1.00-4.80 (K/ul) Final Monos, Abs 02/27/2024 08:06:09 0.86 0.00-1.10 (K/uL) Final Eos, Abs 02/27/2024 08:06:09 0.22 0.00-0.70 (K/uL) Final Basos, Abs 02/27/2024 08:06:09 0.02 0.00-0.20 (K/uL) Final Performing Location [facility] [place] [address]
--- OUTSIDE RECORDS SUMMARY | 2024-04-02 02:23 | External Medical Summary | Summary of Care ---
Author Name Unknown Organization [facility] Address [address] [place] [address] Phone [phone] Care Team Providers Care Smoked Meat Preparer Name Role Phone Andree Pearson MD Primary Care Provider [phone] Encounter Details Date Type Department Care Team (Late st Contact Info) Description 11/27/2023 Orders Only General Internal Medicine [facility] [address] [place] [address] Andree Pearson MD [address] [place] [address] Allergies No known active allergiesdocumented as of this encounter (statuses as of 11/27/2023) Medications Medication Sig Dispensed Refills Start Date [...] as of this encounter (statuses as of 11/27/2023) Active Problems Problem Noted Date Diagnosed Date Elevated TSH 08/07/2023 Atrial fibrillation status post cardioversion Coronary artery disease invo lving [place] coronary artery of [place] heart without angina pectoris 04/25/2023 History of [...] as of this encounter (statuses as of 11/27/2023) Resolved Problems Problem Noted Date Diagnosed Date Resolved Date Need for prophylactic vaccin ation with tetanus-diphtheria (Td) 04/25/2023 08/07/2023 documented as of this encounter (statuses as of 11/27/2023) Immunizations Name Administration Dates Next Due COVID-19 [...] Internal Medicine [facility] [address] [facility] [place] [address] Andree Pearson MD [address] [facility] [place] [address] 03/19/2024 8:30 AM EDT Office Visit Cardiology, [facility] [address] [place] [address] Cole Rebolledo PA-C [address] [place] [address] Health Maintenance Due Date Last Done Comments Hepatitis B (1 of 3 - Risk 3-dose series) 2000 COVID-19 Vaccine ( season) 2023 07/14/2022, 02/03/2022, 02/03/2022, Additional history exists HbA1c 02/01/2024 08/02/2023 Depression Screening 04/25/2024 04/25/2023 Albumin/Creatinine Ratio 08/07/2024 08/07/2023 Diabetic Foot Exam 08/07/2024 08/07/2023 Diabetic Eye Exam 11/27/2024 11/26/2023 DTaP,Tdap,and Td Vaccines (3 - Td or Tdap) 04/27/2033 04/27/2023, 04/28/2013 Pneumococcal Vaccine: 65+ Years Completed 05/05/2015, 04/19/2015, 06/02/2003 Zoster Vaccines Completed 08/10/2022, 02/20, 05/12/2013 Influenza Vaccine (FLU shot) Completed , 06/22/2022, [...] Procedure Name Priority Date/Time Associated Diagnosis Comments DIABETIC EYE EXAM Routine 11/26/2023 documented in this encounter Results * DIABETIC EYE EXAM (11/26/2023) 11/26/2023 History Per Patient OTHER OUTSIDE LAB (SEE SCANNED REPORT) documented in this encounter Care Teams Smoked Meat Preparer Relationship Specialty Start Date End Date Andree Pearson MD [address] [place] [address] PCP - General Internal Medicine 04/25/23 documented as of this encounter
[2024-04-02] MEDS: PERFLUTREN LIPID MICROSPHERE (DEFINITY) IV ONE (07:35)
[2024-04-02 08:59] LABS: Basophils # (auto) 0.04 K/uL (0.00-0.20); Basophils % (auto) 0.3 %; Eosinophils # (auto) 0.03 K/uL (0.00-0.50); Eosinophils % (auto) 0.2 %; Hemoglobin 13.2 g/dl (14.0-18.0); Immature Granulocytes # (auto) 0.15 K/uL (0.01-0.20); Immature Granulocytes % (auto) 1.1 %; Lymphocytes # (auto) 1.75 K/uL (1.20-3.40); Lymphocytes % (auto) 12.3 %; Mean Corpuscular Hemoglobin 28.8 pg (25.0-34.0); Mean Corpuscular Volume 87.3 fL (80.0-100.0); Mean Platelet Volume 9.8 fL (9.4-12.4); Monocytes # (auto) 1.72 K/uL (0.11-0.59); Monocytes % (auto) 12.1 %; Neutrophils # (auto) 10.49 K/uL (1.40-6.50); Platelet Count 235 K/uL (130-400); RDW Coefficient of Variation 15.9 % (11.5-14.5); RDW Standard Deviation 50.2 fL (36.4-46.3); Red Blood Count 4.58 M/uL (4.70-6.10); White Blood Count 14.18 K/ul (4.8-10.8)
[2024-04-02 09:05] LABS: Albumin Globulin Ratio 1.4 (0.9-2); Albumin Level 3.4 gm/dl (3.4-5.0); BUN Creatinine Ratio 18.9 (10-20); Bilirubin,Total 1.2 mg/dl (0.2-1.0); Calcium 8.4 mg/dl (8.6-10.3); Creatinine Clr Calc Pharmacy 78.5 ml/min; Est GFR (African American) 89.3 ml/min; Est GFR (Non-African American) 77.1 ml/min; Globulin 2.5 gm/dl (2.5-4.0); Magnesium 1.9 mg/dl (1.7-2.4); Potassium 4.4 mmol/L (3.5-5.1); Total Protein 5.9 gm/dl (6.0-8.3)
[2024-04-02] MEDS: ROSUVASTATIN CALCIUM 10 MG TAB PO SCH (09:34)
[2024-04-02] MEDS: MECLIZINE 12.5 MG TAB PO PRN (09:35)
[2024-04-02] MEDS: LOSARTAN POTASSIUM 50 MG TAB PO SCH (09:35)
[2024-04-02] MEDS: CYANOCOBALAMIN (B-12) 500 MCG TABLET PO SCH (09:35)
[2024-04-02] MEDS: FUROSEMIDE 20 MG TAB PO SCH (09:35)
[2024-04-02] MEDS: SACCHAROMYCES BOULARDII 250 MG CAP PO SCH (09:35)
[2024-04-02] MEDS: AMIODARONE 200 MG TAB PO SCH (09:35)
[2024-04-02] MEDS: ASPIRIN 81 MG ECTAB PO SCH (09:35)
--- NOTE | 2024-04-02 09:44 | Ultrasound Report ---
US carotid doppler BI CLINICAL HISTORY: 84 years-old Male with syncope. COMPARISON: Head CT 04/01/2024 TECHNIQUE: Multiple real time sonographic images of the carotid bifurcations were obtained assessing pierce scale, color Doppler and spectral wave form appearance FINDINGS: RIGHT CAROTID: The peak systolic velocity measured within the distal right ICA is 129 cm/sec. The e nd diastolic velocity measured 16 cm/sec. The ICA to CCA ratio measured 1.5 which correlates with a stenosis of 50-69%. Moderate atherosclerosis. LEFT CAROTID: The peak systolic velocity measured within the left ICA is 111 cm/sec. The end diasto lic velocity measured 20 cm/sec. The ICA to CCA ratio measured 1.14 which correlates with a stenosis of 0-50%. Mild atherosclerosis. There is normal antegrade vertebral flow bilaterally. IMPRESSION: 1. 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 2. Mild atherosclerosis of the left carotid bulb with less than 50% stenosis. ACT 112: Negative or not required by law. The above report was generated using voice recognition software. It may contain grammatical, syntax o r spelling errors. Electronically signed by: Octavio Palafox M.D. 04/02/2024 9:42 AM
--- NOTE | 2024-04-02 09:51 | Electrocardiogram Report ---
Test Reason : Blood Pressure : / mmHG Vent. Rate : 067 BPM Atrial Rate : 067 BPM P-R Int : 192 ms QRS Dur : 080 ms QT Int : 422 ms P-R-T Axes : 022 001 089 degrees QTc Int : 445 ms Normal sinus rhythm Normal ECG When compared with ECG of 01-APR-2024 12:25, No significant change was found Confirmed by Jasvir Emery ([id number]) on 04/02/2024 9:50:49 AM Referred By: REFERRED SELF Confirmed By:José Emery
--- NOTE | 2024-04-02 15:18 | Cardiology Consultation ---
Date of Consultation April 02, 2024 Assessment & Plan (1) Syncope: (2) Orthostatic hypotension: (3) PAF (paroxysmal atrial fibrillation): (4) Infection of left elbow: Plan Patient with 2 possible syncopal episodes with resultant significant facial injuries and left knee injury. EKG demonstrating NSR on admission. HS troponin negative x1. No arrhythmias on telemetry. No bradycardia, pauses, or high degree AV block. He had reproducible orthostatic hypotension on evaluation today. Recommend compression stockings. Gentle hydration encouraged. Initially his BP was elevated on arrival after his injury, BP now trending down and controlled Continue losartan for now. May need to consider dose reduction. He is also on Flomax and this may need changed due to potential to cause significant orthostatic symptoms. Hold furosemide His echo reveals normal LVEF. Visual structures not well visualized. 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 Repeat blood cultures. Has outpatient MRI later this week. History of PAF Hold Xarelto given recent significant facial fracture/injury and left knee hematoma. Maintaining NSR. Continue low dose amiodarone. Metoprolol was stopped previously due to mild bradycardia. Mild/moderate carotid stenosis noted on duplex today. Continue ASA and statin. Continue to monitor on telemetry. May need outpatient monitor or Loop recorder if he has recurrent events. Case discussed with Dr. Marie I spent a total of 60 minutes on the date of service in preparation, delivery, and documentation of the care provided to this patient, excluding any time spent in the performance of separately billed services. Myah Raza PA-C Department of Cardiology, [facility] This chart was completed in part utilizing Speech Voice Recognition Software. Grammatical errors, random word insertions, pronoun errors, and incomplete sentences are an occasional consequence of this system due to software limitations, ambient noise, and hardware issues. Any formal questions or concerns about the content, text, or information contained within the body of this dictation should be directly addressed to the provider for clarification. Supervising Physician Co-Signing Physician Notes I have personally performed a history and physical examination on the patient. I have reviewed the advance practitioner's documentation, and I agree with, and take responsibility for the plan of care. 84-year-old male admitted with mechanical fall and possible syncope. Orthostatic hypotension documented today. No bradycardic events on telemetry. Rhythm control with amiodarone. Echocardiogram demonstrates borderline hyperdynamic LV systolic function suggesting mild volume depletion. No significant valvular disease or pericardial effusion. Recommend hold Flomax and diuretic therapy. Add compression stockings. Continue telemetry monitoring while hospitalized with consideration for 14-day ZIO monitor upon discharge. I spent a total of 30 minutes on the date of service in preparation, delivery, and documentation of the care provided to this patient, excluding any time spent in the performance of separately billed services. History of Present Illness Reason for Consultation: Syncope Requesting Physician: Dr. De León Attending Physician: Dr. Marie History of Present Illness Patient is an 84-year-old male known to [facility] cardiology, Dr. Huitron. History includes: 1. PAF diagnosed in Jun 2023 s/p CHRISTINA CV. Now on amiodarone 2. Borderline tachybrady with Sinus bradycardia, metoprolol stopped and amiodarone reduced 3. CAD s/p RI in 2007 receiving PCI of the LAD with 2 stents. Negative lexiscan nuclear stress test in 2019. 4. Hypertension 5. Dyslipidemia 6. DM type II Patient presented to the ER yesterday after sustaining a fall, possible syncope in the parking lot of his 's dental office. He reportedly was going out to his car to grab his phone. He thinks he may have tripped on the curb but is not sure. He landed on his left knee and face. suffered multiple lacerations of his face/nose and lips. Also significant knee injury. Nasal fracture noted on xray. Stitched in the ER. Xarelto placed on hold. EKG on admission demonstrated NSR no acute changes. Patient was being discharged from the ER, transferring from bed to wheelchair when he became acutely dizzy and had recurrent syncope. He was lowered into the wheelchair. No incontinence. LOC was seconds and resolved quickly. Patient was not discharged and then admitted for further observation. EKG again demonstrated NSR. Telemetry demonstrating NSR without arrhythmias. Patient reports he has been having intermittent dizziness, but no syncope. He was treated for upper respiratory infection last month and given meclizine as well for possible vertigo. His dizziness is worse with positional changes. He tries to drink fluids, but admits he may be dehydrated at times. Per nursing staff and patient, he had positive orthostatic vital signs earlier today with reproducible dizziness. His BP was elevated initially, now controlled. Patient also reports recent issues with left elbow infection. has been drained several times. Has MRI later this week. May need I+D again. Has been treated with antibiotics several times. Recent blood cultures in February were negative as an outpatient. Elevated ESR noted. At time of consult, patient resting in bed. Notes dizziness with positional changes. No chest pain or dyspnea. No fever or chills. No recurrent syncope. Allergies Allergy/AdvReac Type Severity Reaction Status Date / Time No Known Allergies Allergy Verified 06/27/23 21:00 Home Medications Medication Instructions Recorded Confirmed Type acetaminophen 325 mg tablet 650 mg PO DIRECTED PRN 06/27/23 04/01/24 History (Tylenol) PAIN/FEVER aspirin 81 mg tablet,delayed 81 mg PO DAILY 06/27/23 04/01/24 History release cyanocobalamin (vitamin B-12) 1,000 mcg PO DAILY 06/27/23 04/01/24 History 1,000 mcg tablet (Vitamin B-12) lidocaine 5 % topical patch 2 patch topical DAILY PRN LOWER 06/27/23 04/01/24 History BACK PAIN lutein 20 mg tablet 20 mg PO DAILY 06/27/23 04/01/24 History metformin 500 mg tablet 500 mg PO UD 06/27/23 04/01/24 History multivit with min-folic 1 tab PO DAILY 06/27/23 04/01/24 History acid-lutein 200 mcg-137.5 mcg chewable tablet (Adult Multivitamin (w-lutein)) tamsulosin 0.4 mg capsule (Flomax) 0.4 mg PO BID 06/27/23 04/01/24 History losartan 100 mg tablet 100 mg PO DAILY #30 tabs 06/29/23 04/01/24 Rx rivaroxaban 20 mg tablet (Xarelto) 20 mg PO HS #30 tabs 06/29/23 04/01/24 Rx rosuvastatin 10 mg tablet 10 mg PO QAM #30 tabs 06/29/23 04/01/24 Rx amiodarone 200 mg tablet 100 mg PO DAILY 04/01/24 04/01/24 History chlorhexidine gluconate 0.12 % 15 ml buccal BID #1,500 mL 04/01/24 Rx mouthwash (Paroex Oral Rinse) furosemide 20 mg tablet (Lasix) 20 mg PO QAM 04/01/24 04/01/24 History meclizine 12.5 mg tablet 12.5 mg PO TID PRN Dizziness 04/01/24 04/01/24 History Patient History Medical History (Updated 04/02/24 @ 17:20 by Myah Raza PA-C) 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 PAF (paroxysmal atrial fibrillation) Hypertension goal BP (blood pressure) < 130/80 Dyslipidemia, goal LDL below 70 DMII (diabetes mellitus, type 2) 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 Acute duodenitis Diabetes Hypertension High cholesterol Social History Smoking Status: Never smoker Hx Alcohol Use: No Hx Substance Use: No Preferred Language: Libyan Communication Ability: Effective 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 Bandages dry Respiratory: normal respiratory effort, lungs clear to auscultation Cardiovascular: Rate/Rhythm: regular rate and regular rhythm Heart Sounds: normal S1 and normal S2; no murmur Vessels: no JVD Extremities: no edema Gastrointestinal (Abdomen): normal bowel sounds, soft, nontender, no hepatosplenomegaly Neurologic: PERRL, EOMI, accommodation nl, no face palsy, no dysarthria Psychiatric: A+Ox3, euthymic affect Results & Data Vital Signs (Past 12 Hours) Vital Signs Temp Pulse Pulse Pulse Resp BP Pulse Ox 04/02/24 15:09 36.9 C 82 18 121/71 96 04/02/24 11:21 04/02/24 11:03 36.4 C L 74 18 126/71 94 04/02/24 08:05 36 C L 74 18 135/78 97 04/02/24 08:00 63 04/02/24 03:32 36.4 C L 68 18 120/70 96 O2 Del Method 04/02/24 15:09 Room Air 04/02/24 11:21 Room Air 04/02/24 11:03 Room Air 04/02/24 08:05 Room Air 04/02/24 08:00 04/02/24 03:32 Room Air Laboratory Results Cardiac Enzymes 04/02/24 Range/Units 08:22 AST 18 (13-39) U/L CBC 04/02/24 Range/Units 08:22 WBC 14.18 H (4.8-10.8) K/ul RBC 4.58 L (4.70-6.10) M/uL Hgb 13.2 L D (14.0-18.0) g/dl Hct 40.0 L (42.0-52.0) % Plt Count 235 (130-400) K/uL Neut # (Auto) 10.49 H (1.40-6.50) K/uL Lymph # (Auto) 1.75 (1.20-3.40) K/uL Hardin # (Auto) 1.72 H (0.11-0.59) K/uL Eos # (Auto) 0.03 (0.00-0.50) K/uL Baso # (Auto) 0.04 (0.00-0.20) K/uL Comprehensive Metabolic Panel 04/02/24 Range/Units 08:22 Sodium 139 (136-145) mmol/L Potassium 4.4 (3.5-5.1) mmol/L Chloride 104 (98-107) mmol/L Carbon Dioxide 29 (21-32) mmol/L BUN 17 (6-23) mg/dl Creatinine 0.90 (0.6-1.4) mg/dl Glucose 147 H (70-99(Fasting)) mg/dl Calcium 8.4 L (8.6-10.3) mg/dl AST 18 (13-39) U/L ALT 24 (7-52) U/L Alkaline Phosphatase 54 (34-104) U/L Total Protein 5.9 L (6.0-8.3) gm/dl Albumin 3.4 (3.4-5.0) gm/dl Intake and Output 04/02/24 04/02/24 04/02/24 06:59 14:59 22:59 Intake Total 200 / 200 580 / 580 Output Total 151 / 301 202 / 202 Balance 49 / -101 378 / 378 Intake: IV 200 / 200 100 / 100 Ampicillin/Sulbactam Sod 3,000 200 / 200 100 / 100 mg In Sodium Chlor 0.9% Mini-B 100 ml @ 100 mls/hr IV Q6H [facility] Rx#:[id number] Oral 480 / 480 Output: Urine 150 / 300 200 / 200 # Bowel Movements 1 / 1 2 / 2 Other: Other Intake Source sips # Unmeasured Voids 1 Diagnostic Findings Telemetry reviewed: NSR. No pauses or bradycardia. No high degree AV block. No atrial fibrillation Echocardiogram reviewed from 04/02/24: LVEF 65% Mild concentric LVH Grade I diastolic dysfunction suboptimal visualized valvular structures. EKG reviewed from 04/02/24: NSR with PAC's Normal EKG EKG reviewed from 04/01/24: Normal sinus rhythm Normal ECG When compared with ECG of 01-APR-2024 12:25, No significant change was found QT/QTc 422/445 ms Chest xray report reviewed from admission No acute chest disease. Carotid duplex report reviewed: IMPRESSION: 1. 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 2. Mild atherosclerosis of the left carotid bulb with less than 50% stenosis. Prior echo report reviewed from Jun 2023: Normal left ventricular wall motion, LVEF in the range of 55 to 60%, with mild aortic valve sclerosis without stenosis and mild mitral regurgitation. The aortic root was borderline enlarged with diameter of 3.9 centimeters. Medications Administered Current Inpatient Medications Acetaminophen (Acetaminophen 325 Mg Tab) 650 mg PO Q4H PRN PRN Reason: Pain or Fever Stop: 05/01/24 20:59 Last Admin: 04/01/24 22:32 Dose: 650 mg Al Hydrox/Mg Hydrox/Simethicone (Aluminum/Magnesium Susp 30 Ml Udc) 15 ml PO Q4H PRN PRN Reason: Dyspepsia Stop: 05/01/24 20:59 Amiodarone HCl (Amiodarone 200 Mg Tab) 100 mg PO DAILY [facility] Stop: 05/02/24 08:59 Last Admin: 04/02/24 09:35 Dose: 100 mg Aspirin (Aspirin 81 Mg Ectab) 81 mg PO DAILY [facility] Stop: 05/02/24 08:59 Last Admin: 04/02/24 09:35 Dose: 81 mg Chlorhexidine Gluconate (Chlorhexidine Gluconate 0.12% 480 Ml) 15 ml MT QID [facility]EN[facility] Stop: 05/01/24 20:59 Last Admin: 04/02/24 13:12 Dose: 15 ml Cyanocobalamin (Cyanocobalamin (B-12) 500 Mcg Tablet) 1,000 mcg PO DAILY PENNY Stop: 05/02/24 08:59 Last Admin: 04/02/24 09:35 Dose: 1,000 mcg Dextrose (Dextrose 50% 50 Ml Syringe) 25 - 50 ml IV UD PRN; Protocol PRN Reason: Hypoglycemia Protocol Stop: 05/01/24 20:59 Docusate Sodium (Docusate Sodium 100 Mg Cap) 100 mg PO BID PENYN Stop: 05/01/24 20:59 Last Admin: 04/02/24 09:35 Dose: 100 mg Furosemide (Furosemide 20 Mg Tab) 20 mg PO QAM PENNY Stop: 05/02/24 08:59 Last Admin: 04/02/24 09:35 Dose: 20 mg Glucagon (Glucagon For Inj 1 Mg Vial) 1 mg SQ UD PRN; Protocol PRN Reason: Hypoglycemia Protocol Stop: 05/01/24 20:59 Glucose (Glucose 40% Gel 15 Gm Tube) 15 - 30 gm PO UD PRN; Protocol PRN Reason: Hypoglycemia Protocol Stop: 05/01/24 20:59 Glucose (Glucose 10 Tab/Tube) 4 - 8 tab PO UD PRN; Protocol PRN Reason: Hypoglycemia Treatment Stop: 05/01/24 20:59 Ampicillin Sodium/Sulbactam Sodium 3,000 mg/ Sodium Chloride 100 mls @ 100 mls/hr IV Q6H [facility]EN[facility] Stop: 04/11/24 21:59 Last Infusion: 04/02/24 10:43 Dose: Infused Insulin Aspart (Insulin Aspart Per Unit Charge) 0 units SC ACHS [facility]EN[facility] Stop: 05/01/24 20:59 Last Admin: 04/02/24 13:11 Dose: 3 units Losartan Potassium (Losartan Potassium 50 Mg Tab) 100 mg PO DAILY [facility] Stop: 05/02/24 08:59 Last Admin: 04/02/24 09:35 Dose: 100 mg Magnesium Hydroxide (Magnesium Hydroxide Susp 30 Ml Udc) 30 ml PO Q12H PRN PRN Reason: Constipation Stop: 05/01/24 20:59 Meclizine HCl (Meclizine 12.5 Mg Tab) 12.5 mg PO TID PRN PRN Reason: Dizziness Stop: 05/01/24 20:59 Last Admin: 04/02/24 09:35 Dose: 12.5 mg Miscellaneous (Carbohydrates For Hypoglycemia ) 15 - 30 gm PO UD PRN PRN Reason: Hypoglycemia Protocol Stop: 05/01/24 20:59 Morphine Sulfate (Morphine Sulfate 2 Mg/Ml Carp) 2 mg IV Q4H PRN PRN Reason: Severe Pain (Scale 7, 8, 9,10) Stop: 04/15/24 20:59 Ondansetron HCl (Ondansetron Inj 2 Mg/Ml 2 Ml Vial) 4 mg IV Q6H PRN PRN Reason: Nausea Stop: 05/01/24 20:59 Oxycodone HCl (Oxycodone Hcl Ir 5 Mg Tab (Immediate Release)) 5 mg PO Q6H PRN PRN Reason: Moderate Pain (Scale 4, 5, 6) Stop: 04/15/24 20:59 Polyethylene Glycol (Polyethylene (Miralax) 17 Gm Pack) 17 gm PO DAILY PRN PRN Reason: Constipation Stop: 05/01/24 20:59 Rosuvastatin Calcium (Rosuvastatin Calcium 10 Mg Tab) 10 mg PO QAM [facility] Stop: 05/02/24 08:59 Last Admin: 04/02/24 09:34 Dose: 10 mg Saccharomyces Boulardii (Saccharomyces Boulardii 250 Mg Cap) 250 mg PO DAILY [facility] Stop: 05/02/24 08:59 Last Admin: 04/02/24 09:35 Dose: 250 mg Tamsulosin HCl (Tamsulosin Hcl 0.4 Mg Cap) 0.4 mg PO BID [facility] Stop: 05/01/24 20:59 Last Admin: 04/02/24 09:35 Dose: 0.4 mg (1) Syncope Syncope type: unspecified Qualified Code(s): R55 - Syncope and collapse
--- NOTE | 2024-04-02 17:49 | Electrocardiogram Report ---
Test Reason : Blood Pressure : / mmHG Vent. Rate : 068 BPM Atrial Rate : 068 BPM P-R Int : 182 ms QRS Dur : 082 ms QT Int : 436 ms P-R-T Axes : 025 007 052 degrees QTc Int : 463 ms Sinus rhythm with Premature supraventricular complexes Otherwise normal ECG When compared with ECG of 01-APR-2024 16:06, Premature supraventricular complexes are now Present Confirmed by Jasvir Emery ([id number]) on 04/02/2024 5:49:30 PM Referred By: REFERRED SELF Confirmed By:José Emery
--- NOTE | 2024-04-02 18:04 | Orthopedic Consultation ---
Date of Consultation April 02, 2024 Assessment & Plan (1) Pain and swelling of left knee: 84-year-old male with left knee hematoma status post fall -Weightbearing as tolerated left lower extremity -PT/OT -Pain control -Medical management -Given patient's history of oral anticoagulation and left knee hematoma I would not recommend any aspiration of his knee at this time. No evidence of fracture noted on radiographs. He may continue warm compresses/Wagner wrap and may be weightbearing as tolerated. No further orthopedic intervention. We will sign off at this time History of Present Illness Attending Physician: Krzysztof De León MD History of Present Illness 84-year-old male presenting after sustaining ground-level fall and injuring his face and left knee. Patient is on oral anticoagulation and developed a hematoma on his left knee. Orthopedics was consulted for evaluation. Allergies Allergy/AdvReac Type Severity Reaction Status Date / Time No Known Allergies Allergy Verified 06/27/23 21:00 Home Medications Medication Instructions Recorded Confirmed Type acetaminophen 325 mg tablet 650 mg PO DIRECTED PRN 06/27/23 04/01/24 History (Tylenol) PAIN/FEVER aspirin 81 mg tablet,delayed 81 mg PO DAILY 06/27/23 04/01/24 History release cyanocobalamin (vitamin B-12) 1,000 mcg PO DAILY 06/27/23 04/01/24 History 1,000 mcg tablet (Vitamin B-12) lidocaine 5 % topical patch 2 patch topical DAILY PRN LOWER 06/27/23 04/01/24 History BACK PAIN lutein 20 mg tablet 20 mg PO DAILY 06/27/23 04/01/24 History metformin 500 mg tablet 500 mg PO UD 06/27/23 04/01/24 History multivit with min-folic 1 tab PO DAILY 06/27/23 04/01/24 History acid-lutein 200 mcg-137.5 mcg chewable tablet (Adult Multivitamin (w-lutein)) tamsulosin 0.4 mg capsule (Flomax) 0.4 mg PO BID 06/27/23 04/01/24 History losartan 100 mg tablet 100 mg PO DAILY #30 tabs 06/29/23 04/01/24 Rx rivaroxaban 20 mg tablet (Xarelto) 20 mg PO HS #30 tabs 06/29/23 04/01/24 Rx rosuvastatin 10 mg tablet 10 mg PO QAM #30 tabs 06/29/23 04/01/24 Rx amiodarone 200 mg tablet 100 mg PO DAILY 04/01/24 04/01/24 History chlorhexidine gluconate 0.12 % 15 ml buccal BID #1,500 mL 04/01/24 Rx mouthwash (Paroex Oral Rinse) furosemide 20 mg tablet (Lasix) 20 mg PO QAM 04/01/24 04/01/24 History meclizine 12.5 mg tablet 12.5 mg PO TID PRN Dizziness 04/01/24 04/01/24 History Patient History Medical History (Updated 04/02/24 @ 17:20 by EARNESTINE ThrasherC) 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 PAF (paroxysmal atrial fibrillation) Hypertension goal BP (blood pressure) < 130/80 Dyslipidemia, goal LDL below 70 DMII (diabetes mellitus, type 2) 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 Acute duodenitis Diabetes Hypertension High cholesterol Social History Smoking Status: Never smoker Hx Alcohol Use: No Hx Substance Use: No Preferred Language: Upper Sorbian Communication Ability: Effective Family Therapist Required: No Beliefs That Will Affect Care: None Current Living Situation: Spouse Other Information That Helps Us Care for You: No Feels Safe at Home: Yes Safety Concerns: Feels Safe At This Time Assistive Devices: Cane and Walker Physical Exam Constitutional: Resting in bed Musculoskeletal: -Left lower extremity -No pain with gentle range of motion -Knee effusion noted with superficial ab rasion overlying the superior pole of the patella -Able to straight leg raise against resi stance - silt s/spn/dpn/t/s - fires ta/ehl/gsc + dp/pt Results & Data Vital Signs (Past 12 Hours) Vital Signs Temp Pulse Pulse Resp BP Pulse Ox O2 Del Method 04/02/24 16:21 81 04/02/24 15:09 36.9 C 82 18 121/71 96 Room Air 04/02/24 11:21 Room Air 04/02/24 11:03 36.4 C L 74 18 126/71 94 Room Air 04/02/24 08:05 36 C L 74 18 135/78 97 Room Air 04/02/24 08:00 63
--- NOTE | 2024-04-02 20:04 | Hospitalist Progress Note ---
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 Fall resulting in head trauma Forehead laceration x 2 - repaired by SIOMARA in ED Acute comminuted nasal bone fracture with displacement on the right along with sigmoid bowing of the bony nasal septum revealing a probable acute nondisplaced fracture Laceration to upper lip -repaired by Dr. Rousseau in ED hold xarelto for now IV unasyn transition to augmentin as able peridex rinses Appreciate oral maxillary surgery input PT OT Fall precautions Pain control Syncopal Episode while seated in wheelchair leaving his room in ED Orthostatic hypotension --ECHO: Compared to prior study, no significant change. EF 65 to 70%. Mild concentric LVH. Grade 1 diastolic dysfunction. Suboptimally visualized valvular anatomy without significant stenosis or regurgitation No issues on monitor Compression stockings added Flomax, Lasix held Continue losartan for now Monitor BP and adjust medications as needed Needs Zio monitor as outpatient Appreciate cardiology input Carotid artery stenosis -Carotid Doppler: Moderate atherosclerosis of the right carotid vasculature with 50-69% stenosis of the right ICA. Mild atherosclerosis of the left carotid bulb with less than 50% stenosis. Continue aspirin, statin Needs follow-up with vascular surgery as outpatient L Knee Hematoma Secondary to fall in setting of chronic anticoagulation with Xarelto Pain control Fall precautions PT OT as able Appreciate orthopedics input--conservative management ICE TID, compression Xarelto on hold for now DM II hold metformin novolog per protocol Last a1c on 02/26 was 6.3 CAD HTN HLD continue asa, statin, losartan PAF continue amiodarone hold xarelto for now until cleared by Dr. Rousseau DVT Px: SCDs for now CODE STATUS FULL CODE Admission and Anticipated Discharge Date Admission Date: April 01, 2024 Subjective Patient is seen and examined at bedside Nasal fracture pain is controlled Reports left knee pain and swelling Had a syncopal episode overnight per RN Denies any chest pain, dyspnea Severe orthostatic hypotension today No other complaints Discussed with patient's family at bedside Review of Systems Review of Systems: All systems reviewed & are unremarkable except as noted in Subjective Physical Exam Physical Exam: Physical Exam: Vitals signs as noted above General Appearance:Obese, no apparent distress Head: normocephalic, +traumatic,+Nasal fracture, Upper lip laceration Eyes: normal inspection, EOMI Neck: supple, Trachea midline Respiratory/Chest: Normal breath sounds, CTA, No accessory muscle use Cardiovascular: S1, S2, No murmur Abdomen/GI:Soft, Non tender, Bowel sounds present Extremities/Musculoskeletal:normal inspection, L knee, swollen, tender, Ecchymosis Neurologic/Psych:AAOX3, grossly no focal neurological deficits Skin: normal color, warm Results & Data Results & Data Vital Signs (Past 12 Hours) Vital Signs Temp Pulse Pulse Resp BP Pulse Ox O2 Del Method 04/02/24 19:55 36.6 C 71 20 129/63 96 Room Air 04/02/24 16:21 81 04/02/24 15:09 36.9 C 82 18 121/71 96 Room Air 04/02/24 11:21 Room Air 04/02/24 11:03 36.4 C L 74 18 126/71 94 Room Air 04/02/24 08:05 36 C L 74 18 135/78 97 Room Air Laboratory Results Short CBC 04/02/24 Range/Units 08:22 WBC 14.18 H (4.8-10.8) K/ul Hgb 13.2 L D (14.0-18.0) g/dl Hct 40.0 L (42.0-52.0) % Plt Count 235 (130-400) K/uL BMP 04/02/24 08:22 Sodium 139 Potassium 4.4 Chloride 104 Carbon Dioxide 29 BUN 17 Creatinine 0.90 Glucose 147 H Calcium 8.4 L Liver Function 04/02/24 Range/Units 08:22 Total Bilirubin 1.2 H (0.2-1.0) mg/dl AST 18 (13-39) U/L ALT 24 (7-52) U/L Alkaline Phosphatase 54 (34-104) U/L Albumin 3.4 (3.4-5.0) gm/dl (5) Syncope Syncope type: unspecified Qualified Code(s): R55 - Syncope and collapse
[2024-04-03 09:07] LABS: Hematocrit (blood only) 35.3 % (42.0-52.0); Hemoglobin 11.6 g/dl (14.0-18.0); Mean Corpuscular Hemoglobin 28.6 pg (25.0-34.0); Mean Corpuscular Hgb Conc 32.9 g/dL (32.0-36.0); Mean Corpuscular Volume 86.9 fL (80.0-100.0); Platelet Count 210 K/uL (130-400); RDW Coefficient of Variation 16.2 % (11.5-14.5); RDW Standard Deviation 51.6 fL (36.4-46.3); Red Blood Count 4.06 M/uL (4.70-6.10); White Blood Count 12.66 K/ul (4.8-10.8)
[2024-04-03 09:33] LABS: Est GFR (African American) 90.6 ml/min; Est GFR (Non-African American) 78.1 ml/min
--- NOTE | 2024-04-03 12:32 | Cardiology Progress Note ---
Date of Service April 03, 2024 Assessment & Plan (1) Syncope: (2) Orthostatic hypotension: (3) PAF (paroxysmal atrial fibrillation): (4) Infection of left elbow: Plan Patient with 2 possible syncopal episodes with resultant significant facial injuries and left knee injury. EKG demonstrating NSR on admission. HS troponin negative x1. No arrhythmias on telemetry. No bradycardia, pauses, or high degree AV block. He had reproducible orthostatic hypotension on evaluation today. Recommend compression stockings. Gentle hydration encouraged. Initially his BP was elevated on arrival after his injury, BP now trending down and controlled Continue losartan for now. May need to consider dose reduction. He is also on Flomax and this may need changed due to potential to cause significant orthostatic symptoms. Hold furosemide His echo reveals normal LVEF. Visual structures not well visualized. 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 Repeat blood cultures. Has outpatient MRI later this week. History of PAF Hold Xarelto given recent significant facial fracture/injury and left knee hematoma. Maintaining NSR. Continue low dose amiodarone. Metoprolol was stopped previously due to mild bradycardia. Mild/moderate carotid stenosis noted on duplex today. Continue ASA and statin. Continue to monitor on telemetry. May need outpatient monitor or Loop recorder if he has recurrent events. 04/03/24: No recurrent syncope overnight. Mild orthostasis noted this morning when changing from bed to chair. Furosemide on hold (patient reports he was not taking this regularly as outpatient) Flomax dose reduced BP has been borderline low, possibly also contributing to his symptoms. Reduce losartan to 50 mg daily. Already received 100 mg this morning. No arrhythmias on monitor. Continue low dose amiodarone. Remain off Xarelto for now given significant knee hematoma and facial injuries. Likely resume in 1-2 days. Ongoing left elbow swelling noted. Ongoing infectious process. Not related to fall. Blood cultures pending. Continue antibiotics Continue all other meds. Case discussed with Dr. Marie I spent a total of 30 minutes on the date of service in preparation, delivery, and documentation of the care provided to this patient, excluding any time spent in the performance of separately billed services. Myah Raza PA-C Department of Cardiology, [facility] [address] This chart was completed in part utilizing Speech Voice Recognition Software. Grammatical errors, random word insertions, pronoun errors, and incomplete sentences are an occasional consequence of this system due to software limi tations, ambient noise, and hardware issues. Any formal questions or concerns about the content, text, or information contained within the body of this dictation should be directly addressed to the provider for clarification. Admission and Anticipated Discharge Date Admission Date: April 01, 2024 Supervising Physician Co-Signing Physician Notes I have personally performed a history and physical examination on the patient. I have reviewed the advance practitioner's documentation, and I agree with, and take responsibility for the plan of care. 84-year-old male admitted with mechanical fall and possible syncope. Orthostatic hypotension documented. No bradycardic events on telemetry. Rhythm control with amiodarone. Echocardiogram demonstrates borderline hyperdynamic LV systolic function suggesting mild volume depletion. No significant valvular disease or pericardial effusion. Flomax and Lasix on hold. Reduce losartan to 50 mg daily. Add compression stockings as tolerated. Continue telemetry monitoring while hospitalized with consideration for 14-day ZIO monitor upon discharge. I spent a total of 30 minutes on the date of service in preparation, delivery, and documentation of the care provided to this patient, excluding any time spent in the performance of separately billed services. Subjective Patient resting out of bed. feeling better this morning. Concerned with knee swelling and abrasion. wound consult placed this morning. Only mild orthostasis with dizziness noted by patient this morning when getting out of bed. No syncope or near syncope. no chest pain or dyspnea. Review of Systems Review of Systems: All systems reviewed & are unremarkable except as noted in HPI & below Physical Exam Constitutional: + obese; no acute distress significant facial ecchymosis. Lacerations with joanna clean and dry Respiratory: normal respiratory effort, lungs clear to auscultation Cardiovascular: Rate/Rhythm: regular rate and regular rhythm Heart Sounds: normal S1 and normal S2; no murmur Vessels: no JVD Extremities: no edema Gastrointestinal (Abdomen): normal bowel sounds, soft, nontender, no hepatosplenomegaly Psychiatric: A+Ox3, euthymic affect Results & Data Vital Signs (Past 12 Hours) Vital Signs Temp Pulse Pulse Resp BP Pulse Ox O2 Del Method 04/03/24 11:37 36.5 C 81 18 112/69 94 Room Air 04/03/24 09:53 Room Air 04/03/24 08:00 75 04/03/24 07:31 36.4 C L 68 18 140/79 95 Room Air 04/03/24 04:08 36.8 C 64 20 134/69 97 Room Air Laboratory Results CBC 04/03/24 Range/Units 08:34 WBC 12.66 H (4.8-10.8) K/ul RBC 4.06 L (4.70-6.10) M/uL Hgb 11.6 L (14.0-18.0) g/dl Hct 35.3 L (42.0-52.0) % Plt Count 210 (130-400) K/uL Comprehensive Metabolic Panel 04/03/24 Range/Units 08:34 Sodium 140 (136-145) mmol/L Potassium 4.0 (3.5-5.1) mmol/L Chloride 107 (98-107) mmol/L Carbon Dioxide 28 (21-32) mmol/L BUN 20 (6-23) mg/dl Creatinine 0.87 (0.6-1.4) mg/dl Glucose 135 H (70-99(Fasting)) mg/dl Calcium 8.0 L (8.6-10.3) mg/dl Intake and Output 04/02/24 04/03/24 04/03/24 22:59 06:59 14:59 Intake Total 440 / 1420 400 / 1420 100 / 100 Output Total 100 / 702 400 / 702 Balance 340 / 718 0 / 718 100 / 100 Intake: IV 200 / 400 100 / 400 100 / 100 Ampicillin/Sulbactam Sod 3,000 200 / 400 100 / 400 100 / 100 mg In Sodium Chlor 0.9% Mini-B 100 ml @ 100 mls/hr IV Q6H [facility] Rx#:[id number] Oral 240 / 1020 300 / 1020 Output: Urine 100 / 700 400 / 700 Other: Weight 111.6 kg Weight Measurement Method Built in [facility] Diagnostic Findings Telemetry reviewed: NSR. No pauses or high degree AV block to cause syncope. No afib. Medications Administered Current Inpatient Medications Acetaminophen (Acetaminophen 325 Mg Tab) 650 mg PO Q4H PRN PRN Reason: Pain or Fever Stop: 05/01/24 20:59 Last Admin: 04/03/24 09:07 Dose: 650 mg Al Hydrox/Mg Hydrox/Simethicone (Aluminum/Magnesium Susp 30 Ml Udc) 15 ml PO Q4H PRN PRN Reason: Dyspepsia Stop: 05/01/24 20:59 Amiodarone HCl (Amiodarone 200 Mg Tab) 100 mg PO DAILY [facility] Stop: 05/02/24 08:59 Last Admin: 04/03/24 09:01 Dose: 100 mg Aspirin (Aspirin 81 Mg Ectab) 81 mg PO DAILY [facility] Stop: 05/02/24 08:59 Last Admin: 04/03/24 09:02 Dose: 81 mg Chlorhexidine Gluconate (Chlorhexidine Gluconate 0.12% 480 Ml) 15 ml MT QID [facility] Stop: 05/01/24 20:59 Last Admin: 04/03/24 09:03 Dose: 15 ml Cyanocobalamin (Cyanocobalamin (B-12) 500 Mcg Tablet) 1,000 mcg PO DAILY [facility] Stop: 05/02/24 08:59 Last Admin: 04/03/24 09:02 Dose: 1,000 mcg Dextrose (Dextrose 50% 50 Ml Syringe) 25 - 50 ml IV UD PRN; Protocol PRN Reason: Hypoglycemia Protocol Stop: 05/01/24 20:59 Docusate Sodium (Docusate Sodium 100 Mg Cap) 100 mg PO BID [facility] Stop: 05/01/24 20:59 Last Admin: 04/03/24 09:02 Dose: 100 mg Furosemide (Furosemide 20 Mg Tab) 20 mg PO QAM [facility] Stop: 05/02/24 08:59 Last Admin: 04/02/24 09:35 Dose: 20 mg Glucagon (Glucagon For Inj 1 Mg Vial) 1 mg SQ UD PRN; Protocol PRN Reason: Hypoglycemia Protocol Stop: 05/01/24 20:59 Glucose (Glucose 40% Gel 15 Gm Tube) 15 - 30 gm PO UD PRN; Protocol PRN Reason: Hypoglycemia Protocol Stop: 05/01/24 20:59 Glucose (Glucose 10 Tab/Tube) 4 - 8 tab PO UD PRN; Protocol PRN Reason: Hypoglycemia Treatment Stop: 05/01/24 20:59 Ampicillin Sodium/Sulbactam Sodium 3,000 mg/ Sodium Chloride 100 mls @ 100 mls/hr IV Q6H [facility] Stop: 04/11/24 21:59 Last Infusion: 04/03/24 10:07 Dose: Infused Insulin Aspart (Insulin Aspart Per Unit Charge) 0 units SC ACHS [facility] Stop: 05/01/24 20:59 Last Admin: 04/03/24 09:03 Dose: Not Given Losartan Potassium (Losartan Potassium 50 Mg Tab) 100 mg PO DAILY [facility] Stop: 05/02/24 08:59 Last Admin: 04/03/24 09:02 Dose: 100 mg Magnesium Hydroxide (Magnesium Hydroxide Susp 30 Ml Udc) 30 ml PO Q12H PRN PRN Reason: Constipation Stop: 05/01/24 20:59 Meclizine HCl (Meclizine 12.5 Mg Tab) 12.5 mg PO TID PRN PRN Reason: Dizziness Stop: 05/01/24 20:59 Last Admin: 04/03/24 09:02 Dose: 12.5 mg Miscellaneous (Carbohydrates For Hypoglycemia ) 15 - 30 gm PO UD PRN PRN Reason: Hypoglycemia Protocol Stop: 05/01/24 20:59 Morphine Sulfate (Morphine Sulfate 2 Mg/Ml Carp) 2 mg IV Q4H PRN PRN Reason: Severe Pain (Scale 7, 8, 9,10) Stop: 04/15/24 20:59 Ondansetron HCl (Ondansetron Inj 2 Mg/Ml 2 Ml Vial) 4 mg IV Q6H PRN PRN Reason: Nausea Stop: 05/01/24 20:59 Oxycodone HCl (Oxycodone Hcl Ir 5 Mg Tab (Immediate Release)) 5 mg PO Q6H PRN PRN Reason: Moderate Pain (Scale 4, 5, 6) Stop: 04/15/24 20:59 Polyethylene Glycol (Polyethylene (Miralax) 17 Gm Pack) 17 gm PO DAILY PRN PRN Reason: Constipation Stop: 05/01/24 20:59 Rosuvastatin Calcium (Rosuvastatin Calcium 10 Mg Tab) 10 mg PO QAM [facility] Stop: 05/02/24 08:59 Last Admin: 04/03/24 09:02 Dose: 10 mg Saccharomyces Boulardii (Saccharomyces Boulardii 250 Mg Cap) 250 mg PO DAILY [facility] Stop: 05/02/24 08:59 Last Admin: 04/03/24 09:02 Dose: 250 mg Tamsulosin HCl (Tamsulosin Hcl 0.4 Mg Cap) 0.4 mg PO BID [facility] Stop: 05/01/24 20:59 Last Admin: 04/02/24 09:35 Dose: 0.4 mg (1) Syncope Syncope type: unspecified Qualified Code(s): R55 - Syncope and collapse
--- NOTE | 2024-04-03 16:43 | Hospitalist Progress Note ---
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 Fall resulting in head trauma Forehead laceration x 2 - repaired by SIOMARA in ED Acute comminuted nasal bone fracture with displacement on the right along with sigmoid bowing of the bony nasal septum revealing a probable acute nondisplaced fracture Laceration to upper lip -repaired by Dr. Ruosseau in ED hold xarelto for now Continue IV Unasyn for now peridex rinses Appreciate oral maxillary surgery input PT OT eval completed Fall precautions Pain control Needs follow-up with surgery on discharge Plan to transition to Augmentin tomorrow Syncopal Episode while seated in wheelchair leaving his room in ED Orthostatic hypotension --ECHO: Compared to prior study, no significant change. EF 65 to 70%. Mild concentric LVH. Grade 1 diastolic dysfunction. Suboptimally visualized valvular anatomy without significant stenosis or regurgitation No issues on monitor Compression stockings added Flomax, Lasix held Continue losartan reduced to 50 mg daily Monitor BP and adjust medications as needed Needs Zio monitor as outpatient Appreciate cardiology input No recurrence of syncopal event overnight Will recheck orthostatics tomorrow Carotid artery stenosis -Carotid Doppler: Moderate atherosclerosis of the right carotid vasculature with 50-69% stenosis of the right ICA. Mild atherosclerosis of the left carotid bulb with less than 50% stenosis. Continue aspirin, statin Needs follow-up with vascular surgery as outpatient L Knee Hematoma Secondary to fall in setting of chronic anticoagulation with Xarelto Pain control Fall precautions PT OT as able Appreciate orthopedics input--conservative management ICE TID, compression Xarelto on hold for now DM II hold metformin novolog per protocol Last a1c on 02/26 was 6.3 CAD HTN HLD continue asa, statin, losartan PAF continue amiodarone hold xarelto for now until cleared by Dr. Rousseau DVT Px: SCDs for now CODE STATUS FULL CODE Admission and Anticipated Discharge Date Admission Date: April 01, 2024 Subjective Patient is seen and examined at bedside Subjectively feels better today Less dizziness today Discussed with patient's family at bedside Nasal fracture pain improving Remains orthostatic on exam today Denies any chest pain, dyspnea Review of Systems Review of Systems: All systems reviewed & are unremarkable except as noted in Subjective Physical Exam Physical Exam: Physical Exam: Vitals signs as noted above General Appearance:Obese, no apparent distress Head: normocephalic, +traumatic,+Nasal fracture, Upper lip laceration Eyes: normal inspection, EOMI Neck: supple, Trachea midline Respiratory/Chest: Normal breath sounds, CTA, No accessory muscle use Cardiovascular: S1, S2, No murmur Abdomen/GI:Soft, Non tender, Bowel sounds present Extremities/Musculoskeletal:normal inspection, L knee, swollen, tender, Ecchymosis Neurologic/Psych:AAOX3, grossly no focal neurological deficits Skin: normal color, warm Results & Data Results & Data Vital Signs (Past 12 Hours) Vital Signs Temp Pulse Pulse Resp BP Pulse Ox O2 Del Method 04/03/24 15:40 63 04/03/24 11:37 36.5 C 81 18 112/69 94 Room Air 04/03/24 09:53 Room Air 04/03/24 08:00 75 04/03/24 07:31 36.4 C L 68 18 140/79 95 Room Air Laboratory Results Short CBC 04/03/24 Range/Units 08:34 WBC 12.66 H (4.8-10.8) K/ul Hgb 11.6 L (14.0-18.0) g/dl Hct 35.3 L (42.0-52.0) % Plt Count 210 (130-400) K/uL BMP 04/03/24 08:34 Sodium 140 Potassium 4.0 Chloride 107 Carbon Dioxide 28 BUN 20 Creatinine 0.87 Glucose 135 H Calcium 8.0 L (5) Syncope Syncope type: unspecified Qualified Code(s): R55 - Syncope and collapse
[2024-04-04 06:50] LABS: Hematocrit (blood only) 34.5 % (42.0-52.0); Hemoglobin 11.4 g/dl (14.0-18.0); Mean Corpuscular Hemoglobin 28.8 pg (25.0-34.0); Mean Corpuscular Volume 87.1 fL (80.0-100.0); Mean Platelet Volume 9.7 fL (9.4-12.4); Platelet Count 214 K/uL (130-400); RDW Coefficient of Variation 15.9 % (11.5-14.5); RDW Standard Deviation 50.8 fL (36.4-46.3); Red Blood Count 3.96 M/uL (4.70-6.10); White Blood Count 12.27 K/ul (4.8-10.8)
[2024-04-04 07:15] LABS: BUN Creatinine Ratio 22.5 (10-20); Calcium 7.8 mg/dl (8.6-10.3); Creatinine Clr Calc Pharmacy 79.2 ml/min; Est GFR (African American) 89.7 ml/min; Est GFR (Non-African American) 77.4 ml/min; Magnesium 2.1 mg/dl (1.7-2.4); Potassium 4.1 mmol/L (3.5-5.1)
[2024-04-04] MEDS: LOSARTAN POTASSIUM 50 MG TAB PO SCH (08:21)
--- NOTE | 2024-04-04 12:52 | Cardiology Progress Note ---
Date of Service April 04, 2024 Assessment & Plan (1) Syncope: (2) Orthostatic hypotension: (3) PAF (paroxysmal atrial fibrillation): (4) Infection of left elbow: Plan Patient with 2 possible syncopal episodes with resultant significant facial injuries and left knee injury. EKG demonstrating NSR on admission. HS troponin negative x1. No arrhythmias on telemetry. No bradycardia, pauses, or high degree AV block. He had reproducible orthostatic hypotension on evaluation today. Recommend compression stockings. Gentle hydration encouraged. Initially his BP was elevated on arrival after his injury, BP now trending down and controlled Continue losartan for now. May need to consider dose reduction. He is also on Flomax and this may need changed due to potential to cause significant orthostatic symptoms. Hold furosemide His echo reveals normal LVEF. Visual structures not well visualized. 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 Repeat blood cultures. Has outpatient MRI later this week. History of PAF Hold Xarelto given recent significant facial fracture/injury and left knee hematoma. Maintaining NSR. Continue low dose amiodarone. Metoprolol was stopped previously due to mild bradycardia. Mild/moderate carotid stenosis noted on duplex today. Continue ASA and statin. Continue to monitor on telemetry. May need outpatient monitor or Loop recorder if he has recurrent events. 04/03/24: No recurrent syncope overnight. Mild orthostasis noted this morning when changing from bed to chair. Furosemide on hold (patient reports he was not taking this regularly as outpatient) Flomax dose reduced BP has been borderline low, possibly also contributing to his symptoms. Reduce losartan to 50 mg daily. Already received 100 mg this morning. No arrhythmias on monitor. Continue low dose amiodarone. Remain off Xarelto for now given significant knee hematoma and facial injuries. Likely resume in 1-2 days. Ongoing left elbow swelling noted. Ongoing infectious process. Not related to fall. Blood cultures pending. Continue antibiotics Continue all other meds. 04/04/24: Patient with improving orthostasis since reduce in losartan and stopping flomax. No urinary issues thus far. No recurrent syncope BP remains controlled. Continue reduced dose losartan 50 mg daily Repeat orthostatic vitals today. No arrhythmias on telemetry. Continue low dose amiodarone. Likely can resume Xarelto today. No worsening of his left knee hematoma. Negative blood cultures - prelim. F/U with ortho as planned for left elbow joint injection. Continue antibiotics. Will arrange 2 week ZIO monitor upon discharge. No further inpatient cardiac testing warranted. Will sign off. Please notify international project engineer cardiology provider with additional questions or concerns. Case discussed with Dr. Marie I spent a total of 30 minutes on the date of service in preparation, delivery, and documentation of the care provided to this patient, excluding any time spent in the performance of separately billed services. Myah Raza PA-C Department of Cardiology, [facility] This chart was completed in part utilizing Speech Voice Recognition Software. Grammatical errors, random word insertions, pronoun errors, and incomplete sentences are an occasional consequence of this system due to software limitations, ambient noise, and hardware issues. Any formal questions or concerns about the content, text, or information contained within the body of this dictation should be directly addressed to the provider for clarification. Admission and Anticipated Discharge Date Admission Date: April 01, 2024 Supervising Physician Co-Signing Physician Notes I have personally performed a history and physical examination on the patient. I have reviewed the advance practitioner's documentation, and I agree with, and take responsibility for the plan of care. 84-year-old male admitted with mechanical fall and possible syncope. Orthostatic hypotension documented. No bradycardic events on telemetry. Rhythm control with amiodarone. Echocardiogram demonstrates borderline hyperdynamic LV systolic function suggesting mild volume depletion. No significant valvular disease or pericardial effusion. Flomax and Lasix on hold. Losartan reduced to 50 mg daily. Orthostatic symptoms improved. Utilize compression stockings as tolerated. Continue telemetry monitoring while hospitalized. 14-day ZIO monitor upon discharge. Consider restart Flomax at reduced dose, 0.4 mg daily, pending follow-up of urologic issues. I spent a total of 30 minutes on the date of service in preparation, delivery, and documentation of the care provided to this patient, excluding any time spent in the performance of separately billed services. Subjective Patient resting in chair. Feeling better this morning. less dizziness/lighthe adedness upon positional changes. BP remains controlled. No chest pain or SOB. No palpitations. Review of Systems Review of Systems: All systems reviewed & are unremarkable except as noted in HPI & below Physical Exam Constitutional: + obese; no acute distress Respiratory: normal respiratory effort, lungs clear to auscultation Cardiovascular: Rate/Rhythm: regular rate and regular rhythm Heart Sounds: normal S1 and normal S2; no murmur Vessels: no JVD Extremities: no edema Gastrointestinal (Abdomen): normal bowel sounds, soft, nontender, no hepatosplenomegaly Neurologic: PERRL, EOMI, accommodation nl, no face palsy, no dysarthria Psychiatric: A+Ox3, euthymic affect Results & Data Vital Signs (Past 12 Hours) Vital Signs Temp Pulse Pulse Resp BP BP Pulse Ox 04/04/24 11:03 36.7 C 67 16 131/75 96 04/04/24 08:19 84 04/04/24 07:28 04/04/24 07:26 36.4 C L 55 L 18 129/75 94 04/04/24 05:48 74 04/04/24 04:30 36.7 C 67 20 138/69 95 O2 Del Method 04/04/24 11:03 Room Air 04/04/24 08:19 04/04/24 07:28 Room Air 04/04/24 07:26 Room Air 04/04/24 05:48 04/04/24 04:30 Room Air Laboratory Results CBC 04/04/24 Range/Units 06:34 WBC 12.27 H (4.8-10.8) K/ul RBC 3.96 L (4.70-6.10) M/uL Hgb 11.4 L (14.0-18.0) g/dl Hct 34.5 L (42.0-52.0) % Plt Count 214 (130-400) K/uL Comprehensive Metabolic Panel 04/04/24 Range/Units 06:34 Sodium 140 (136-145) mmol/L Potassium 4.1 (3.5-5.1) mmol/L Chloride 108 H (98-107) mmol/L Carbon Dioxide 28 (21-32) mmol/L BUN 20 (6-23) mg/dl Creatinine 0.89 (0.6-1.4) mg/dl Glucose 133 H (70-99(Fasting)) mg/dl Calcium 7.8 L (8.6-10.3) mg/dl Intake and Output 04/03/24 04/04/24 04/04/24 22:59 06:59 14:59 Intake Total 250 / 1375 200 / 1375 100 / 100 Output Total 350 / 1200 500 / 1200 1 / 1 Balance -100 / 175 -300 / 175 99 / 99 Intake: IV 200 / 400 100 / 400 100 / 100 Ampicillin/Sulbactam Sod 3,000 200 / 400 100 / 400 100 / 100 mg In Sodium Chlor 0.9% Mini-B 100 ml @ 100 mls/hr IV Q6H [facility] Rx#:[id number] Oral 50 / 975 100 / 975 Output: Urine 350 / 1200 500 / 1200 # Bowel Movements Other: # Unmeasured Voids 1 Weight 111.6 kg 111.6 kg Weight Measurement Method Built in [facility] Diagnostic Findings Telemetry reviewed: NSR. No arrhythmias. No pauses or high degree AV block Medications Administered Current Inpatient Medications Acetaminophen (Acetaminophen 325 Mg Tab) 650 mg PO Q4H PRN PRN Reason: Pain or Fever Stop: 05/01/24 20:59 Last Admin: 04/03/24 20:13 Dose: 650 mg Al Hydrox/Mg Hydrox/Simethicone (Aluminum/Magnesium Susp 30 Ml Udc) 15 ml PO Q4H PRN PRN Reason: Dyspepsia Stop: 05/01/24 20:59 Amiodarone HCl (Amiodarone 200 Mg Tab) 100 mg PO DAILY [facility] Stop: 05/02/24 08:59 Last Admin: 04/04/24 08:23 Dose: 100 mg Aspirin (Aspirin 81 Mg Ectab) 81 mg PO DAILY [facility] Stop: 05/02/24 08:59 Last Admin: 04/04/24 08:23 Dose: 81 mg Chlorhexidine Gluconate (Chlorhexidine Gluconate 0.12% 480 Ml) 15 ml MT QID [facility] Stop: 05/01/24 20:59 Last Admin: 04/04/24 08:21 Dose: 15 ml Cyanocobalamin (Cyanocobalamin (B-12) 500 Mcg Tablet) 1,000 mcg PO DAILY [facility] Stop: 05/02/24 08:59 Last Admin: 04/04/24 08:22 Dose: 1,000 mcg Dextrose (Dextrose 50% 50 Ml Syringe) 25 - 50 ml IV UD PRN; Protocol PRN Reason: Hypoglycemia Protocol Stop: 05/01/24 20:59 Docusate Sodium (Docusate Sodium 100 Mg Cap) 100 mg PO BID [facility] Stop: 05/01/24 20:59 Last Admin: 04/04/24 08:23 Dose: 100 mg Furosemide (Furosemide 20 Mg Tab) 20 mg PO QAM [facility]ENNY Stop: 05/02/24 08:59 Last Admin: 04/02/24 09:35 Dose: 20 mg Glucagon (Glucagon For Inj 1 Mg Vial) 1 mg SQ UD PRN; Protocol PRN Reason: Hypoglycemia Protocol Stop: 05/01/24 20:59 Glucose (Glucose 40% Gel 15 Gm Tube) 15 - 30 gm PO UD PRN; Protocol PRN Reason: Hypoglycemia Protocol Stop: 05/01/24 20:59 Glucose (Glucose 10 Tab/Tube) 4 - 8 tab PO UD PRN; Protocol PRN Reason: Hypoglycemia Treatment Stop: 05/01/24 20:59 Ampicillin Sodium/Sulbactam Sodium 3,000 mg/ Sodium Chloride 100 mls @ 100 mls/hr IV Q6H PENNY Stop: 04/11/24 21:59 Last Infusion: 04/04/24 10:09 Dose: Infused Insulin Aspart (Insulin Aspart Per Unit Charge) 0 units SC ACHS PENNY Stop: 05/01/24 20:59 Last Admin: 04/04/24 12:32 Dose: Not Given Losartan Potassium (Losartan Potassium 50 Mg Tab) 50 mg PO DAILY PEN[facility] Stop: 05/04/24 08:59 Last Admin: 04/04/24 08:21 Dose: 50 mg Magnesium Hydroxide (Magnesium Hydroxide Susp 30 Ml Udc) 30 ml PO Q12H PRN PRN Reason: Constipation Stop: 05/01/24 20:59 Meclizine HCl (Meclizine 12.5 Mg Tab) 12.5 mg PO TID PRN PRN Reason: Dizziness Stop: 05/01/24 20:59 Last Admin: 04/04/24 08:21 Dose: 12.5 mg Miscellaneous (Carbohydrates For Hypoglycemia ) 15 - 30 gm PO UD PRN PRN Reason: Hypoglycemia Protocol Stop: 05/01/24 20:59 Morphine Sulfate (Morphine Sulfate 2 Mg/Ml Carp) 2 mg IV Q4H PRN PRN Reason: Severe Pain (Scale 7, 8, 9,10) Stop: 04/15/24 20:59 Ondansetron HCl (Ondansetron Inj 2 Mg/Ml 2 Ml Vial) 4 mg IV Q6H PRN PRN Reason: Nausea Stop: 05/01/24 20:59 Oxycodone HCl (Oxycodone Hcl Ir 5 Mg Tab (Immediate Release)) 5 mg PO Q6H PRN PRN Reason: Moderate Pain (Scale 4, 5, 6) Stop: 04/15/24 20:59 Polyethylene Glycol (Polyethylene (Miralax) 17 Gm Pack) 17 gm PO DAILY PRN PRN Reason: Constipation Stop: 05/01/24 20:59 Rosuvastatin Calcium (Rosuvastatin Calcium 10 Mg Tab) 10 mg PO QAM [facility] Stop: 05/02/24 08:59 Last Admin: 04/04/24 08:22 Dose: 10 mg Saccharomyces Boulardii (Saccharomyces Boulardii 250 Mg Cap) 250 mg PO DAILY [facility] Stop: 05/02/24 08:59 Last Admin: 04/04/24 08:23 Dose: 250 mg Tamsulosin HCl (Tamsulosin Hcl 0.4 Mg Cap) 0.4 mg PO BID [facility] Stop: 05/01/24 20:59 Last Admin: 04/02/24 09:35 Dose: 0.4 mg (1) Syncope Syncope type: unspecified Qualified Code(s): R55 - Syncope and collapse
--- NOTE | 2024-04-04 14:33 | Hospitalist Progress Note ---
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 Fall resulting in head trauma Forehead laceration x 2 - repaired by SIOMARA in ED Acute comminuted nasal bone fracture with displacement on the right along with sigmoid bowing of the bony nasal septum revealing a probable acute nondisplaced fracture Laceration to upper lip -repaired by Dr. Rousseau in ED Plan to resume Xarelto on discharge Continue IV Unasyn >> transition to Augmentin on discharge Peridex rinses Appreciate oral maxillary surgery input PT OT eval completed Fall precautions Pain control Needs follow-up with surgery on discharge Plan to discharge home today Syncopal Episode while seated in wheelchair leaving his room in ED Orthostatic hypotension --ECHO: Compared to prior study, no significant change. EF 65 to 70%. Mild concentric LVH. Grade 1 diastolic dysfunction. Suboptimally visualized valvular anatomy without significant stenosis or regurgitation No issues on monitor Compression stockings added Flomax, Lasix held Continue losartan reduced to 50 mg daily Monitor BP and adjust medications as needed Needs Zio monitor as outpatient Appreciate cardiology input No recurrence of syncopal event overnight Advised to follow-up with cardiology on discharge Carotid artery stenosis -Carotid Doppler: Moderate atherosclerosis of the right carotid vasculature with 50-69% stenosis of the right ICA. Mild atherosclerosis of the left carotid bulb with less than 50% stenosis. Continue aspirin, statin Needs follow-up with vascular surgery as outpatient L Knee Hematoma Secondary to fall in setting of chronic anticoagulation with Xarelto Pain control Fall precautions PT OT as able Appreciate orthopedics input--conservative management ICE TID, compression Continue current management DM II hold metformin novolog per protocol Last a1c on 02/26 was 6.3 CAD HTN HLD continue asa, statin, losartan PAF continue amiodarone Resume xarelto DVT Px: SCDs Xarelto CODE STATUS FULL CODE Disposition Home with home health Admission and Anticipated Discharge Date Admission Date: April 01, 2024 Subjective Patient is seen and examined at bedside Sitting in chair comfortably during my encounter Doing well today No new complaints Discussed with patient's family at bedside in detail today Denies any chest pain, dyspnea Plan to discharge home today Review of Systems Review of Systems: All systems reviewed & are unremarkable except as noted in Subjective Physical Exam Physical Exam: Physical Exam: Vitals signs as noted above General Appearance:Obese, no apparent distress Head: normocephalic, +traumatic,+Nasal fracture, Upper lip laceration Eyes: normal inspection, EOMI Neck: supple, Trachea midline Respiratory/Chest: Normal breath sounds, CTA, No accessory muscle use Cardiovascular: S1, S2, No murmur Abdomen/GI:Soft, Non tender, Bowel sounds present Extremities/Musculoskeletal:normal inspection, L knee, swollen, tender, Ecchymosis Neurologic/Psych:AAOX3, grossly no focal neurological deficits Skin: normal color, warm Results & Data Results & Data Vital Signs (Past 12 Hours) Vital Signs Temp Pulse Pulse Resp BP BP Pulse Ox 04/04/24 11:03 36.7 C 67 16 131/75 96 04/04/24 08:19 84 04/04/24 07:28 04/04/24 07:26 36.4 C L 55 L 18 129/75 94 04/04/24 05:48 74 04/04/24 04:30 36.7 C 67 20 138/69 95 O2 Del Method 04/04/24 11:03 Room Air 04/04/24 08:19 04/04/24 07:28 Room Air 04/04/24 07:26 Room Air 04/04/24 05:48 04/04/24 04:30 Room Air Laboratory Results Short CBC 04/04/24 Range/Units 06:34 WBC 12.27 H (4.8-10.8) K/ul Hgb 11.4 L (14.0-18.0) g/dl Hct 34.5 L (42.0-52.0) % Plt Count 214 (130-400) K/uL BMP 04/04/24 06:34 Sodium 140 Potassium 4.1 Chloride 108 H Carbon Dioxide 28 BUN 20 Creatinine 0.89 Glucose 133 H Calcium 7.8 L (5) Syncope Syncope type: unspecified Qualified Code(s): R55 - Syncope and collapse
--- NOTE | 2024-04-04 14:44 | Discharge Summary ---
Date of Service April 04, 2024 Admission HPI Per Admitting Provider This is an 84 yr old M who has a significant PMH of T2DM, HTN, CAD history of LAD stent, atrial fibrillation, HLD, BPH who presents to ED after sustaining a fall prior to arrival. His is at bedside who also helps elicit history. He was taken his to the dentist today and when they were leaving and he was walking out he fell on the curb. At the time he denied any dizziness or syncope. He did strike both of his knees and his face on the concrete. He is on a blood thinner, Xarelto, for atrial fibrillation. At the time of the event he denied any headache, change in vision, lightheadedness or dizziness. He does have prior history of vertigo and denied any vertiginous symptoms prior to fall. According to ED records his tetanus is up-to-date as of April 2023. He did sustain 2 forehead lacerations that was repaired by SIOMARA in ED. He also had a laceration of inside of upper lip which was repaired by Dr. Rousseau. He was instructed by Dr. Rousseau to hold Xarelto. He did undergo head CT which showed an acute comminuted nasal bone fracture with displacement to the right, sigmoidal bowing of the bony nasal septum with probable acute nondisplaced fracture. His left knee was x-rayed and negative for acute fracture although there was noted soft tissue swelling. CT cervical spine was negative. He initially was going to be discharged and when going out of the room in the wheel chair he had a syncopal episode. states, "he just went out."He felt dizzy prior to passing out. He does not recall having severe pain at the time. He denies tobacco use. He has an occasional beer but nothing frequent. Admission Exam Per Admitting Provider GENERAL APPEARANCE: AxOx4, fatigued appearing gentleman HEENT: NC, AT. MMM. EOMI, two sutured lacerations on medial brow with surrounding swelling and ecchymosis dried blood in mouth, sutures upper lip, tape in place under nares, dried blood in bilateral nare without active bleeding, abrasion on nose with notable dried blood and inflammation NECK: Supple without lymphadenopathy. No stiffness or restricted ROM. HEART: Normal rate and regular rhythm, normal S1/S1, no m/r/g LUNGS: CTAB, moving air well. No crackles or wheezes are heard. ABDOMEN: Soft, nontender, nondistended with good bowel sounds heard. EXTREMITIES: Without cyanosis, clubbing or edema. NEUROLOGICAL: Grossly nonfocal. Alert and oriented, moving all 4 extremities. CN not formally tested but appear grossly intact. Observed to ambulate with normal gait. Skin: Warm and dry without any rash. left knee with large hematoma forming MARC bandage in place, right knee with small anterior patellar abrasion, clean Principal Diagnosis Head trauma Fall Syncopal episode Orthostatic hypotension Carotid artery stenosis Left knee hematoma Discharge Data Allergies Allergy/AdvReac Type Severity Reaction Status Date / Time No Known Allergies Allergy Verified 06/27/23 21:00 Consultations 04/01/24 16:19 ED Decision to Admit Stat 04/01/24 16:40 Consult Oromaxillofacial Surgery Routine 04/01/24 17:32 Consult Orthopedic Surgery Routine 04/02/24 12:00 Consult Cardiology Routine Procedures Performed Laboratory Results WBC 12.27 K/ul (4.8-10.8) H 04/04/24 06:34 RBC 3.96 M/uL (4.70-6.10) L 04/04/24 06:34 Hgb 11.4 g/dl (14.0-18.0) L 04/04/24 06:34 Hct 34.5 % (42.0-52.0) L 04/04/24 06:34 MCV 87.1 fL (80.0-100.0) 04/04/24 06:34 MCH 28.8 pg (25.0-34.0) 04/04/24 06:34 MCHC 33.0 g/dL (32.0-36.0) 04/04/24 06:34 RDW Std Deviation 50.8 fL (36.4-46.3) H 04/04/24 06:34 RDW Coeff of Ezekiel 15.9 % (11.5-14.5) H 04/04/24 06:34 Plt Count 214 K/uL (130-400) 04/04/24 06:34 MPV 9.7 fL (9.4-12.4) 04/04/24 06:34 Immature Gran % (Auto) 1.1 % 04/02/24 08:22 Neut % (Auto) 74.0 % 04/02/24 08:22 Lymph % (Auto) 12.3 % 04/02/24 08:22 Potter % (Auto) 12.1 % 04/02/24 08:22 Eos % (Auto) 0.2 % 04/02/24 08:22 Baso % (Auto) 0.3 % 04/02/24 08:22 Neut # (Auto) 10.49 K/uL (1.40-6.50) H 04/02/24 08:22 Lymph # (Auto) 1.75 K/uL (1.20-3.40) 04/02/24 08:22 Potter # (Auto) 1.72 K/uL (0.11-0.59) H 04/02/24 08:22 Eos # (Auto) 0.03 K/uL (0.00-0.50) 04/02/24 08:22 Baso # (Auto) 0.04 K/uL (0.00-0.20) 04/02/24 08:22 Immature Gran # (Auto) 0.15 K/uL (0.01-0.20) 04/02/24 08:22 Sodium 140 mmol/L (136-145) 04/04/24 06:34 Potassium 4.1 mmol/L (3.5-5.1) 04/04/24 06:34 Chloride 108 mmol/L (98-107) H 04/04/24 06:34 Carbon Dioxide 28 mmol/L (21-32) 04/04/24 06:34 Anion Gap 4 (3-11) 04/04/24 06:34 BUN 20 mg/dl (6-23) 04/04/24 06:34 Creatinine 0.89 mg/dl (0.6-1.4) 04/04/24 06:34 Est Cr Clr Drug Dosing 79.2 ml/min 04/04/24 06:34 Est GFR ( Amer) 89.7 ml/min 04/04/24 06:34 Est GFR (Non-Af Amer) 77.4 ml/min 04/04/24 06:34 BUN/Creatinine Ratio 22.5 (10-20) H 04/04/24 06:34 Glucose 133 mg/dl (70-99(Fasting)) H 04/04/24 06:34 POC Glucose 105 mg/dl (70-99) H 04/04/24 12:14 Calcium 7.8 mg/dl (8.6-10.3) L 04/04/24 06:34 Magnesium 2.1 mg/dl (1.7-2.4) 04/04/24 06:34 Total Bilirubin 1.2 mg/dl (0.2-1.0) H 04/02/24 08:22 AST 18 U/L (13-39) 04/02/24 08:22 ALT 24 U/L (7-52) 04/02/24 08:22 Alkaline Phosphatase 54 U/L (34-104) 04/02/24 08:22 Troponin I High Sens 6.5 pg/ml (0-20) 04/01/24 12:47 Total Protein 5.9 gm/dl (6.0-8.3) L 04/02/24 08:22 Albumin 3.4 gm/dl (3.4-5.0) 04/02/24 08:22 Globulin 2.5 gm/dl (2.5-4.0) 04/02/24 08:22 Albumin/Globulin Ratio 1.4 (0.9-2) 04/02/24 08:22 Urine Color Yellow 04/01/24 11:13 Urine Appearance Clear (Clear) 04/01/24 11:13 Urine pH 6.5 (4.5-7.5) 04/01/24 11:13 Ur Specific [place] 1.016 (1.000-1.030) 04/01/24 11:13 Urine Protein Negative (Negative) 04/01/24 11:13 Urine Glucose (UA) Negative (Negative) 04/01/24 11:13 Urine Ketones Negative (Negative) 04/01/24 11:13 Urine Blood 1+ (Negative) H 04/01/24 11:13 Urine Nitrite Negative (Negative) 04/01/24 11:13 Urine Bilirubin Negative (Negative) 04/01/24 11:13 Urine Urobilinogen Negative (Negative) 04/01/24 11:13 Ur Leukocyte Esterase Negative (Negative) 04/01/24 11:13 Urine WBC (Auto) 0-5 /hpf (0-5) 04/01/24 11:13 Urine RBC (Auto) 6-10 /hpf (0-2) H 04/01/24 11:13 U Hyaline Cast (Auto) 0-2 /lpf (0-2) 04/01/24 11:13 U Epithel Cells (Auto) 0-2 /hpf (0-2) 04/01/24 11:13 Urine Bacteria (Auto) None Seen (None Seen) 04/01/24 11:[address] 04/01/24 09:26 CT cervical spine wo con CLINICAL HISTORY: 84 years-old Male with fall from standing. Acute neck injury status post fall COMPARISON: CT head and maxillofacial studies of same day TECHNIQUE: Multiple axial CT images of the cervical spine were obtained without contrast. A dose lowering technique was utilized adhering to the principles of ALARA. FINDINGS: Demineralized appearance of the bones. Moderate multilevel degenerative changes. Nuchal ligament calcifications. No acute cervical spine fracture or subluxation identified. The cervical soft tissues appear unremarkable. The visualized lung apices appear clear. Maxillary sinus polypoid mucosal thickening noted on the left. IMPRESSION: No acute cervical spine fracture or subluxation. ACT 112: Negative or not required by law. The above report was generated using voice recognition software. It may contain grammatical, syntax or spelling errors. Electronically signed by: Octavio Palafox M.D. 04/01/2024 10:[address] 04/01/24 09:26 CT facial bones wo con CLINICAL HISTORY: 84 years-old Male presenting with fall from standing; facial injury. Acute facial trauma status post fall COMPARISON STUDY: CT head and cervical spine studies of same day TECHNIQUE: High-resolution CT scan of the facial bones is performed. Images are reviewed in the axial, sagittal, and coronal planes. IV contrast was not administered for this examination. A dose lowering technique was utilized adhering to the principles of ALARA. CT DOSE: 1690.98 mGy.cm FINDINGS: No acute calvarial fracture. The mastoid air cells are clear. Mild polypoid mucosal thickening of the maxillary sinuses. Acute comminuted bilateral nasal bone fractures with mild displacement on the right. There is moderate adjacent soft tissue swelling. No additional acute facial bone fracture identified. The bony orbits appear intact. Degenerative changes of the imaged cervical spine. Sigmoidal bowing and spurring of the nasal septum with probable acute nond isplaced anterior fracture. IMPRESSION: 1. Acute comminuted nasal bone fractures with mild displacement on the right. 2. Sigmoidal bowing of the bony nasal septum with probable acute nondisplaced fr acture. ACT 112: Negative or not required by law. The above report was generated using voice recognition software. It may contain grammatical, syntax or spelling errors. Electronically signed by: Octavio Palafox M.D. 04/01/2024 10:[address] 04/01/24 09:26 CT OF THE HEAD WITHOUT CONTRAST CLINICAL HISTORY: fall from standing; facial injury COMPARISON STUDY: No previous studies for comparison. TECHNIQUE: Helical axial images of the head were obtained without IV contrast. Automated exposure control was utilized for the study. A dose lowering technique was utilized adhering to the principles of ALARA. FINDINGS: No acute intracranial hemorrhage, midline shift or mass effect is present. The ventricular system is unremarkable. The basal cisterns are patent. No extra-axial collections are present. There are no findings to suggest acute dural sinus thrombosis or acute territorial infarct. No calvarial fractures are identified. Nasal and left forehead contusions are present. Acute bilateral nasal bone fractures are better depicted on the facial bone CT. IMPRESSION: 1. No acute intracranial findings. 2. Acute bilateral nasal bone fractures better depicted on the facial bone CT. Nasal and left forehead contusions. ACT 112: Negative or not required by law. Electronically signed by: Jefferson Baires M.D. 04/01/2024 10:27 AM Knee X-Ray 04/01/24 10:57 XR knee LT 3V CLINICAL HISTORY: Left knee pain following fall. COMPARISON: None FINDINGS: Alignment of the left knee is anatomic. There is no acute fracture. Extensive anterior knee soft tissue swelling is present. Possible small joint effusion. Medial and lateral compartment joint space are preserved. 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 IMPRESSION: 1. No acute fractures. Possible small left knee joint effusion. 2. Extensive anterior knee soft tissue swelling. 3. Moderate patellofemoral compartment osteoarthritis. ACT 112: Negative or not required by law. Electronically signed by: Jefferson Baires M.D. 04/01/2024 11:54 AM Chest X-Ray 04/01/24 12:19 XR chest 1V portable CLINICAL HISTORY: chest pain TECHNIQUE: Single frontal radiograph of the chest was obtained. Comparison: Comparison is made to chest radiograph 06/27/2023 FINDINGS: No lines and tubes are seen. The cardiomediastinal silhouette is normal. The lungs are clear. No evidence of pleural effusion or pneumothorax. IMPRESSION: No acute chest disease. ACT 112: Negative or not required by law. Electronically signed by: Umair Myers M.D. 04/01/2024 1:19 PM Carotid Doppler Study 04/02/24 00:00 US carotid doppler BI CLINICAL HISTORY: 84 years-old Male with syncope. COMPARISON: Head CT 04/01/2024 TECHNIQUE: Multiple real time sonographic images of the carotid bifurcations were obtained assessing pierce scale, color Doppler and spectral wave form appearance FINDINGS: RIGHT CAROTID: The peak systolic velocity measured within the distal right ICA is 129 cm/sec. The end diastolic velocity measured 16 cm/sec. The ICA to CCA ratio measured 1.5 which correlates with a stenosis of 50-69%. Moderate atherosclerosis. LEFT CAROTID: The peak systolic velocity measured within the left ICA is 111 cm/sec. The end diastolic velocity measured 20 cm/sec. The ICA to CCA ratio measured 1.14 which correlates with a stenosis of 0-50%. Mild atherosclerosis. There is normal antegrade vertebral flow bilaterally. IMPRESSION: 1. 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 2. Mild atherosclerosis of the left carotid bulb with less than 50% stenosis. ACT 112: Negative or not required by law. The above report was generated using voice recognition software. It may contain grammatical, syntax or spelling errors. Electronically signed by: Octavio Palafox M.D. 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 Fall resulting in head trauma Forehead laceration x 2 - repaired by SIOMARA in ED Acute comminuted nasal bone fracture with displacement on the right along with sigmoid bowing of the bony nasal septum revealing a probable acute nondisplaced fracture Laceration to upper lip -repaired by Dr. Rousseau in ED Plan to resume Xarelto on discharge Continue IV Unasyn >> transition to Augmentin on discharge Peridex rinses Appreciate oral maxillary surgery input PT OT eval completed Fall precautions Pain control Needs follow-up with surgery on discharge Plan to discharge home today Syncopal Episode while seated in wheelchair leaving his room in ED Orthostatic hypotension --ECHO: Compared to prior study, no significant change. EF 65 to 70%. Mild concentric LVH. Grade 1 diastolic dysfunction. Suboptimally visualized valvular anatomy without significant stenosis or regurgitation No issues on monitor Compression stockings added Flomax, Lasix held Continue losartan reduced to 50 mg daily Monitor BP and adjust medications as needed Needs Zio monitor as outpatient Appreciate cardiology input No recurrence of syncopal event overnight Advised to follow-up with cardiology on discharge Carotid artery stenosis -Carotid Doppler: Moderate atherosclerosis of the right carotid vasculature with 50-69% stenosis of the right ICA. Mild atherosclerosis of the left carotid bulb with less than 50% stenosis. Continue aspirin, statin Needs follow-up with vascular surgery as outpatient L Knee Hematoma Secondary to fall in setting of chronic anticoagulation with Xarelto Pain control Fall precautions PT OT as able Appreciate orthopedics input--conservative management ICE TID, compression Continue current management DM II hold metformin novolog per protocol Last a1c on 02/26 was 6.3 CAD HTN HLD continue asa, statin, losartan PAF continue amiodarone Resume xarelto DVT Px: SCDs Xarelto CODE STATUS FULL CODE Disposition Home with home health Total Time Total Time Spent Total Time Spent (In Minutes): 52 minutes Discharge Plan Discharge Items Patient Disposition: Home - Home Health Services Reason For Visit: FALL, NASAL FRACTURE Discharge Diagnosis: Head trauma Fall Syncopal episode Orthostatic hypotension Carotid artery stenosis Left knee hematoma Activity: Per Instructions section Exercise/Sports: Wait until after follow-up appointment Non-emergency contact: Primary Care Provider, Surgeon and Playback Operator Call non-emergency contact if: you have any medication questions, your symptoms worsen, your pain is concerning for you and you have a fever Follow-up/Referrals: Andree Pearson MD [Primary Care Provider] - Diet: Heart Healthy Add Attending Provider Instructions: Follow-up with your primary care physician Dr. Pearson in 1 week Follow-up with your status surgeon Dr. Rousseau next week as recommended Follow-up with your cinnamon grinder Dr. Marie in 2 to 3 weeks Consider following with your vascular surgeon for further evaluation of carotid artery stenosis as advised --Zio monitor as outpatient to be arranged by your primary care physician/cinnamon grinder to rule out any arrhythmias. --Use Teds as advised to help with orthostatic hypotension -- Complete antibiotic course Augmentin as prescribed --Hold taking Flomax, Lasix until further instructions from your primary care physician --Your losartan dose is decreased to 50 mg daily as recommended by your cinnamon grinder Seek immediate medical attention if your symptoms reoccur or worsen Please take all medications as instructed on discharge list below. Please call if you have any questions or problems. You can reach a [facility] hospitalist on duty at [facility] 24 hours a day by calling [phone] Pending Studies at Discharge: No Stand-Alone Forms: My [facility] [employer], Smoking Cessation Medications and DC Order Prescriptions: New chlorhexidine gluconate [Paroex Oral Rinse] 0.12 % mouthwash 15 ml buccal BID Qty: 1500 0RF losartan 50 mg Tablet 50 mg PO DAILY Qty: 30 1RF docusate sodium 100 mg Capsule 100 mg PO BID PRN (Reason: constipation) Qty: 30 0RF amoxicillin-pot clavulanate 875-125 mg Tablet 1 tab PO BIDM Qty: 15 0RF polyethylene glycol 3350 [Miralax] 17 gram Powder In Packet 17 g PO DAILY PRN (Reason: constipation) Qty: 14 0RF Continued metformin 500 mg Tablet 500 mg PO UD Rx Instructions: 500mg in a.m. and 1,000mg in PM acetaminophen [Tylenol] 325 mg Tablet 650 mg PO DIRECTED PRN (Reason: PAIN/FEVER) Rx Instructions: otc unable to verify cyanocobalamin (vitamin B-12) [Vitamin B-12] 1,000 mcg Tablet 1,000 mcg PO DAILY Rx Instructions: otc unable to verify aspirin 81 mg Tablet,Delayed Release (Dr/Ec) 81 mg PO DAILY Rx Instructions: otc unable to verify lidocaine 5 % Adhesive Patch,Medicated 2 patch TOPICAL DAILY PRN (Reason: LOWER BACK PAIN) Rx Instructions: otc unable to verify leave on most painful area for up to 12 hrs lutein 20 mg Tablet 20 mg PO DAILY Rx Instructions: otc unable to verify give with meal/snack [id number] acid-lutein [Adult Multivitamin (w-lutein)] 200-137.5 mcg Tablet,Chewable 1 tab PO DAILY Rx Instructions: otc unable to verify rosuvastatin 10 mg Tablet 10 mg PO QAM Qty: 30 0RF Xarelto 20 mg tablet 20 mg PO HS Qty: 30 0RF Rx Instructions: must administer with evening meal meclizine 12.5 mg tablet 12.5 mg PO TID PRN (Reason: Dizziness) amiodarone 200 mg tablet 100 mg PO DAILY Rx Instructions: half tablet by po am per pharmacy Held tamsulosin [Flomax] 0.4 mg Capsule 0.4 mg PO BID Hold Instructions: Until further instructions from your primary care physician furosemide [Lasix] 20 mg tablet 20 mg PO QAM Hold Instructions: Until further instructions from your primary care physician Discontinued losartan 100 mg tablet 100 mg PO DAILY Qty: 30 0RF Discharge Orders: Discharge Order (Routine); Ordered 04/04/24 Ordered By: Krzysztof De León Admission Data Admit Date/Time: 04/01/24 16:40 Attending Provider: Krzysztof De León Admit Provider: Julia Hodgson Primary Care Provider: Andree Pearson Other Providers: Zachary Rousseau; Julia Hodgson; Octavio Keane; Jolie Quach; Daniel Huitron; Davion Rubi; Champ Marie; Jimy Rizo; Cole Rebolledo; Myah Raza; Majo Thrasher; Emily Turner; Jolie Branham; Seng Rodriguez; Ricky Christy; Jeri Chu; Fabiola Davis; Radha Oneal; Crystal Lara; Lorenzo Dooley; Nemo Anderson; [facility]
[2024-04-04] MEDS ORDERED: AMOXICILLIN/CLAVULANATE 875 MG TAB PO SCH (17:00)
--- NOTE | 2024-04-05 20:16 | Procedure Note ---
Procedure Note Date of Service April 01, 2024 Note Repair of 3 cm lip laceration in the ER April 01, 2024 CPT 36592 Repair of 3 cm 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 upper lip mucosa ICD10 S01.511A 3 cm 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 upper lip mucosa HISTORY OF PRESENT ILLNESS: Patient is an 84-year-old male presenting with facial injury after fall. Patient reports he was walking up a curve when he tripped and fell, landing and striking his right knee and striking his face against the concrete. Denies loss of consciousness. Patient is on Xarelto for history of A-fib. Denies any headache or changes in vision. Denies any lightheadedness, dizziness or chest pain prior to his fall. He does have a history of vertigo and is on meclizine, but reports he did not have any dizziness prior to his fall. He reports he just lost his footing. Tetanus is up-to-date, noted in the [facility] charting system in April 2023. Patient denies any numbness or tingling or weakness in extremities. Currently complaining of facial pain. He broke his glasses when he fell. Abrasion to the left maxillary region and left upper lip. Patient has diffuse swelling to the nose and an abrasion to the bridge of the nose. Patient has 2 parallel lacerations, one measuring about 4 cm on the left side of his glabella and 1 about 3 cm on the right side of his glabella from his glasses. There were repaired by the ER PA--An excellent result was achieved. I was asked to evaluate a deep intraoral lip laceration of the upper lip that resulted from the upper teeth cutting into the lip mucosa. Findings A 3 cm 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 irregular laceration of the mucosa of the upper lip horizontal and vertical through the frenum of the upper lip, deep to the muscle. Procedure in ER April 01, 2024 CPT 95725 Repair of 3 cm 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 upper lip mucosa ICD10 S01.511A 3 cm 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 upper lip mucosa Once cleared for surgery local was achieved with Lidocaine 2% with vaso A time out was take for patient ID, equipment and position verification once all agreed the procedure began. Local anesthesia was given into the area with a vasoconstrictor ( appox 5 ml ). Once a surgical level of anesthesia was obtained and the local anesthesia was given time for the blocks the surgery was started. I turned my attention to the 3 cm laceration of the upper lip mucosa Upper lip mucosal laceration repair: The repair of a 3 cm 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 irregular deep laceration involving the mucosa of the upper lip and frenum area deep to muscle I reprepped the laceration and irrigated with an NS then turned my attention to the laceration. The laceration was approximately 3 cm long. It was very irregular and deep, the muscle was exposed, bleeding was controlled. The wound was irrigated and scrubbed. I then inspected the teeth and alveolar ridge and could find no displacement and excellent plate stability. The closure of the laceration was now started using 2-0 chromic and 3-0 chromic suture to line up the deep muscles and vertical leg of the laceration (frenum area). I now used a hammock suture with 2-0 chromic to close the confluence of the horizontal and vertical aspects of the laceration. Once this suture was placed the horizontal aspect was closed with the 3-0 chromic. A very nice cosmetic closure of this irregular laceration was achieved. As this patine was on Xarelto I placed a pressure dressing over the upper lip a nd requested he stop the Xarelto for at least 48 hours. This was an 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 closure of a 3 cm laceration Once the case was completed I inspected the sites to insure all bleeding was controlled. The patient was allowed recover from the procedure. The patient tolerated the surgery very well. I will follow the patient in my office, Rx and instructions will be given upon discharge. Update Patient was initially seen by Dr. Giron after the patient had a trip and fall while on Xarelto. CT head and C-spine negative. CT facial bones shows nasal bone fracture. Wounds were closed by Dr. Rousseau agreed to be on consult as well as care by an MOTOR VEHICLE LICENSE CLERK. Patient was to be discharged within the patient had a syncopal episode while trying to get up into the wheelchair for discharge. is now saying that she cannot take care of the patient at home patient is requesting stay in the hospital. EKG within normal limits and Accu-Chek is within normal limits. [facility] Coding
--- NOTE | 2024-04-05 20:43 | Oral/Maxillofacial Consult ---
Date of Consultation April 03, 2024 History of Present Illness Attending Physician: Krzysztof De León MD History of Present Illness Update Patient was initially seen by Dr. Giron after the patient had a trip and fall while on Xarelto. CT head and C-spine negative. CT facial bones shows nasal bone fracture. Wounds were closed by Dr. 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 Patient was to be discharged within the patient had a syncopal episode while trying to get up into the wheelchair for discharge. is now saying that she cannot take care of the patient at home patient is requesting stay in the hospital. EKG within normal limits and Accu-Chek is within normal limits. Patient be admitted to the [facility] team. I saw Peter in his hospital room--he is doing well from my point of view and be restarted on his Xarelto. Need to monitor his swelling of the knees secondary to the recent fall. Post OP note for facial lacerations at 48 hours April 03, 2024 The repaired facial and lip lacerations look great. The tissue is soft and the scar has excellent color match. The wound edges are very flat without hypertrophy. No swelling or bleeding noted. OK to restart the Xarelto. Over all the result is excellent and the patient is very please. I reviewed with Peter that oral care is very important and discussed wound care. I asked Peter to call my office so I can remove the sutures by April 08 or Overall he is doing very well from the repair of his facial and oral lacerations . Allergies Allergy/AdvReac Type Severity Reaction Status Date / Time No Known Allergies Allergy Verified 06/27/23 21:00 Home Medications Medication Instructions Recorded Confirmed Type acetaminophen 325 mg tablet 650 mg PO DIRECTED PRN 06/27/23 04/01/24 History (Tylenol) PAIN/FEVER aspirin 81 mg tablet,delayed 81 mg PO DAILY 06/27/23 04/01/24 History release cyanocobalamin (vitamin B-12) 1,000 mcg PO DAILY 06/27/23 04/01/24 History 1,000 mcg tablet (Vitamin B-12) lidocaine 5 % topical patch 2 patch topical DAILY PRN LOWER 06/27/23 04/01/24 History BACK PAIN lutein 20 mg tablet 20 mg PO DAILY 06/27/23 04/01/24 History metformin 500 mg tablet 500 mg PO UD 06/27/23 04/01/24 History multivit with min-folic 1 tab PO DAILY 06/27/23 04/01/24 History acid-lutein 200 mcg-137.5 mcg chewable tablet (Adult Multivitamin (w-lutein)) tamsulosin 0.4 mg capsule (Flomax) 0.4 mg PO BID 06/27/23 04/01/24 History rivaroxaban 20 mg tablet (Xarelto) 20 mg PO HS #30 tabs 06/29/23 04/01/24 Rx rosuvastatin 10 mg tablet 10 mg PO QAM #30 tabs 06/29/23 04/01/24 Rx amiodarone 200 mg tablet 100 mg PO DAILY 04/01/24 04/01/24 History chlorhexidine gluconate 0.12 % 15 ml buccal BID #1,500 mL 04/01/24 Rx mouthwash (Paroex Oral Rinse) furosemide 20 mg tablet (Lasix) 20 mg PO QAM 04/01/24 04/01/24 History meclizine 12.5 mg tablet 12.5 mg PO TID PRN Dizziness 04/01/24 04/01/24 History amoxicillin 875 mg-potassium 1 tab PO BIDM #15 tabs 04/04/24 Rx clavulanate 125 mg tablet docusate sodium 100 mg capsule 100 mg PO BID PRN constipation #30 04/04/24 Rx caps losartan 50 mg tablet 50 mg PO DAILY #30 tabs 04/04/24 Rx polyethylene glycol 3350 17 gram 17 g PO DAILY PRN constipation #14 04/04/24 Rx oral powder packet (Miralax) ea Patient History Medical History (Updated 04/03/24 @ 12:23 by Myah Raza PA-C) 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 PAF (paroxysmal atrial fibrillation) Hypertension goal BP (blood pressure) < 130/80 Dyslipidemia, goal LDL below 70 DMII (diabetes mellitus, type 2) 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 Acute duodenitis Diabetes Hypertension High cholesterol Social History Smoking Status: Never smoker Hx Alcohol Use: No Hx Substance Use: No Preferred Language: Divehi Communication Ability: Effective 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
== END 2024-04-04 16:10 | disposition home health service (06) | DRG 989 ==
LOC: ED 09:12 → EDINP 16:40 → SUATTDRO 16:40 → 2W 19:43

== ENCOUNTER 2024-04-21 10:07 | Inpatient (IN) ==
--- NOTE | 2024-04-21 10:58 | History & Physical Report ---
Date of Service April 21, 2024 Assessment & Plan (1) Infection of left knee: (2) Traumatic hematoma of left knee: (3) PAF (paroxysmal atrial fibrillation): (4) Hypertension goal BP (blood pressure) < 130/80: (5) DMII (diabetes mellitus, type 2): Plan 84 year old male with recent fall and traumatic hematoma of left knee sent from wound care center for left knee infection for further management Left knee infection, traumatic hematoma left knee r/o septic arthritis- had fall 2 weeks back on ABx since and was following wound care center. Aspirated 3 days back which is showing proteus and enterobacter; and sent to ED for further management. Will start on iv cefepime per clx results. Will get CT chest and consult orthopedics. Will likely need I and D. Hold xarelto and aspirin. Follow up on ortho plan PAF- currently NSR. On zio patch till 04/24 due to recent syncope. Continue amio. Not on BB due to h/o bradycardia. Hold xarelto. Monitor on tele HTN- recent orthostatic hypotension with syncope and medications were adjusted (Lasix and flomax were discontinued and losartan reduced) with no recurrence of orthostasis. Continue losartan 50 mg daily. DM-2- Recent HA1c 6.3. Hold home metformin. Continue SSI. Diabetic diet. DVT ppx- Hold xarelto until ortho procedures completed. sc lovenox Dispo- Med surg on tele Full code Time spent- 75 mins History of Present Illness Chief Complaint: +synovial fluid culture, knee swelling Primary Care Provider: Andree Pearson MD This is an 84 yr old mail with DM2, HTN, CAD with history of LAD stent, atrial fibrillation on chronic AC with Xarelto, HLD, and BPH who presents to ED from wound clinic who referred him due to concern for septic joint. Pt was admitted to [facility] 04/01/24-04/04/24 after a fall at home then a syncopal episode in the ED. Found to have orthostatic hypotension so furosemide and tamsulosin were held, losartan reduced to 50 mg daily. Pt followed up with cardiology as outpatient and currently has a Zio patch in place until 04/24. He was also noted to have a left knee hematoma so his Xarelto was initially held and orthopedics evaluated, recommended conservative management. Pt reports following up with Dr. Malik last week and have fluid drained from the knee but is unaware of the results of the culture. Xarelto was resumed at discharge, and patient reports taking this as prescribed. Since being discharged, he has overall felt he has been doing well. There was some confusion initially with the Augmentin dose being 875-125 or 500-125 mg but pt reports that this was most recently clarified as the 875 mg strength, which he is now taking. He also thinks he has a couple pills of the Bactrim left but he is not sure. He denies fevers, chills, or significant pain in the left knee. He has been ambulating with a walker without difficulty. He saw wound care last week and then again today. He reports not changing the dressing consistently at home as he and his are "squeamish." He reports home health is being arranged to be there on and Sun. Pt seeing wound care on Mondays. He denies chest pain, SOB, N/V/D. No further dizziness, syncopal episodes, or recurrent falls since being discharged. He presented to wound care today for follow-up where he noted that he had some bleeding from the left knee wound overnight. Upon evaluation the left knee was not bleeding but there was drainage of a large amount of serosanguineous fluid noted and the knee was more swollen, left thigh would was larger so pt was referred to the ED for evaluation and possible I&D with washout. Synovial fluid from 04/16/24 - Proteus mirabilis Left knee wound culture 04/14/24 - Proteus mirabilis, Enterobacter cloacae Allergies Allergy/AdvReac Type Severity Reaction Status Date / Time No Known Allergies Allergy Verified 04/21/24 09:02 Home Medications Medication Instructions Recorded Confirmed Type aspirin 81 mg tablet,delayed 81 mg PO DAILY 06/27/23 04/21/24 History release cyanocobalamin (vitamin B-12) 1,000 mcg PO DAILY 06/27/23 04/21/24 History 1,000 mcg tablet (Vitamin B-12) lutein 20 mg tablet 20 mg PO DAILY 06/27/23 04/21/24 History multivit with min-folic 1 tab PO DAILY 06/27/23 04/21/24 History acid-lutein 200 mcg-137.5 mcg chewable tablet (Adult Multivitamin (w-lutein)) rivaroxaban 20 mg tablet (Xarelto) 20 mg PO HS #30 tabs 06/29/23 04/21/24 Rx rosuvastatin 10 mg tablet 10 mg PO QAM #30 tabs 06/29/23 04/21/24 Rx amiodarone 200 mg tablet 100 mg PO DAILY 04/01/24 04/21/24 History meclizine 12.5 mg tablet 12.5 mg PO TID PRN Dizziness 04/01/24 04/21/24 History losartan 50 mg tablet 50 mg PO DAILY #30 tabs 04/04/24 04/21/24 Rx collagenase clostridium histo. 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 Syncope Hematoma of left knee region Pain and swelling of left knee (Acute) Acute pain of left knee (Acute) Fracture of nasal bone (Acute) Face lacerations (Acute) Abrasion of face (Acute) Fall from standing (Acute) Encounter for pre-operative examination No pertinent past surgical history Atrial fibrillation with rapid ventricular response (Acute) ASCVD (arteriosclerotic cardiovascular disease) Edema, peripheral (Acute) Medical History CAD (coronary artery disease) [facility] current use of antiarrhythmic drug PAF (paroxysmal atrial fibrillation) Hypertension goal BP (blood pressure) < 130/80 Dyslipidemia, goal LDL below 70 DMII (diabetes mellitus, type 2) 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 Acute duodenitis Diabetes Hypertension High cholesterol Social History Smoking Status: Never smoker Hx Alcohol Use: No Hx Substance Use: No Preferred Language: Citizen Of [place] Communication Ability: Effective 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 Beliefs That Will Affect Care: None Current Living Situation: Spouse Feels Safe at Home: Yes Assistive Devices: Cane and Walker Review of Systems Review of Systems: All systems reviewed & are unremarkable except as noted in Subjective Physical Exam Physical Exam: General: Lying comfortably in bed, not in distress, on room air HEENT: EOMI, LULÚ, MMM Chest: Clear breath sounds bilaterally, no wheezes or crackles CVS: Regular rate and rhythm, normal heart sounds, no murmur Abdomen: Soft, non tender, not distended, normal bowel sounds Neuro: Awake, alert, oriented, conversing well, non focal MSK: Left knee wound with bloody discharge oozing, fluctuation noted with erythema, no tenderness Skin: Left medial thigh raw wound with granulation tissue- no purulent discharge Trace edema LLE and on compression stocking Results & Data Results & Data Vital Signs (Past 12 Hours) Vital Signs Temp Pulse Resp BP Pulse Ox O2 Del Method 04/21/24 10:10 36 C L 86 18 152/74 H 98 Room Air Laboratory Results Lab Results 04/21/24 Range/Units 11:10 WBC 10.90 H (4.8-10.8) K/ul RBC 4.60 L (4.70-6.10) M/uL Hgb 12.9 L (14.0-18.0) g/dl Hct 40.5 L (42.0-52.0) % MCV 88.0 (80.0-100.0) fL MCH 28.0 (25.0-34.0) pg MCHC 31.9 L (32.0-36.0) g/dL RDW Std Deviation 52.8 H (36.4-46.3) fL RDW Coeff of Ezekiel 16.5 H (11.5-14.5) % Plt Count 411 H (130-400) K/uL MPV 9.2 L (9.4-12.4) fL Immature Gran % (Auto) 2.8 % Neut % (Auto) 71.7 % Lymph % (Auto) 13.3 % [place] % (Auto) 10.0 % Eos % (Auto) 1.3 % Baso % (Auto) 0.9 % Neut # (Auto) 7.81 H (1.40-6.50) K/uL Lymph # (Auto) 1.45 (1.20-3.40) K/uL [place] # (Auto) 1.09 H (0.11-0.59) K/uL Eos # (Auto) 0.14 (0.00-0.50) K/uL Baso # (Auto) 0.10 (0.00-0.20) K/uL Immature Gran # (Auto) 0.31 H (0.01-0.20) K/uL PT 12.4 H (9.0-12.0) Seconds INR 1.2 H (0.9-1.1) APTT 29 (21-31) Seconds PTT Ratio 1.1 Medications Administered Discontinued Medications Ceftriaxone Sodium (Rocephin) 2,000 mg in 50 mls @ 100 mls/hr IV NOW STA Stop: 04/21/24 11:01 Last Admin: 04/21/24 11:52 Dose: 100 mls/hr Documented By: ALS Supervising Physician Co-Signing Physician Notes Patient was seen and examined with Stephany WHEATLEY at bedside. Chart reviewed. Case discussed with Stephany WHEATLEY and agree with the documentation above and I have made necessary changes wherever necessary. (2) Traumatic hematoma of left knee Encounter type: subsequent encounter Qualified Code(s): S80.02XD - Contusion of left knee, subsequent encounter
[2024-04-21] MEDS: cefTRIAXone SODIUM 2,000 MG/50 ML BAG IV STA (11:52)
[2024-04-21 11:59] LABS: INR 1.2 (0.9-1.1); Partial Thromboplastin Ratio 1.1; Partial Thromboplastin Time 29 Seconds (21-31); Prothrombin Time 12.4 Seconds (9.0-12.0)
[2024-04-21 12:01] LABS: Basophils % (auto) 0.9 %; Eosinophils # (auto) 0.14 K/uL (0.00-0.50); Eosinophils % (auto) 1.3 %; Hematocrit (blood only) 40.5 % (42.0-52.0); Hemoglobin 12.9 g/dl (14.0-18.0); Immature Granulocytes # (auto) 0.31 K/uL (0.01-0.20); Immature Granulocytes % (auto) 2.8 %; Lymphocytes # (auto) 1.45 K/uL (1.20-3.40); Lymphocytes % (auto) 13.3 %; Mean Corpuscular Hgb Conc 31.9 g/dL (32.0-36.0); Mean Platelet Volume 9.2 fL (9.4-12.4); Monocytes # (auto) 1.09 K/uL (0.11-0.59); Neutrophils # (auto) 7.81 K/uL (1.40-6.50); Neutrophils % (auto) 71.7 %; Platelet Count 411 K/uL (130-400); RDW Coefficient of Variation 16.5 % (11.5-14.5); RDW Standard Deviation 52.8 fL (36.4-46.3)
--- NOTE | 2024-04-21 12:44 | Emergency Department Note ---
History of Present Illness General Chief complaint: Referred by Doctor Stated complaint: REF BY WOUND DOC Time Seen by Provider: 04/21/24 10:17 History of Present Illness Provider complaint: Left knee pain 84-year-old male presents emergency department for left knee pain and wound. Patient states he was referred here by wound care. Patient is on Xarelto. Patient reports no fevers. He reports increased swelling and pain in his left knee. Home Medications Medication Instructions Recorded Confirmed Type aspirin 81 mg tablet,delayed 81 mg PO DAILY 06/27/23 04/21/24 History release cyanocobalamin (vitamin B-12) 1,000 mcg PO DAILY 06/27/23 04/21/24 History 1,000 mcg tablet (Vitamin B-12) lutein 20 mg tablet 20 mg PO DAILY 06/27/23 04/21/24 History multivit with min-folic 1 tab PO DAILY 06/27/23 04/21/24 History acid-lutein 200 mcg-137.5 mcg chewable tablet (Adult Multivitamin (w-lutein)) rivaroxaban 20 mg tablet (Xarelto) 20 mg PO HS #30 tabs 06/29/23 04/21/24 Rx rosuvastatin 10 mg tablet 10 mg PO QAM #30 tabs 06/29/23 04/21/24 Rx amiodarone 200 mg tablet 100 mg PO DAILY 04/01/24 04/21/24 History meclizine 12.5 mg tablet 12.5 mg PO TID PRN Dizziness 04/01/24 04/21/24 History losartan 50 mg tablet 50 mg PO DAILY #30 tabs 04/04/24 04/21/24 Rx collagenase clostridium histo. 250 1 applic topical DAILY necrotic 04/14/24 04/21/24 Rx unit/gram topical ointment (Santyl) wound left thigh and knee #30 grams metformin 500 mg tablet See Rx Instructions .Route .COMPLEX 04/14/24 04/21/24 History sulfamethoxazole 800 1 tab PO BID 10 days #20 tabs 04/17/24 04/21/24 Rx mg-trimethoprim 160 mg tablet (Bactrim DS) amoxicillin 875 mg-potassium 1 tab PO BID 04/21/24 04/21/24 History clavulanate 125 mg tablet Allergies Allergy/AdvReac Type Severity Reaction Status Date / Time No Known Allergies Allergy Verified 04/21/24 09:02 Past Med/Surg History Problem List (Updated 04/21/24 @ 12:44 by Armando Geiger MD) Septic arthritis (Acute) Infection of left knee Traumatic hematoma of left knee (Acute) Traumatic wound (Acute) Suture check Infection of left elbow Orthostatic hypotension 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 current use 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 Syncope Hematoma of left knee region Pain and swelling of left knee (Acute) Acute pain of left knee (Acute) Fracture of nasal bone (Acute) Face lacerations (Acute) Abrasion of face (Acute) Fall from standing (Acute) Encounter for pre-operative examination No pertinent past surgical history Atrial fibrillation with rapid ventricular response (Acute) ASCVD (arteriosclerotic cardiovascular disease) Edema, peripheral (Acute) Medical History CAD (coronary artery disease) 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 PAF (paroxysmal atrial fibrillation) Hypertension goal BP (blood pressure) < 130/80 Dyslipidemia, goal LDL below 70 DMII (diabetes mellitus, type 2) 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 Acute duodenitis Diabetes Hypertension High cholesterol Social History Smoking Status: Never smoker Hx Alcohol Use: No Hx Substance Use: No Preferred Language: Serbian Communication Ability: Effective 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 Beliefs That Will Affect Care: None Current Living Situation: Spouse Feels Safe at Home: Yes Assistive Devices: Glasses and Walker Physical Exam Vital Signs Vital Signs - 24 hr 04/21/24 10:10 04/21/24 11:22 04/21/24 12:10 Temperature 36 C L Temperature Source Temporal Artery Scan Pulse Rate 86 62 Pulse Rate [Apical] 66 Pulse Rhythm Regular Pulse Rhythm [Apical] Pulse Strength [Apical] Respiratory Rate 18 18 Respiratory Effort / Characteristics Non-Labored Respiratory Depth Normal Respiratory Pattern Regular Blood Pressure 152/74 H Blood Pressure [Left Arm] 133/69 Blood Pressure Mean 100 Blood Pressure Mean [Left Arm] 90 Blood Pressure Position [Left Arm] Pulse Oximetry 98 98 95 Oxygen Delivery Method Room Air Room Air Sepsis Recent Fever Within 48 Hours No Sepsis New/Unexplained Change in Mental Status N/A Sepsis Action Taken by Nursing No Action Required 04/21/24 12:20 04/21/24 13:39 Temperature Temperature Source Pulse Rate 61 Pulse Rate [Apical] 54 L Pulse Rhythm Pulse Rhythm [Apical] Regular Pulse Strength [Apical] Normal Respiratory Rate 18 Respiratory Effort / Characteristics Non-Labored Spontaneous Respiratory Depth Normal Respiratory Pattern Regular Blood Pressure Blood Pressure [Left Arm] 149/72 H Blood Pressure Mean Blood Pressure Mean [Left Arm] 97 Blood Pressure Position [Left Arm] Sitting Pulse Oximetry 95 Oxygen Delivery Method Room Air Sepsis Recent Fever Within 48 Hours Sepsis New/Unexplained Change in Mental Status Sepsis Action Taken by Nursing Physical Exam CV: Normal rate, regular rhythm, normal heart sounds and intact distal pulses. There is no peripheral edema. Palpable radial pulses bue. PULM/CHEST: Effort normal and breath sounds normal. No respiratory distress. No stridor. He has no wheezes. He has no rales. MUSC/SKEL: Left lower extremity: Large knee effusion with open wound and some drainage. Ecchymosis around the knee. Course Course 1017: The patient was evaluated in room A11. A complete history and physical exam was performed 1050: Vital signs stable. External medical records reviewed and the patient has synovial fluid culture from April 16, 2024 that grew out Proteus mirabilis that was pansensitive. Patient and family report that the patient's synovial fluid was drained by Dr. Malik in the office on that day.Patient was seen by wound care today and referred here given the patient's increasing knee swelling, pain, and positive synovial fluid culture. Patient be treated with Rocephin 2 g IV and be admitted to the medicine team with orthopedics on consult. [facility] is paging orthopedics. 1251: Vital signs stable. Spoke with Dr. Escalera on-call orthopedics who states to put the consult into Dr. Malik and he will make his team aware of the patient. Administered Medications Discontinued Medications Ceftriaxone Sodium (Rocephin) 2,000 mg in 50 mls @ 100 mls/hr IV NOW STA Stop: 04/21/24 11:01 Last Infusion: 04/21/24 12:26 Dose: Infused Documented By: Admin: 04/21/24 11:52 Dose: 100 mls/hr Documented By: PRESTON Medical Decision Making Laboratory Data Attestation: I reviewed the patient's lab results. 04/21/24 11:10 04/21/24 11:10 Lab Results 04/21/24 Range/Units 11:10 WBC 10.90 H (4.8-10.8) K/ul RBC 4.60 L (4.70-6.10) M/uL Hgb 12.9 L (14.0-18.0) g/dl Hct 40.5 L (42.0-52.0) % MCV 88.0 (80.0-100.0) fL MCH 28.0 (25.0-34.0) pg MCHC 31.9 L (32.0-36.0) g/dL RDW Std Deviation 52.8 H (36.4-46.3) fL RDW Coeff of Ezekiel 16.5 H (11.5-14.5) % Plt Count 411 H (130-400) K/uL MPV 9.2 L (9.4-12.4) fL Immature Gran % (Auto) 2.8 % Neut % (Auto) 71.7 % Lymph % (Auto) 13.3 % [place] % (Auto) 10.0 % Eos % (Auto) 1.3 % Baso % (Auto) 0.9 % Neut # (Auto) 7.81 H (1.40-6.50) K/uL Lymph # (Auto) 1.45 (1.20-3.40) K/uL [place] # (Auto) 1.09 H (0.11-0.59) K/uL Eos # (Auto) 0.14 (0.00-0.50) K/uL Baso # (Auto) 0.10 (0.00-0.20) K/uL Immature Gran # (Auto) 0.31 H (0.01-0.20) K/uL PT 12.4 H (9.0-12.0) Seconds INR 1.2 H (0.9-1.1) APTT 29 (21-31) Seconds PTT Ratio 1.1 Sodium 136 (136-145) mmol/L Potassium 4.8 (3.5-5.1) mmol/L Chloride 103 (98-107) mmol/L Carbon Dioxide 27 (21-32) mmol/L Anion Gap 6 (3-11) BUN 19 (6-23) mg/dl Creatinine 0.92 (0.6-1.4) mg/dl Est Cr Clr Drug Dosing 75.4 ml/min Est GFR ( Amer) 87.0 ml/min Est GFR (Non-Af Amer) 75.0 ml/min BUN/Creatinine Ratio 20.7 H (10-20) Glucose 124 H (70-99(Fasting)) mg/dl Calcium 8.9 (8.6-10.3) mg/dl [facility] Narrative 1017: The patient was evaluated in room A11. A complete history and physical exam was performed 1050: Vital signs stable. External medical records reviewed and the patient has synovial fluid culture from April 16, 2024 that grew out Proteus mirabilis that was pansensitive. Patient and family report that the patient's synovial fluid was drained by Dr. Malik in the office on that day.Patient was seen by wound care today and referred here given the patient's increasing knee swelling, pain, and positive synovial fluid culture. Patient be treated with Rocephin 2 g IV and be admitted to the medicine team with orthopedics on consult. [facility] is paging orthopedics. 1251: Vital signs stable. Spoke with Dr. Escalera on-call orthopedics who states to put the consult into Dr. Malik and he will make his team aware of the patient. Impression & Plan Septic arthritis Discharge Plan Visit Data Chief Complaint: Referred by Doctor Stated Complaint: REF BY WOUND DOC ED Provider: Armando Geiger Discharge Problem: Septic arthritis Patient Disposition: Being Evaluated by Hospitalist Discharge Instructions Interventions: ED Discharge Assessment Last Done: 04/21/24 13:40 Discharge Problem: Septic arthritis Qualifiers: Septic arthritis location: knee Septic arthritis organism: due to other bacteria Laterality: left Qualified Code(s): M00.862 - Arthritis due to other bacteria, left knee
[2024-04-21 12:46] LABS: BUN Creatinine Ratio 20.7 (10-20); Calcium 8.9 mg/dl (8.6-10.3); Creatinine Clr Calc Pharmacy 75.4 ml/min; Potassium 4.8 mmol/L (3.5-5.1)
[2024-04-21] MEDS ORDERED: DEXTROSE 50% 50 ML SYRINGE IV PRN (14:45)
[2024-04-21] MEDS ORDERED: CARBOHYDRATES FOR HYPOGLYCEMIA PO PRN (14:45)
[2024-04-21] MEDS ORDERED: GLUCOSE 10 TAB/TUBE PO PRN (14:45)
[2024-04-21] MEDS ORDERED: GLUCOSE 40% GEL 15 GM TUBE PO PRN (14:45)
[2024-04-21] MEDS ORDERED: GLUCAGON FOR INJ 1 MG VIAL SQ PRN (14:45)
[2024-04-21] MEDS ORDERED: ACETAMINOPHEN 325 MG TAB PO PRN (14:45)
--- NOTE | 2024-04-21 15:10 | Orthopedic Consultation ---
Date of Consultation April 21, 2024 Assessment & Plan (1) Open wound of left knee: patient admitted for increased drainage from his left knee wound. Currently on cefepime. His Xarelto has been held. Blood cultures have been drawn. Patient does not examine like a septic joint. This could be residual hematoma that was not fully evacuated from the knee last week in the office. Patient is currently pain-free with range of motion and weightbearing. Continue of antibiotics at this point in time. Dr. Malik to assess. I discussed the possibility with the patient of the possible need for open irrigation and debridement. There is 1 culture that is labeled synovial fluid. If this is indeed from a knee aspiration and not the hematoma, the possibility of the need for arthroscopic irrigation would be possible. Patient understands. Will continue his n.p.o. status for now. Addendum: I spoke to Dr. Malik about the aspirates done in the office. He emphatically stated that neither of the samples were from the knee joint. One culture was labelled "synovial fluid" which was apparently mislabelled. Both samples were from the superifical knee hematoma. No surgical plans at this time per Dr. Malik. He will see the patient tomorrow to finalize treatment. Would continue wound care for now. History of Present Illness Reason for Consultation: Left knee wound Attending Physician: Leif Herrera MD History of Present Illness patient is a 84 yr old male with DM2, HTN, CAD with history of LAD stent, atrial fibrillation on chronic AC with Xarelto, HLD, and BPH. patient had a syncopal episode earlier in the month and has been admitted to the hospital. He was evaluated by Dr. Keane for hematoma of his left knee. At that time conservative treatment was decided upon and he was discharged home. with his fall he had developed some wounds over his knee and over the medial aspect of the knee. He had been seeing wound care and ended up getting to see Dr. Malik in the office last week. At that time his hematoma was drained and was approximate 125 cc. This was sent for culture. 2 cultures were sent and 1 was listed left knee the other listed synovial fluid. Proteus species and Enterobacter species noted in the left knee hematoma. Proteus only listed in the synovial fluid. Patient was progressing well. he had been on Augmentin orally at home. Patient states that he had looked down in the bed last night and noticed that there was some bloody drainage on the sheets. This was coming from his left knee. At that point in time they reinforce the dressing and decided to come in for his wound care appointment today. With the drainage she was having, it was felt that he should be brought to the hospital and he was thusly admitted. Patient denies any pain in the left knee. He denies any fevers or chills at home. Denies nausea or vomiting. Allergies Allergy/AdvReac Type Severity Reaction Status Date / Time No Known Allergies Allergy Verified 04/21/24 09:02 Home Medications Medication Instructions Recorded Confirmed Type aspirin 81 mg tablet,delayed 81 mg PO DAILY 06/27/23 04/21/24 History release cyanocobalamin (vitamin B-12) 1,000 mcg PO DAILY 06/27/23 04/21/24 History 1,000 mcg tablet (Vitamin B-12) lutein 20 mg tablet 20 mg PO DAILY 06/27/23 04/21/24 History multivit with min-folic 1 tab PO DAILY 06/27/23 04/21/24 History acid-lutein 200 mcg-137.5 mcg chewable tablet (Adult Multivitamin (w-lutein)) rivaroxaban 20 mg tablet (Xarelto) 20 mg PO HS #30 tabs 06/29/23 04/21/24 Rx rosuvastatin 10 mg tablet 10 mg PO QAM #30 tabs 06/29/23 04/21/24 Rx amiodarone 200 mg tablet 100 mg PO DAILY 04/01/24 04/21/24 History meclizine 12.5 mg tablet 12.5 mg PO TID PRN Dizziness 04/01/24 04/21/24 History losartan 50 mg tablet 50 mg PO DAILY #30 tabs 04/04/24 04/21/24 Rx collagenase clostridium histo. 250 1 applic topical DAILY necrotic 04/14/24 04/21/24 Rx unit/gram topical ointment (Santyl) wound left thigh and knee #30 grams metformin 500 mg tablet See Rx Instructions .Route .COMPLEX 04/14/24 04/21/24 History sulfamethoxazole 800 1 tab PO BID 10 days #20 tabs 04/17/24 04/21/24 Rx mg-trimethoprim 160 mg tablet (Bactrim DS) amoxicillin 875 mg-potassium 1 tab PO BID 04/21/24 04/21/24 History clavulanate 125 mg tablet Patient History Medical History CAD (coronary artery disease) nursing home current use of antiarrhythmic drug PAF (paroxysmal atrial fibrillation) Hypertension goal BP (blood pressure) < 130/80 Dyslipidemia, goal LDL below 70 DMII (diabetes mellitus, type 2) 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 Acute duodenitis Diabetes Hypertension High cholesterol Social History Smoking Status: Never smoker Hx Alcohol Use: No Hx Substance Use: No Preferred Language: Japanese Communication Ability: Effective Speed Belt Sander Required: No Beliefs That Will Affect Care: None Current Living Situation: Spouse Feels Safe at Home: Yes Assistive Devices: Glasses and Walker Physical Exam Physical Exam: On examination of the left knee, Optifoam dressings are noted. The first 1 is over the anterior portion of the knee and the patella and this is removed. This reveals a large area that had skin tears over the knee from his fall. There is some soft eschar noted over the proximal portion. He has a small area that is oozing some small bloody drainage. He does have some dusky erythema around the entire knee at this time. He has a second wound over the medial aspect of the knee/thigh that has a yellow base and is larger than the anterior wound. There is no bleeding from this wound. There is no foul odor. There is no gross purulence noted at this time. I am able to take him through gentle range of motion of the knee without pain. This does not increase his drainage. Patient is able to do straight leg raise without difficulty. Patient states that weightbearing is nontender. Calves are soft nontender. Neurovascular appears intact. Results & Data Vital Signs (Past 12 Hours) Vital Signs Temp Pulse Pulse Pulse Resp BP BP 04/21/24 15:08 57 L 04/21/24 14:34 36.6 C 56 L 18 132/81 04/21/24 13:39 54 L 18 149/72 H 04/21/24 12:20 61 04/21/24 12:10 66 18 133/69 04/21/24 11:22 62 04/21/24 10:10 36 C L 86 18 152/74 H Pulse Ox O2 Del Method 04/21/24 15:08 04/21/24 14:34 98 Room Air 04/21/24 13:39 95 Room Air 04/21/24 12:20 04/21/24 12:10 95 04/21/24 11:22 98 Room Air 04/21/24 10:10 98 Room Air Laboratory Results Laboratory Results WBC 10.90 K/ul (4.8-10.8) H 04/21/24 11:10 RBC 4.60 M/uL (4.70-6.10) L 04/21/24 11:10 Hgb 12.9 g/dl (14.0-18.0) L 04/21/24 11:10 Hct 40.5 % (42.0-52.0) L 04/21/24 11:10 MCV 88.0 fL (80.0-100.0) 04/21/24 11:10 MCH 28.0 pg (25.0-34.0) 04/21/24 11:10 MCHC 31.9 g/dL (32.0-36.0) L 04/21/24 11:10 RDW Std Deviation 52.8 fL (36.4-46.3) H 04/21/24 11:10 RDW Coeff of Ezekiel 16.5 % (11.5-14.5) H 04/21/24 11:10 Plt Count 411 K/uL (130-400) H 04/21/24 11:10 MPV 9.2 fL (9.4-12.4) L 04/21/24 11:10 Immature Gran % (Auto) 2.8 % 04/21/24 11:10 Neut % (Auto) 71.7 % 04/21/24 11:10 Lymph % (Auto) 13.3 % 04/21/24 11:10 [place] % (Auto) 10.0 % 04/21/24 11:10 Eos % (Auto) 1.3 % 04/21/24 11:10 Baso % (Auto) 0.9 % 04/21/24 11:10 Neut # (Auto) 7.81 K/uL (1.40-6.50) H 04/21/24 11:10 Lymph # (Auto) 1.45 K/uL (1.20-3.40) 04/21/24 11:10 [place] # (Auto) 1.09 K/uL (0.11-0.59) H 04/21/24 11:10 Eos # (Auto) 0.14 K/uL (0.00-0.50) 04/21/24 11:10 Baso # (Auto) 0.10 K/uL (0.00-0.20) 04/21/24 11:10 Immature Gran # (Auto) 0.31 K/uL (0.01-0.20) H 04/21/24 11:10 PT 12.4 Seconds (9.0-12.0) H 04/21/24 11:10 INR 1.2 (0.9-1.1) H 04/21/24 11:10 APTT 29 Seconds (21-31) 04/21/24 11:10 PTT Ratio 1.1 04/21/24 11:10 Sodium 136 mmol/L (136-145) 04/21/24 11:10 Potassium 4.8 mmol/L (3.5-5.1) 04/21/24 11:10 Chloride 103 mmol/L (98-107) 04/21/24 11:10 Carbon Dioxide 27 mmol/L (21-32) 04/21/24 11:10 Anion Gap 6 (3-11) 04/21/24 11:10 BUN 19 mg/dl (6-23) 04/21/24 11:10 Creatinine 0.92 mg/dl (0.6-1.4) 04/21/24 11:10 Est Cr Clr Drug Dosing 75.4 ml/min 04/21/24 11:10 Est GFR ( Amer) 87.0 ml/min 04/21/24 11:10 Est GFR (Non-Af Amer) 75.0 ml/min 04/21/24 11:10 BUN/Creatinine Ratio 20.7 (10-20) H 04/21/24 11:10 Glucose 124 mg/dl (70-99(Fasting)) H 04/21/24 11:10 Calcium 8.9 mg/dl (8.6-10.3) 04/21/24 11:10
[2024-04-21] MEDS: OPTIRAY 320 100ml IV ONE (15:59)
[2024-04-21] MEDS: CEFEPIME 2,000 MG in SYRINGE 0 ML IV SCH (16:10)
--- OUTSIDE RECORDS SUMMARY | 2024-04-21 16:12 | External Medical Summary | Summary of Care ---
Author Name Unknown Organization [facility] Address [address] [place] [address] Phone [phone] Care Team Providers Care Supervisor [employer] Name Role Phone Andree Pearson MD Primary Care Provider [phone] Encounter Details Date Type Department Care Team (Late st Contact Info) Description 04/18/2024 12:25 PM EDT Scheduled Telephone Care Coordination and Integration [address], [place] [phone] Shantell Mccauley, [facility] Lapping Machine Set Up Operator [address], [place] [phone] Allergies No known active allergiesdocumented as of this encounter (statuses as of 04/18/2024) Medications Medication Sig Dispensed Refills Start Date End Date Status Lutein 20 MG Oral Capsule Take 1 [...] Potassium 100 MG Oral Tablet (Cozaar) Take 0.5 Tablets by mouth in the morning. 06/29/2023 Active Amiodarone HCl 100 MG Oral Tablet (Cordarone) Take 1 Tablet by mouth in the morning. 90 Tablet 3 07/23/2023 Active Xarelto 20 MG Oral Tablet TAKE 1 TABLET BY MOUTH AT BEDTIME WITH EVENING MEAL 90 Tablet 3 07/26/2023 Active Rosuvastatin Calcium 10 MG Oral Tablet (Crestor) Take 1 Tablet by mouth in the morning. In the morning.. 90 Tablet 3 07/26/2023 Active Furosemide 20 MG Oral Tablet (Lasix)Indications:At rial fibrillation status post cardioversion ([facility]) Taking 1 tab 1-2/week since 02/08/24 03/07/2024 Active Aspirin 81 MG Oral Tablet Delayed ReleaseIndications:Co ronary artery disease involving solomon coronary artery of solomon heart without angina pectoris Take 1 Tablet by mouth in the morning. Restart 1 daily with food 03/07/2024 (was off since 01/12). 03/07/2024 Active Meclizine HCl 12.5 MG Oral Tablet (Antivert)Indications :Benign paroxysmal positional vertigo, unspecified laterality Take 1 Tablet by mouth 3 times a day as needed for Dizziness. 30 Tablet 1 03/14/2024 Active Docusate Sodium 100 MG Oral Capsule (Colace) Take 1 Capsule by mouth 2 times a day as needed for Constipation. Active Chlorhexidine Gluconate 0.12 % Mouth/Throat Solution Swish and spit 15 mL in the morning and 15 mL at noon and 15 mL before bedtime. Active Polyethylene Glycol 3350 17 GM Oral Packet (MiraLax) Take 1 Packet by mouth as needed for Constipation. Active Amoxicillin-Pot Clavulanate 875-125 MG Oral Tablet (Augmentin) Take 1 Tablet by mouth in the morning and 1 Tablet before bedtime. Active Amoxicillin-Pot Clavulanate 500-125 MG Oral Tablet (Augmentin)Indication s:Personal history of fall,Skin ulcer of left lower leg, limited to breakdown of skin (HCC),Leukocytosis, unspecified type Take 1 Tablet by mouth in the morning and 1 Tablet before bedtime. 20 Tablet 04/13/2024 Active documented as of this encounter (statuses as of 04/18/2024) Active Problems Problem Noted Date Diagnosed Date Elevated TSH 08/07/2023 Atrial fibrillation status post cardioversion Coronary artery disease invo lving solomon coronary artery of solomon heart without angina pectoris 04/25/2023 History of [...] as of this encounter (statuses as of 04/18/2024) Resolved Problems Problem Noted Date Diagnosed Date Resolved Date Need for prophylactic vaccin ation with tetanus-diphtheria (Td) 04/25/2023 08/07/2023 documented as of this encounter (statuses as of 04/18/2024) Immunizations Name Administration Dates Next Due COVID-19 [...] Date Recorded PHQ Adult Total Score 0 04/07/2024 Hunger Vital Sign Answer Date Recorded Within the past 12 months, y ou worried that your food would run out before you got the money to buy more. Never true 04/07/20 Within the past 12 months, t he food you bought just didn't last and you didn't have money to get more. Never true 04/07/2024 Childcare Answer Date Recorded Do you feel overwhelmed with taking care of a child, family member or friend? No 04/07/2024 Does your family need help f inding childcare? (Household - for ages 0-17 years) Not on file 04/07/2024 Clothing Answer Date Recorded Have you been unable to get clothing when it was really needed? No 04/07/2024 Is your family able to get c lothes or diapers when needed? (Household - for ages 0-17 years) Not on file 04/07/2024 Personal Safety Answer Date Recorded Do you feel unsafe or have concerns for your saf ety? No 04/07/2024 Do you have concerns for you r family's safety? (Household - for ages 0-17 years) Not on file 04/07/2024 Utilities Answer Date Recorded Do you have trouble paying y our heating, water, or electric bill? No 04/07/2024 Is your family able to pay t he heat, water, or electric bill? (Household - for ages 0-17 years) Not on file 04/07/2024 Does your family have access to good internet? (Household - for ages 0-17 years) Not on file 04/07/2024 Employment Status Answer Date Recorded Are you unemployed or without regular income? No 04/07/2024 Does the household have a re gular source of income? (Household - for ages 0-17 years) Not on file 04/07/2024 Social Connections Answer Date Recorded How often do you feel lonely or isolated from th ose around you? Never 04/07/2024 Financial Resource Strain Answer Date R ecorded Do you have any trouble payi ng for your medications, or do you think you might in the future? No 04/07/2024 Does your family have troubl e paying for medicine? (Household - for ages 0-17 years) Not on file 04/07/2024 Transportation Needs Answer Date Record ed READ ONLY Do you have troubl e getting a ride to medical visits or work? Never True 04/07/2024 Does your family have a hard time getting a ride to doctors visits? (Household - for ages 0-17 years) Not on file 04/07/2024 Has lack of transportation k ept you from medical appointments, meetings, work, or from getting things needed for daily living? Check all that apply. (Adult - for ages 18 years and over) Not on file 04/07/2024 Do you (or your family) have trouble finding or paying for a ride (transportation)? (Household - for ages 0-17 years) Not on file 04/07/2024 Housing Stability Answer Date Recorded Do you currently live in a s helter or have no steady place to sleep at night? No 04/07/2024 READ ONLY Do you think you a re at risk of becoming homeless? No 04/07/2024 Does your family worry about paying for your home or becoming homeless? (Household - for ages 0-17 years) Not on file 0 04/07/2024 Are you homeless or worried that you might be in the future? (Adult - for ages 18 years and over) Not on file Are you (or your family) chente eless or worried that you might be in the future? (Household - for ages 0-17 years) Not on file Food Insecurity Answer Date Recorded Do you need food for this week? No 04/07/2024 Are you able to get enough f ood for your family? (Household - for ages 0-17 years) Not on file 04/07/2024 Does your family need food t his week? (Household - for ages 0-17 years) Not on file 04/07/2024 Do you always have enough fo od for your family? (Household - for ages 0-17 years) Not on file 04/07/2024 Sex and Gender Information Value Date Recorded Sex Assigned at Not on file Gender Identity Not on file Sexual Orientation Not on file Job Start Date Occupation Industry Not on file Not on file Not on file documented as of this encounter Progress Notes * Shantell Mccauley [facility] Lapping Machine Set Up Operator - 04/18/2024 12:28 PM EDT Telemedicine visit: No [facility]apping Machine Set Up Operator (THANIA) documentation: [facility] follow up call per ROBER Conner [facility]; LVM Electronically signed by Shantell Mccauley [facility] Lapping Machine Set Up Operator at 04/18/2024 12:28 PM EDT documented in this encounter Plan of Treatment Upcoming Encounters Date Type Department Care Team (Late st Contact Info) Description 04/30/2024 9:00 AM EDT Office Visit Cardiology, [facility] [address] [place] [address] Cole Rebolledo PA-C [address] [place] [address] 04/30/2024 11:45 AM EDT Imaging [facility] [address] [place] [address] 05/07/2024 3:45 PM EDT Telemedicine Orthopaedics [facility] [address] [place] [address] Barrett Scott PA-C [address] [place] [address] 05/14/2024 2:50 PM EDT Office Visit Vascular Surgery, [facility] [address] [place] [address] [facility] [address] [facility] [address] 06/09/2024 8:30 AM EDT Laboratory Laboratory [facility] [address] [place] [id number] [facility] [address] [facility] [place] [address] 07/30/2024 8:30 AM EDT Laboratory Laboratory [facility] [place] [address] [place] [id number] [place], Lab [facility] [address] [facility] [address] [place] [address] 08/04/2024 8:20 AM EDT Office Visit General Internal Medicine [facility] [address] [facility] [place] [address] Andree Pearson MD [address] [facility] [address] [place] [address] Health Maintenance Due Date Last Done Comments COVID-19 Vaccine ( season) 2023 07/31/2023, 07/14/2022, 02/03/2022, Additional history exists Albumin/Creatinine Ratio 08/07/2024 08/07/2023 Diabetic Foot Exam 08/07/2024 08/07/2023 HbA1c 08/29/2024 02/27/2024, 0410/2023, 09/18/2023, Additional history exists Diabetic Eye Exam 11/26/2024 11/26/2023 Depression Screening 04/07/2025 04/07/2024 DTaP,Tdap,and Td Vaccines (3 - Td or [...] Not on filedocumented as of this encounter Advance Directives Healthcare Agents on File Name Relationship Healthcare Agent Relationshi p Communication Tryphana Fasick Spouse Health Care Agen t (per Health Care Power of Head Of Sales Promotion document) Care Teams Supervisor [employer] Relationship Specialty Start Date End Date Andree Pearson MD [address] [place] [id number] PCP - General Internal Medicine 04/25/23 documented as of this encounter
--- NOTE | 2024-04-21 16:47 | CT Scan Report ---
CT knee LT w con CLINICAL HISTORY: left knee wound, effusion, ?hematoma TECHNIQUE: Multidetector row helical CT of the left knee was performed without intravenous contrast. Coronal and sagittal reformations were obtained. Automated dose lowering techniques and/or adjustment according to patient size were utilized for this examination. CT DOSE: 600.51 mGy.cm Comparison: Comparison is made to knee radiographs 04/01/2024 FINDINGS: The osseous structures are without fracture or dislocation. Degenerative changes are seen most promin ent in the medial compartment. Calcification is seen in the posterior joint space. There is a fabella . No joint effusion is seen. Fluid is seen in the anterior subcutaneous tissues. IMPRESSION: There is a anterior subcutaneous tissues collection compatible with a hematoma. No fracture is seen. Degenerative changes are seen in the joint space. ACT 112: Negative or not required by law. Electronically signed by: Umair Myers M.D. 04/21/2024 4:45 PM
[2024-04-21] MEDS: INSULIN ASPART PER UNIT CHARGE SC SCH (17:28)
[2024-04-21] MEDS: RIVAROXABAN 20 MG TAB PO SCH (17:59)
[2024-04-22 06:42] LABS: Basophils # (auto) 0.08 K/uL (0.00-0.20); Basophils % (auto) 0.8 %; Eosinophils # (auto) 0.29 K/uL (0.00-0.50); Hematocrit (blood only) 37.6 % (42.0-52.0); Hemoglobin 12.3 g/dl (14.0-18.0); Immature Granulocytes # (auto) 0.19 K/uL (0.01-0.20); Immature Granulocytes % (auto) 1.9 %; Lymphocytes # (auto) 1.75 K/uL (1.20-3.40); Lymphocytes % (auto) 17.9 %; Mean Corpuscular Hemoglobin 28.4 pg (25.0-34.0); Mean Corpuscular Hgb Conc 32.7 g/dL (32.0-36.0); Mean Corpuscular Volume 86.8 fL (80.0-100.0); Mean Platelet Volume 9.3 fL (9.4-12.4); Monocytes # (auto) 1.06 K/uL (0.11-0.59); Monocytes % (auto) 10.8 %; Neutrophils # (auto) 6.43 K/uL (1.40-6.50); Neutrophils % (auto) 65.6 %; Platelet Count 339 K/uL (130-400); RDW Coefficient of Variation 16.9 % (11.5-14.5); RDW Standard Deviation 53.1 fL (36.4-46.3); Red Blood Count 4.33 M/uL (4.70-6.10)
[2024-04-22 07:17] LABS: Calcium 8.1 mg/dl (8.6-10.3); Potassium 4.3 mmol/L (3.5-5.1)
[2024-04-22 07:23] LABS: BUN Creatinine Ratio 22.1 (10-20); Creatinine Clr Calc Pharmacy 80.7 ml/min; Est GFR (Non-African American) 78.5 ml/min
[2024-04-22] MEDS: AMIODARONE 200 MG TAB PO SCH (09:20)
[2024-04-22] MEDS: ROSUVASTATIN CALCIUM 10 MG TAB PO SCH (09:21)
[2024-04-22] MEDS: CYANOCOBALAMIN (B-12) 500 MCG TABLET PO SCH (09:21)
[2024-04-22] MEDS: LOSARTAN POTASSIUM 50 MG TAB PO SCH (09:21)
[2024-04-22] MEDS: COLLAGENASE OINT 30 GM TUBE EXT SCH (13:53)
--- NOTE | 2024-04-22 14:23 | Hospitalist Progress Note ---
Date of Service April 22, 2024 Assessment & Plan (1) Infection of left knee: (2) Traumatic hematoma of left knee: (3) PAF (paroxysmal atrial fibrillation): (4) Hypertension goal BP (blood pressure) < 130/80: (5) DMII (diabetes mellitus, type 2): Plan 84 year old male with recent fall and traumatic hematoma of left knee sent from wound care center for left knee infection for further management Concern for Left knee infection, hx of traumatic hematoma left knee r/o septic arthritis- had fall 2 weeks back on ABx since and was following wound care center. Aspirated 3 days back which is showing proteus and enterobacter; and sent to ED for further management. Started on iv cefepime per clx results. CT knee - There is a anterior subcutaneous tissues collection compatible with a hematoma. No fracture is seen. Degenerative changes are seen in the joint space. Orthopedics consulted - aspirates done in the office - neither of the samples were from the knee joint. One culture was labelled "synovial fluid" which was apparently mislabelled. Both samples were from the superifical knee hematoma. No surgical plans at this time Pt on xarelto and aspirin- if not improving, may need to hold PAF- currently NSR. On zio patch till 04/24 due to recent syncope. Continue amio. Not on BB due to h/o bradycardia. on xarelto. Monitor on tele HTN- recent orthostatic hypotension with syncope and medications were adjusted (Lasix and flomax were discontinued and losartan reduced) with no recurrence of orthostasis. Continue losartan 50 mg daily. DM-2- Recent HA1c 6.3. Hold home metformin. Continue SSI. Diabetic diet. DVT ppx- xarelto Dispo- Med surg on tele Full code Admission and Anticipated Discharge Date Admission Date: April 21, 2024 Subjective Pt seen in follow up of knee hematoma/ infection Orthopedics consulted Pt is currently laying in bed in NAD, pt's is present at the bedside Pt is in NAD. Currently denies any fever, chills, chest pain, shortness of breath. Reports significant bleeding from the knee earlier. Review of Systems Review of Systems: All systems reviewed & are unremarkable except as noted in Subjective Physical Exam Physical Exam: General: Lying comfortably in bed, not in distress, on room air HEENT: EOMI, LULÚ, MMM Chest: Clear breath sounds bilaterally, no wheezes or crackles CVS: Regular rate and rhythm, normal heart sounds, no murmur Abdomen: Soft, non tender, not distended, normal bowel sounds Neuro: Awake, alert, oriented, conversing well, non focal MSK: Left knee wound with bloody discharge oozing, fluctuation noted with erythema, no tenderness Skin: Left medial thigh raw wound with granulation tissue- no purulent discharge Trace edema LLE and on compression stocking Results & Data Results & Data Vital Signs (Past 12 Hours) Vital Signs Temp Pulse Pulse Resp BP Pulse Ox O2 Del Method 04/22/24 12:29 36.5 C 62 18 136/75 94 Room Air 04/22/24 08:38 36.4 C 60 18 117/65 94 Room Air 04/22/24 07:58 52 L 04/22/24 04:00 36.5 C 59 L 18 123/69 95 Room Air Laboratory Results 04/22/24 04/22/24 04/22/24 Range/Units 12:15 08:10 06:00 WBC 9.80 (4.8-10.8) K/ul RBC 4.33 L (4.70-6.10) M/uL Hgb 12.3 L (14.0-18.0) g/dl Hct 37.6 L (42.0-52.0) % MCV 86.8 (80.0-100.0) fL MCH 28.4 (25.0-34.0) pg MCHC 32.7 (32.0-36.0) g/dL RDW Std Deviation 53.1 H (36.4-46.3) fL RDW Coeff of Ezekiel 16.9 H (11.5-14.5) % Plt Count 339 (130-400) K/uL MPV 9.3 L (9.4-12.4) fL Immature Gran % (Auto) 1.9 % Neut % (Auto) 65.6 % Lymph % (Auto) 17.9 % [place]y % (Auto) 10.8 % Eos % (Auto) 3.0 % Baso % (Auto) 0.8 % Neut # (Auto) 6.43 (1.40-6.50) K/uL Lymph # (Auto) 1.75 (1.20-3.40) K/uL [place]y # (Auto) 1.06 H (0.11-0.59) K/uL Eos # (Auto) 0.29 (0.00-0.50) K/uL Baso # (Auto) 0.08 (0.00-0.20) K/uL Immature Gran # (Auto) 0.19 (0.01-0.20) K/uL Sodium 135 L (136-145) mmol/L Potassium 4.3 (3.5-5.1) mmol/L Chloride 104 (98-107) mmol/L Carbon Dioxide 27 (21-32) mmol/L Anion Gap 4 (3-11) BUN 19 (6-23) mg/dl Creatinine 0.86 (0.6-1.4) mg/dl Est Cr Clr Drug Dosing 80.7 ml/min Est GFR ( Amer) 91.0 ml/min Est GFR (Non-Af Amer) 78.5 ml/min BUN/Creatinine Ratio 22.1 H (10-20) Glucose 122 H (70-99(Fasting)) mg/dl POC Glucose 114 H 135 H (70-99) mg/dl Calcium 8.1 L (8.6-10.3) mg/dl 04/21/24 04/21/24 Range/Units 20:26 17:13 WBC (4.8-10.8) K/ul RBC (4.70-6.10) M/uL Hgb (14.0-18.0) g/dl Hct (42.0-52.0) % MCV (80.0-100.0) fL MCH (25.0-34.0) pg MCHC (32.0-36.0) g/dL RDW Std Deviation (36.4-46.3) fL RDW Coeff of Ezekiel (11.5-14.5) % Plt Count (130-400) K/uL MPV (9.4-12.4) fL Immature Gran % (Auto) % Neut % (Auto) % Lymph % (Auto) % [place] % (Auto) % Eos % (Auto) % Baso % (Auto) % Neut # (Auto) (1.40-6.50) K/uL Lymph # (Auto) (1.20-3.40) K/uL [place]y # (Auto) (0.11-0.59) K/uL Eos # (Auto) (0.00-0.50) K/uL Baso # (Auto) (0.00-0.20) K/uL Immature Gran # (Auto) (0.01-0.20) K/uL Sodium (136-145) mmol/L Potassium (3.5-5.1) mmol/L Chloride (98-107) mmol/L Carbon Dioxide (21-32) mmol/L Anion Gap (3-11) BUN (6-23) mg/dl Creatinine (0.6-1.4) mg/dl Est Cr Clr Drug Dosing ml/min Est GFR ( Amer) ml/min Est GFR (Non-Af Amer) ml/min BUN/Creatinine Ratio (10-20) Glucose (70-99(Fasting)) mg/dl POC Glucose 123 H 124 H (70-99) mg/dl Calcium (8.6-10.3) mg/dl Medications Administered Current Inpatient Medications Acetaminophen (Acetaminophen 325 Mg Tab) 650 mg PO Q4H PRN PRN Reason: Pain or Fever Stop: 05/21/24 14:44 Amiodarone HCl (Amiodarone 200 Mg Tab) 100 mg PO DAILY [facility] Stop: 05/22/24 08:59 Last Admin: 04/22/24 09:20 Dose: 100 mg Collagenase (Collagenase Oint 30 Gm Tube) 1 appln EXT DAILY [facility]; Protocol Stop: 05/22/24 12:59 Last Admin: 04/22/24 13:53 Dose: 1 appln Cyanocobalamin (Cyanocobalamin (B-12) 500 Mcg Tablet) 1,000 mcg PO DAILY [facility] Stop: 05/22/24 08:59 Last Admin: 04/22/24 09:21 Dose: 1,000 mcg Dextrose (Dextrose 50% 50 Ml Syringe) 25 - 50 ml IV UD PRN; Protocol PRN Reason: Hypoglycemia Protocol Stop: 05/21/24 14:44 Glucagon (Glucagon For Inj 1 Mg Vial) 1 mg SQ UD PRN; Protocol PRN Reason: Hypoglycemia Protocol Stop: 05/21/24 14:44 Glucose (Glucose 40% Gel 15 Gm Tube) 15 - 30 gm PO UD PRN; Protocol PRN Reason: Hypoglycemia Protocol Stop: 05/21/24 14:44 Glucose (Glucose 10 Tab/Tube) 4 - 8 tab PO UD PRN; Protocol PRN Reason: Hypoglycemia Treatment Stop: 05/21/24 14:44 Cefepime HCl 2,000 mg/ Syringe 20 mls @ 5 mls/min IV Q8H [facility]; Protocol Stop: 06/02/24 14:59 Last Admin: 04/22/24 06:13 Dose: 5 mls/min Insulin Aspart (Insulin Aspart Per Unit Charge) 0 units SC ACHS [facility] Stop: 05/21/24 16:29 Last Admin: 04/22/24 13:21 Dose: 7 units Losartan Potassium (Losartan Potassium 50 Mg Tab) 50 mg PO DAILY [facility] Stop: 05/22/24 08:59 Last Admin: 04/22/24 09:21 Dose: 50 mg Miscellaneous (Carbohydrates For Hypoglycemia ) 15 - 30 gm PO UD PRN PRN Reason: Hypoglycemia Protocol Stop: 05/21/24 14:44 Rivaroxaban (Rivaroxaban 20 Mg Tab) 20 mg PO QDD [facility] Stop: 05/21/24 16:44 Last Admin: 04/21/24 17:59 Dose: 20 mg Rosuvastatin Calcium (Rosuvastatin Calcium 10 Mg Tab) 10 mg PO QAM [facility] Stop: 05/22/24 08:59 Last Admin: 04/22/24 09:21 Dose: 10 mg (2) Traumatic hematoma of left knee Encounter type: subsequent encounter Qualified Code(s): S80.02XD - Contusion of left knee, subsequent encounter
--- NOTE | 2024-04-22 17:38 | Orthopedic Progress Note ---
Date of Service April 22, 2024 Assessment & Plan (1) Open wound of left knee: Plan: Again this patient has multiple skin abrasions and is would be a very high risk for surgical incision because of the severe skin loss from his injury. I also do not feel that this patient has an intra-articular infectious process he has no pain and full active range of motion which would be extremely unlikely with an intra-articular process. He has no elevated white count and is afebrile. Again the cultures that were taken were from blood withdrawn from a prepatellar hematoma that did not appear to be infected at the time of the aspiration. I suspect that the drainage is coming from liquefied hematoma from the severe bruising that he had and the fact that even though 120 cc were taken out it was impossible to entirely decompress the prepatellar bursa. While I think it is appropriate to cover him with antibiotics I do not feel that any surgery is going to be indicated. In fact if he would need some sort of surgery deep I would consider referring him to a tertiary care center because of the severe skin loss and wound issues that will entail with this. For now because he is asymptomatic I would recommend compressive bandage hopefully switch to p.o. antibiotic coverage and he could follow-up with the wound center and myself in the office. We will return to see him tomorrow April 23 between and in the afternoon hopefully we can get the bandage taken down and get a look at things then. Admission and Anticipated Discharge Date Admission Date: April 21, 2024 Subjective Left knee hematoma This patient is extremely well-known to me who follows me in the office for an arthritic knee who because of medical comorbidities has not been a candidate for surgery. He had a fall where he tripped on a sidewalk and sustained multiple severe abrasions and a severe hematoma a few weeks prior. He was seen by myself in my office about 1 week prior and had a very large subcutaneous hematoma which appeared to be in the prepatellar bursa. This was aspirated sterilely and showed 110 to 120 cc of dark old blood hip did not look purulent. We drained it more for pain relief. Cultures were sent pretty much as a precautionary measure and have grown out Proteus. Patient was admitted because of increased drainage. 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 We did not aspirate his knee joint proper of the aspiration was of a prepatellar hematoma which I suspect continues to liquefy and drain as we could not get all of the old blood out. The patient complains of no pain at all today. He has a pretty full range of motion his dressing is bandaged. Physical Exam Physical Exam: As above the patient is examined at the bedside. The knee is wrapped in a Kerlix wrap but is dry. The patient can actively and flex and extend his knee without any discomfort at all. I do not appreciate any further drainage right now. We did not take the bandage down today as it was just changed a few hours ago. Results & Data Vital Signs (Past 12 Hours) Vital Signs Temp Pulse Pulse Resp BP Pulse Ox O2 Del Method 04/22/24 16:00 36.7 C 63 16 117/64 95 Room Air 04/22/24 15:59 69 04/22/24 12:29 36.5 C 62 18 136/75 94 Room Air 04/22/24 08:38 36.4 C 60 18 117/65 94 Room Air 04/22/24 07:58 52 L
[2024-04-23 06:28] LABS: Hematocrit (blood only) 38.9 % (42.0-52.0); Hemoglobin 12.9 g/dl (14.0-18.0); Mean Corpuscular Hemoglobin 28.5 pg (25.0-34.0); Mean Corpuscular Hgb Conc 33.2 g/dL (32.0-36.0); Mean Corpuscular Volume 86.1 fL (80.0-100.0); Mean Platelet Volume 9.2 fL (9.4-12.4); Platelet Count 336 K/uL (130-400); RDW Coefficient of Variation 16.8 % (11.5-14.5); RDW Standard Deviation 51.7 fL (36.4-46.3); Red Blood Count 4.52 M/uL (4.70-6.10); White Blood Count 10.19 K/ul (4.8-10.8)
[2024-04-23 06:36] LABS: BUN Creatinine Ratio 26.3 (10-20); Calcium 8.2 mg/dl (8.6-10.3); Creatinine Clr Calc Pharmacy 85.8 ml/min; Est GFR (African American) 93.8 ml/min; Est GFR (Non-African American) 80.9 ml/min; Magnesium 2.1 mg/dl (1.7-2.4); Phosphorus 3.4 mg/dl (2.5-4.9); Potassium 4.1 mmol/L (3.5-5.1)
--- NOTE | 2024-04-23 14:26 | Orthopedic Progress Note ---
Date of Service April 23, 2024 Assessment & Plan (1) Open wound of left knee: Plan: Today we changed the bandage and again his wound looks very good. We did discuss his case and care with Dr. Bolton again patient the does not have an intra-articular knee infection. This was a prepatellar bursa that is growing Proteus. He has no new symptoms whatsoever and is afebrile and the condition of his wounds continues to improve significantly. I applied a new bandage today. He we will keep him overnight and change his bandage in the morning with nursing and I believe he can be discharged to home on oral antibiotics. Arrangements are made to be seen in the wound center on Sunday at 2:40 PM and we will see him in the office middle of next week. Admission and Anticipated Discharge Date Admission Date: April 21, 2024 Subjective Patient offers no new complaints he did not receive a lot of drainage when he was up out of bed but this denies any fever or significant increase in the level of his pain. Physical Exam Physical Exam: His dressing was changed at the bedside. His neuroexam is extremely good. 2 areas of abrasions have healed properly 50%. There was a little bit of blood co kieran out of the abrasion over the prepatellar bursa but this looks much much better than it did in the office. I did not appreciate any active bleeding. There is no intra-articular effusion. We did provide stansyl dressing today. Results & Data Vital Signs (Past 12 Hours) Vital Signs Temp Pulse Pulse Resp BP Pulse Ox O2 Del Method 04/23/24 11:36 36.7 C 64 18 126/71 94 Room Air 04/23/24 07:49 49 L 04/23/24 06:43 36.6 C 55 L 18 150/72 H 97 Room Air 04/23/24 04:15 36.4 C L 59 L 18 137/76 98 Room Air
--- NOTE | 2024-04-23 16:59 | Hospitalist Progress Note ---
Date of Service April 23, 2024 Assessment & Plan (1) Infection of left knee: (2) Traumatic hematoma of left knee: (3) PAF (paroxysmal atrial fibrillation): (4) Hypertension goal BP (blood pressure) < 130/80: (5) DMII (diabetes mellitus, type 2): Plan 84 year old male with recent fall and traumatic hematoma of left knee sent from wound care center for left knee infection for further management Concern for Left knee infection, hx of traumatic hematoma left knee r/o septic arthritis- had fall 2 weeks back on ABx since and was following wound care center. Aspirated 3 days back which is showing proteus and enterobacter; and sent to ED for further management. Started on iv cefepime per clx results. CT knee - There is a anterior subcutaneous tissues collection compatible with a hematoma. No fracture is seen. Degenerative changes are seen in the joint space. Discussed w/ ID - Dr. Avila - as pt on Augmentin/ Bactrim as outpt - recommends to DC on cipro for 1 more week. Orthopedics consulted - aspirates done in the office - neither of the samples were from the knee joint. One culture was labelled "synovial fluid" which was apparently mislabelled. Both samples were from the superifical knee hematoma. No surgical plans at this time. Met and discussed w/ Dr. Malik at the bedside today - L knee hematoma much improved - plan to change dressings tomorrow AM and DC likely after that - close follow up with wound care and Dr. Malik arranged Pt on xarelto and aspirin- if not improving, may need to hold PAF- currently NSR. On zio patch till 04/24 due to recent syncope. Continue amio. Not on BB due to h/o bradycardia. on xarelto. Monitor on tele HTN- recent orthostatic hypotension with syncope and medications were adjusted (Lasix and flomax were discontinued and losartan reduced) with no recurrence of orthostasis. Continue losartan 50 mg daily. DM-2- Recent HA1c 6.3. Hold home metformin. Continue SSI. Diabetic diet. DVT ppx- xarelto Dispo- Med surg on tele Full code Admission and Anticipated Discharge Date Admission Date: April 21, 2024 Subjective Pt seen in follow up of knee hematoma/ poss. infection Orthopedics consulted - discussed w/ Dr. Malik at the bedside - plan to change dressings tomorrow AM and DC likely after that - close follow up with wound care and Dr. Malik arranged Pt is currently laying in bed in NAD, pt's is present at the bedside and updated Pt is in NAD. Currently denies any fever, chills, chest pain, shortness of [place] th. Bleeding from the knee much improved. Dressings changed today by Dr. Malik. Discussed w/ ID today - Dr. Avila - as pt on Augmentin/ Bactrim as outpt - recommends to DC on cipro for 1 more week. Review of Systems Review of Systems: All systems reviewed & are unremarkable except as noted in Subjective Physical Exam Physical Exam: General: Lying comfortably in bed, not in distress, on room air HEENT: EOMI, LULÚ, MMM Chest: Clear breath sounds bilaterally, no wheezes or crackles CVS: Regular rate and rhythm, normal heart sounds, no murmur Abdomen: Soft, non tender, not distended, normal bowel sounds Neuro: Awake, alert, oriented, conversing well, non focal MSK: Left knee in clean dressings - just changed (per ortho surgeon at the bedside - much improved) Skin: warm, dry Results & Data Results & Data Vital Signs (Past 12 Hours) Vital Signs Temp Pulse Pulse Resp BP Pulse Ox O2 Del Method 04/23/24 15:49 36.8 C 69 18 122/73 96 Room Air 04/23/24 14:59 80 04/23/24 11:36 36.7 C 64 18 126/71 94 Room Air 04/23/24 07:49 49 L 04/23/24 06:43 36.6 C 55 L 18 150/72 H 97 Room Air Laboratory Results 04/23/24 04/23/24 04/23/24 Range/Units 12:16 08:08 05:39 WBC 10.19 (4.8-10.8) K/ul RBC 4.52 L (4.70-6.10) M/uL Hgb 12.9 L (14.0-18.0) g/dl Hct 38.9 L (42.0-52.0) % MCV 86.1 (80.0-100.0) fL MCH 28.5 (25.0-34.0) pg MCHC 33.2 (32.0-36.0) g/dL RDW Std Deviation 51.7 H (36.4-46.3) fL RDW Coeff of Ezekiel 16.8 H (11.5-14.5) % Plt Count 336 (130-400) K/uL MPV 9.2 L (9.4-12.4) fL Sodium 134 L (136-145) mmol/L Potassium 4.1 (3.5-5.1) mmol/L Chloride 103 (98-107) mmol/L Carbon Dioxide 24 (21-32) mmol/L Anion Gap 7 (3-11) BUN 21 (6-23) mg/dl Creatinine 0.80 (0.6-1.4) mg/dl Est Cr Clr Drug Dosing 85.8 ml/min Est GFR ( Amer) 93.8 ml/min Est GFR (Non-Af Amer) 80.9 ml/min BUN/Creatinine Ratio 26.3 H (10-20) Glucose 128 H (70-99(Fasting)) mg/dl POC Glucose 88 130 H (70-99) mg/dl Calcium 8.2 L (8.6-10.3) mg/dl Phosphorus 3.4 (2.5-4.9) mg/dl Magnesium 2.1 (1.7-2.4) mg/dl 04/22/24 Range/Units 20:17 WBC (4.8-10.8) K/ul RBC (4.70-6.10) M/uL Hgb (14.0-18.0) g/dl Hct (42.0-52.0) % MCV (80.0-100.0) fL MCH (25.0-34.0) pg MCHC (32.0-36.0) g/dL RDW Std Deviation (36.4-46.3) fL RDW Coeff of Ezekiel (11.5-14.5) % Plt Count (130-400) K/uL MPV (9.4-12.4) fL Sodium (136-145) mmol/L Potassium (3.5-5.1) mmol/L Chloride (98-107) mmol/L Carbon Dioxide (21-32) mmol/L Anion Gap (3-11) BUN (6-23) mg/dl Creatinine (0.6-1.4) mg/dl Est Cr Clr Drug Dosing ml/min Est GFR ( Amer) ml/min Est GFR (Non-Af Amer) ml/min BUN/Creatinine Ratio (10-20) Glucose (70-99(Fasting)) mg/dl POC Glucose 161 H (70-99) mg/dl Calcium (8.6-10.3) mg/dl Phosphorus (2.5-4.9) mg/dl Magnesium (1.7-2.4) mg/dl Medications Administered Current Inpatient Medications Acetaminophen (Acetaminophen 325 Mg Tab) 650 mg PO Q4H PRN PRN Reason: Pain or Fever Stop: 05/21/24 14:44 Amiodarone HCl (Amiodarone 200 Mg Tab) 100 mg PO DAILY [facility] Stop: 05/22/24 08:59 Last Admin: 04/23/24 08:45 Dose: 100 mg Collagenase (Collagenase Oint 30 Gm Tube) 1 appln EXT DAILY [facility]; Protocol Stop: 05/22/24 12:59 Last Admin: 04/23/24 14:00 Dose: 1 appln Cyanocobalamin (Cyanocobalamin (B-12) 500 Mcg Tablet) 1,000 mcg PO DAILY [facility] Stop: 05/22/24 08:59 Last Admin: 04/23/24 08:45 Dose: 1,000 mcg Dextrose (Dextrose 50% 50 Ml Syringe) 25 - 50 ml IV UD PRN; Protocol PRN Reason: Hypoglycemia Protocol Stop: 05/21/24 14:44 Glucagon (Glucagon For Inj 1 Mg Vial) 1 mg SQ UD PRN; Protocol PRN Reason: Hypoglycemia Protocol Stop: 05/21/24 14:44 Glucose (Glucose 40% Gel 15 Gm Tube) 15 - 30 gm PO UD PRN; Protocol PRN Reason: Hypoglycemia Protocol Stop: 05/21/24 14:44 Glucose (Glucose 10 Tab/Tube) 4 - 8 tab PO UD PRN; Protocol PRN Reason: Hypoglycemia Treatment Stop: 05/21/24 14:44 Cefepime HCl 2,000 mg/ Syringe 20 mls @ 5 mls/min IV Q8H [facility]; Protocol Stop: 06/02/24 14:59 Last Admin: 04/23/24 15:42 Dose: 5 mls/min Insulin Aspart (Insulin Aspart Per Unit Charge) 0 units SC ACHS [facility] Stop: 05/21/24 16:29 Last Admin: 04/23/24 13:48 Dose: Not Given Losartan Potassium (Losartan Potassium 50 Mg Tab) 50 mg PO DAILY [facility] Stop: 05/22/24 08:59 Last Admin: 04/23/24 08:45 Dose: 50 mg Miscellaneous (Carbohydrates For Hypoglycemia ) 15 - 30 gm PO UD PRN PRN Reason: Hypoglycemia Protocol Stop: 05/21/24 14:44 Rivaroxaban (Rivaroxaban 20 Mg Tab) 20 mg PO QDD [facility] Stop: 05/21/24 16:44 Last Admin: 04/22/24 17:56 Dose: 20 mg Rosuvastatin Calcium (Rosuvastatin Calcium 10 Mg Tab) 10 mg PO QAM [facility] Stop: 05/22/24 08:59 Last Admin: 04/23/24 08:45 Dose: 10 mg (2) Traumatic hematoma of left knee Encounter type: subsequent encounter Qualified Code(s): S80.02XD - Contusion of left knee, subsequent encounter
[2024-04-24 07:07] LABS: Hematocrit (blood only) 40.3 % (42.0-52.0); Hemoglobin 13.4 g/dl (14.0-18.0); Mean Corpuscular Hemoglobin 28.8 pg (25.0-34.0); Mean Corpuscular Hgb Conc 33.3 g/dL (32.0-36.0); Mean Corpuscular Volume 86.5 fL (80.0-100.0); Mean Platelet Volume 9.2 fL (9.4-12.4); Platelet Count 360 K/uL (130-400); RDW Standard Deviation 53.1 fL (36.4-46.3); Red Blood Count 4.66 M/uL (4.70-6.10); White Blood Count 11.17 K/ul (4.8-10.8)
[2024-04-24 07:27] LABS: Calcium 8.3 mg/dl (8.6-10.3); Creatinine Clr Calc Pharmacy 91.6 ml/min; Est GFR (African American) 96.3 ml/min; Est GFR (Non-African American) 83.1 ml/min; Magnesium 2.1 mg/dl (1.7-2.4); Phosphorus 3.1 mg/dl (2.5-4.9); Potassium 4.4 mmol/L (3.5-5.1)
[2024-04-24] MEDS: ADVANCED PROBIOTIC 625 MG CAPSULE PO SCH (08:13)
--- NOTE | 2024-04-24 08:53 | Orthopedic Progress Note ---
Date of Service April 24, 2024 Assessment & Plan (1) Open wound of left knee: Plan: 84 yo male stable s/p open wound(superficial) left knee 1. Med management 2. DVT prophylaxis- Xarelto, SCDs 3. PT/OT 4. D/C planning- wound care to see today for repeat dressing change then february d/c home per medicine; pt to see outpt wound care 04/25/24 and f/u with Dr Malik next week Admission and Anticipated Discharge Date Admission Date: April 21, 2024 Subjective Pt sitting bedside having breakfast, knee flexed approx 90 degrees, denies complaints Physical Exam Physical Exam: Dressing intact left knee, toes mobile Results & Data Vital Signs (Past 12 Hours) Vital Signs Temp Pulse Pulse Resp BP BP Pulse Ox 04/24/24 07:33 36.4 C L 56 L 18 142/79 H 96 04/24/24 07:21 04/24/24 03:25 36.4 C L 60 18 132/77 96 04/23/24 23:34 36.7 C 61 18 139/74 94 04/23/24 23:28 04/23/24 22:14 56 L O2 Del Method 04/24/24 07:33 Room Air 04/24/24 07:21 Room Air 04/24/24 03:25 Room Air 04/23/24 23:34 Room Air 04/23/24 23:28 Room Air 04/23/24 22:14 Laboratory Results 04/24/24 04/24/24 04/23/24 Range/Units 08:10 06:06 20:19 WBC 11.17 H (4.8-10.8) K/ul RBC 4.66 L (4.70-6.10) M/uL Hgb 13.4 L (14.0-18.0) g/dl Hct 40.3 L (42.0-52.0) % MCV 86.5 (80.0-100.0) fL MCH 28.8 (25.0-34.0) pg MCHC 33.3 (32.0-36.0) g/dL RDW Std Deviation 53.1 H (36.4-46.3) fL RDW Coeff of Ezekiel 17.0 H (11.5-14.5) % Plt Count 360 (130-400) K/uL MPV 9.2 L (9.4-12.4) fL Sodium 135 L (136-145) mmol/L Potassium 4.4 (3.5-5.1) mmol/L Chloride 106 (98-107) mmol/L Carbon Dioxide 24 (21-32) mmol/L Anion Gap 5 (3-11) BUN 24 H (6-23) mg/dl Creatinine 0.75 (0.6-1.4) mg/dl Est Cr Clr Drug Dosing 91.6 ml/min Est GFR ( Amer) 96.3 ml/min Est GFR (Non-Af Amer) 83.1 ml/min BUN/Creatinine Ratio 32.0 H (10-20) Glucose 132 H (70-99(Fasting)) mg/dl POC Glucose 123 H 138 H (70-99) mg/dl Calcium 8.3 L (8.6-10.3) mg/dl Phosphorus 3.1 (2.5-4.9) mg/dl Magnesium 2.1 (1.7-2.4) mg/dl 04/23/24 04/23/24 Range/Units 17:06 12:16 WBC (4.8-10.8) K/ul RBC (4.70-6.10) M/uL Hgb (14.0-18.0) g/dl Hct (42.0-52.0) % MCV (80.0-100.0) fL MCH (25.0-34.0) pg MCHC (32.0-36.0) g/dL RDW Std Deviation (36.4-46.3) fL RDW Coeff of Ezekiel (11.5-14.5) % Plt Count (130-400) K/uL MPV (9.4-12.4) fL Sodium (136-145) mmol/L Potassium (3.5-5.1) mmol/L Chloride (98-107) mmol/L Carbon Dioxide (21-32) mmol/L Anion Gap (3-11) BUN (6-23) mg/dl Creatinine (0.6-1.4) mg/dl Est Cr Clr Drug Dosing ml/min Est GFR ( Amer) ml/min Est GFR (Non-Af Amer) ml/min BUN/Creatinine Ratio (10-20) Glucose (70-99(Fasting)) mg/dl POC Glucose 117 H 88 (70-99) mg/dl Calcium (8.6-10.3) mg/dl Phosphorus (2.5-4.9) mg/dl Magnesium (1.7-2.4) mg/dl
--- NOTE | 2024-04-24 09:58 | Discharge Summary ---
Date of Service April 24, 2024 Admission HPI Per Admitting Provider This is an 84 yr old mail with DM2, HTN, CAD with history of LAD stent, atrial fibrillation on chronic AC with Xarelto, HLD, and BPH who presents to ED from wound clinic who referred him due to concern for septic joint. Pt was admitted to [facility] 04/01/24-04/04/24 after a fall at home then a syncopal episode in the ED. Found to have orthostatic hypotension so furosemide and tamsulosin were held, losartan reduced to 50 mg daily. Pt followed up with cardiology as outpatient and currently has a Zio patch in place until 04/24. He was also noted to have a left knee hematoma so his Xarelto was initially held and orthopedics evaluated, recommended conservative management. Pt reports following up with Dr. Malik last week and have fluid drained from the knee but is unaware of the results of the culture. Xarelto was resumed at discharge, and patient reports taking this as prescribed. Since being discharged, he has overall felt he has been doing well. There was some confusion initially with the Augmentin dose being 875-125 or 500-125 mg but pt reports that this was most recently clarified as the 875 mg strength, which he is now taking. He also thinks he has a couple pills of the Bactrim left but he is not sure. He denies fevers, chills, or significant pain in the left knee. He has been ambulating with a walker without difficulty. He saw wound care last week and then again today. He reports not changing the dressing consistently at home as he and his are "squeamish." He reports home health is being arranged to be there on and Sun. Pt seeing wound care on Mondays. He denies chest pain, SOB, N/V/D. No further dizziness, syncopal episodes, or recurrent falls since being discharged. He presented to wound care today for follow-up where he noted that he had some bleeding from the left knee wound overnight. Upon evaluation the left knee was not bleeding but there was drainage of a large amount of serosanguineous fluid noted and the knee was more swollen, left thigh would was larger so pt was referred to the ED for evaluation and possible I&D with washout. Synovial fluid from 04/16/24 - Proteus mirabilis Left knee wound culture 04/14/24 - Proteus mirabilis, Enterobacter cloacae Admission Exam Per Admitting Provider General: Lying comfortably in bed, not in distress, on room air HEENT: EOMI, LULÚ, MMM Chest: Clear breath sounds bilaterally, no wheezes or crackles CVS: Regular rate and rhythm, normal heart sounds, no murmur Abdomen: Soft, non tender, not distended, normal bowel sounds Neuro: Awake, alert, oriented, conversing well, non focal MSK: Left knee wound with bloody discharge oozing, fluctuation noted with erythema, no tenderness Skin: Left medial thigh raw wound with granulation tissue- no purulent discharge Trace edema LLE and on compression stocking Principal Diagnosis Left knee hematoma Discharge Exam General: Lying comfortably in bed, not in distress, on room air HEENT: EOMI, LULÚ, MMM Chest: Clear breath sounds bilaterally, no wheezes or crackles CVS: Regular rate and rhythm, normal heart sounds, no murmur Abdomen: Soft, non tender, not distended, normal bowel sounds Neuro: Awake, alert, oriented, conversing well, non focal MSK: Left knee in dressings Skin: warm, dry Discharge Data Allergies Allergy/AdvReac Type Severity Reaction Status Date / Time No Known Allergies Allergy Verified 04/21/24 09:02 Consultations 04/21/24 10:40 ED Decision to Admit Stat 04/21/24 11:51 Consult Orthopedic Surgery Routine 04/21/24 12:51 Consult Orthopedic Surgery Routine Ordered Studies 04/21/24 13:48 CT knee LT w con Urgent FINDINGS: The osseous structures are without fracture or dislocation. Degenerative changes are seen most prominent in the medial compartment. Calcification is seen in the posterior joint space. There is a fabella. No joint effusion is seen. Fluid is seen in the anterior subcutaneous tissues. IMPRESSION: There is a anterior subcutaneous tissues collection compatible with a hematoma. No fracture is seen. Degenerative changes are seen in the joint space. Hospital Course (1) Infection of left knee: (2) Traumatic hematoma of left knee: (3) PAF (paroxysmal atrial fibrillation): (4) Hypertension goal BP (blood pressure) < 130/80: (5) DMII (diabetes mellitus, type 2): Plan 84 year old male with recent fall and traumatic hematoma of left knee sent from wound care center for left knee infection for further management Concern for Left knee infection, hx of traumatic hematoma left knee r/o septic arthritis- had fall 2 weeks back on ABx since and was following wound care center. Aspirated 3 days back which is showing proteus and enterobacter; and sent to ED for further management. Started on iv cefepime per clx results. CT knee - There is a anterior subcutaneous tissues collection compatible with a hematoma. No fracture is seen. Degenerative changes are seen in the joint space. Discussed w/ ID - Dr. Avila - as pt on Augmentin/ Bactrim as outpt - recommends to DC on cipro for 1 more week. Orthopedics consulted - aspirates done in the outpt orthopedics office - neither of the samples were from the knee joint. One culture was labelled "synovial fluid" which was apparently mislabelled. Both samples were from the superificial knee hematoma. No surgical plans at this time. Met and discussed w/ Dr. Malik at the bedside - L knee hematoma much improved - plan to change dressings this AM and DC home after that - close follow up with wound care and with Dr. Malik arranged Pt on xarelto and aspirin- if not improving, may need to hold PAF- currently NSR. On zio patch till 04/24 due to recent syncope. Continue amio. Not on BB due to h/o bradycardia. on xarelto. Monitor on tele HTN- recent orthostatic hypotension with syncope and medications were adjusted (Lasix and flomax were discontinued and losartan reduced) with no recurrence of orthostasis. Continue losartan 50 mg daily. DM-2- Recent HA1c 6.3. Hold home metformin. Continue SSI. Diabetic diet. Total Time Total Time Spent Total Time Spent (In Minutes): 40 Discharge Plan Discharge Items Patient Disposition: Home - Self-Care Reason For Visit: left knee infection Discharge Diagnosis: Left knee hematoma Activity: Per Instructions section Non-emergency contact: Primary Care Provider, Surgeon and Specialist Call non-emergency contact if: you have any medication questions and your symptoms worsen Follow-up/Referrals: Andree Pearson MD [Primary Care Provider] - (Date & Time 04/29/2024 10:20 AM Provider Andree Pearson MD Department General Internal Medicine [facility]) Diet: Carb Consistent or DM2 and Heart Healthy Addtl Attending Provider Instructions: Follow up with wound clinic, orthopedic surgeon and primary care provider. Your appointment with wound clinic was arranged for Sunday at 2:40 pm. You will need to see Dr. Malik (orthopedics) next week. Take antibiotics - ciprofloxacin - as prescribed. Pending Studies at Discharge: Yes Studies:: final blood cultx results Stand-Alone Forms: My [facility], Smoking Cessation Medications and DC Order Prescriptions: New ciprofloxacin HCl 500 mg tablet 500 mg PO BID 7 Days Qty: 14 0RF Advanced Probiotic 625 mg (10 billion cell) Capsule 1 cap PO DAILY Qty: 10 0RF Continued Santyl 250 unit/gram ointment 1 applic topical DAILY Qty: 30 1RF Rx Instructions: apply to necrotic (blackened) areas of wounds daily cyanocobalamin (vitamin B-12) [Vitamin B-12] 1,000 mcg Tablet 1,000 mcg PO DAILY Rx Instructions: otc unable to verify aspirin 81 mg Tablet,Delayed Release (Dr/Ec) 81 mg PO DAILY Rx Instructions: otc unable to verify lutein 20 mg Tablet 20 mg PO DAILY Rx Instructions: give with meal/snack [id number] acid-lutein [Adult Multivitamin (w-lutein)] 200-137.5 mcg Tablet,Chewable 1 tab PO DAILY rosuvastatin 10 mg Tablet 10 mg PO QAM Qty: 30 0RF Xarelto 20 mg tablet 20 mg PO HS Qty: 30 0RF Rx Instructions: must administer with evening meal metformin 500 mg tablet See Rx Instructions .ROUTE .COMPLEX Rx Instructions: 500mg in a.m. and 1,000mg in PM meclizine 12.5 mg tablet 12.5 mg PO TID PRN (Reason: Dizziness) amiodarone 200 mg tablet 100 mg PO DAILY Rx Instructions: half tablet by po am per pharmacy losartan 50 mg Tablet 50 mg PO DAILY Qty: 30 1RF Discontinued sulfamethoxazole-trimethoprim [Bactrim DS] 800-160 mg tablet 1 tab PO BID 10 Days Qty: 20 0RF amoxicillin-pot clavulanate 875-125 mg tablet 1 tab PO BID Discharge Orders: Discharge Order (Routine); Ordered 04/24/24 Ordered By: Jesus Vasquez/Other Patient Handouts: Nutrition for Wound Healing, Managing Type 2 Diabetes Admission Data Admit Date/Time: 04/21/24 11:39 Attending Provider: Jesus Coffey Admit Provider: Leif Herrera Primary Care Provider: Andree Pearson Other Providers: Avila Escalera; Krzysztof De León; Rai Malik; Leif Herrera; [facility]
== END 2024-04-24 11:16 | disposition home health service (06) | DRG 605 ==
LOC: ED 10:07 → 2W 13:40 → SUATTDRO 14:14
DX: Z79.899 Other long term (current) drug therapy; B96.4 Proteus (mirabilis) (morganii) as the cause of diseases classified elsewhere; I10 Essential (primary) hypertension; I48.0 Paroxysmal atrial fibrillation; Z79.01 Long term (current) use 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s; E11.9 Type 2 diabetes mellitus without complications; W19.XXXA Unspecified fall, initial encounter; B96.89 Other specified bacterial agents as the cause of diseases classified elsewhere; S80.02XA Contusion of left knee, initial encounter; E78.5 Hyperlipidemia, unspecified; Z79.82 Long term (current) use of aspirin; Z79.84 Long term (current) use of oral hypoglycemic drugs; L08.9 Local infection of the skin and subcutaneous tissue, unspecified; Z95.5 Presence of coronary angioplasty implant and graft

== ENCOUNTER 2025-02-10 14:03 | Inpatient (IN) ==
--- NOTE | 2025-02-10 14:05 | Emergency Department Note ---
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 IV was established and blood work is obtained. Patient was ordered IV Tylenol 1 g as well as IV morphine 2 mg. Patient did have primary and secondary surveys which were completed. Patient states that he only tracely brushed his head against a wall during the fall but will still obtain a CT in light of the patient's blood thinner use. Patient is no midline neck pain do not believe he requires C-spine precautions or CT of the cervical spine. Light of the patient's significant bruising swelling and pain to the buttock the patient did have CT of the abdomen pelvis completed. The patient's blood work is reassuring with a normal H&H and platelet count white count of 13 likely reactive. Kidney function unremarkable. Patient CT abdomen pelvis that showed hematomas. Patient was noted to have a small area of extravasation. Do not believe that this would likely require any sort of IR intervention given location as well as the fact the patient is stable vitals and a normal hemoglobin. Patient did undergo an ambulatory trial was still having difficulty with getting up from a seated position. In light of this and the fact patient's age and size do not believe he would be safe for home at this time. CT head negative. Indy Priest did speak with the on-call hospitalist service DARCY Cai and the patient was admitted by Dr. Hooks. Discussed would consider holding the patient's anticoagulant as the patient is in a sinus rhythm. Discussion w/ other healthcare providers: DARCY Cai and Dr. Hooks Prior /Outside records reviewed: None Differential diagnosis: Fracture, dislocation, contusion, strain, sprain, ICH, hemothorax, intra- abdominal injury, anemia among other causes were considered. Diagnostics, as interpreted by me: ECG: Sinus bradycardia, rate of 54, normal intervals, normal axis no ST elevations. Cardiac monitoring: An order was placed for continuous cardiac monitoring. The monitor shows a rate of 57 with sinus rhythm. Patient was placed on pulse oximetry Medical decision rules: Gambian head CT rule, Nexus rule Imaging studies: I informally interpreted the patient's CT head does not show obvious ICH with formal report to follow. HPI: Patient presents due to concerns due to concerns for a fall. The patient reportedly had a fall about a week ago where he struck his right buttock. The patient states that he was walking down some stairs to the outside when he fell on the last step striking his right buttock. Patient states that this occurred around 8 AM this morning. He does report that he grazed the side of his head against a wall as he fell. No LOC. The patient states that he was up and ambulatory thereafter but noticed that he seemed to have some stiffening up of his right leg and buttock area which made it difficult for him to ambulate. Given these concerns he presented here for further evaluation and treatment as he was also concerned with the possibility of a hip fracture after discussing this with his . Patient does take Xarelto for known history of A-fib. He does follow with Dr. Collins. Patient denies any chest pains or shortness of breath. PAST MEDICAL HISTORY: See Below PAST SURGICAL HISTORY: See Below SOCIAL HISTORY: See Below HOME MEDICATIONS: See Below ALLERGIES: See Below VITALS: See Below PHYSICAL EXAMINATION: GENERAL: NAD, non-toxic. Head: Normocephalic atraumatic. EYE EXAM: Normal conjunctiva. PERRL, no anisocoria and EOM's grossly intact w/o pain. OROPHARYNX: Moist mucus membranes, grossly normal dentition. NECK: Trachea midline, no stridor. Supple, no nuchal rigidity, no adenopathy, non-tender. No signs of meningismus. FROM of the neck with good chin to chest and neck extension. No midline C-spine TTP. LUNGS: Clear to auscultation. Normal chest wall mechanics. HEART: NSR, no MRG. ABDOMEN: Abdomen soft, non-tender, no masses, no rebound or guarding. BACK: No CVA TTP. No midline thoracic or lumbar TTP. SKIN: Bruising as noted below. UPPER EXTREMITIES: Upper extremities are grossly normal. No TTP or deformity. LOWER EXTREMITIES: Significant bruising over the right buttock and hip area, no obvious leg length discrepancy, able to raise the right leg off the bed although less so compared to the left secondary to pain. There is a gap in the bruising from the buttock and is also present over the iliac wing. NEURO EXAM: A&O x3, cranial nerves II-XII grossly intact, normal speech, moves all 4 extremities. Past Med/Surg History Problem List (Updated 02/11/25 @ 17:13 by Brady Sanchez MD) CHI (closed head injury) (Acute) Status post fall Hematoma of right buttock (Acute) Open wound of left knee Septic arthritis (Acute) Infection of left knee Traumatic hematoma of left knee (Acute) Traumatic wound (Acute) Suture check Infection of left elbow Orthostatic hypotension skilled nursing current use 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 (Acute) Syncope Hematoma of left knee region Pain and swelling of left knee (Acute) Acute pain of left knee (Acute) Fracture of nasal bone (Acute) Face lacerations (Acute) Abrasion of face (Acute) Fall from standing (Acute) Encounter for pre-operative examination No pertinent past surgical history Atrial fibrillation with rapid ventricular response (Acute) ASCVD (arteriosclerotic cardiovascular disease) Edema, peripheral (Acute) Medical History CAD (coronary artery disease) 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 PAF (paroxysmal atrial fibrillation) Hypertension goal BP (blood pressure) < 130/80 Dyslipidemia, goal LDL below 70 DMII (diabetes mellitus, type 2) 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 Acute duodenitis Diabetes Hypertension High cholesterol Social History Smoking Status: Former smoker Tobacco Type: Cigarettes Smoking End Date: at 41 years old; Second Hand Exposure: No; Hx Alcohol Use: Yes Alcohol type: beer Hx Substance Use: No Preferred Language: Faroese Communication Ability: Effective 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 Beliefs That Will Affect Care: None Current Living Situation: Spouse Current Living Situation Comment: home with Other Information That Helps Us Care for You: No Feels Safe at Home: Yes Safety Concerns: Feels Safe At This Time Assistive Devices: Cane and Walker Allergies Allergies Allergy/AdvReac Type Severity Reaction Status Date / Time No Known Allergies Allergy Verified 02/10/25 17:54 Home Meds Home Medications Medication Instructions Recorded Confirmed aspirin 81 mg tablet,delayed 81 mg PO QAM 06/27/23 02/10/25 release cyanocobalamin (vitamin B-12) 1,000 mcg PO QAM 06/27/23 02/10/25 1,000 mcg tablet (Vitamin B-12) lutein 20 mg tablet 20 mg PO QAM 06/27/23 02/10/25 amiodarone 200 mg tablet 100 mg PO QAM 04/01/24 02/10/25 meclizine 12.5 mg tablet 12.5 mg PO TID PRN Dizziness 04/01/24 02/10/25 metformin 500 mg tablet See Rx Instructions .Route .COMPLEX 04/14/24 02/10/25 losartan 50 mg tablet 50 mg PO QAM 02/10/25 02/10/25 [id number] 300 mcg-K 60 1 tab PO QAM 02/10/25 02/10/25 mcg-lycop 600 mcg-lutein 300 mcg tablet (Centrum Silver Men) Previous Rx's Medication Instructions Recorded rivaroxaban 20 mg tablet (Xarelto) 20 mg PO HS #30 tabs 06/29/23 rosuvastatin 10 mg tablet 10 mg PO QAM #30 tabs 06/29/23 Results & Data (ED) Vital Signs Vital Signs - 24 hr 02/10/25 18:09 02/10/25 19:00 02/10/25 20:00 Temperature Temperature Source Pulse Rate - Lying Pulse Rate - Sitting Pulse Rate - Standing Pulse Rate 58 L Pulse Rate [Apical] 82 70 Pulse Rhythm [Apical] Pulse Strength [Apical] Respiratory Rate 20 19 Respiratory Effort / Characteristics Respiratory Depth Respiratory Pattern Blood Pressure - Lying Blood Pressure - Sitting Blood Pressure- Standing Blood Pressure [Right Arm] 173/94 H 162/77 H Blood Pressure Mean [Right Arm] 120 105 Blood Pressure Position [Right Arm] Semi-fowlers Semi-fowlers Pulse Oximetry 95 96 Oxygen Delivery Method Room Air Room Air EWS Level of Consciousness - Last Result EWS Temperature - Last Result EWS Respiratory Rate - Last Result EWS Oxygen Saturation - Last Result EWS Oxygen in Use - Last Result EWS Score EWS Clinical Risk 02/10/25 21:00 02/10/25 21:36 02/10/25 21:49 Temperature Temperature Source Pulse Rate - Lying 71 Pulse Rate - Sitting 79 Pulse Rate - Standing 90 Pulse Rate 78 Pulse Rate [Apical] 63 Pulse Rhythm [Apical] Pulse Strength [Apical] Respiratory Rate 14 Respiratory Effort / Characteristics Respiratory Depth Respiratory Pattern Blood Pressure - Lying 161/89 H Blood Pressure - Sitting 132/93 Blood Pressure- Standing 131/82 Blood Pressure [Right Arm] 144/70 H Blood Pressure Mean [Right Arm] 94 Blood Pressure Position [Right Arm] Semi-fowlers Pulse Oximetry 94 Oxygen Delivery Method Room Air EWS Level of Consciousness - Last Result EWS Temperature - Last Result EWS Respiratory Rate - Last Result EWS Oxygen Saturation - Last Result EWS Oxygen in Use - Last Result EWS Score EWS Clinical Risk 02/10/25 21:55 02/10/25 21:55 02/11/25 03:02 Temperature 36.4 C L 36.4 C L Temperature Source Oral Oral Pulse Rate - Lying Pulse Rate - Sitting Pulse Rate - Standing Pulse Rate Pulse Rate [Apical] 62 71 Pulse Rhythm [Apical] Pulse Strength [Apical] Respiratory Rate 16 18 Respiratory Effort / Characteristics Non-Labored Spontaneous Non-Labored Spontaneous Non-Labored Spontaneous Respiratory Depth Normal Normal Normal Respiratory Pattern Regular Regular Regular Blood Pressure - Lying Blood Pressure - Sitting Blood Pressure- Standing Blood Pressure [Right Arm] 176/81 H 162/79 H Blood Pressure Mean [Right Arm] 112 106 Blood Pressure Position [Right Arm] Lying Pulse Oximetry 97 97 Oxygen Delivery Method Room Air Room Air Room Air EWS Level of Consciousness - Last Result EWS Temperature - Last Result EWS Respiratory Rate - Last Result EWS Oxygen Saturation - Last Result EWS Oxygen in Use - Last Result EWS Score EWS Clinical Risk 02/11/25 03:40 02/11/25 07:47 02/11/25 07:47 Temperature 36.5 C Temperature Source Oral Pulse Rate - Lying Pulse Rate - Sitting Pulse Rate - Standing Pulse Rate Pulse Rate [Apical] 77 Pulse Rhythm [Apical] Pulse Strength [Apical] Respiratory Rate 18 Respiratory Effort / Characteristics Respiratory Depth Respiratory Pattern Blood Pressure - Lying Blood Pressure - Sitting Blood Pressure- Standing Blood Pressure [Right Arm] 176/83 H Blood Pressure Mean [Right Arm] 114 Blood Pressure Position [Right Arm] Lying Pulse Oximetry 97 Oxygen Delivery Method Room Air EWS Level of Consciousness - Last Result Spontaneously Alert Spontaneously Alert EWS Temperature - Last Result 36.4 36.4 EWS Respiratory Rate - Last Result 18 18 EWS Oxygen Saturation - Last Result 97 97 EWS Oxygen in Use - Last Result No No EWS Score 0 0 EWS Clinical Risk Low Risk Low Risk 02/11/25 08:00 02/11/25 11:31 02/11/25 11:35 Temperature 36.5 C Temperature Source Oral Pulse Rate - Lying Pulse Rate - Sitting Pulse Rate - Standing Pulse Rate 65 Pulse Rate [Apical] 67 Pulse Rhythm [Apical] Regular Pulse Strength [Apical] Normal Respiratory Rate 20 Respiratory Effort / Characteristics Non-Labored Spontaneous Respiratory Depth Normal Respiratory Pattern Regular Blood Pressure - Lying Blood Pressure - Sitting Blood Pressure- Standing Blood Pressure [Right Arm] 130/80 Blood Pressure Mean [Right Arm] 96 Blood Pressure Position [Right Arm] Sitting Pulse Oximetry Oxygen Delivery Method Room Air EWS Level of Consciousness - Last Result Spontaneously Alert EWS Temperature - Last Result 36.5 EWS Respiratory Rate - Last Result 20 EWS Oxygen Saturation - Last Result 97 EWS Oxygen in Use - Last Result No EWS Score 0 EWS Clinical Risk Low Risk 02/11/25 15:16 02/11/25 15:16 Temperature 36.4 C L Temperature Source Oral Pulse Rate - Lying Pulse Rate - Sitting Pulse Rate - Standing Pulse Rate Pulse Rate [Apical] 79 Pulse Rhythm [Apical] Pulse Strength [Apical] Respiratory Rate 17 Respiratory Effort / Characteristics Respiratory Depth Respiratory Pattern Blood Pressure - Lying Blood Pressure - Sitting Blood Pressure- Standing Blood Pressure [Right Arm] 113/70 Blood Pressure Mean [Right Arm] 84 Blood Pressure Position [Right Arm] Sitting Pulse Oximetry 96 Oxygen Delivery Method Room Air EWS Level of Consciousness - Last Result Spontaneously Alert EWS Temperature - Last Result 36.5 EWS Respiratory Rate - Last Result 20 EWS Oxygen Saturation - Last Result 97 EWS Oxygen in Use - Last Result No EWS Score 0 EWS Clinical Risk Low Risk Home Medications Current Medication List: was personally reviewed by me Laboratory Data Attestation: I reviewed the patient's lab results. 02/11/25 06:05 02/11/25 06:05 Lab Results 02/10/25 02/10/25 02/10/25 Range/Units 14:26 14:33 21:26 WBC 13.25 H (4.8-10.8) K/ul RBC 5.00 (4.70-6.10) M/uL Hgb 14.7 (14.0-18.0) g/dl POC Hgb 15.0 (14.0-18.0) g/dl Hct 44.1 (42.0-52.0) % POC Hct 44 (42-52) % MCV 88.2 (80.0-100.0) fL MCH 29.4 (25.0-34.0) pg MCHC 33.3 (32.0-36.0) g/dL RDW Std Deviation 52.4 H (36.4-46.3) fL RDW Coeff of Ezekiel 16.3 H (11.5-14.5) % Plt Count 337 (130-400) K/uL MPV 10.1 (9.4-12.4) fL Immature Gran % (Auto) 1.1 % Neut % (Auto) 76.6 % Lymph % (Auto) 11.8 % Blaine % (Auto) 8.7 % Eos % (Auto) 1.3 % Baso % (Auto) 0.5 % Neut # (Auto) 10.15 H (1.40-6.50) K/uL Lymph # (Auto) 1.56 (1.20-3.40) K/uL Blaine # (Auto) 1.15 H (0.11-0.59) K/uL Eos # (Auto) 0.17 (0.00-0.50) K/uL Baso # (Auto) 0.07 (0.00-0.20) K/uL Immature Gran # (Auto) 0.15 (0.01-0.20) K/uL PT 11.6 (9.0-12.0) Seconds INR 1.1 (0.9-1.1) APTT 26 (21-31) Seconds PTT Ratio 1.0 POC Sodium 141 (135-144) mmol/L Sodium 141 (136-145) mmol/L POC Potassium 4.2 (3.3-5.0) mmol/L Potassium 4.3 (3.5-5.1) mmol/L POC Chloride 102 (101-112) mmol/L Chloride 105 (98-107) mmol/L Carbon Dioxide 28 (21-32) mmol/L POC Total CO2 25 (24-31) mmol/L Anion Gap 8 (3-11) POC Anion Gap 20.0 (16-25) mmol/L POC BUN 15 (7-18) mg/dl BUN 14 (6-23) mg/dl Creatinine 0.80 (0.6-1.4) mg/dl POC Creatinine 0.9 (0.6-1.3) mg/dl Est Cr Clr Drug Dosing 89.3 ml/min eGFR 86.19 BUN/Creatinine Ratio 17.5 (10-20) Glucose 130 H (70-99(Fasting)) mg/dl POC Glucose 151 H (70-99) mg/dl POC Glucose (other) 132 H (70-99) mg/dl Calcium 8.6 (8.6-10.3) mg/dl POC Ioniz Calcium Carol 1.13 (1.12-1.32) mmol/l Magnesium (1.7-2.4) mg/dl Total Bilirubin 1.9 H (0.2-1.0) mg/dl AST 23 (13-39) U/L ALT 22 (7-52) U/L Alkaline Phosphatase 83 (34-104) U/L Total Protein 6.2 (6.0-8.3) gm/dl Albumin 3.6 (3.4-5.0) gm/dl Globulin 2.6 (2.5-4.0) gm/dl Albumin/Globulin Ratio 1.4 (0.9-2) 02/10/25 02/11/25 02/11/25 Range/Units 22:36 06:05 08:12 WBC 12.64 H (4.8-10.8) K/ul RBC 4.32 L (4.70-6.10) M/uL Hgb 12.7 L 12.5 L (14.0-18.0) g/dl POC Hgb (14.0-18.0) g/dl Hct 37.7 L 37.6 L (42.0-52.0) % POC Hct (42-52) % MCV 87.0 (80.0-100.0) fL MCH 28.9 (25.0-34.0) pg MCHC 33.2 (32.0-36.0) g/dL RDW Std Deviation 51.4 H (36.4-46.3) fL RDW Coeff of Ezekiel 16.4 H (11.5-14.5) % Plt Count 267 (130-400) K/uL MPV 9.6 (9.4-12.4) fL Immature Gran % (Auto) 1.4 % Neut % (Auto) 72.8 % Lymph % (Auto) 13.4 % Blaine % (Auto) 10.5 % Eos % (Auto) 1.3 % Baso % (Auto) 0.6 % Neut # (Auto) 9.20 H (1.40-6.50) K/uL Lymph # (Auto) 1.69 (1.20-3.40) K/uL Blaine # (Auto) 1.33 H (0.11-0.59) K/uL Eos # (Auto) 0.17 (0.00-0.50) K/uL Baso # (Auto) 0.07 (0.00-0.20) K/uL Immature Gran # (Auto) 0.18 (0.01-0.20) K/uL PT (9.0-12.0) Seconds INR (0.9-1.1) APTT (21-31) Seconds PTT Ratio POC Sodium (135-144) mmol/L Sodium 140 (136-145) mmol/L POC Potassium (3.3-5.0) mmol/L Potassium 3.9 (3.5-5.1) mmol/L POC Chloride (101-112) mmol/L Chloride 105 (98-107) mmol/L Carbon Dioxide 25 (21-32) mmol/L POC Total CO2 (24-31) mmol/L Anion Gap 10 (3-11) POC Anion Gap (16-25) mmol/L POC BUN (7-18) mg/dl BUN 17 (6-23) mg/dl Creatinine 0.81 (0.6-1.4) mg/dl POC Creatinine (0.6-1.3) mg/dl Est Cr Clr Drug Dosing 88.0 ml/min eGFR 85.87 BUN/Creatinine Ratio 21.0 H (10-20) Glucose 122 H (70-99(Fasting)) mg/dl POC Glucose 112 H (70-99) mg/dl POC Glucose (other) (70-99) mg/dl Calcium 8.2 L (8.6-10.3) mg/dl POC Ioniz Calcium Carol (1.12-1.32) mmol/l Magnesium 1.6 L (1.7-2.4) mg/dl Total Bilirubin 2.1 H (0.2-1.0) mg/dl AST 36 (13-39) U/L ALT 31 (7-52) U/L Alkaline Phosphatase 86 (34-104) U/L Total Protein 5.4 L (6.0-8.3) gm/dl Albumin 3.3 L (3.4-5.0) gm/dl Globulin 2.1 L (2.5-4.0) gm/dl Albumin/Globulin Ratio 1.6 (0.9-2) 02/11/25 Range/Units 12:08 WBC (4.8-10.8) K/ul RBC (4.70-6.10) M/uL Hgb (14.0-18.0) g/dl POC Hgb (14.0-18.0) g/dl Hct (42.0-52.0) % POC Hct (42-52) % MCV (80.0-100.0) fL MCH (25.0-34.0) pg MCHC (32.0-36.0) g/dL RDW Std Deviation (36.4-46.3) fL RDW Coeff of Ezekiel (11.5-14.5) % Plt Count (130-400) K/uL MPV (9.4-12.4) fL Immature Gran % (Auto) % Neut % (Auto) % Lymph % (Auto) % Blaine % (Auto) % Eos % (Auto) % Baso % (Auto) % Neut # (Auto) (1.40-6.50) K/uL Lymph # (Auto) (1.20-3.40) K/uL Blaine # (Auto) (0.11-0.59) K/uL Eos # (Auto) (0.00-0.50) K/uL Baso # (Auto) (0.00-0.20) K/uL Immature Gran # (Auto) (0.01-0.20) K/uL PT (9.0-12.0) Seconds INR (0.9-1.1) APTT (21-31) Seconds PTT Ratio POC Sodium (135-144) mmol/L Sodium (136-145) mmol/L POC Potassium (3.3-5.0) mmol/L Potassium (3.5-5.1) mmol/L POC Chloride (101-112) mmol/L Chloride (98-107) mmol/L Carbon Dioxide (21-32) mmol/L POC Total CO2 (24-31) mmol/L Anion Gap (3-11) POC Anion Gap (16-25) mmol/L POC BUN (7-18) mg/dl BUN (6-23) mg/dl Creatinine (0.6-1.4) mg/dl POC Creatinine (0.6-1.3) mg/dl Est Cr Clr Drug Dosing ml/min eGFR BUN/Creatinine Ratio (10-20) Glucose (70-99(Fasting)) mg/dl POC Glucose 174 H (70-99) mg/dl POC Glucose (other) (70-99) mg/dl Calcium (8.6-10.3) mg/dl POC Ioniz Calcium Carol (1.12-1.32) mmol/l Magnesium (1.7-2.4) mg/dl Total Bilirubin (0.2-1.0) mg/dl AST (13-39) U/L ALT (7-52) U/L Alkaline Phosphatase (34-104) U/L Total Protein (6.0-8.3) gm/dl Albumin (3.4-5.0) gm/dl Globulin (2.5-4.0) gm/dl Albumin/Globulin Ratio (0.9-2) Administered Medications Amiodarone HCl (Amiodarone 200 Mg Tab) 100 mg PO QAM [facility] Stop: 03/13/25 08:59 Last Admin: 02/11/25 09:41 Dose: 100 mg Documented By: RRR Cyanocobalamin (Cyanocobalamin (B-12) 500 Mcg Tablet) 1,000 mcg PO DAILY [facility] Stop: 03/13/25 08:59 Last Admin: 02/11/25 09:42 Dose: 1,000 mcg Documented By: RRR Magnesium Sulfate/Dextrose (Magnesium Sulfate / D5w) 1 gm in 100 mls @ 50 mls/hr IV ONE ONE Stop: 02/11/25 17:30 Last Admin: 02/11/25 16:13 Dose: 50 mls/hr Documented By: RRR Insulin Aspart (Insulin Aspart Per Unit Charge) 0 units SC ACHS [facility] Stop: 03/12/25 20:59 Last Admin: 02/11/25 13:08 Dose: 2 units Documented By: RRR Co-signed By: VALE Admin: 02/11/25 10:48 Dose: 8 units Documented By: RRR Co-signed By: EDDI Admin: 02/10/25 21:35 Dose: Not Given Documented By: CEF Losartan Potassium (Losartan Potassium 50 Mg Tab) 50 mg PO DAILY [facility] Stop: 03/13/25 08:59 Last Admin: 02/11/25 09:42 Dose: 50 mg Documented By: RRR Rosuvastatin Calcium (Rosuvastatin Calcium 10 Mg Tab) 10 mg PO QAM [facility] Stop: 03/13/25 08:59 Last Admin: 02/11/25 09:42 Dose: 10 mg Documented By: RRR Discontinued Medications Acetaminophen (Ofirmev) 1,000 mg in 100 mls @ 400 mls/hr IV NOW STA Stop: 02/10/25 14:33 Last Infusion: 02/10/25 16:15 Dose: Infused Documented By: Admin: 02/10/25 15:37 Dose: 400 mls/hr Documented By: AVCristina Ioversol (Optiray 320 100ml) 90 ml IV ONCE ONE Stop: 02/10/25 15:06 Last Admin: 02/10/25 15:05 Dose: 90 ml Documented By: VALE(2) Morphine Sulfate (Morphine Sulfate 2 Mg/Ml Carp) 2 mg IV NOW STA Stop: 02/10/25 14:20 Last Admin: 02/10/25 15:38 Dose: 2 mg Documented By: AVM Morphine Sulfate (Morphine Sulfate 4 Mg/Ml 1 Ml Carp\Vial) 4 mg IV NOW STA Stop: 02/10/25 16:36 Last Admin: 02/10/25 16:39 Dose: 4 mg Documented By: CEF Imaging Data Radiologist's Impression: Abdomen/Pelvis CT 02/10/25 14:19 CT SCAN OF THE ABDOMEN AND PELVIS WITH IV CONTRAST CLINICAL HISTORY: Fall. COMPARISON STUDY: [facility] May 25, 2023. TECHNIQUE: Following the IV administration of 90 cc of Optiray 320, CT scan of the abdomen and pelvis is performed from the lung bases to the proximal femora. Images are reviewed in the axial, sagittal, and coronal planes. IV contrast was administered without complication. A dose lowering technique was utilized adhering to the principles of ALARA. CT DOSE: 2139.74 mGy.cm FINDINGS: Visualized lung bases are unremarkable. No pneumatosis, free air or portal gas is present. There is no biliary ductal dilatation status post cholecystectomy. There are no hepatic lesions. The spleen, adrenal glands and pancreas are unremarkable. There is a diverticulum of the second portion of the duodenum. Water attenuation bilateral renal lesions represent cysts. Several subcentimeter renal lesions are too small to characterize. A 5 mm right renal calculus is present. No ureteral calculi. There is no evidence for a bowel obstruction. There is colonic diverticulosis without evidence for acute diverticulitis. No abdominal or pelvic lymphadenopathy is present. Severe right hip osteoarthritis is incidentally noted. There are no acute fractures within the lumbar spine, pelvis or hips. Several intramuscular hematomas within the right gluteal musculature are noted. The largest on image 380 measures 11 x 5.6 cm and contains a small focus of active extravasation. No additional foci of active extravasation are present. There is adjacent stranding which extends into the right thigh. There is also a small amount of hemorrhage within the right piriformis muscle. IMPRESSION: 1. Several right gluteal intramuscular hematomas which measure up to 11 x 5.6 cm. The largest hematoma contains a small focus of active extravasation. 2. No evidence for traumatic injury to the solid abdominal viscera. 3. No acute fractures. ACT 112: Negative or not required by law. Electronically signed by: Jefferson Baires M.D. 02/10/2025 3:[address] 02/10/25 14:20 CT head/brain wo con CLINICAL HISTORY: Trauma. TECHNIQUE: Multiple axial CT images of the head were obtained without contrast. A dose lowering technique was utilized adhering to the principles of ALARA. CT DOSE: 1100.35 mGy.cm COMPARISON: 04/01/2024 FINDINGS: No intracranial hemorrhage seen. No mass effect, midline shift, or hydrocephalus. Stable mild chronic small vessel ischemic changes. No skull fracture seen. Visualized paranasal sinuses and mastoid air cells are clear. IMPRESSION: No acute findings. ACT 112: Negative or not required by law. The above report was generated using voice recognition software. It may contain grammatical, syntax or spelling errors. Electronically signed by: Edwin Sesay M.D. 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
[2025-02-10 14:45] LABS: iSTAT Creatinine 0.9 mg/dl (0.6-1.3); iSTAT Ionized Calcium 1.13 mmol/l (1.12-1.32); iSTAT Potassium 4.2 mmol/L (3.3-5.0)
[2025-02-10] MEDS: OPTIRAY 320 100ml IV ONE (15:05)
[2025-02-10 15:10] LABS: Basophils # (auto) 0.07 K/uL (0.00-0.20); Basophils % (auto) 0.5 %; Eosinophils # (auto) 0.17 K/uL (0.00-0.50); Eosinophils % (auto) 1.3 %; Hematocrit (blood only) 44.1 % (42.0-52.0); Hemoglobin 14.7 g/dl (14.0-18.0); Immature Granulocytes # (auto) 0.15 K/uL (0.01-0.20); Immature Granulocytes % (auto) 1.1 %; Lymphocytes # (auto) 1.56 K/uL (1.20-3.40); Lymphocytes % (auto) 11.8 %; Mean Corpuscular Hemoglobin 29.4 pg (25.0-34.0); Mean Corpuscular Hgb Conc 33.3 g/dL (32.0-36.0); Mean Corpuscular Volume 88.2 fL (80.0-100.0); Mean Platelet Volume 10.1 fL (9.4-12.4); Monocytes # (auto) 1.15 K/uL (0.11-0.59); Monocytes % (auto) 8.7 %; Neutrophils # (auto) 10.15 K/uL (1.40-6.50); Neutrophils % (auto) 76.6 %; Platelet Count 337 K/uL (130-400); RDW Coefficient of Variation 16.3 % (11.5-14.5); RDW Standard Deviation 52.4 fL (36.4-46.3); White Blood Count 13.25 K/ul (4.8-10.8)
[2025-02-10 15:18] LABS: Albumin Level 3.6 gm/dl (3.4-5.0); Bilirubin,Total 1.9 mg/dl (0.2-1.0); Calcium 8.6 mg/dl (8.6-10.3); INR 1.1 (0.9-1.1); Partial Thromboplastin Time 26 Seconds (21-31); Potassium 4.3 mmol/L (3.5-5.1); Prothrombin Time 11.6 Seconds (9.0-12.0)
[2025-02-10 15:24] LABS: Albumin Globulin Ratio 1.4 (0.9-2); BUN Creatinine Ratio 17.5 (10-20); Creatinine Clr Calc Pharmacy 89.3 ml/min; Globulin 2.6 gm/dl (2.5-4.0); Total Protein 6.2 gm/dl (6.0-8.3)
--- NOTE | 2025-02-10 15:26 | CT Scan Report ---
CT head/brain wo con CLINICAL HISTORY: Trauma. TECHNIQUE: Multiple axial CT images of the head were obtained without contrast. A dose lowering tech nique was utilized adhering to the principles of ALARA. CT DOSE: 1100.35 mGy.cm COMPARISON: 04/01/2024 FINDINGS: No intracranial hemorrhage seen. No mass effect, midline shift, or hydrocephalus. Stable mi ld chronic small vessel ischemic changes. No skull fracture seen. Visualized paranasal sinuses and ma stoid air cells are clear. IMPRESSION: No acute findings. ACT 112: Negative or not required by law. The above report was generated using voice recognition software. It may contain grammatical, syntax o r spelling errors. Electronically signed by: Edwin Sesay M.D. 02/10/2025 3:24 PM
[2025-02-10] MEDS: ACETAMINOPHEN 1,000 MG/100 ML VIAL IV STA (15:37)
[2025-02-10] MEDS: MoRPHine SULFATE 2 MG/ML CARP IV STA (15:38)
--- NOTE | 2025-02-10 15:42 | CT Scan Report ---
CT SCAN OF THE ABDOMEN AND PELVIS WITH IV CONTRAST CLINICAL HISTORY: Fall. COMPARISON STUDY: KUB May 25, 2023. TECHNIQUE: Following the IV administration of 90 cc of Optiray 320, CT scan of the abdomen and pelvi s is performed from the lung bases to the proximal femora. Images are reviewed in the axial, sagittal , and coronal planes. IV contrast was administered without complication. A dose lowering technique wa s utilized adhering to the principles of ALARA. CT DOSE: 2139.74 mGy.cm FINDINGS: Visualized lung bases are unremarkable. No pneumatosis, free air or portal gas is present. There is no biliary ductal dilatation status post cholecystectomy. There are no hepatic lesions. The spleen, adrenal glands and pancreas are unremarkable. There is a diverticulum of the second portion o f the duodenum. Water attenuation bilateral renal lesions represent cysts. Several subcentimeter rama l lesions are too small to characterize. A 5 mm right renal calculus is present. No ureteral calculi. There is no evidence for a bowel obstruction. There is colonic diverticulosis without evidence for a cute diverticulitis. No abdominal or pelvic lymphadenopathy is present. Severe right hip osteoarthrit is is incidentally noted. There are no acute fractures within the lumbar spine, pelvis or hips. Sever al intramuscular hematomas within the right gluteal musculature are noted. The largest on image 380 m easures 11 x 5.6 cm and contains a small focus of active extravasation. No additional foci of active extravasation are present. There is adjacent stranding which extends into the right thigh. There is a lso a small amount of hemorrhage within the right piriformis muscle. IMPRESSION: 1. Several right gluteal intramuscular hematomas which measure up to 11 x 5.6 cm. The largest hematom a contains a small focus of active extravasation. 2. No evidence for traumatic injury to the solid abdominal viscera. 3. No acute fractures. ACT 112: Negative or not required by law. Electronically signed by: Jefferson Baires M.D. 02/10/2025 3:40 PM
[2025-02-10] MEDS: MoRPHine SULFATE 4 MG/ML 1 ML CARP\\VIAL IV STA (16:39)
[2025-02-10] MEDS ORDERED: oxyCODONE/ACETAMINOPHEN 5mg/325mg TAB PO PRN (17:43)
--- NOTE | 2025-02-10 18:04 | History & Physical Report ---
Date of Service February 10, 2025 Assessment & Plan (1) CAD (coronary artery disease): (2) PAF (paroxysmal atrial fibrillation): (3) Hypertension goal BP (blood pressure) < 130/80: (4) Dyslipidemia, goal LDL below 70: (5) DMII (diabetes mellitus, type 2): (6) Diabetes: (7) High cholesterol: (8) Hypertension: Plan The patient is an 84-year-old male who presented to the ED on with complaints of right gluteal pain s/p mechanical fall Mechanical fall versus presyncope Right gluteal hematomas Head CT negative, A/P CT showed several right gluteal [id number] x 5.6 cm, with largest hematomasmall focus of active extravasation Discussed with Ortho, recommended 6 inch Wagner bandage and ice, serial H/H, hold aspirin/Xarelto Patient remains hemodynamically stable, hemoglobin is within normal limits Patient reports some dizziness that he feels may be contributing to the falls, check orthostatic BPs, consider cardiology consult Hx AF/HTN/HLD/CAD Continue amiodarone, hold Xarelto/aspirin Continue losartan Hx prediabetes: Hold metformin, last A1c 6.3, check sugars, no indication for insulin at this time A total of 60 minutes was spent on chart review/reviewing diagnostic kylie a/facilitating plan of care/discussion with consultants Full code DVT prophylaxis: Xareltoon hold with hematomas History of Present Illness Chief Complaint: Recurrent falls, right gluteal pain Primary Care Provider: Andree Pearson MD The patient is an 84-year-old male with a past medical history of DM2, HTN, CAD, LAD stent, A-fibon chronic ACXarelto, HLD, BPH who presented to the ED on with complaints of a fall today. Patient reports he has fallen 3 times in the past month. Complains of right gluteal pain and has some bruising in that area. Reports falling down 1 stair. He does report grazing his head. Denies any loss of consciousness. He does report that his falls tend to happen at 5 AM when he first wakes up. He reports he is dizzy when he sits up in the bed. Denies any recent changes to his medications. Reports having issues with orthostasis in the past. Denies any focal weakness. Denies any recent illness. Denies any chest pain/nausea/vomiting/diarrhea/abdominal pain On arrival to the ED, labs remarkable for WBC 13, glucose 130, total bili 1.[address] negative A/P CT shows: 1. Several right gluteal intramuscular hematomas which measure up to 11 x 5.6 cm. The largest hematoma contains a small focus of active extravasation. 2. No evidence for traumatic injury to the solid abdominal viscera. 3. No acute fractures. The patient's hemoglobin is stable. He is hemodynamically stable. The patient will be admitted for for recurrent falls, PT/OT and Ortho consult Allergies Allergy/AdvReac Type Severity Reaction Status Date / Time No Known Allergies Allergy Verified 02/10/25 17:54 Home Medications Medication Instructions Recorded Confirmed Type aspirin 81 mg tablet,delayed 81 mg PO QAM 06/27/23 02/10/25 History release cyanocobalamin (vitamin B-12) 1,000 mcg PO QAM 06/27/23 02/10/25 History 1,000 mcg tablet (Vitamin B-12) lutein 20 mg tablet 20 mg PO QAM 06/27/23 02/10/25 History rivaroxaban 20 mg tablet (Xarelto) 20 mg PO HS #30 tabs 06/29/23 02/10/25 Rx rosuvastatin 10 mg tablet 10 mg PO QAM #30 tabs 06/29/23 02/10/25 Rx amiodarone 200 mg tablet 100 mg PO QAM 04/01/24 02/10/25 History meclizine 12.5 mg tablet 12.5 mg PO TID PRN Dizziness 04/01/24 02/10/25 History metformin 500 mg tablet See Rx Instructions .Route .COMPLEX 04/14/24 02/10/25 History losartan 50 mg tablet 50 mg PO QAM 02/10/25 02/10/25 History iluhrsbm-cc-arhdo 300 mcg-K 60 1 tab PO QAM 02/10/25 02/10/25 History mcg-lycop 600 mcg-lutein 300 mcg tablet (Centrum Silver Men) Past Med/Surg History Problem List Open wound of left knee Septic arthritis (Acute) Infection of left knee Traumatic hematoma of left knee (Acute) Traumatic wound (Acute) Suture check Infection of left elbow Orthostatic hypotension snf current use 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 Syncope Hematoma of left knee region Pain and swelling of left knee (Acute) Acute pain of left knee (Acute) Fracture of nasal bone (Acute) Face lacerations (Acute) Abrasion of face (Acute) Fall from standing (Acute) Encounter for pre-operative examination No pertinent past surgical history Atrial fibrillation with rapid ventricular response (Acute) ASCVD (arteriosclerotic cardiovascular disease) Edema, peripheral (Acute) Medical History 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 (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 PAF (paroxysmal atrial fibrillation) Hypertension goal BP (blood pressure) < 130/80 Dyslipidemia, goal LDL below 70 DMII (diabetes mellitus, type 2) 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 Acute duodenitis Diabetes Hypertension High cholesterol Social History Smoking Status: Never smoker Hx Alcohol Use: No Hx Substance Use: No Preferred Language: Croatian Communication Ability: Effective Digester Hand Required: No Beliefs That Will Affect Care: None Current Living Situation: Spouse Feels Safe at Home: Yes Assistive Devices: Glasses and Walker Review of Systems Review of Systems: All systems reviewed & are unremarkable except as noted in HPI & below Physical Exam Constitutional: WD/WN, vitals as above Eyes: PERRL, conjunctivae normal, anicteric sclerae ENMT: external ear and nose normal, oropharynx normal Neck: trachea midline, no thyromegaly Respiratory: normal respiratory effort, lungs clear to auscultation Cardiovascular: RRR, no murmur, no edema Gastrointestinal (Abdomen): normal bowel sounds, soft, nontender, no hepatosplenomegaly Musculoskeletal: no cyanosis or clubbing, extremities motor strength 5/5 (Right gluteal hematoma extending down the right thigh) Skin: no rashes, warm and dry Neurologic: PERRL, EOMI, accommodation nl, no face palsy, no dysarthria Lymphatic: no cervical or axillary lymphadenopathy Results & Data Results & Data Vital Signs (Past 12 Hours) Vital Signs Temp Pulse Pulse Resp BP BP Pulse Ox 02/10/25 16:30 169/85 H 02/10/25 16:27 64 26 H 95 02/10/25 16:21 64 25 H 97 02/10/25 16:00 164/81 H 02/10/25 16:00 64 18 164/81 H 97 02/10/25 15:51 65 18 98 02/10/25 15:30 174/80 H 02/10/25 15:21 68 20 95 02/10/25 14:45 67 20 169/90 H 95 02/10/25 14:19 02/10/25 14:17 36.6 C 71 23 178/89 H 99 02/10/25 14:13 73 O2 Del Method 02/10/25 16:30 02/10/25 16:27 02/10/25 16:21 02/10/25 16:00 02/10/25 16:00 Room Air 02/10/25 15:51 02/10/25 15:30 02/10/25 15:21 02/10/25 14:45 Room Air 02/10/25 14:19 Room Air 02/10/25 14:17 Room Air 02/10/25 14:13 Diagnostic Findings Laboratory Results WBC 13.25 K/ul (4.8-10.8) H 02/10/25 14:26 RBC 5.00 M/uL (4.70-6.10) 02/10/25 14:26 Hgb 14.7 g/dl (14.0-18.0) 02/10/25 14:26 POC Hgb 15.0 g/dl (14.0-18.0) 02/10/25 14:33 Hct 44.1 % (42.0-52.0) 02/10/25 14:26 POC Hct 44 % (42-52) 02/10/25 14:33 MCV 88.2 fL (80.0-100.0) 02/10/25 14:26 MCH 29.4 pg (25.0-34.0) 02/10/25 14:26 MCHC 33.3 g/dL (32.0-36.0) 02/10/25 14:26 RDW Std Deviation 52.4 fL (36.4-46.3) H 02/10/25 14:26 RDW Coeff of Ezekiel 16.3 % (11.5-14.5) H 02/10/25 14:26 Plt Count 337 K/uL (130-400) 02/10/25 14:26 MPV 10.1 fL (9.4-12.4) 02/10/25 14: Immature Gran % (Auto) 1.1 % 02/10/25 14: Neut % (Auto) 76.6 % 02/10/25 14:26 Lymph % (Auto) 11.8 % 02/10/25 14:26 Chase % (Auto) 8.7 % 02/10/25 14:26 Eos % (Auto) 1.3 % 02/10/25 14:26 Baso % (Auto) 0.5 % 02/10/25 14: Neut # (Auto) 10.15 K/uL (1.40-6.50) H 02/10/25 14: Lymph # (Auto) 1.56 K/uL (1.20-3.40) 02/10/25 14: Chase # (Auto) 1.15 K/uL (0.11-0.59) H 02/10/25 14: Eos # (Auto) 0.17 K/uL (0.00-0.50) 02/10/25 14: Baso # (Auto) 0.07 K/uL (0.00-0.20) 02/10/25 14: Immature Gran # (Auto) 0.15 K/uL (0.01-0.20) 02/10/25 14: PT 11.6 Seconds (9.0-12.0) 02/10/25 14: INR 1.1 (0.9-1.1) 02/10/25 14: APTT 26 Seconds (21-31) 02/10/25 14: PTT Ratio 1.0 02/10/25 14:26 POC Sodium 141 mmol/L (135-144) 02/10/25 14:33 Sodium 141 mmol/L (136-145) 02/10/25 14: POC Potassium 4.2 mmol/L (3.3-5.0) 02/10/25 14:33 Potassium 4.3 mmol/L (3.5-5.1) 02/10/25 14:26 POC Chloride 102 mmol/L (101-112) 02/10/25 14:33 Chloride 105 mmol/L (98-107) 02/10/25 14: Carbon Dioxide 28 mmol/L (21-32) 02/10/25 14:26 POC Total CO2 25 mmol/L (24-31) 02/10/25 14:33 Anion Gap 8 (3-11) 02/10/25 14:26 POC Anion Gap 20.0 mmol/L (16-25) 02/10/25 14:33 POC BUN 15 mg/dl (7-18) 02/10/25 14:33 BUN 14 mg/dl (6-23) 02/10/25 14:26 Creatinine 0.80 mg/dl (0.6-1.4) 02/10/25 14:26 POC Creatinine 0.9 mg/dl (0.6-1.3) 02/10/25 14:33 Est Cr Clr Drug Dosing 89.3 ml/min 02/10/25 14:26 eGFR 86.19 02/10/25 14:26 BUN/Creatinine Ratio 17.5 (10-20) 02/10/25 14:26 Glucose 130 mg/dl (70-99(Fasting)) H 02/10/25 14:26 POC Glucose (other) 132 mg/dl (70-99) H 02/10/25 14:33 Calcium 8.6 mg/dl (8.6-10.3) 02/10/25 14:26 POC Ioniz Calcium Carol 1.13 mmol/l (1.12-1.32) 02/10/25 14:33 Total Bilirubin 1.9 mg/dl (0.2-1.0) H 02/10/25 14:26 AST 23 U/L (13-39) 02/10/25 14:26 ALT 22 U/L (7-52) 02/10/25 14:26 Alkaline Phosphatase 83 U/L (34-104) 02/10/25 14:26 Total Protein 6.2 gm/dl (6.0-8.3) 02/10/25 14:26 Albumin 3.6 gm/dl (3.4-5.0) 02/10/25 14:26 Globulin 2.6 gm/dl (2.5-4.0) 02/10/25 14:26 Albumin/Globulin Ratio 1.4 (0.9-2) 02/10/25 14:26 Impressions Abdomen/Pelvis CT 02/10/25 14:19 CT SCAN OF THE ABDOMEN AND PELVIS WITH IV CONTRAST CLINICAL HISTORY: Fall. COMPARISON STUDY: KUB May 25, 2023. TECHNIQUE: Following the IV administration of 90 cc of Optiray 320, CT scan of the abdomen and pelvis is performed from the lung bases to the proximal femora. Images are reviewed in the axial, sagittal, and coronal planes. IV contrast was administered without complication. A dose lowering technique was utilized adhering to the principles of ALARA. CT DOSE: 2139.74 mGy.cm FINDINGS: Visualized lung bases are unremarkable. No pneumatosis, free air or portal gas is present. There is no biliary ductal dilatation status post cholecystectomy. There are no hepatic lesions. The spleen, adrenal glands and pancreas are unremarkable. There is a diverticulum of the second portion of the duodenum. Water attenuation bilateral renal lesions represent cysts. Several subcentimeter renal lesions are too small to characterize. A 5 mm right renal calculus is present. No ureteral calculi. There is no evidence for a bowel obstruction. There is colonic diverticulosis without evidence for acute diverticulitis. No abdominal or pelvic lymphadenopathy is present. Severe right hip osteoarthritis is incidentally noted. There are no acute fractures within the lumbar spine, pelvis or hips. Several intramuscular hematomas within the right gluteal musculature are noted. The largest on image 380 measures 11 x 5.6 cm and contains a small focus of active extravasation. No additional foci of active extravasation are present. There is adjacent stranding which extends into the right thigh. There is also a small amount of hemorrhage within the right piriformis muscle. IMPRESSION: 1. Several right gluteal intramuscular hematomas which measure up to 11 x 5.6 cm. The largest hematoma contains a small focus of active extravasation. 2. No evidence for traumatic injury to the solid abdominal viscera. 3. No acute fractures. ACT 112: Negative or not required by law. Electronically signed by: Jefferson Baires M.D. 02/10/2025 3:[address] 02/10/25 14:20 CT head/brain wo con CLINICAL HISTORY: Trauma. TECHNIQUE: Multiple axial CT images of the head were obtained without contrast. A dose lowering technique was utilized adhering to the principles of ALARA. CT DOSE: 1100.35 mGy.cm COMPARISON: 04/01/2024 FINDINGS: No intracranial hemorrhage seen. No mass effect, midline shift, or hydrocephalus. Stable mild chronic small vessel ischemic changes. No skull fracture seen. Visualized paranasal sinuses and mastoid air cells are clear. IMPRESSION: No acute findings. ACT 112: Negative or not required by law. The above report was generated using voice recognition software. It may contain grammatical, syntax or spelling errors. Electronically signed by: Edwin Sesay M.D. 02/10/2025 3:24 PM Supervising Physician Co-Signing Physician Notes Patient was seen and examined at bedside. Patient comes in with fall, reports hitting his right buttock, denies loss of consciousness. Admitting labs and imaging reviewed, CTAP finding of right gluteal hematoma. Ortho has been reached out, appreciate recommendation. Hold blood thinner, Wagner wrap and ice. Monitor H&H. On exam: Right gluteal hematoma extending down right thigh. Patient on room air. Rest of the examination as above. I have seen and examined the patient and have discussed the case with the provider above. I agree with the assessment and plan as stated. Time spent independently: 20 minutes
[2025-02-10] MEDS ORDERED: DEXTROSE 50% 50 ML SYRINGE IV PRN (19:34)
[2025-02-10] MEDS ORDERED: GLUCOSE 40% GEL 15 GM TUBE PO PRN (19:34)
[2025-02-10] MEDS ORDERED: CARBOHYDRATES FOR HYPOGLYCEMIA PO PRN (19:34)
[2025-02-10] MEDS ORDERED: GLUCAGON FOR INJ 1 MG VIAL SQ PRN (19:34)
[2025-02-10] MEDS ORDERED: GLUCOSE 10 TAB/TUBE PO PRN (19:34)
[2025-02-10] MEDS: INSULIN ASPART PER UNIT CHARGE SC SCH (21:35)
[2025-02-10] MEDS ORDERED: ACETAMINOPHEN 325 MG TAB PO PRN (21:55)
[2025-02-10 23:07] LABS: Hematocrit (blood only) 37.7 % (42.0-52.0); Hemoglobin 12.7 g/dl (14.0-18.0)
--- OUTSIDE RECORDS SUMMARY | 2025-02-10 23:41 | External Medical Summary | Summary of Care ---
Author Name Unknown Organization [facility] Address [address] [place] [address] Phone [phone] Care Team Providers Care Hr Business Partner Name Role Phone Andree Pearson MD Primary Care Provider Reason for Visit * Reason Onset Date Comments Scheduling 02/04/2025 Encounter Details Date Type Department Care Team (Late st Contact Info) Description 02/04/2025 Telephone General Internal Medicine [facility] [address] [facility] [place] [address] Andree Pearson MD [address] [place] [address] Scheduling Allergies No known active allergiesdocumented as of this encounter (statuses as of 02/06/2025) Medications Lutein 20 MG Oral Capsule Take 1 Capsule by mouth in the morning. Active Lidocaine 5 % External Patch (Lidoderm) Place 2 Patches topically on the skin as needed. As needed for lower back pain 2 Active Cyanocobalamin 1000 MCG Oral Tablet (Cyanocobalamin ) Take 1 Tablet by mouth in the morning. Active Acetaminophen 325 MG Oral Tablet (Tylenol) Take 2 Tablets by mouth as needed. As needed for pain 2 Active Multivitamin Adult Oral Tablet Take 1 Tablet by mouth in the morning. Active metFORMIN HCl 500 MG Oral Tablet (Glucophage) One tab in the morning, two tabs in the evening Active Xarelto 20 MG Oral Tablet TAKE 1 TABLET BY MOUTH AT BEDTIME WITH EVENING MEAL 90 Tablet 3 3 Active Aspirin 81 MG Oral Tablet Delayed ReleaseIndicati ons:Coronary artery disease involving [place] coronary artery of [place] heart without angina pectoris Take 1 Tablet by mouth in the morning. Restart 1 daily with food 03/07/2024 (was off since 01/12). 4 Active Docusate Sodium 100 MG Oral Capsule (Colace) Take 1 Capsule by mouth in the morning. Active Polyethylene Glycol 3350 17 GM Oral Packet (MiraLax) Take 1 Packet by mouth as needed for Constipation. Active Losartan Potassium 50 MG Oral Tablet (Cozaar) Take 1 Tablet by mouth daily. 90 Tablet 3 4 Active Rosuvastatin Calcium 10 MG Oral Tablet (Crestor) Take 1 Tablet by mouth daily. 90 Tablet 3 4 Active Amiodarone HCl 200 MG Oral Tablet (Cordarone) TAKE 1/2 TABLET BY MOUTH EVERY MORNING 45 Tablet 3 4 Active Meclizine HCl 12.5 MG Oral Tablet (Antivert) Take 1 Tablet by mouth 3 times a day as needed for Dizziness. 30 Tablet 4 Active documented as of this encounter (statuses as of 02/06/2025) Active Problems Problem Noted Date Diagnosed Date Elevated TSH 08/07/2023 Atrial fibrillation status post cardioversion Coronary artery disease invo lving [place] coronary artery of [place] heart without angina pectoris 04/25/2023 History [...] as of this encounter (statuses as of 02/06/2025) Resolved Problems Problem Noted Date Diagnosed Date Resolved Date Need for prophylactic vaccin ation with tetanus-diphtheria (Td) 04/25/2023 08/07/2023 documented as of this encounter (statuses as of 02/06/2025) Immunizations Name Administration Dates Next Due COVID-19 [...] Vac cine, Unspecified Formulation 08/10/2011 Seasonal Influenza, High Dos e, Trivalent, PF, IM (Fluzone HD) 08/04/2024,08/06/2019,08/12/2018,07/02,07/26/2016,08/03/2014,07/07/2013 Seasonal Influenza, Quadriva lent Hd (Fluzone Hd) 07/04/2023 Seasonal Influenza, Quadriva lent, No Preserve, IM 07/12/2020 Seasonal Influenza, Trivalen t, Adjuvanted, 65+ YRS, PF, (Fluad) 07/28/2017 TDAP (age 10 and older)(Boostrix) 04/28/2013 TDAP, Age 7 and older, IM (Adacel) 04/27/2023 Varicella Zoster Vaccine Kody lt (Zostavax) 05/12/2013 Zoster Vaccine Recombinant (Shingrix) 08/10/2022 ,2022 documented as of this encounter Social History Tobacco Use Types Packs/Day Years Used Date Smoking Tobacco: Former Cigarettes Smokeless Tobacco: Never Alcohol Use Standard Drinks/Week Comments Yes 0 (1 standard drink = 0.6 oz pur e alcohol) rare beer with nephews PHQ-2 Answer Date Recorded PHQ Adult Total Score 0 04/07/2024 Hunger Vital Sign Answer Date Recorded Within the past 12 months, y ou worried that your food would run out before you got the money to buy more. Never true 04/07/20 24 Within the past 12 months, t he [...] 04/07/2024 Does the household have a re lar source of income? (Household - for ages [...] ages 0-17 years) Not on file 04/07/2024 Food Insecurity Answer Date Recorded Within the past 12 months, y ou worried that your food would run out before you got the money to buy more. Never true 04/07/20 24 Within the past 12 months, t he food you bought just didn't last and you didn't have money to get more. Never true 04/07/2024 Do you need food for this week? No 04/07/2024 Sex and Gender Information Value Date Recorded Sex Assigned at Not on file Legal Sex Male 8:04 AM EDT Gender Identity Not on file Sexual Orientation Not on file documented as of this encounter Miscellaneous Notes * Telephone Encounter - Ene Li OSA - 02/06/2025 11:56 AM EDT Patient is scheduled February 19 at 10:[address] Pearson * Telephone Encounter - Ene Li OSA - 02/06/2025 11:37 AM EDT Talked to Dr Pearson will call patient then * Telephone Encounter - Glenn Castanon OSA - 02/06/2025 10:50 AM EDT Patient called looking to reschedule 02/[address] appt to [address] with Dr. Pearson. She stated that someone named Елена from the office called to get that rescheduled, but there's no record of that call. I didtake a look at rescheduling for same day with Dr. Pearson, but does not have anything available. * Telephone Encounter - Jayne Spence PHARM Tech - 02/04/2025 10:19 AM EDT Pt's calling in to reschedule appointment. Would like to keep appointment for current day () but change providers. Transferred caller to scheduling for assistance. Thank you, Jayne Spence [facility] Business Manager [facility] 02/04/2025,10:20 AM documented in this encounter Plan of Treatment Upcoming Encounters Date Type Department Care Team (Late st Contact Info) Description 02/19/2025 10:20 AM EDT Office Visit General Internal Medicine [facility] [place] [address] [facility] [place], [place] [address] Andree Pearson MD [address] [place] [address] 03/18/2025 8:30 AM EDT Office Visit Cardiology, [facility] [address] [place] [address] Cole Reboleldo PA-C [address] [place] [address] 04/01/2025 8:30 AM EDT Office Visit Otolaryngology [facility] [address] [place] [address] Floyd Strauss PA-C [address] [place] [address] 04/15/2025 9:30 AM EDT Imaging Vascular Lab, [facility] II 2nd Floor, [place] [address] [place] [id number] 04/21/2025 11:00 AM EDT Office Visit Urology [facility] [address] [place] [address] [place] [address] Debbie Moore PA-C [address] [place] [address] 10/05/2025 8:45 AM EST Office [facility] [address] [place] [address] Guy Jarvis MD [address] [place] [address] Health Maintenance Due Date Last Done Comments Adult Wellness Visit 2004 COVID-19 Vaccine ( season) 2024 08/04/2024, 07/31/2023, 07/14/2022, Additional history exists Depression Screening 04/07/2025 04/07/2024 Diabetic Eye Exam 05/15/2025 05/15/2024, , 11/26/2023, Additional history exists Diabetic Foot Exam 08/04/2025 08/04/2024, 08/07/2023 HbA1c 08/04/2025 02/02/2025, 06/2024, 02/27/2024, Additional history exists Albumin/Creatinine Ratio 09/12/2025 024, 07/30/2024, 08/07/2023 DTap/Tdap Vaccines (3 - Td or Tdap) 04/27/2033 04/27/2023, 04/28/2013 Zoster Vaccines Completed 08/10/2022, 02/20, 05/12/2013 Pneumococcal Vaccine: 50+ Years Completed 03/14/2023, 03/12/2023, 05/05/2015, Additional history exists Influenza Vaccine (FLU shot) Completed , 07/04/2023, 06/22/2022, Additional history exists HPV (Gardasil) Vaccine Aged Out No lo nger eligible based on patient's age to complete this topic Hepatitis B Vaccine Aged Out No longe r eligible based on patient's age to complete this topic MENINGOCOCCAL (MENACTRA/MENVEO) Aged Out No longer eligible based on patient's age to complete this topic Meningitis B Vaccine (Bexsero/Trumemba) Aged Out No longer eligible based on patient's age to complete this topic documented as of this encounter Medical Devices Not on filedocumented as of this encounter Advance Directives Healthcare Agents on File Name Relationship Healthcare Agent Relationshi p Communication Tryphana Fasick Spouse Health Care Agen t (per Health Care Power of Central Stores Attendant document) Care Teams Hr Business Partner Relationship Specialty Start Date End Date Andree Pearson MD [address] [facility] [place] [address] PCP - General Internal Medicine 04/25/23 documented as of this encounter
--- OUTSIDE RECORDS SUMMARY | 2025-02-10 23:41 | External Medical Summary | Summary of Care ---
Author Name Unknown Organization [facility] Address [address] [place] [address] Phone [phone] Care Team Providers Care Concierge Receptionist Name Role Phone Andree Pearson MD Primary Care Provider [phone] Reason for Visit * Reason Comments Outpatient Testing Encounter Details Date Type Department Care Team (Latest Contact Info) Description 02/02/2025 9:40 AM EDT Laboratory Laboratory [facility] [address] [place] [address] [facility] [address] [facility] [place] [address] Coronary artery disease involving [place] coronary artery of [place] heart without angina pectoris; HTN, goal below 140/90; Tachy-praneeth syndrome (HCC); Encounter for monitoring amiodarone therapy; Type 2 diabetes mellitus with hemoglobin A1c goal of less than 7.0% (HCC); Dyslipidemia, goal LDL below 70; Atrial fibrillation status post cardioversion (HCC); prison current use of amiodarone; Encounter for long-term (current) use of medications; Personal history of fall; Microhematuria; BPH with obstruction/lower urinary tract symptoms; Urine test positive for microalbuminuria Allergies No known active allergiesdocumented as of [...] Tablet Delayed ReleaseIndicati ons:Coronary artery disease involving [place] coronary artery of [place] heart without angina pectoris Take 1 Tablet [...] post cardioversion Coronary artery disease invo lving [place] coronary artery of [place] heart without angina pectoris 04/25/2023 History of [...] as of this encounter Miscellaneous Notes * Result Encounter Note - Ene Li OSA - 02/06/2025 10:34 AM EDT Called and left voicemail, if patient calls back schedule February 19 at 9:00 will ask provider if thatis okay * Result Encounter Note - Andree Pearson MD - 02/03/2025 5:44 PM EDT Urine concentrated, no abnormal protein in the urine, A1c 6%, normal B12, TSH, liver and kidney function, blood count with the slightly elevated white cell count and hemoglobin. -recommend increase fluid intake at least 10 cups per day, repeat CBC before next appointment. Please schedule appointment with me on February 19 , I have multiple openings and cancel appointment with Dr. Vasquez * Result Encounter Note - Cole Rebolledo PA-C - 02/03/2025 8:30 AM EDT Laboratory work for the monitoring of amiodarone therapy OK. Kidney function and potassium OK. Abnormal CBC. Elevated H&H, mildly elevated white blood cell count. Increase free water intake.Follow up with PCP. documented in this encounter Plan of Treatment Upcoming Encounters Date Type Department Care Team (Late st Contact Info) Description 02/19/2025 10:20 AM EDT Office Visit [facility] [place] [address] [place] [address] Andree Pearson MD [facility] [place] [address] 03/18/2025 8:30 AM EDT Office Visit Cardiology, [facility] [address] [place] [phone] Cole Rebolledo PA-C [address] [place] [address] 04/01/2025 8:30 AM EDT Office Visit Otolaryngology [facility] [address] [place] [address] Floyd Strauss PA-C [address] [place] [address] 04/15/2025 9:30 AM EDT Imaging Vascular Lab, [facility] 2nd [facility] [address] [place] [phone] 04/21/2025 11:00 AM EDT Office Visit Urology [facility] [address] [place] [address] [place] [address] Debbie Moore PA-C [address] [place] [address] 10/05/2025 8:45 AM EST [facility] [place] [address] [place] [address] [address] Guy Jarvis MD [address] [facility] [place] [address] Health Maintenance Due Date Last Done Comments [...] Procedure Name Priority Date/Time Associated Diagnosis Comments URINE IMMUNOFIXATION, BENCE VERDE PROTEIN, RANDOM URINE Routine 02/02/2025 9:42 AM EDT Urine test positive for microalbuminuria PROTEIN, RANDOM URINE Routine 02/02/2025 9:42 AM EDT Urine test positive for microalbuminuria MICROSCOPIC EXAM, URINE Routine 02/02/2025 9:42 AM EDT Personal history of fall Microhematuria BPH with obstruction/lower urinary tract symptoms URINALYSIS, REFLEX TO MICROSCOPIC Routine 02/02/2025 9:42 AM EDT Personal history of fall Microhematuria BPH with obstruction/lower urinary tract symptoms TSH WITH FREE T4 IF INDICATED Routine 02/02/2025 9:39 AM EDT Coronary artery disease involving [place] coronary artery of [place] heart without angina pectoris HTN, goal below 140/90 Tachy-praneeth syndrome (HCC) Encounter for monitoring amiodarone therapy HEMOGLOBIN A1C Routine 02/02/2025 9:39 AM EDT Type 2 diabetes mellitus with hemoglobin A1c goal of less than 7.0% (HCC) BILIRUBIN, DIRECT Routine 02/02/2025 9:3 9 AM EDT 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 COMPREHENSIVE METABOLIC PANEL Routine 02/02/2025 9:39 AM EDT Coronary artery disease involving [place] coronary artery of [place] heart without angina pectoris HTN, goal below 140/90 Tachy-praneeth syndrome (HCC) CBC Routine 02/02/2025 9:39 AM EDT Coronary artery disease involving [place] coronary artery of [place] heart without angina pectoris HTN, goal below 140/90 Tachy-praneeth syndrome (HCC) LDL CHOLESTEROL (DIRECT MEASURE) Routine 02/02/2025 9:39 AM EDT Type 2 diabetes mellitus with hemoglobin A1c goal of less than 7.0% (HCC) Coronary artery disease involving [place] coronary artery of [place] heart without angina pectoris Dyslipidemia, goal LDL below 70 VITAMIN B12 Routine 02/02/2025 9:39 AM EDT Type 2 diabetes mellitus with hemoglobin A1c goal of less than 7.0% (HCC) Encounter for long-term (current) use of medications documented in this encounter Results * MICROSCOPIC EXAM, URINE (02/02/2025 9:42 AM EDT) RBC, Urine 0-2 0 - 2 /HPF 02/02/2025 10:22 AM EDT [facility] [place] 56- WBC, Urine 0-2 0 - 2 /HPF 02/02/2025 10:22 AM EDT [facility] [place] 56-02 Bacteria, Urine 0-25 0 - 25 /HPF 02/02/2025 10:22 AM EDT [facility] 56-02 Urine Urine specimen obtained by clean catch procedure / Unknown Non-blood Collection / Unknown 02/02/2025 9:42 AM EDT 02/02/2025 9:42 AM EDT us Andree Pearson MD LAB URINE ORDERABLES Final Resul t [facility] 56- [address] [place] [address] * PROTEIN, RANDOM URINE (02/02/2025 9:42 AM EDT) Protein, Random Urine 43 mg/dL 02/02/2025 8:42 PM EDT [facility] Urine Urine specimen obtained by clean catch procedure / Unknown Non-blood Collection / Unknown 02/02/2025 9:42 AM EDT 02/02/2025 9:42 AM EDT us Andree Pearson MD LAB URINE ORDERABLES Final Resul t [facility] [address] [place] [address] * URINE IMMUNOFIXATION, BENCE VERDE PROTEIN, RANDOM URINE (02/02/2025 9:42 AM EDT) Normal/Abnormal Normal Normal 2:43 PM EDT [facility] Protein, Random Urine 43 mg/dL 02/03/2025 2:43 PM EDT [facility] Immunofixation Interpretation No monoclonal free light chains present (Bence Vedre protein), in a background of glomerular proteinuria. 02/03/2025 2:43 PM EDT [facility] Urine Urine specimen obtained by clean catch procedure / Unknown Non-blood Collection / Unknown 02/02/2025 9:42 AM EDT 02/02/2025 9:42 AM EDT us Andree Pearson MD LAB URINE ORDERABLES Final Resul t [facility] [address] [place] [address] * (ABNORMAL) URINALYSIS, REFLEX TO MICROSCOPIC (02/02/2025 9:42 AM EDT) Color, Urine Yellow Light Yellow, Yellow, Dark Yellow 02/02/2025 10:22 AM EDT [address] Clarity, Urine Clear Clear 02/02/2025 10:22 AM EDT [address] Glucose, Urine Negative Negative mg/dL 02/02/2025 10:22 AM EDT [address] Bilirubin, Urine Small(A) Negative 02/02/2025 10:22 AM EDT [address] Ketone, Urine Trace(A) Negative mg/dL 02/02/2025 10:22 AM EDT [facility] 56 Specific [place], Urine 1.025 1.003 - 1.030 02/02/2025 10:22 AM EDT [facility] 56- Blood, Urine Negative Negative 02/02/2025 10:22 AM EDT [facility] 56 pH, Urine 5.5 5.0 - 7.5 Units 02/02/2025 10:22 AM EDT [facility] 56 Protein, Urine 30(A) Negative mg/dL 02/02/2025 10:22 AM EDT [facility] 56 Urobilinogen, Urine 4.0(A) 0.2, 1.0 mg/dL 02/02/2025 10:22 AM EDT [facility] 56 Nitrite, Urine Negative Negative 02/02/2025 10:22 AM EDT [facility] 56 Esterase, Urine Negative Negative 02/02/2025 10:22 AM EDT [facility] 56 Urine Urine specimen obtained by clean catch procedure / Unknown Non-blood Collection / Unknown 02/02/2025 9:42 AM EDT 02/02/2025 9:42 AM EDT us Andree Pearson MD LAB URINE ORDERABLES Final Resul t Performing Organization Address [facility]/ZIP Co de Phone Number [facility] 56-02 [address] [place] [address] * (ABNORMAL) BILIRUBIN, DIRECT (02/02/2025 9:39 AM EDT) Pathologist [facility] Bilirubin, Direct 0.5(H) 0.0 - 0.3 mg/dL 02/02/2025 10:47 AM EDT [facility] [place] [address] Blood Venous blood specimen / Unknown Venipuncture / Unknown 02/02/2025 9:39 AM EDT 02/02/2025 9:39 AM EDT us Andree Pearson MD LAB BLOOD ORDERABLES Final Resul t Performing Organization Address [facility] Co de Phone Number [facility] 56- [address] [place] [address] * VITAMIN B12 (02/02/2025 9:39 AM EDT) [facility] Vitamin B12 1,101 232 - 1,245 pg/mL 02/03/2025 12:39 AM EDT [facility] Blood Venous blood specimen / Unknown Venipuncture / Unknown 02/02/2025 9:39 AM EDT 02/02/2025 9:39 AM EDT us Andree Pearson MD LAB BLOOD ORDERABLES Final Resul t [facility] [address] [place] [address] * LDL CHOLESTEROL (DIRECT MEASURE) (02/02/2025 9:39 AM EDT) Pathologist [facility] LDL Cholesterol (Direct Measure) 64 <=129 mg/dL 02/03/2025 12:53 AM EDT [facility] Comment: LDL Cholesterol Reference Ranges (mg/dL): <70 Target level for high risk ASCVD patient <100 Optimal for general population 100-129 Near optimal for general population 130-159 Borderline high 160-189 High >=190 Very high Blood Venous blood specimen / Unknown Venipuncture / Unknown 02/02/2025 9:39 AM EDT 02/02/2025 9:39 AM EDT Andree Pearson MD LAB BLOOD ORDERABLES Final Resul t Performing Organization Address City/[facility] Co de Phone Number [facility] [address] [place] [address] * (ABNORMAL) HEMOGLOBIN A1C (02/02/2025 9:39 AM EDT) Hemoglobin A1C 6.0(H) 4.0 - 5.6 % 02/03/2025 12:26 AM EDT [facility] Comment:The use of HbA1c to monitor glycemic status is based on normal hemoglobin and HbA composition. This test should not be used in patients with abnormal hemoglobin that affects the half life of the red blood cell or the in vivo glycation rates. Estimated Average Glucose 126(H) <126 mg/dL 02/03/2025 12:26 AM EDT [facility] Blood Venous blood specimen / Unknown Venipuncture / Unknown 02/02/2025 9:39 AM EDT 02/02/2025 9:39 AM EDT Andree Pearson MD LAB BLOOD ORDERABLES Final Resul t Performing Organization Address [facility] Co de Phone Number [facility] [address] [place] [address] * (ABNORMAL) CBC (02/02/2025 9:39 AM EDT) WBC 11.94(H) 4.00 - 10.80 K/uL 02/02/2025 9:51 AM EDT [facility] [place] 56-02 RBC 5.85 4.50 - 5.25 M/uL 02/02/2025 9:51 AM EDT [facility] [place] 56-02 HGB 16.9(H) 14.0 - 16.8 g/dL 02/02/2025 9:51 AM EDT [facility] HCT 52.4(H) 40.0 - 48.4 % 02/02/2025 9:51 AM EDT [facility] MCV 89.6 82.0 - 99.5 fL 02/02/2025 9:51 AM EDT [facility] 56 MCH 28.9 27.0 - 34.0 pg 02/02/2025 9:51 AM EDT [facility] 56 MCHC 32.3 32.0 - 36.0 g/dL 02/02/2025 9:51 AM EDT [facility] 56 RDW 17.7 11.5 - 15.5 % 02/02/2025 9:51 AM EDT [facility] PLT 262 140 - 400 K/uL 02/02/2025 9:51 AM EDT [facility] 56 MPV 9.8 6.6 - 11.1 fL 02/02/2025 9:51 AM EDT [facility] Blood Venous blood specimen / Unknown Venipuncture / Unknown 02/02/2025 9:39 AM EDT 02/02/2025 9:39 AM EDT Cole Rebolledo PA-C LAB BLOOD ORDERABLES Final Result [facility] [address] [place] [address] * (ABNORMAL) COMPREHENSIVE METABOLIC PANEL (02/02/2025 9:39 AM EDT) BUN 18 6 - 20 mg/dL 02/02/2025 10:47 AM EDT [facility] CREATININE 0.9 0.6 - 1.2 mg/dL 02/02/2025 10:47 AM EDT [facility] EGFR 83 >=60 mL/min 02/02/2025 10:47 AM EDT [facility] 56 Comment:eGFR is calculated b ased on the CKD-EPI 2020 equation. SODIUM 144 135 - 146 mmol/L 02/02/2025 10:[facility] POTASSIUM 4.6 3.5 - 5.1 mmol/L 02/02/2025 10:47 AM EDT [facility] 56- CHLORIDE 104 98 - 107 mmol/L 02/02/2025 10:47 AM EDT [facility] 56- CO2 30 22 - 32 mmol/L 02/02/2025 10:47 AM EDT [facility] 56 ANION GAP 10 7 - 15 mmol/L 02/02/2025 10:47 AM EDT [facility] 56 GLUCOSE 121(H) 70 - 120 mg/dL 02/02/2025 10:47 AM EDT [facility] 56 Albumin 4.1 3.8 - 5.0 g/dL 02/02/2025 10:47 AM EDT [facility] 56 AST 26 10 - 50 U/L 02/02/2025 10:47 AM EDT [facility] 56 Alkaline Phosphatase 103 35 - 130 U/L 02/02/2025 10:47 AM T [facility] 56 Bilirubin, Total 1.2 <=1.2 mg/dL 02/02/2025 10:47 AM EDT [facility] 56 CALCIUM 9.7 8.4 - 10.2 mg/dL 02/02/2025 10:47 AM T [facility] 56 Protein 6.6 6.0 - 8.3 g/dL 02/02/2025 10:47 AM EDT [facility] 56 ALT 29 10 - 50 U/L 02/02/2025 10:47 AM T [facility] 56 Blood Venous blood specimen / Unknown Venipuncture / Unknown 02/02/2025 9:39 AM EDT 02/02/2025 9:39 AM EDT us Cole Rebolledo PA-C LAB BLOOD ORDERABLES Final Result [facility] [address]- [address] [place] [id number] * TSH WITH FREE T4 IF INDICATED (02/02/2025 9:39 AM EDT) TSH 3.46 0.27 - 4.20 uIU/mL 02/03/2025 12:39 AM EDT [facility] Blood Venous blood specimen / Unknown Venipuncture / Unknown 02/02/2025 9:39 AM EDT 02/02/2025 9:39 AM EDT Cole Rebolledo PA-C LAB BLOOD ORDERABLES Final Result [facility] [address] [place] [address] documented in this encounter Visit Diagnoses Diagnosis Coronary artery disease involving [place] coronary artery of [place] heart without angina pectoris HTN, goal below 140/90 Unspecified essential hypertension Tachy-praneeth syndrome (HCC) Sinoatrial node dysfunction Encounter for monitoring amiodarone therapy Encounter for therapeutic drug monitoring Type 2 diabetes mellitus with hemoglobin A1c goal of less than 7.0% (HCC) Dyslipidemia, goal LDL below 70 Other and unspecified hyperlipidemia Atrial fibrillation status post cardioversion (HCC) 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 Encounter for long-term (current) use of medications Encounter for long-term (current) use of other medications Personal history of fall Microhematuria Microscopic hematuria BPH with obstruction/lower urinary tract symptoms Hypertrophy of prostate with urinary obstruction and other lower urinary tract symptoms (LUTS) Urine test positive for microalbuminuria Proteinuria documented in this encounter Advance Directives Healthcare Agents on File Name Relationship Healthcare Agent Relationshi p Communication [facility] (per Health Care Power of Change Manager document) Care Teams Concierge Receptionist Relationship Specialty Start Date End Date Andree Pearson MD [address] [place] [address] PCP - General Internal Medicine 04/25/23 documented as of this encounter
--- OUTSIDE RECORDS SUMMARY | 2025-02-10 23:41 | External Medical Summary | Summary of Care ---
Author Name Unknown Organization [facility] Address [address] [place] [address] Phone [phone] Care Team Providers Care Stem Mounter Name Role Phone Andree Pearson MD Primary Care Provider [phone] Reason for Visit * Reason Onset Date Comments Scheduling 02/04/2025 Encounter Details Date Type Department Care Team (Late st Contact Info) Description 02/04/2025 Telephone General Internal Medicine [facility] 200 [facility] [address] Andree Pearson MD [address] [place] [address] Scheduling Allergies No known active allergiesdocumented as [...] Tablet Delayed ReleaseIndicati ons:Coronary artery disease involving [place] coronary artery of [place] heart without angina pectoris Take 1 Tablet [...] post cardioversion Coronary artery disease invo lving [place] coronary artery of [place] heart without angina pectoris 04/25/2023 History of [...] scheduling for assistance. Thank you, Jayne Spence Dispatch Officer [facility] 02/04/2025,10:20 AM documented in this encounter Plan of Treatment Upcoming Encounters Date Type Department Care Team (Late st Contact Info) Description 02/19/2025 10:20 AM EDT Office Visit General Internal Medicine [facility] [place] [address] [facility] [place], [place] [address] Andree Pearson MD [address] [place] [address] 03/18/2025 8:30 AM EDT Office Visit Cardiology, [facility] [address] [place] [address] Cole Rebolledo PA-C [address] [place] [address] 04/01/2025 8:30 AM EDT Office Visit Otolaryngology [facility] [address] [place] [address] Floyd Strauss PA-C [address] [place] [address] 04/15/2025 9:30 AM EDT Imaging Vascular Lab, [facility] II 2nd Floor, [place] [address] [place] [address] 04/21/2025 11:00 AM EDT Office Visit Urology [facility] [address] [place] [address] [place] [address] Debbie Moore PA-C [address] [place] [address] 10/05/2025 8:45 AM EST Office Visit [facility] [address] [place] [address] Guy Jarvis MD [address] [place] [address] Health Maintenance Due Date Last Done Comments [...] Agen t (per Health Care Power of Compressor Operator Portable document) Care Teams Stem Mounter Relationship Specialty Start Date End Date Andree Pearson MD 200 [place] [address] PCP - General Internal Medicine 04/25/23 documented as of this encounter
--- OUTSIDE RECORDS SUMMARY | 2025-02-10 23:41 | External Medical Summary | Summary of Care ---
Author Name Unknown Organization [facility] Address [address] [place] [address] Phone [phone] Care Team Providers Care Clothes Drier Repairer Name Role Phone Andree Pearson MD Primary Care Provider Reason for Visit * Reason Onset Date Comments Scheduling 02/04/2025 Encounter Details Date Type Department Care Team (Late st Contact Info) Description 02/04/2025 Telephone General Internal Medicine [facility] 200 [facility] [place] [address] Andree Pearson MD 200 [place] [address] Scheduling Allergies No known active allergiesdocumented as of this encounter (statuses as of 02/04/2025) Medications Lutein 20 MG Oral Capsule Take [...] Tablet Delayed ReleaseIndicati ons:Coronary artery disease involving [place] coronary artery of [place] heart without angina pectoris Take 1 Tablet [...] as of this encounter (statuses as of 02/04/2025) Active Problems Problem Noted Date Diagnosed Date Elevated TSH 08/07/2023 Atrial fibrillation status post cardioversion Coronary artery disease invo lving [place] coronary artery of [place] heart without angina pectoris 04/25/2023 History of [...] as of this encounter (statuses as of 02/04/2025) Resolved Problems Problem Noted Date Diagnosed Date Resolved Date Need for prophylactic vaccin ation with tetanus-diphtheria (Td) 04/25/2023 08/07/2023 documented as of this encounter (statuses as of 02/04/2025) Immunizations Name Administration Dates Next Due COVID-19 [...] encounter Miscellaneous Notes * Telephone Encounter - Jayne Spence PHARM Tech - 02/04/2025 10:19 AM EDT Pt's calling in to reschedule appointment. Would like to keep appointment for current day () but change providers. Transferred caller to scheduling for assistance. Thank you, Jayne Spence Extrusion Die Coordinator [facility] 02/04/2025,10:20 AM documented in this encounter Plan of Treatment Upcoming Encounters Date Type Department Care Team (Late st Contact Info) Description 02/19/2025 10:00 AM EDT Office Visit General Internal Medicine [facility] [address] [place] [address] Beverley Vasquez MD 200 [facility] [place] [address] 03/18/2025 8:30 AM EDT Office Visit Cardiology, [facility] [address] [place] [phone] Cole Rbeolledo PA-C [address] [place] [address] 04/01/2025 8:30 AM EDT Office Visit Otolaryngology [facility] [address] [place] [address] Floyd Strauss PA-C [address] [place] [address] 04/15/2025 9:30 AM EDT Imaging Vascular Lab, [facility] II 2nd Floor, [place] [address] [place] [phone] 04/21/2025 11:00 AM EDT Office Visit Urology [facility] [address] [place] [place] [address] Debbie Moore PA-C [address] [place] [address] 10/05/2025 8:45 AM EST [facility] [address] [facility] [place] [address] Guy Jarvis MD 200 [facility] [place] [address] Health Maintenance Due Date Last Done Comments [...] Agen t (per Health Care Power of Commercial Announcer document) Care Teams Clothes Drier Repairer Relationship Specialty Start Date End Date Andree Pearson MD 200 [facility] [place] [address] PCP - General Internal Medicine 04/25/23 documented as of this encounter
--- OUTSIDE RECORDS SUMMARY | 2025-02-10 23:41 | External Medical Summary | Summary of Care ---
Author Name Unknown Organization [facility] Address [address] [place] [address] Phone [phone] Care Team Providers Care Hoister Name Role Phone Andree Pearson MD Primary Care Provider [phone] Reason for Visit * Reason Onset Date Comments Scheduling 02/04/2025 Encounter Details Date Type Department Care Team (Late st Contact Info) Description 02/04/2025 Telephone General Internal Medicine [facility] [address] [facility] [place] [address] Andree Pearson MD [address] [place] [address] Scheduling Allergies No known active allergiesdocumented as [...] Tablet Delayed ReleaseIndicati ons:Coronary artery disease involving rampart coronary artery of rampart heart without angina pectoris Take 1 Tablet [...] post cardioversion Coronary artery disease invo lving rampart coronary artery of rampart heart without angina pectoris 04/25/2023 History of [...] scheduling for assistance. Thank you, Jayne Spence Sweet Goods Machine Operator I [facility] 02/04/2025,10:20 AM documented in this encounter Plan of Treatment Upcoming Encounters Date Type Department Care Team (Late st Contact Info) Description 02/19/2025 10:20 AM EDT Office Visit General Internal Medicine [facility] [place] [address] [facility] [place], [place] [address] Andree Pearson MD [address] [place] [address] 03/18/2025 8:30 AM EDT Office Visit Cardiology, [facility] [address] [place] [address] Cole Rebolledo PA-C [address] [place] [address] 04/01/2025 8:30 AM EDT Office Visit Otolaryngology [facility] [address] [place] [address] Floyd Strauss PA-C [address] [place] [address] 04/15/2025 9:30 AM EDT Imaging Vascular Lab, [facility] II 2nd Floor, [place] [address] [place] [id number] 04/21/2025 11:00 AM EDT Office Visit Urology [facility] [address] [place] [address] [place] [address] Debbie Moore PA-C [address] [place] [address] 10/05/2025 8:45 AM EST Office Visit [facility]ology [facility] [address] [place] [address] Guy Jarvis MD [address] [place] [address] Health Maintenance Due Date Last Done Comments [...] Agen t (per Health Care Power of Veneer Clipper Helper document) Care Teams Hoister Relationship Specialty Start Date End Date Andree Pearson MD [address] [facility] [place] [address] PCP - General Internal Medicine 04/25/23 documented as of this encounter
--- OUTSIDE RECORDS SUMMARY | 2025-02-10 23:42 | External Medical Summary ---
Author Name Unknown Address Unknown Organization K01:[facility] - [address] [place] [address] Laboratory Report Ordering Provider Test Date Status KHANHDIMAS 02/02/2025 09:42:09 Final Observation Date Value Abnormality Reference (Units) Status PARAPROTEIN NORMAL/ABNORMAL 02/02/2025 09:42:09 Normal Normal Final Protein, Urine 02/02/2025 09:42:09 43 (mg/dL) Final Immunofixation for Urine Narrative 02/02/2025 09:42:09 No monoclonal free light chains present (B[place] protein), in a background of glomerular proteinuria. Final Performing Location [facility] - [address] [place] [address]
[2025-02-11 06:42] LABS: Basophils # (auto) 0.07 K/uL (0.00-0.20); Basophils % (auto) 0.6 %; Eosinophils # (auto) 0.17 K/uL (0.00-0.50); Eosinophils % (auto) 1.3 %; Hematocrit (blood only) 37.6 % (42.0-52.0); Hemoglobin 12.5 g/dl (14.0-18.0); Immature Granulocytes # (auto) 0.18 K/uL (0.01-0.20); Immature Granulocytes % (auto) 1.4 %; Lymphocytes # (auto) 1.69 K/uL (1.20-3.40); Lymphocytes % (auto) 13.4 %; Mean Corpuscular Hemoglobin 28.9 pg (25.0-34.0); Mean Corpuscular Hgb Conc 33.2 g/dL (32.0-36.0); Mean Platelet Volume 9.6 fL (9.4-12.4); Monocytes # (auto) 1.33 K/uL (0.11-0.59); Monocytes % (auto) 10.5 %; Neutrophils % (auto) 72.8 %; Platelet Count 267 K/uL (130-400); RDW Coefficient of Variation 16.4 % (11.5-14.5); RDW Standard Deviation 51.4 fL (36.4-46.3); Red Blood Count 4.32 M/uL (4.70-6.10); White Blood Count 12.64 K/ul (4.8-10.8)
--- NOTE | 2025-02-11 09:28 | Orthopedic Consultation ---
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 Xavier. Reviewed CT scan and there is no evidence for fracture. Hematoma is felt to be likely secondary to chronic anticoagulant use in the setting of traumatic fall onto right buttocks. Will plan to treat this conservatively; no orthopedic surgery is indicated at this time. Patient is permitted to eat and NPO order can be discontinued. Ice can be utilized for pain control and edema purposes. However, being that this injury is greater than 1 week old, heat can also be used to soften the tissues and facilitate mobilization/absorption of hematoma products. PT/OT could perform some retrograde massage to the area as tolerated. No restrictions as far as weightbearing is concerned; he may be WBAT and ROMAT on bilateral lower extremities. If he feels the need, patient may follow-up as an outpatient in the orthopedics clinic in 4 to 6 weeks to check on progress/resolution of the hematoma. Patient is orthopedically stable for discharge, with no restrictions to be noted. Ortho service will sign off at this time. History of Present Illness Reason for Consultation: Right gluteal hematoma Requesting Physician: . Attending Physician: Krzysztof De León MD ED provider note 02/10/2025: Patient presents due to concerns due to concerns for a fall. The patient reportedly had a fall about a week ago where he struck his right buttock. The patient states that he was walking down some stairs to the outside when he fell on the last step striking his right buttock. Patient states that this occurred around 8 AM this morning. He does report that he grazed the side of his head against a wall as he fell. No LOC. The patient states that he was up and ambulatory thereafter but noticed that he seemed to have some stiffening up of his right leg and buttock area which made it difficult for him to ambulate. Given these concerns he presented here for further evaluation and treatment as he was also concerned with the possibility of a hip fracture after discussing this with his . Patient does take Xarelto for known history of A-fib. He does follow with Dr. Collins. Patient denies any chest pains or shortness of breath. Patient presents with the above. IV was established and blood work is obtained. Patient was ordered IV Tylenol 1 g as well as IV morphine 2 mg. Patient did have primary and secondary surveys which were completed. Patient states that he only tracely brushed his head against a wall during the fall but will still obtain a CT in light of the patient's blood thinner use. Patient is no midline neck pain do not believe he requires C-spine precautions or CT of the cervical spine. Light of the patient's significant bruising swelling and pain to the buttock the patient did have CT of the abdomen pelvis completed. Hospitalist H&P 02/10/2025: The patient is an 84-year-old male with a past medical history of DM2, HTN, CAD, LAD stent, A-fibon chronic ACXarelto, HLD, BPH who presented to the ED on with complaints of a fall today. Patient reports he has fallen 3 times in the past month. Complains of right gluteal pain and has some bruising in that area. Reports falling down 1 stair. He does report grazing his head. Denies any loss of consciousness. He does report that his falls tend to happen at 5 AM when he first wakes up. He reports he is dizzy when he sits up in the bed. Denies any recent changes to his medications. Reports having issues with orthostasis in the past. Denies any focal weakness. Denies any recent illness. Denies any chest pain/nausea/vomiting/diarrhea/abdominal pain On arrival to the ED, labs remarkable for WBC 13, glucose 130, total bili 1.[address] negative A/P CT shows: 1. Several right gluteal intramuscular hematomas which measure up to 11 x 5.6 cm. The largest hematoma contains a small focus of active extravasation. 2. No evidence for traumatic injury to the solid abdominal viscera. 3. No acute fractures. The patient's hemoglobin is stable. He is hemodynamically stable. The patient will be admitted for for recurrent falls, PT/OT and Ortho consult Right gluteal hematomas Head CT negative, A/P CT showed several right gluteal [id number] x 5.6 cm, with largest hematomasmall focus of active extravasation Discussed with Ortho, recommended 6 inch Wagner bandage and ice, serial H/H, hold aspirin/Xarelto Patient remains hemodynamically stable, hemoglobin is within normal limits Patient reports some dizziness that he feels may be contributing to the falls, check orthostatic BPs, consider cardiology consult 84-year-old male with history of fall approximately 1 week ago while navigating down some stairs, sustaining a fall and landing onto the right buttocks, which resulted in a traumatic hematoma. This hematoma progressed to involve a quite large area, which did concern the patient, thus his presentation to the ED yesterday. Patient does admit to being on chronic anticoagulation with Xarelto 20 mg daily. [facility] orthopedics was consulted for further management of the right gluteal hematoma. Allergies Allergy/AdvReac Type Severity Reaction Status Date / Time No Known Allergies Allergy Verified 02/10/25 17:54 Home Medications Medication Instructions Recorded Confirmed Type aspirin 81 mg tablet,delayed 81 mg PO QAM 06/27/23 02/10/25 History release cyanocobalamin (vitamin B-12) 1,000 mcg PO QAM 06/27/23 02/10/25 History 1,000 mcg tablet (Vitamin B-12) lutein 20 mg tablet 20 mg PO QAM 06/27/23 02/10/25 History rivaroxaban 20 mg tablet (Xarelto) 20 mg PO HS #30 tabs 06/29/23 02/10/25 Rx rosuvastatin 10 mg tablet 10 mg PO QAM #30 tabs 06/29/23 02/10/25 Rx amiodarone 200 mg tablet 100 mg PO QAM 04/01/24 02/10/25 History meclizine 12.5 mg tablet 12.5 mg PO TID PRN Dizziness 04/01/24 02/10/25 History metformin 500 mg tablet See Rx Instructions .Route .COMPLEX 04/14/24 02/10/25 History losartan 50 mg tablet 50 mg PO QAM 02/10/25 02/10/25 History rjqxfxem-ml-fnucs 300 mcg-K 60 1 tab PO QAM 02/10/25 02/10/25 History mcg-lycop 600 mcg-lutein 300 mcg tablet (Centrum Silver Men) Past Med/Surg History Problem List (Updated 02/11/25 @ 09:24 by Justice Ross PA-C) Status post fall Hematoma of right buttock Open wound of left knee Septic arthritis (Acute) Infection of left knee Traumatic hematoma of left knee (Acute) Traumatic wound (Acute) Suture check Infection of left elbow Orthostatic hypotension 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 Syncope Hematoma of left knee region Pain and swelling of left knee (Acute) Acute pain of left knee (Acute) Fracture of nasal bone (Acute) Face lacerations (Acute) Abrasion of face (Acute) Fall from standing (Acute) Encounter for pre-operative examination No pertinent past surgical history Atrial fibrillation with rapid ventricular response (Acute) ASCVD (arteriosclerotic cardiovascular disease) Edema, peripheral (Acute) Medical History CAD (coronary artery disease) 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 PAF (paroxysmal atrial fibrillation) Hypertension goal BP (blood pressure) < 130/80 Dyslipidemia, goal LDL below 70 DMII (diabetes mellitus, type 2) 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 Acute duodenitis Diabetes Hypertension High cholesterol Social History Smoking Status: Former smoker Tobacco Type: Cigarettes Smoking End Date: at 41 years old; Second Hand Exposure: No; Hx Alcohol Use: Yes Alcohol type: beer Hx Substance Use: No Preferred Language: Wolof Communication Ability: Effective Furniture Manager Required: No Beliefs That Will Affect Care: None Current Living Situation: Spouse Current Living Situation Comment: home with Other Information That Helps Us Care for You: No Feels Safe at Home: Yes Safety Concerns: Feels Safe At This Time Assistive Devices: Cane and Walker Review of Systems All systems reviewed & are unremarkable except as noted in HPI & below. Physical Exam GENERAL: WN/WD, AA&Ox3, NAD. HEAD/FACE: Normocephalic and atraumatic. RESPIRATORY: Patient with unlabored breathing. No signs of respiratory distress. SKIN: Ashley, warm and dry. Diffuse ecchymosis noted to right buttocks and upper posterior thigh. MS/EXTREMITY: Moving extremities appropriately. Normal strength in bilateral lower extremities. No palpable defects noted. No right hip pain with passive ROM. RLE NVI distally. NEURO: Alert and appears oriented. Speech is fluent. PSYCH: Alert, pleasant, affect is calm. Musculoskeletal Hip: + ecchymosis (Posterior to buttocks and upper thigh); ALICIA test negative, FADIR test negative and log roll test negative Results & Data Results & Data Laboratory Results . Diagnostic Findings . Abdomen/Pelvis CT 02/10/25 14:19 CT SCAN OF THE ABDOMEN AND PELVIS WITH IV CONTRAST CLINICAL HISTORY: Fall. COMPARISON STUDY: KUB May 25, 2023. TECHNIQUE: Following the IV administration of 90 cc of Optiray 320, CT scan of the abdomen and pelvis is performed from the lung bases to the proximal femora. Images are reviewed in the axial, sagittal, and coronal planes. IV contrast was administered without complication. A dose lowering technique was utilized adhering to the principles of ALARA. CT DOSE: 2139.74 mGy.cm FINDINGS: Visualized lung bases are unremarkable. No pneumatosis, free air or portal gas is present. There is no biliary ductal dilatation status post cholecystectomy. There are no hepatic lesions. The spleen, adrenal glands and pancreas are unremarkable. There is a diverticulum of the second portion of the duodenum. Water attenuation bilateral renal lesions represent cysts. Several subcentimeter renal lesions are too small to characterize. A 5 mm right renal calculus is present. No ureteral calculi. There is no evidence for a bowel obstruction. There is colonic diverticulosis without evidence for acute diverticulitis. No abdominal or pelvic lymphadenopathy is present. Severe right hip osteoarthritis is incidentally noted. There are no acute fractures within the lumbar spine, pelvis or hips. Several intramuscular hematomas within the right gluteal musculature are noted. The largest on image 380 measures 11 x 5.6 cm and contains a small focus of active extravasation. No additional foci of active extravasation are present. There is adjacent stranding which extends into the right thigh. There is also a small amount of hemorrhage within the right piriformis muscle. IMPRESSION: 1. Several right gluteal intramuscular hematomas which measure up to 11 x 5.6 cm. The largest hematoma contains a small focus of active extravasation. 2. No evidence for traumatic injury to the solid abdominal viscera. 3. No acute fractures. ACT 112: Negative or not required by law. Electronically signed by: Jefferson Baires M.D. 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
[2025-02-11] MEDS: AMIODARONE 200 MG TAB PO SCH (09:41)
[2025-02-11] MEDS: LOSARTAN POTASSIUM 50 MG TAB PO SCH (09:42)
[2025-02-11] MEDS: CYANOCOBALAMIN (B-12) 500 MCG TABLET PO SCH (09:42)
[2025-02-11] MEDS: ROSUVASTATIN CALCIUM 10 MG TAB PO SCH (09:42)
[2025-02-11 10:09] LABS: Albumin Level 3.3 gm/dl (3.4-5.0); Bilirubin,Total 2.1 mg/dl (0.2-1.0); Calcium 8.2 mg/dl (8.6-10.3); Magnesium 1.6 mg/dl (1.7-2.4); Potassium 3.9 mmol/L (3.5-5.1)
[2025-02-11 10:15] LABS: Albumin Globulin Ratio 1.6 (0.9-2); Globulin 2.1 gm/dl (2.5-4.0); Total Protein 5.4 gm/dl (6.0-8.3)
--- NOTE | 2025-02-11 10:25 | Electrocardiogram Report ---
Test Reason : Blood Pressure : */* mmHG Vent. Rate : 54 BPM Atrial Rate : 54 BPM P-R Int : 166 ms QRS Dur : 78 ms QT Int : 460 ms P-R-T Axes : 46 -4 67 degrees QTcB Int : 436 ms Sinus bradycardia Otherwise normal ECG When compared with ECG of 02-Apr-2024 05:54, Premature supraventricular complexes are no longer Present Confirmed by Kunal Hester ([id number]) on 02/11/2025 10:24:35 AM Referred By: REFERRED SELF Confirmed By: Kunal Hester
[2025-02-11] MEDS: MAGNESIUM SULFATE / D5W 1 GM/100 ML BAG IV ONE (16:13)
--- NOTE | 2025-02-11 16:43 | Hospitalist Progress Note ---
Date of Service February 11, 2025 Assessment & Plan (1) CAD (coronary artery disease): (2) PAF (paroxysmal atrial fibrillation): (3) Hypertension goal BP (blood pressure) < 130/80: (4) Dyslipidemia, goal LDL below 70: (5) DMII (diabetes mellitus, type 2): (6) Diabetes: (7) High cholesterol: (8) Hypertension: Plan Patient is an 84 yr male who presented to the ED on with complaints of right gluteal pain s/p mechanical fall Mechanical fall Right gluteal hematomas Ambulatory dysfunction Head CT negative, A/P CT showed several right gluteal [id number] x 5.6 cm, with largest hematomasmall focus of active extravasation -- Aspirin, Xarelto on hold -Monitor H&H and transfuse as needed -Appreciate orthopedics input Conservative management as per Ortho Fall precautions PT OT as able Needs follow-up with orthopedics in 4 to 6 weeks on discharge Will consider repeat imaging if significant drop in hemoglobin Will likely need rehab placement Orthostatic hypotension Blood pressure variable Consider to decrease losartan to 25 mg daily if needed added Teds Leukocytosis Likely reactive Monitor for now Hypomagnesemia Replace and monitor Other chronic conditions Hx AF/HTN/HLD/CAD Continue amiodarone, hold Xarelto/aspirin Continue losartan for now Hx prediabetes: Hold metformin, last A1c 6.3 Continue insulin per protocol Monitor blood glucose levels DVT Px: Teds/SCDs Code Status Full code Admission and Anticipated Discharge Date Admission Date: February 11, 2025 Subjective Patient is seen and examined at bedside States having mild right hip pain but otherwise feels well Also had some ambulatory issues when he tried to go to bathroom this morning Discussed with patient's at bedside Denies any headache, dizziness, chest pain, dyspnea, nausea, vomiting, abdominal pain Review of Systems Review of Systems: All systems reviewed & are unremarkable except as noted in Subjective Physical Exam Physical Exam: Physical Exam: Vitals signs as noted above General Appearance:Obese, no apparent distress Head: normocephalic, Atraumatic Eyes: normal inspection, EOMI Neck: supple, Trachea midline Respiratory/Chest: Normal breath sounds, CTA, No accessory muscle use Cardiovascular: S1, S2, No murmur Abdomen/GI:Soft, Non tender, Bowel sounds present Extremities/Musculoskeletal:normal inspection, Trace edema , R hip Hematoma, echymosis Neurologic/Psych:AAOX3, grossly no focal neurological deficits Skin: normal color, warm Results & Data Results & Data Vital Signs (Past 12 Hours) Vital Signs Temp Pulse Pulse Resp BP Pulse Ox O2 Del Method 02/11/25 16:00 83 02/11/25 15:16 36.4 C L 79 17 113/70 96 Room Air 02/11/25 11:31 36.5 C 67 20 130/80 Room Air 02/11/25 08:00 65 02/11/25 07:47 36.5 C 77 18 176/83 H 97 Room Air Laboratory Results Short CBC 02/10/25 02/11/25 Range/Units 22:36 06:05 WBC 12.64 H (4.8-10.8) K/ul Hgb 12.7 L 12.5 L (14.0-18.0) g/dl Hct 37.7 L 37.6 L (42.0-52.0) % Plt Count 267 (130-400) K/uL BMP 02/11/25 06:05 Sodium 140 Potassium 3.9 Chloride 105 Carbon Dioxide 25 BUN 17 Creatinine 0.81 Glucose 122 H Calcium 8.2 L Liver Function 02/11/25 Range/Units 06:05 Total Bilirubin 2.1 H (0.2-1.0) mg/dl AST 36 (13-39) U/L ALT 31 (7-52) U/L Alkaline Phosphatase 86 (34-104) U/L Albumin 3.3 L (3.4-5.0) gm/dl
[2025-02-11] MEDS: MAGNESIUM CHLORIDE W/CALCIUM 64MG DELAYED REL TAB PO SCH (20:39)
[2025-02-12 06:13] LABS: Calcium 8.2 mg/dl (8.6-10.3); Magnesium 1.9 mg/dl (1.7-2.4); Potassium 3.8 mmol/L (3.5-5.1)
[2025-02-12 06:18] LABS: BUN Creatinine Ratio 22.5 (10-20); Creatinine Clr Calc Pharmacy 100.4 ml/min
[2025-02-12 06:58] LABS: Hematocrit (blood only) 34.9 % (42.0-52.0); Hemoglobin 11.9 g/dl (14.0-18.0); Mean Corpuscular Hemoglobin 29.8 pg (25.0-34.0); Mean Corpuscular Hgb Conc 34.1 g/dL (32.0-36.0); Mean Corpuscular Volume 87.5 fL (80.0-100.0); Mean Platelet Volume 9.7 fL (9.4-12.4); Platelet Count 240 K/uL (130-400); RDW Coefficient of Variation 16.5 % (11.5-14.5); RDW Standard Deviation 52.2 fL (36.4-46.3); Red Blood Count 3.99 M/uL (4.70-6.10); White Blood Count 10.84 K/ul (4.8-10.8)
--- NOTE | 2025-02-12 15:53 | Hospitalist Progress Note ---
Date of Service February 12, 2025 Assessment & Plan (1) CAD (coronary artery disease): (2) PAF (paroxysmal atrial fibrillation): (3) Hypertension goal BP (blood pressure) < 130/80: (4) Dyslipidemia, goal LDL below 70: (5) DMII (diabetes mellitus, type 2): (6) Diabetes: (7) High cholesterol: (8) Hypertension: Plan per Dr. De León's notes with addendum: Patient is an 84 yr male who presented to the ED on with complaints of right gluteal pain s/p mechanical fall Mechanical fall Right gluteal hematomas Ambulatory dysfunction Head CT negative, A/P CT showed several right gluteal [id number] x 5.6 cm, with largest hematomasmall focus of active extravasation -- Aspirin, Xarelto on hold -Monitor H&H and transfuse as needed -Appreciate orthopedics input Conservative management as per Ortho Fall precautions PT OT as able Needs follow-up with orthopedics in 4 to 6 weeks on discharge Will consider repeat imaging if significant drop in hemoglobin Will likely need rehab placement 02/12 hemoglobin decreased from 12.5, to 11.9 Symptomatically feeling better, less pain on the buttock area Repeat hemoglobin in the afternoon If continues to decrease, will obtain repeat CT aspirin, Xarelto on hold PT OT evaluation in progress Patient needs 3 days of inpatient stay before being accepted to acute rehab Orthostatic hypotension Blood pressure variable Consider to decrease losartan to 25 mg daily if needed added Teds -- BP stable overall today Check orthostatic vitals daily Leukocytosis Likely reactive Improving Hypomagnesemia resolved Other chronic conditions Hx AF/HTN/HLD/CAD Continue amiodarone, hold Xarelto/aspirin Continue losartan for now Hx prediabetes: Hold metformin, last A1c 6.3 Continue insulin per protocol Monitor blood glucose levels DVT Px: Teds/SCDs Code Status Full code disposition Transition to acute rehab Needs 3 inpatient days before being approved to go to rehab Admission and Anticipated Discharge Date Admission Date: February 11, 2025 Subjective follow-up for Right buttock hematoma, status post fall, etc. Seen resting in bed, comfortable, not in distress In good spirits, very pleasant States he feels better today overall States pain over the right buttock area has improved No other pain in his body No shortness of breath, chest pain, palpitations, weakness Sat up in the chair for breakfast today, no dizziness or lightheadedness No other new symptoms Review of Systems Review of Systems: all noted and negative except for above Physical Exam Physical Exam: General- oriented x 3, not in distress, speaks in sentences with no effort or accessory muscle use Eyes- anicteric Neck- no JVD Lungs- clear breath sounds bilaterally, no rales/wheezes Heart- normal rate, regular rhythm; no murmurs Abdomen- normal bowel sounds, nondistended, soft, nontender Extremities- no pretibial edema, no calf tenderness right buttock: Positive large area of hematoma extending to the posterior thigh, no warmth/tenderness Neuro- alert, oriented x 3; no gross focal neurologic deficits Skin- warm & dry Results & Data Results & Data Vital Signs (Past 12 Hours) Vital Signs Temp Pulse Pulse Resp BP Pulse Ox O2 Del Method 02/12/25 15:11 36.4 C L 73 20 131/74 98 Room Air 02/12/25 15:06 80 02/12/25 11:20 36.7 C 68 20 147/73 H 97 Room Air 02/12/25 09:52 Room Air 02/12/25 07:41 36.4 C L 69 18 168/72 H 98 Room Air 02/12/25 07:07 70 all noted and reviewed including below
[2025-02-12 16:51] LABS: Hemoglobin 12.6 g/dl (14.0-18.0)
[2025-02-13 06:25] LABS: Hematocrit (blood only) 36.9 % (42.0-52.0); Hemoglobin 12.2 g/dl (14.0-18.0); Mean Corpuscular Hemoglobin 29.3 pg (25.0-34.0); Mean Corpuscular Hgb Conc 33.1 g/dL (32.0-36.0); Mean Corpuscular Volume 88.7 fL (80.0-100.0); Mean Platelet Volume 9.8 fL (9.4-12.4); Platelet Count 273 K/uL (130-400); RDW Coefficient of Variation 16.2 % (11.5-14.5); RDW Standard Deviation 52.5 fL (36.4-46.3); Red Blood Count 4.16 M/uL (4.70-6.10); White Blood Count 11.39 K/ul (4.8-10.8)
[2025-02-13 06:44] LABS: Calcium 8.3 mg/dl (8.6-10.3); Potassium 3.8 mmol/L (3.5-5.1)
[2025-02-13] MEDS: DOCUSATE SODIUM 100 MG CAP PO SCH (08:06)
--- NOTE | 2025-02-13 15:53 | Hospitalist Progress Note ---
Date of Service February 13, 2025 Assessment & Plan (1) CAD (coronary artery disease): (2) PAF (paroxysmal atrial fibrillation): (3) Hypertension goal BP (blood pressure) < 130/80: (4) Dyslipidemia, goal LDL below 70: (5) DMII (diabetes mellitus, type 2): (6) Diabetes: (7) High cholesterol: (8) Hypertension: Plan Mr. Ware is an 84 yr male who presented to the ED on with complaints of right gluteal pain s/p mechanical fall and found to have hematoma. Patient doing well and pending discharge to rehab in am. Hgb stable at this time. Will resume xarelto in 7 days likely upon dischagre. #Mechanical fall #Right gluteal hematomas #Ambulatory dysfunction Head CT negative, A/P CT showed several right gluteal [id number] x 5.6 cm, with largest hematomasmall focus of active extravasation -- Aspirin, Xarelto on hold -Monitor H&H and transfuse as needed -Appreciate orthopedics input Conservative management as per Ortho, WBAT and ROMAT on bilateral lower extremities Fall precautions PT OT: rehab, d/c tomorrow Needs follow-up with orthopedics in 4 to 6 weeks on discharge #Orthostatic hypotension Blood pressure variable Consider to decrease losartan to 25 mg daily if needed added Teds, encouraged use -- BP stable overall today Check orthostatic vitals daily Blood pressure from 159 lying, to 128 sitting to 141 standing--asymptomatic #Leukocytosis Likely reactive; however chronically ~10 no sign of infection oted #Hypomagnesemia resolved Other chronic conditions Hx AF/HTN/HLD/CAD Continue amiodarone, hold Xarelto/aspirin Continue losartan for now Hx prediabetes: Hold metformin, last A1c 6.3 Continue insulin per protocol Monitor blood glucose levels DVT Px: Teds/SCDs Code Status Full code disposition discharge tomorrow w Admission and Anticipated Discharge Date Admission Date: February 11, 2025 Subjective NAEO, reports getting better each day Denies any new acute concerns, just positional discomfort with the hematoma and some discomfort with ambulation, but less so than day prior Physical Exam Constitutional: WD/WN, vitals as above Respiratory: normal respiratory effort, lungs clear to auscultation Cardiovascular: RRR, no murmur, no edema Gastrointestinal (Abdomen): normal bowel sounds, soft, nontender, no hepatosplenomegaly Musculoskeletal: MACR compression wrap in place on RLE thigh Results & Data Results & Data Vital Signs (Past 12 Hours) Vital Signs Temp Pulse Pulse Pulse Resp BP Pulse Ox 02/13/25 15:10 81 02/13/25 12:19 36.4 C L 64 20 159/80 H 97 02/13/25 09:31 02/13/25 07:46 36.5 C 53 L 14 140/90 96 02/13/25 06:50 70 02/13/25 04:04 36.4 C L 68 18 173/83 H 94 O2 Del Method 02/13/25 15:10 02/13/25 12:19 Room Air 02/13/25 09:31 Room Air 02/13/25 07:46 Room Air 02/13/25 06:50 02/13/25 04:04 Room Air Laboratory Results Short CBC 02/12/25 02/13/25 Range/Units 16:39 05:50 WBC 11.39 H (4.8-10.8) K/ul Hgb 12.6 L 12.2 L (14.0-18.0) g/dl Hct 38.0 L 36.9 L (42.0-52.0) % Plt Count 273 (130-400) K/uL BMP 02/13/25 05:50 Sodium 141 Potassium 3.8 Chloride 106 Carbon Dioxide 31 BUN 17 Creatinine 0.81 Glucose 131 H Calcium 8.3 L Medications Administered Home Medications Medication Instructions Recorded Confirmed Last Taken aspirin 81 mg tablet,delayed 81 mg PO QAM 06/27/23 02/10/25 02/10/25 release cyanocobalamin (vitamin B-12) 1,000 mcg PO QAM 06/27/23 02/10/25 02/10/25 1,000 mcg tablet (Vitamin B-12) lutein 20 mg tablet 20 mg PO QAM 06/27/23 02/10/25 02/10/25 rivaroxaban 20 mg tablet (Xarelto) 20 mg PO HS #30 tabs 06/29/23 02/10/25 02/09/25 rosuvastatin 10 mg tablet 10 mg PO QAM #30 tabs 06/29/23 02/10/25 02/10/25 amiodarone 200 mg tablet 100 mg PO QAM 0602/10/25 02/10/25 meclizine 12.5 mg tablet 12.5 mg PO TID PRN Dizziness 04/01/24 02/10/25 Unknown metformin 500 mg tablet See Rx Instructions .Route .COMPLEX 04/14/24 02/10/25 02/10/25 AM DOSE 500MG losartan 50 mg tablet 50 mg PO QAM 02/10/25 02/10/25 02/10/25 [id number] 300 mcg-K 60 1 tab PO QAM 02/10/25 02/10/25 02/10/25 mcg-lycop 600 mcg-lutein 300 mcg tablet (Centrum Silver Men) Active Medications Generic Name Dose Route Start Last Admin Trade Name Freq PRN Reason Stop Dose Admin Amiodarone HCl 100 mg 02/11/25 09:00 02/13/25 07:49 Amiodarone 200 Mg Tab PO 03/13/25 08:59 100 mg QAM PENNY Administration Cyanocobalamin 1,000 mcg 02/11/25 09:00 02/13/25 07:48 Cyanocobalamin (B-12) 500 Mcg Tablet PO 03/13/25 08:59 1,000 mcg DAILY PENNY Administration Docusate Sodium 100 mg 02/13/25 09:00 02/13/25 08:06 Docusate Sodium 100 Mg Cap PO 03/15/25 08:59 100 mg BID PENNY Administration Insulin Aspart 0 units 02/10/25 21:00 02/13/25 12:53 Insulin Aspart Per Unit Charge SC 03/12/25 20:59 9 units ACHS PENNY Administration Losartan Potassium 50 mg 02/11/25 09:00 02/13/25 07:48 Losartan Potassium 50 Mg Tab PO 03/13/25 08:59 50 mg DAILY PENNY Administration Magnesium Chloride 64 mg 02/11/25 21:00 02/13/25 07:48 Magnesium Chloride W/Calcium 64mg Delayed Rel Tab PO 03/13/25 20:59 64 mg BID PENNY Administration Rosuvastatin Calcium 10 mg 02/11/25 09:00 02/13/25 07:48 Rosuvastatin Calcium 10 Mg Tab PO 03/13/25 08:59 10 mg QAM PENNY Administration
[2025-02-14 06:06] LABS: Hematocrit (blood only) 36.2 % (42.0-52.0); Hemoglobin 12.2 g/dl (14.0-18.0); Mean Corpuscular Hemoglobin 29.8 pg (25.0-34.0); Mean Corpuscular Hgb Conc 33.7 g/dL (32.0-36.0); Mean Corpuscular Volume 88.5 fL (80.0-100.0); Mean Platelet Volume 9.7 fL (9.4-12.4); Platelet Count 271 K/uL (130-400); RDW Coefficient of Variation 16.6 % (11.5-14.5); RDW Standard Deviation 53.7 fL (36.4-46.3); Red Blood Count 4.09 M/uL (4.70-6.10); White Blood Count 11.53 K/ul (4.8-10.8)
--- NOTE | 2025-02-14 07:31 | Discharge Summary ---
Discharge Summary Date of Service February 14, 2025 Principal Dx & Hospital Course #1 = Principal Diagnosis (1) CAD (coronary artery disease): (2) PAF (paroxysmal atrial fibrillation): (3) Hypertension goal BP (blood pressure) < 130/80: (4) Dyslipidemia, goal LDL below 70: (5) DMII (diabetes mellitus, type 2): (6) Diabetes: (7) High cholesterol: (8) Hypertension: Plan Mr. Ware is an 84 yr male who presented to the ED on with complaints of right gluteal pain s/p mechanical fall and found to have hematoma. Orthopedics evaluated patient who recommended conservative management at this time. Patient reports symptom related to bilateral knee osteoarthritis and right hip arthritis. Patient doing well and pending discharge to rehab in am. Hgb stable at this time. Plan to resume Xarelto on Friday 02/16 given stable hgb and injury sustained over a week ago. #Mechanical fall #Right gluteal hematomas #Ambulatory dysfunction Head CT negative, A/P CT showed several right gluteal [id number] x 5.6 cm, with largest hematomasmall focus of active extravasation -- Aspirin resumed, Xarelto to resume 02/16/2025 Conservative management as per Ortho, WBAT and ROMAT on bilateral lower extremit ies Needs follow-up with orthopedics in 4 to 6 weeks on discharge if not improving #Orthostatic hypotension *resolved Blood pressure variable Consider to decrease losartan to 25 mg daily if needed added Teds, encouraged use -- BP stable overall today Blood pressure from 159 lying, to 128 sitting to 141 standing--asymptomatic #Leukocytosis Likely reactive; however chronically ~10 no sign of infection noted #Hypomagnesemia resolved Other chronic conditions Hx AF/HTN/HLD/CAD Continue amiodarone, hold Xarelto/aspirin Continue losartan for now Notes For Next Care Provider Can consider follow up with Ortho if hematoma fails to improve, progresses Continue discussions of risks v benefits of continue anticoagulation Medication Changes From Visit Hold Xarelto until 02/16 Admission HPI Per Admitting Provider The patient is an 84-year-old male with a past medical history of DM2, HTN, CAD, LAD stent, A-fibon chronic ACXarelto, HLD, BPH who presented to the ED on with complaints of a fall today. Patient reports he has fallen 3 times in the past month. Complains of right gluteal pain and has some bruising in that area. Reports falling down 1 stair. He does report grazing his head. Denies any loss of consciousness. He does report that his falls tend to happen at 5 AM when he first wakes up. He reports he is dizzy when he sits up in the bed. Denies any recent changes to his medications. Reports having issues with orthostasis in the past. Denies any focal weakness. Denies any recent illness. Denies any chest pain/nausea/vomiting/diarrhea/abdominal pain On arrival to the ED, labs remarkable for WBC 13, glucose 130, total bili 1.[address] negative A/P CT shows: 1. Several right gluteal intramuscular hematomas which measure up to 11 x 5.6 cm. The largest hematoma contains a small focus of active extravasation. 2. No evidence for traumatic injury to the solid abdominal viscera. 3. No acute fractures. The patient's hemoglobin is stable. He is hemodynamically stable. The patient will be admitted for for recurrent falls, PT/OT and Ortho consult Admission Exam Per Admitting Provider Constitutional: WD/WN, vitals as above Eyes: PERRL, conjunctivae normal, anicteric sclerae ENMT: external ear and nose normal, oropharynx normal Neck: trachea midline, no thyromegaly Respiratory: normal respiratory effort, lungs clear to auscultation Cardiovascular: RRR, no murmur, no edema Gastrointestinal (Abdomen): normal bowel sounds, soft, nontender, no hepatosplenomegaly Musculoskeletal: no cyanosis or clubbing, extremities motor strength 5/5 (Right gluteal hematoma extending down the right thigh) Skin: no rashes, warm and dry Neurologic: PERRL, EOMI, accommodation nl, no face palsy, no dysarthria Lymphatic: no cervical or axillary lymphadenopathy Discharge Exam Constitutional WD/WN, vitals as above Respiratory normal respiratory effort, lungs clear to auscultation Cardiovascular RRR, no murmur, no edema Gastrointestinal (Abdomen) normal bowel sounds, soft, nontender, no hepatosplenomegaly Updated Medication List Medication Instructions Recorded Confirmed Type aspirin 81 mg tablet,delayed 81 mg PO QAM 06/27/23 02/10/25 History release cyanocobalamin (vitamin B-12) 1,000 mcg PO QAM 06/27/23 02/10/25 History 1,000 mcg tablet (Vitamin B-12) lutein 20 mg tablet 20 mg PO QAM 06/27/23 02/10/25 History rivaroxaban 20 mg tablet (Xarelto) 20 mg PO HS #30 tabs 06/29/23 02/10/25 Rx rosuvastatin 10 mg tablet 10 mg PO QAM #30 tabs 06/29/23 02/10/25 Rx amiodarone 200 mg tablet 100 mg PO QAM 04/01/24 02/10/25 History meclizine 12.5 mg tablet 12.5 mg PO TID PRN Dizziness 04/01/24 02/10/25 History metformin 500 mg tablet See Rx Instructions .Route .COMPLEX 04/14/24 02/10/25 History losartan 50 mg tablet 50 mg PO QAM 02/10/25 02/10/25 History [id number]-ws-[id number] 300 mcg-K 60 1 tab PO QAM 02/10/25 02/10/25 History mcg-lycop 600 mcg-lutein 300 mcg tablet (Centrum Silver Men) Hospital Stay Data Consultations 02/10/25 17:29 ED Decision to Admit Stat 02/10/25 21:55 Consult Orthopedic Surgery Routine Diagnostic Imagining Performed 02/10/25 14:19 CT abd pelvis IV con only Stat 02/10/25 14:20 CT head/brain wo con Stat Pending Results Patient Have Any Pending Studies at Discharge: No Discharge Instructions Given to Patient (Per Discharging Provider) You were admitted for mechanical fall and noted to have large hematoma. Your xarelto and aspirin were held while we monitored your blood levels. Your hemoglobin remained stable. You will continue your aspirin. You will resume Xarelto on Sunday Given your injury is greater than 1 week old, you can use heat to soften the tissues and facilitate mobilization/absorption of hematoma products. There are no restrictions as far as weightbearing is concerned. If you feel the need, you may follow-up as an outpatient in the orthopedics clinic in 4 to 6 weeks to check on progress/resolution of the hematoma. Please resume your Xarelto on Sunday02/16/2025 Total Time Total Time Spent Total Time Spent (In Minutes): 35
[2025-02-14 07:40] VITALS: BP 163/87; RESP 16; TEMP 97.7; O2SAT 96
[2025-02-14 08:53] VITALS: PULSE 53
== END 2025-02-14 09:12 | DRG 605 ==
LOC: 2N 14:03 → ED 14:03 → SUATTDRO 17:43 → 2N 21:23 → SUATTDRO 02-11 15:29